=== PATIENT | female | born 1955 | race African-American/Black ===

== ENCOUNTER 2017-03-13 12:45 | Inpatient (IN) ==
[2017-03-13] MEDS ORDERED: ONDANSETRON 4 MG/2 ML VIAL IV STA (14:04)
[2017-03-13] MEDS ORDERED: methylPREDNISolone SOD SUC 125 MG/2 ML VIAL IV STA (14:04)
[2017-03-13] MEDS ORDERED: FUROSEMIDE 100 MG/10 ML VIAL IV STA (14:04)
--- NOTE | 2017-03-13 14:12 | Emergency Department Note ---
Rhett Gross Brittany, am scribing for, and in the presence of, Washington Hathaway MD 13:24. Rivas Gross Charles R, MD, personally performed the services described in this documentation, ascribed by Darshana Delaney in my presence, and it is both accurate and complete 412 . Arrival - Arrival Chief Complaint: Shortness of Breath Stated Complaint: SHORT WINDED,SWELLING OF LEGSV AND FEET ED Nursing Triage Note: c/o sob onset this am and swelling to bilateral legs onset sunday Mode of Arrival: Ambulatory Limitations: No Limitations Source: Patient, RN Notes Reviewed - History of Present Illness HPI Narrative: Patient is a 61 y/o black female presenting to the ED with c/o shortness of breath which onset this morning. Patient notes that shortness of breath is worsened upon lying flat or being in cool air. She has also had some bilateral lower extremity swelling that onset 2 days ago. Patient denies any prior history of CHF or COPD. Patient has an oxygen saturation of 96% on RA, but is slightly dyspneic while providing history. Patient has no other complaint/pain. PMHx of HTN, NIDDM, Dyslipidemia. Onset (ago): hour(s) Consistency: constant Date of Last Menstrual Period: hyst Allergies/Adverse Reactions: Allergies Allergy/AdvReac Type Severity Reaction Status Date / Time codeine Allergy Unknown/Unable Verified 03/13/17 12:55 to obtain Erythromycin Base Allergy Unknown/Unable Verified 03/13/17 12:55 to obtain mensen Allergy Unknown/Unable Uncoded 03/13/17 12:55 to obtain Home Medications: Home Medications Medication Instructions Recorded Confirmed Type Amitriptyline [Elavil] 25 mg PO BEDTIME 03/13/17 03/13/17 History Aspirin EC Tab 81 mg PO DAILY 03/13/17 03/13/17 History Atorvastatin Calcium 80 mg PO BEDTIME 03/13/17 03/13/17 History Baclofen Tab [Lioresal] 10 mg PO DAILY 03/13/17 03/13/17 History Docusate Sodium 100 mg PO DAILY 03/13/17 03/13/17 History Fosinopril Sodium 20 mg PO DAILY 03/13/17 03/13/17 History Insulin NPH Hum/Reg Insulin Hm 15 unit SUBCUT BEDTIME 03/13/17 03/13/17 History [NovoLIN 70/30] Insulin NPH Hum/Reg Insulin Hm 90 unit SUBCUT QAM 03/13/17 03/13/17 History [NovoLIN 70/30] Loratadine Tab [Claritin Tab] 10 mg PO DAILY 03/13/17 03/13/17 History Metformin HCl 850 mg PO TID 03/13/17 03/13/17 History PARoxetine HCl [Paroxetine HCl] 30 mg PO DAILY 03/13/17 03/13/17 History Pantoprazole Tab [Protonix Tab] 40 mg PO BID 03/13/17 03/13/17 History Ranitidine Tab [Zantac Tab] 150 mg PO DAILY 03/13/17 03/13/17 History Tramadol HCl [Tramadol Tab] 50 mg PO DAILY PRN 03/13/17 03/13/17 History hydroCHLOROthiazide 25 mg PO DAILY 03/13/17 03/13/17 History [Hydrochlorothiazide] Review of System - Review of System 12 point system: reviewed and no additional remarkable complaints except as stated - Review of System Constitutional: Absent: chills, fever Eyes: Absent: vision change Head/Ears/Nose/Throat: Absent: nasal drainage, sore throat Respiratory: Present: respiratory distress Cardiovascular: Absent: chest pain, palpitations Gastrointestinal: Absent: abdominal pain, nausea, vomiting, diarrhea, constipation Genitourinary female: Absent: dysuria, frequency, urgency Musculoskeletal: Absent: arm pain, back pain, leg pain, neck pain Skin: Absent: rash Neurological: Absent: headache Psychiatric: Absent: anxiety, depression Medical,Surgical,& Family Hx - Medical History Cardio: History of: Hypertension Endocrine: History of: Diabetes Mellitus (NIDDM), Dyslipidemia - Social History Smoking Status: Smoker, status unknown Frequency of Alcohol Use: None Type of Drug Use: None Exam Vital Signs: Vital Signs Temperature 98 F 03/13/17 14:46 Pulse Rate 81 03/13/17 15:23 Respiratory Rate 18 03/13/17 15:23 Blood Pressure 140/57 03/13/17 14:46 O2 Sat by Pulse Oximetry 100 03/13/17 15:23 - General General appearance: alert, in no apparent distress - Head Head exam: Present: atraumatic, normocephalic, normal inspection - Eye Eye exam: Present: normal appearance, PERRL, EOMI - ENT ENT exam: Present: normal exam, normal oropharynx - Neck Neck exam: Present: full ROM, trachea midline. Absent: normal inspection ( increased JVD) - Chest Chest inspection: Present: normal inspection, symmetric chest wall rise - Respiratory Respiratory exam: Present: rales (bilateral rales). Absent: normal lung sounds bilaterally - Cardiovascular Cardiovascular exam: Present: regular rate, normal rhythm, normal heart sounds - Abdominal Exam Abdominal exam: Present: soft, normal bowel sounds. Absent: tenderness - Extremities Exam Extremities exam: Present: pedal edema (+2 pitting edema to bilateral lower extremities) - Back Exam Back exam: Present: normal inspection - Neurological Exam Neurological exam: Present: alert, oriented X3, CN II-XII intact. Absent: motor sensory deficit - Psychiatric Psychiatric exam: Present: normal affect, normal mood - Skin Skin exam: Present: warm, dry Course - Consultations Consultation #1: Hospitalist will admit patient Time: 15:45 Results - Labs CBC & BMP: 03/13/17 14:26 03/13/17 14:26 Lab Results: I have reviewed the patients labs Labs: Laboratory Tests 03/13/17 14:26 WBC 5.2 RBC 3.26 L Hgb 10.4 L Hct 30.0 L MCV 92.0 MCH 32 MCHC 34.7 RDW 13.2 Plt Count 307 MPV 9.1 L Neut % (Auto) 69.8 Lymph % (Auto) 17.0 L Coke % (Auto) 10.3 Eos % (Auto) 1.7 Baso % (Auto) 0.6 Neut # (Auto) 3.7 Lymph # (Auto) 0.9 L Coke # (Auto) 0.5 Eos # (Auto) 0.1 Baso # (Auto) 0.0 Immature Gran % 0.6 Nucleated RBC % 0.0 Immature Gran # 0.03 Nucleated RBCs # 0.00 Laboratory Tests 03/13/17 03/13/17 14:26 14:26 INR 1.1 PT Patient/Control Mix 11.4 D-Dimer, Quantitative 0.7 Sodium 127 L Potassium 4.4 Chloride 93 L Carbon Dioxide 25 Anion Gap 13.4 BUN 18 Creatinine 1.40 H GFR Calculation 47 BUN/Creatinine Ratio 12.00 Glucose 161 H Calculated Osmolality 259.2 L Calcium 9.2 Magnesium 2.6 H Total Bilirubin 0.40 AST 45 H ALT 80 H Alkaline Phosphatase 114 Troponin I 0.027 Total Protein 7.3 Albumin 3.7 Globulin 3.6 H Albumin/Globulin Ratio 1.0 L Laboratory Tests 03/13/17 14:26 B-Natriuretic Peptide 1230 H - Diagnostic Findings Procedure: Chest x-ray: report reviewed by me (Interval increase in heart size, now enlarged. Possible left breast calcifications. ) Critical Care Time Critical Care Time: Yes (60) Disposition Clinical Impression: Congestive heart failure, Acute exacerbation of chronic obstructive airways disease Case discussed with: patient Disposition: Still a Patient Condition: Stable Time of Disposition: 15:45
[2017-03-13] MEDS ORDERED: ALBUTEROL 2.5 MG/3 ML NEB RESP TX SCH (14:30)
--- NOTE | 2017-03-13 14:32 | XRay Report ---
Portable chest. Indication: Shortness of breath. Comparison: March 24, 2013. The heart is enlarged. It has increased in size since the previous study. The pulmonary vasculature is normal. The lung peterson are free of infiltrate. No pneumothorax or pleural effusion. Linear densities over the left breast. This could be due to material in the superficial tissues of the axilla. However, breast calcifications cannot be excluded. Correlation with mammography recommended. Impression: Interval increase in heart size, now enlarged. Possible left breast calcifications, see above comments. PROCEDURE INTERPRETED AT [facility] DEPARTMENT OF RADIOLOGY Final Report Signed by: Dr. Ashly Mcdermott
[2017-03-13] MEDS ORDERED: ONDANSETRON 4 MG/2 ML VIAL ONE (14:33)
[2017-03-13] MEDS ORDERED: FUROSEMIDE 40 MG/4 ML VIAL ONE (14:33)
[2017-03-13 14:34] LABS: Basophils % 0.6 % (0.0-0.8); Eosinophils # 0.1 10*3/uL (0.0-0.87); Eosinophils % 1.7 % (0.00-10.9); Hemoglobin 10.4 GM/DL (12.0-16.0); Immature Granulocytes % 0.6 %; Immature Granulocytes Absolute 0.03 #; Lymphocytes # 0.9 10*3/uL (1.4-4.0); Mean Corpuscular HGB Conc 34.7 GM/DL (32-36); Mean Corpuscular Hemoglobin 32 PG (27-34); Mean Platelet Volume 9.1 FL (9.6-12.0); Monocytes # 0.5 10*3/uL (0.11-0.8); Monocytes % 10.3 % (1.7-12.7); Neutrophils # 3.7 10*3/uL (1.4-7.4); Neutrophils % 69.8 % (38.7-73.9); Platelet Count 307 T/CUMM (130-400); Red Blood Count 3.26 MC/CUMM (3.8-5.5); Red Cell Distribution Width 13.2 % (9.3-17.3); White Blood Count 5.2 T/CUMM (4-12)
[2017-03-13] MEDS ORDERED: FUROSEMIDE 20 MG/2 ML VIAL ONE (14:34)
[2017-03-13] MEDS ORDERED: methylPREDNISolone SOD SUC 125 MG/2 ML VIAL ONE (14:34)
[2017-03-13 14:46] LABS: D-Dimer 0.7 MG/L FEU; INR 1.1; PT Patient Result 11.4 SECS
[2017-03-13 15:01] LABS: Albumin 3.7 G/DL (3.4-5.0); Bilirubin,Total 0.4 MG/DL (0.2-1.0); Calcium 9.2 MG/DL (8.5-10.1); Magnesium 2.6 MG/DL (1.8-2.4); Osmolality,Calculated 259.2 MOS/KG (273-304); Potassium 4.4 MMOL/L (3.5-5.1); Total Protein 7.3 G/DL (6.4-8.3); Troponin I Only 0.027 NG/ML (0.00-0.045)
[2017-03-13] MEDS ORDERED: GLUCAGON 1 MG VIAL IM PRN (16:26)
[2017-03-13] MEDS ORDERED: DEXTROSE 50% 25 GM/50 ML VIAL IV PRN (16:26)
--- NOTE | 2017-03-13 16:29 | Hospitalist History & Physical ---
Assessment and Plan (1) Anemia Status: Acute Current Visit: Yes (2) Insulin dependent diabetes mellitus Status: Acute Current Visit: Yes (3) History of breast cancer Status: Acute Current Visit: Yes (4) Hypertension Status: Acute Current Visit: Yes (5) Congestive heart failure Status: Acute Assessment and plan: Our plan for this patient is admitting her to our service. Patient be placed on telemetry. Will consult [facility] cardiology. We will going to diurese with IV Lasix. Recheck chemistry in the morning. Check a 2D echo on the patient. Current Visit: Yes History of Present Illness Chief complaint: Shortness of breath and increased lower extremity edema History of present illness: Ms. Shelley is a 61 year old female with past medical history significant for hypertension diabetes includes cholesterol breast cancer who reports increased lower extremity edema that started approximately 2 days ago. She says recently that she has been having a dry hacking cough. She reports symptoms of 2 pillow orthopnea. She does have PND symptoms. She denies any history of prior congestive heart failure. Her O2 saturations are 96% on room air. I discussed her history with her daughter. Her daughter reports that increasingly patient' s been getting short of breath with exertion. The patient's been thinking that it was just because of her increased age for the symptoms. Patient found to be in new onset congestive heart failure I was consulted to admit her through the emergency room. Home Medications Medication Instructions Recorded Confirmed Type Amitriptyline [Elavil] 25 mg PO BEDTIME 03/13/17 03/13/17 History Aspirin EC Tab 81 mg PO DAILY 03/13/17 03/13/17 History Atorvastatin Calcium 80 mg PO BEDTIME 03/13/17 03/13/17 History Baclofen Tab [Lioresal] 10 mg PO DAILY 03/13/17 03/13/17 History Docusate Sodium 100 mg PO DAILY 03/13/17 03/13/17 History Fosinopril Sodium 20 mg PO DAILY 03/13/17 03/13/17 History Insulin NPH Hum/Reg Insulin Hm 15 unit SUBCUT BEDTIME 03/13/17 03/13/17 History [NovoLIN 70/30] Insulin NPH Hum/Reg Insulin Hm 90 unit SUBCUT QAM 03/13/17 03/13/17 History [NovoLIN 70/30] Loratadine Tab [Claritin Tab] 10 mg PO DAILY 03/13/17 03/13/17 History Metformin HCl 850 mg PO TID 03/13/17 03/13/17 History PARoxetine HCl [Paroxetine HCl] 30 mg PO DAILY 03/13/17 03/13/17 History Pantoprazole Tab [Protonix Tab] 40 mg PO BID 03/13/17 03/13/17 History Ranitidine Tab [Zantac Tab] 150 mg PO DAILY 03/13/17 03/13/17 History Tramadol HCl [Tramadol Tab] 50 mg PO DAILY PRN 03/13/17 03/13/17 History hydroCHLOROthiazide 25 mg PO DAILY 03/13/17 03/13/17 History [Hydrochlorothiazide] Allergies Allergy/AdvReac Type Severity Reaction Status Date / Time codeine Allergy Unknown/Unable Verified 03/13/17 12:55 to obtain Erythromycin Base Allergy Unknown/Unable Verified 03/13/17 12:55 to obtain mensen Allergy Unknown/Unable Uncoded 03/13/17 12:55 to obtain Medical,Surgical,& Family Hx - Medical History Cardio: History of: Hypertension Endocrine: History of: Diabetes Mellitus (IDDM), Dyslipidemia - Surgical History HEENT Surgeries: Surgical HX of: Tonsilectomy & Adenoidectomy Reproductive Surgeries: Surgical HX of;: Breast Surgery, Hysterectomy - Family History Family History: Reports;: Family Cancer, Family Diabetes, Family Hypertension - Social History Smoking Status: Current every day smoker Frequency of Alcohol Use: None Type of Drug Use: None 12 point system: reviewed and no additional remarkable complaints except as stated Exam - Constitutional Vitals: Period Temp Pulse Resp BP Sys/Gaitan Pulse Ox Last 24 Hr 98 F-98.3 F 79-89 18-21 139-155/57-75 95-100 - General General appearance: alert, in no apparent distress - Head Head exam: Present: atraumatic, normocephalic, normal inspection - Eye Eye exam: Present: normal appearance, PERRL, EOMI - ENT ENT exam: Present: normal exam, normal oropharynx - Neck Neck exam: Present: full ROM, trachea midline. - Chest Chest inspection: Present: normal inspection, symmetric chest wall rise - Respiratory Respiratory exam: Present: rales appreciated on lung exam - Cardiovascular Cardiovascular exam: Present: regular rate, normal rhythm, normal heart sounds - Abdominal Exam Abdominal exam: Present: soft, normal bowel sounds. - Extremities Exam Extremities exam: Present: pedal edema (+2 pitting edema to bilateral lower extremities) - Back Exam Back exam: Present: normal inspection - Neurological Exam Neurological exam: Present: alert, oriented X3, CN II-XII intact. Absent: motor sensory deficit - Psychiatric Psychiatric exam: Present: normal affect, normal mood - Skin Skin exam: Present: warm, dry Results - Labs CBC & BMP: 03/13/17 14:26 03/13/17 14:26
[2017-03-13] MEDS ORDERED: MAGNESIUM SULF RIDER 4 GM in PREMIX 1 EACH IV PRN (16:42)
[2017-03-13] MEDS ORDERED: ONDANSETRON 4 MG/2 ML VIAL IV PRN (16:42)
[2017-03-13] MEDS ORDERED: traMADol 50 MG TABLET PO PRN (16:42)
[2017-03-13] MEDS ORDERED: MAGNESIUM SULF RIDER 2 GM in PREMIX 1 EACH IV PRN (16:42)
[2017-03-13] MEDS: INSULIN REGULAR 100 UNIT/ML SUBCUT SCH ×2 (16:55→20:25)
[2017-03-13] MEDS: ASPIRIN CHEW 81 MG TABLET PO SCH (16:59)
[2017-03-13] MEDS: INSULIN NPH/REGULAR 70/30 100 UNIT/ML SUBCUT SCH (17:00)
[2017-03-13] MEDS: AMITRIPTYLINE 25 MG TABLET PO SCH (20:25)
[2017-03-13] MEDS: ATORVASTATIN 80 MG TABLET PO SCH (20:25)
[2017-03-13] MEDS: ENOXAPARIN 40 MG/0.4 ML SYRINGE SUBCUT SCH (20:25)
--- NOTE | 2017-03-14 02:57 | EKG Report ---
Stationary ECG Study [facility] ER Test Date: 03/13/2017 12:53:16 PM Pat Name: PERRY HARO Department: Room: 275 Gender: F Emt I/99: : 1955 Requested by: Washington Argueta Order Number: [id number] Reading MD: SRAVAN GUERIN Intervals Rudyard Rate: 87 P: 64 IA: 179 QRS: 31 QRSD: 97 T: 136 QT: 379 QTc: 423 Interpretive Statements SINUS RHYTHM LEFT ATRIAL ENLARGEMENT SEPTAL INFARCT, AGE UNDETERMINED Electronically Signed On 03-14-17 06:46:43 CDT by SRAVAN GUERIN [email or web address]
[2017-03-14 05:57] LABS: Basophils % 0.2 % (0.0-0.8); Hematocrit 26.9 VOL% (35.7-47.0); Hemoglobin 9.3 GM/DL (12.0-16.0); Immature Granulocytes % 0.6 %; Immature Granulocytes Absolute 0.04 #; Lymphocytes # 0.8 10*3/uL (1.4-4.0); Lymphocytes % 12.6 % (21.3-54.2); Mean Corpuscular HGB Conc 34.6 GM/DL (32-36); Mean Corpuscular Hemoglobin 32 PG (27-34); Mean Corpuscular Volume 91.2 FL (87-102); Mean Platelet Volume 9.4 FL (9.6-12.0); Monocytes # 0.5 10*3/uL (0.11-0.8); Monocytes % 7.2 % (1.7-12.7); Neutrophils # 5.1 10*3/uL (1.4-7.4); Neutrophils % 79.4 % (38.7-73.9); Platelet Count 297 T/CUMM (130-400); Red Blood Count 2.95 MC/CUMM (3.8-5.5); Red Cell Distribution Width 13.2 % (9.3-17.3); White Blood Count 6.4 T/CUMM (4-12)
[2017-03-14 06:29] LABS: Osmolality,Calculated 265.9 MOS/KG (273-304); Potassium 5.2 MMOL/L (3.5-5.1)
[2017-03-14 07:23] LABS: Troponin I Only 0.024 NG/ML (0.00-0.045)
--- NOTE | 2017-03-14 09:16 | ECHO Report ---
Palmira Shelley Exam Date: 03/14/2017 08:09 Referring Physician: Technologist: Brandy Duque RDCS Age: 61 Ht (in): 66 Wt (lb): 154 Gender: F Exam Location: [facility] Echo Indications: Anemia, IDDM, Shortness of breath, Orthopnea, hx Breast CA, Essential (primary) hypertension, Heart failure, unspecified, Edema, unspecified BP: 123 / 56 HR: 78 Rhythm: Sinus Technical Quality: IMPRESSIONS The left ventricle is normal in size, with mild concentric hypertrophy. The septum is severely hypokinetic, the remaining segments are moderately hypokinetic. Estimated left ventricular ejection fraction 20%. Grade 3 diastolic dysfunction. The right ventricle is normal in size, with decreased systolic function. Mild right atrial and moderate left atrial enlargement. Mild mitral regurgitation. Aortic valve sclerosis, without stenosis, with trace insufficiency. Mild pulmonary hypertension. Mild pulmonic valve insufficiency. MEASUREMENTS (Male / Female) Normal Values 2D ECHO LV Diastolic Diameter PLAX 5.0 cm 4.2 - 5.9 / 3.9 - 5.3 cm LV Systolic Diameter PLAX 3.7 cm LV Fractional Shortening PLAX 25.2 % IVS Diastolic Thickness 1.3 cm 0.6 - 1.0 / 0.6 - 0.9 cm LVPW Diastolic Thickness 1.3 cm 0.6 - 1.0 / 0.6 - 0.9 cm RV Internal Dim ED PLAX 3.5 cm Aortic Root Diameter 2.9 cm LA Systolic Diameter LX 4.5 cm 3.0 - 4.0 / 2.7 - 3.8 cm DOPPLER TR Peak Velocity 311.0 cm/s TR Peak Gradient 38.7 mmHg FINDINGS Left Ventricle The left ventricle is normal in size, with mild concentric hypertrophy. The septum is severely hypokinetic, the remaining segments are moderately hypokinetic. Estimated left ventricular ejection fraction 20%. Grade 3 diastolic dysfunction. Right Ventricle The right ventricle is normal in size, with decreased systolic function. Right Atrium The right atrium is mildly enlarged. Prominent Chiari network. Left Atrium Moderately increased left atrial size. Mitral Valve Morphologically normal mitral valve. Mild regurgitation. Aortic Valve Aortic valve sclerosis without stenosis. Trace aortic valve regurgitation. Tricuspid Valve Morphologically normal tricuspid valve. Moderate tricuspid valve regurgitation. Tricuspid regurgitation velocities suggest a PAP of 39 mmHg plus right atrial pressure. Pulmonic Valve Morphologically normal pulmonic valve. Mild pulmonary valve regurgitation. Pericardium Normal pericardium without effusion. Aorta Normal ascending aorta dimension. Anmol Luna (Electronically Signed) Final Date: 14 March 2017 09:15
[2017-03-14] MEDS: FAMOTIDINE 20 MG TABLET PO SCH (09:32)
[2017-03-14] MEDS: LORATADINE 10 MG TABLET PO SCH (09:32)
[2017-03-14] MEDS: ASPIRIN CHEW 81 MG TABLET PO SCH (09:32)
[2017-03-14] MEDS: PARoxetine 20 MG TABLET PO SCH (09:32)
[2017-03-14] MEDS: BACLOFEN 10 MG TABLET PO SCH (09:32)
[2017-03-14] MEDS: hydroCHLOROthiazide 25 MG TABLET PO SCH (09:33)
[2017-03-14] MEDS: FUROSEMIDE 40 MG/4 ML VIAL IV SCH ×2 (09:33→17:21)
[2017-03-14] MEDS: INSULIN NPH/REGULAR 70/30 100 UNIT/ML SUBCUT SCH ×2 (09:33→17:25)
[2017-03-14] MEDS: INSULIN REGULAR 100 UNIT/ML SUBCUT SCH ×4 (09:33→21:50)
[2017-03-14] MEDS: FOSINOPRIL 20 MG TABLET PO SCH (09:34)
[2017-03-14] MEDS: DOCUSATE SODIUM 100 MG CAPSULE PO SCH (09:34)
[2017-03-14] MEDS: PANTOPRAZOLE 40 MG TABLET PO SCH (09:35)
--- NOTE | 2017-03-14 09:56 | Cardiology Consult Note ---
Assessment and Plan - Time spent with patient Time spent with patient: Greater than 30 minutes (Due to assessment, plan, and documentation.) Time spent discussing smoking cessation with patient: 3 to 10 minutes (1) Cardiomyopathy Status: Acute Assessment and plan: See plan of care listed below. Current Visit: Yes Qualifiers: Cardiomyopathy type: unspecified Qualified Code(s): I42.9 - Cardiomyopathy , unspecified (2) Congestive heart failure Status: Acute Assessment and plan: See plan of care listed below. Current Visit: Yes Qualifiers: Congestive heart failure type: combined Congestive heart failure chronicity : acute Qualified Code(s): I50.41 - Acute combined systolic (congestive) and diastolic (congestive) heart failure (3) Anemia Status: Chronic Assessment and plan: See plan of care listed below. Current Visit: Yes (4) Hypertension Status: Chronic Assessment and plan: See plan of care listed below. Current Visit: Yes (5) Hyperlipidemia Status: Chronic Assessment and plan: See plan of care listed below. Current Visit: Yes (6) Insulin dependent diabetes mellitus Status: Chronic Assessment and plan: See plan of care listed below. Current Visit: Yes (7) Tobacco use Status: Chronic Assessment and plan: See plan of care listed below. 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 Luna Ms. 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 She has a history of hypertension, diabetes, hyperlipidemia, chronic anemia, breast cancer status post left mastectomy. Risk factors are significant for: Age, hypertension, diabetes, hyperlipidemia, tobacco use, sedentary lifestyle. She reports she has smoked half pack per day is 1977. She tells me that she has quit as of yesterday. She denies any alcohol or recreational drug use. Ms. Shelley presents to the emergency room complaining of shortness of breath, dry hacking cough, and increased bilateral lower extremity edema. She reports that she has been feeling short of breath and having a dry hacking cough for the past week. She tells me that she began having increased lower extremity edema on Sunday. She states prior to last week she has had no shortness of breath but had been easily fatigued over the past few months. She reports she is able to walk to the driveway to the mailbox without exertional chest pain or dyspnea but other times she gets there she is very fatigued. She denies any complaints of chest pain, heaviness, tightness, palpitations, dizziness, lightheadedness, syncope. She reports she has been anemic "off and on" for many years and takes iron supplements. Upon admission she was noted to have an elevated BNP, up to 1482 today. Chest x -ray revealed no pneumothorax or pleural effusion, cardiomegaly. She was given IV Lasix and is much improved today. Her EKG shows sinus rhythm with suggestions of septal infarct. Potassium is 5.2, creatinine 1.3, Hemoglobin A1c 7.4. She is hyponatremic with sodium 129 today. Assessment/Plan: 1. NEW ONSET CARDIOMYOPATHY - Unsure whether ischemic or nonischemic at this time. Echocardiogram done 03/13/2017 revealed mild LVH, severely hypokinetic septum, EF 20%, grade 3 diastolic dysfunction, mild right atrial and moderate left atrial enlargement, mild MR, mild pulmonary hypertension. She will require further ischemic evaluation; however, she does have anemia that we will need to evaluate prior to proceeding with cath. 2. CONGESTIVE HEART FAILURE - NHYA Class II. BNP 1482. She is on IV Lasix 40 mg twice daily, FLY inhibitor. We will start her on low-dose beta-yadira and continue to monitor. Clinically, she is stable at this time. 3. ANEMIA - We will check anemia studies and occult stool. 4. HYPERTENSION - Currently well controlled. We will continue to monitor and adjust accordingly. 5. HYPERLIPIDEMIA - Continue lipid-lowering agent. Check lipid panel in a.m. 6. DIABETES MELLITUS - She has been started on Accu-Cheks before meals and at bedtime with sliding scale insulin. Will hold metformin in anticipation of possible left heart catheterization. 7. TOBACCO USE - Chronic. Patient has smoked 1/2 PPD since 1977. She reports CC: Ankit Mirza, DO - Home Medications and Allergies Home Medications: Home Medications Medication Instructions Recorded Confirmed Type Amitriptyline [Elavil] 25 mg PO BEDTIME 03/13/17 03/13/17 History Aspirin EC Tab 81 mg PO BEDTIME 03/13/17 03/13/17 History Atorvastatin Calcium 80 mg PO BEDTIME 03/13/17 03/13/17 History Baclofen Tab [Lioresal] 10 mg PO DAILY 03/13/17 03/13/17 History Docusate Sodium 100 mg PO DAILY 03/13/17 03/13/17 History Fosinopril Sodium 20 mg PO DAILY 03/13/17 03/13/17 History Insulin NPH Hum/Reg Insulin Hm 15 unit SUBCUT BEDTIME 03/13/17 03/13/17 History [NovoLIN 70/30] Insulin NPH Hum/Reg Insulin Hm 90 unit SUBCUT QAM 03/13/17 03/13/17 History [NovoLIN 70/30] Loratadine Tab [Claritin Tab] 10 mg PO DAILY 03/13/17 03/13/17 History Metformin HCl 850 mg PO TID 03/13/17 03/13/17 History PARoxetine HCl [Paroxetine HCl] 30 mg PO DAILY 03/13/17 03/13/17 History Pantoprazole Tab [Protonix Tab] 40 mg PO BID 03/13/17 03/13/17 History Ranitidine Tab [Zantac Tab] 150 mg PO DAILY 03/13/17 03/13/17 History Tramadol HCl [Tramadol Tab] 50 mg PO DAILY PRN 03/13/17 03/13/17 History hydroCHLOROthiazide 25 mg PO DAILY 03/13/17 03/13/17 History [Hydrochlorothiazide] Allergies/Adverse Reactions: Allergies Allergy/AdvReac Type Severity Reaction Status Date / Time codeine Allergy Unknown/Unable Verified 03/13/17 12:55 to obtain Erythromycin Base Allergy Unknown/Unable Verified 03/13/17 12:55 to obtain mensen Allergy Unknown/Unable Uncoded 03/13/17 12:55 to obtain Review of systems: - Constitutional: Present: fatigue. As per HPI. Absent: anorexia, chills, daytime sleepiness, excessive sweating, fever(s), frequent falls, headache(s), increased appetite, lethargy, malaise, night sweats, stops breathing during sleep, weakness, weight gain, weight loss - EENT Eyes: Present: As per HPI. Absent: blurry vision, diplopia, loss of vision Ears: Present: As per HPI. Absent: decreased hearing, ear discharge, ear pain Nose, mouth and throat: Present: As per HPI. Absent: dysphagia, epistaxis, headache(s), hoarseness, lip swelling, nasal congestion, neck mass, neck pain, sinus pressure, sore throat, throat swelling, tongue swelling, vertigo - Cardiovascular: Present: dyspnea, dyspnea on exertion, edema, mild orthopnea, as per HPI. Absent: chest pain at rest, chest pain with activity, claudication , diaphoresis, radiating jaw, neck or arm pain, lightheadedness, palpitations, PND - Respiratory: Present: dyspnea, dyspnea on exertion, dry hacking cough, as per HPI. Absent: hemoptysis, wheezing, snoring, pain on inspiration - Gastrointestinal: Present: constipation, As per HPI. Absent: abdominal pain, bloating, change in bowel habits, diarrhea, heartburn, hematemesis, hematochezia , loose stools, melena, nausea, vomiting - Genitourinary: Present: As per HPI. Absent: difficulty urinating, dysuria, flank pain, hematuria, nocturia, urinary frequency, urinary incontinence - Musculoskeletal: Present: As per HPI. Absent: arthralgias, back pain, joint swelling, limited range of motion, muscle cramps, muscle weakness, myalgias - Neurological: Present: As per HPI. Absent: abnormal gait, abnormal speech, behavioral changes, confusion, convulsions, disequilibrium, dizziness, focal weakness, frequent falls, headache(s), memory loss, numbness, paresthesias, radicular pain, syncope, tremor(s) - Psychiatric: Present: As per HPI. Absent: anxiety, confusion, depression, panic attacks - Endocrine: Present: fatigue, As per HPI. Absent: cold intolerance, heat intolerance, polydipsia, polyphagia - Hematologic/Lymphatic: Present: As per HPI. Absent: easy bleeding, easy bruising, lymphadenopathy Medical,Surgical,& Family Hx - Medical History Cardio: History of: Hypertension Psychological: History of: Depression HEENT: Comment Only: Eye Problem (tear in right eye) Endocrine: History of: Diabetes Mellitus (IDDM), Diabetes Mellitus (NIDDM), Dyslipidemia, Thyroid Disorder (nodules) Respiratory: History of: Bronchitis Gastrointestinal: History of: GERD Musculoskeletal: History of: Back/Neck Problems, Degenerative Disk Disease, Osteoporosis Hematology: History of: Anemia Reproductive: History of: Breast Cancer (left with benign mass) Other: History of: Cancer - Surgical History Thoracic Surgeries: Patient denies;: Lobectomy HEENT Surgeries: Surgical HX of: Tonsilectomy & Adenoidectomy Abdominal Surgeries: Surgical HX of: Appendectomy Reproductive Surgeries: Surgical HX of;: Breast Surgery, Hysterectomy Patient denies;: Genitourinary Surgery Orthopedic Surgeries: Surgical HX of;: Orthopedic Surgery (left rotator cuff) - Family History Family History: Reports;: Family Cancer (mother, brother), Family Diabetes ( mother,brother,sister), Family Hypertension (mother, brother, father, sister) - Social History Smoking Status: Current every day smoker Frequency of Alcohol Use: None Type of Drug Use: None Marital Status: Lives With:: Spouse Functional capacity: independent ambulation Physical Examination Vital Signs Temp Pulse Resp BP Pulse Ox 98.3 F 89 18 139/60 95 03/13/17 12:55 03/13/17 12:55 03/13/17 12:55 03/13/17 12:55 03/13/17 12:55 Exam: General appearance: Pleasant and cooperative. Overweight, no acute distress. - Head Head exam: Present: normal inspection, normocephalic, atraumatic. Absent: hematoma, laceration - Eye Eye exam: Present: EOMI. Absent: conjunctival injection, nystagmus, periorbital swelling, scleral icterus, laceration to eyelids Pupils: Present: PERRL. Absent: constricted, dilated, fixed, irregular, unequal - ENT ENT exam: Present: normal exam, normal external ear exam - Neck Neck exam: Present: normal inspection. Absent: lymphadenopathy, meningismus, tenderness, thyromegaly - Respiratory Respiratory exam: Present: Scant bibasilar crackles posteriorly, otherwise clear to auscultation bilaterally. Absent: accessory muscle use, chest wall tenderness - Cardiovascular Cardiovascular exam: Present: regular rate and rhythm. Absent: carotid bruit, JVD, rubs, murmur - GI/Abdominal GI/Abdominal exam: Present: normal bowel sounds, soft. Absent: distended, firm , guarding, hernia, mass, tenderness, rebound. - Extremities Exam Extremities exam: Present: normal inspection, normal capillary refill. Upper extremity pulses 2+. Lower extremity pulses 2+. Trace right ankle edema. Absent: calf tenderness -Musculoskeletal Exam Musculoskeletal: Present: No Fluid Collection, No Pain, Normal Range of Motion - Back Exam Back exam: Present: normal inspection. Absent: muscle spasm, vertebral tenderness - Neurological Exam Neurological exam: Present: alert, oriented X3, grossly intact without resting or essential tremor - Psychiatric Psychiatric exam: Present: normal affect, normal mood - Skin Skin exam: Present: normal color, warm, dry, intact. Absent: cyanosis, diaphoretic, rash, urticaria Result/EKG - Labs CBC & BMP: 03/14/17 04:50 03/14/17 04:50 Lab Results: I have reviewed the past 24 hour labs Labs: Laboratory Results - last 24 hr 03/13/17 03/13/17 03/13/17 14:26 14:26 14:26 WBC 5.2 RBC 3.26 L Hgb 10.4 L Hct 30.0 L MCV 92.0 MCH 32 MCHC 34.7 RDW 13.2 Plt Count 307 MPV 9.1 L Neut % (Auto) 69.8 Lymph % (Auto) 17.0 L [place] % (Auto) 10.3 Eos % (Auto) 1.7 Baso % (Auto) 0.6 Neut # (Auto) 3.7 Lymph # (Auto) 0.9 L [place] # (Auto) 0.5 Eos # (Auto) 0.1 Baso # (Auto) 0.0 Immature Gran % 0.6 Nucleated RBC % 0.0 Immature Gran # 0.03 Nucleated RBCs # 0.00 INR 1.1 PT Patient/Control Mix 11.4 D-Dimer, Quantitative 0.7 Sodium 127 L Potassium 4.4 Chloride 93 L Carbon Dioxide 25 Anion Gap 13.4 BUN 18 Creatinine 1.40 H GFR Calculation 47 BUN/Creatinine Ratio 12.00 Glucose 161 H POC Glucose Hemoglobin A1c Calculated Osmolality 259.2 L Calcium 9.2 Magnesium 2.6 H Total Bilirubin 0.40 AST 45 H ALT 80 H Alkaline Phosphatase 114 Total Creatine Kinase CK-MB (CK-2) Troponin I 0.027 B-Natriuretic Peptide Total Protein 7.3 Albumin 3.7 Globulin 3.6 H Albumin/Globulin Ratio 1.0 L 03/13/17 03/13/17 03/13/17 14:26 16:51 20:07 WBC RBC Hgb Hct MCV MCH MCHC RDW Plt Count MPV Neut % (Auto) Lymph % (Auto) [place] % (Auto) Eos % (Auto) Baso % (Auto) Neut # (Auto) Lymph # (Auto) [place] # (Auto) Eos # (Auto) Baso # (Auto) Immature Gran % Nucleated RBC % Immature Gran # Nucleated RBCs # INR PT Patient/Control Mix D-Dimer, Quantitative Sodium Potassium Chloride Carbon Dioxide Anion Gap BUN Creatinine GFR Calculation BUN/Creatinine Ratio Glucose POC Glucose 185 H 339 H Hemoglobin A1c Calculated Osmolality Calcium Magnesium Total Bilirubin AST ALT Alkaline Phosphatase Total Creatine Kinase CK-MB (CK-2) Troponin I B-Natriuretic Peptide 1230 H Total Protein Albumin Globulin Albumin/Globulin Ratio 03/14/17 03/14/17 03/14/17 04:49 04:50 04:50 WBC 6.4 RBC 2.95 L Hgb 9.3 L Hct 26.9 L MCV 91.2 MCH 32 MCHC 34.6 RDW 13.2 Plt Count 297 MPV 9.4 L Neut % (Auto) 79.4 H Lymph % (Auto) 12.6 L [place] % (Auto) 7.2 Eos % (Auto) 0.0 Baso % (Auto) 0.2 Neut # (Auto) 5.1 Lymph # (Auto) 0.8 L [place]ison # (Auto) 0.5 Eos # (Auto) 0.0 Baso # (Auto) 0.0 Immature Gran % 0.6 Nucleated RBC % 0.0 Immature Gran # 0.04 Nucleated RBCs # 0.00 INR PT Patient/Control Mix D-Dimer, Quantitative Sodium 129 L Potassium 5.2 H Chloride 92 L Carbon Dioxide 29 Anion Gap 13.2 BUN 19 H Creatinine 1.30 H GFR Calculation 52 BUN/Creatinine Ratio 14.00 Glucose 199 H POC Glucose Hemoglobin A1c 7.4 H Calculated Osmolality 265.9 L Calcium 9.0 Magnesium Total Bilirubin AST ALT Alkaline Phosphatase Total Creatine Kinase CK-MB (CK-2) Troponin I B-Natriuretic Peptide Total Protein Albumin Globulin Albumin/Globulin Ratio 03/14/17 03/14/17 03/14/17 04:50 04:50 07:20 WBC RBC Hgb Hct MCV MCH MCHC RDW Plt Count MPV Neut % (Auto) Lymph % (Auto) [place]ison % (Auto) Eos % (Auto) Baso % (Auto) Neut # (Auto) Lymph # (Auto) [place] # (Auto) Eos # (Auto) Baso # (Auto) Immature Gran % Nucleated RBC % Immature Gran # Nucleated RBCs # INR PT Patient/Control Mix D-Dimer, Quantitative Sodium Potassium Chloride Carbon Dioxide Anion Gap BUN Creatinine GFR Calculation BUN/Creatinine Ratio Glucose POC Glucose 213 H Hemoglobin A1c Calculated Osmolality Calcium Magnesium Total Bilirubin AST ALT Alkaline Phosphatase Total Creatine Kinase 129 CK-MB (CK-2) 1.3 Troponin I 0.024 B-Natriuretic Peptide 1482 H Total Protein Albumin Globulin Albumin/Globulin Ratio - EKG EKG results: interpreted by me, sinus rhythm
[2017-03-14] MEDS: CARVEDILOL 3.125 MG TABLET PO SCH ×2 (10:29→17:25)
--- NOTE | 2017-03-14 15:59 | Hospitalist Progress Note ---
Assessment and Plan (1) Congestive heart failure Status: Chronic Assessment and plan: Improving, continue to diurese with IV Lasix. Radiology continuing fosinopril and have added Coreg. Current Visit: Yes Qualifiers: Congestive heart failure type: combined Congestive heart failure chronicity : acute Qualified Code(s): I50.41 - Acute combined systolic (congestive) and diastolic (congestive) heart failure (2) Insulin dependent diabetes mellitus Status: Chronic Assessment and plan: Fairly well controlled, to new Humulin 7030 at 90 units in the a.m. and 15 units at bedtime Current Visit: Yes (3) Hypertension Status: Chronic Assessment and plan: Well-controlled at present, continue current plan of care Current Visit: Yes (4) Cardiomyopathy Status: Chronic Assessment and plan: Cardiology investigating etiology and are checking TFTs, anemia panel and tox screen. Following improvement of volume overload cardiology would like to proceed with heart cath on March 16. Current Visit: Yes Qualifiers: Cardiomyopathy type: unspecified Qualified Code(s): I42.9 - Cardiomyopathy , unspecified Hospitalist: Subjective Interval history: Patient lying comfortably in bed, in no acute distress and no acute events overnight. Patient states she is doing better and has less shortness of breath since admission. Patient has newly diagnosed cardiomyopathy with volume overload and history of CHF. Her blood pressure remains well controlled, as her blood sugars have been running slightly high. The patient's sodium was low on admission and patient has had free water restriction and diuresis. Her diabetes is fairly well controlled with a hemoglobin A1c of 7.4. Patient denies nausea, vomiting, diarrhea, shortness of breath, chest pain or pain in her lower extremities. Exam - Constitutional Vitals: Period Temp Pulse Resp BP Sys/Gaitan Pulse Ox Last 24 Hr 96.8 F-98.2 F 70-84 16-20 118-151/56-71 92-99 General appearance: normal weight, no acute distress - Head Head exam: Present: normal inspection - Eye Eye exam: Present: EOMI Pupils: Present: BRIANNA - Respiratory Respiratory exam: Present: clear to auscultation bilaterally - Cardiovascular Cardiovascular exam: Present: regular rate and rhythm - GI/Abdominal GI/Abdominal exam: Present: normal bowel sounds, soft - Extremities Exam Extremities exam: Present: edema (Lower extremity edema) - Neurological Exam Neurological exam: Present: alert, oriented X3 - Psychiatric Psychiatric exam: Present: normal affect - Skin Skin exam: Present: normal color, warm Results - Labs CBC & BMP: 03/14/17 04:50 03/14/17 04:50 Lab Results: I have reviewed the past 24 hour labs
[2017-03-14] MEDS: ATORVASTATIN 80 MG TABLET PO SCH (21:48)
[2017-03-14] MEDS: AMITRIPTYLINE 25 MG TABLET PO SCH (21:48)
[2017-03-14] MEDS: ENOXAPARIN 40 MG/0.4 ML SYRINGE SUBCUT SCH (21:49)
[2017-03-15 04:31] LABS: Basophils % 0.6 % (0.0-0.8); Eosinophils # 0.1 10*3/uL (0.0-0.87); Eosinophils % 1.1 % (0.00-10.9); Hematocrit 28.9 VOL% (35.7-47.0); Immature Granulocytes % 0.5 %; Immature Granulocytes Absolute 0.03 #; Lymphocytes # 1.5 10*3/uL (1.4-4.0); Lymphocytes % 23.3 % (21.3-54.2); Mean Corpuscular HGB Conc 34.6 GM/DL (32-36); Mean Corpuscular Hemoglobin 31 PG (27-34); Mean Corpuscular Volume 90.3 FL (87-102); Monocytes # 0.6 10*3/uL (0.11-0.8); Monocytes % 9.5 % (1.7-12.7); Neutrophils # 4.3 10*3/uL (1.4-7.4); Platelet Count 345 T/CUMM (130-400); Red Cell Distribution Width 13.4 % (9.3-17.3); White Blood Count 6.6 T/CUMM (4-12)
[2017-03-15 05:06] LABS: Calcium 9.7 MG/DL (8.5-10.1); Magnesium 2.3 MG/DL (1.8-2.4); Osmolality,Calculated 263.7 MOS/KG (273-304); Potassium 4.1 MMOL/L (3.5-5.1)
[2017-03-15 05:09] LABS: Risk Ratio 2.54; VLDL CHOLESTEROL 16.2 MG/DL
[2017-03-15 05:11] LABS: Folate > 24.0 NG/ML (5.4-24.0); Vitamin B12 1110 PG/ML (211-911)
[2017-03-15 05:18] LABS: % Iron Saturation 13.2 % (18-50); Ferritin 58.8 ng/ml (8-252); Free T4 (Free Thyroxine) 1.14 NG/DL (0.76-1.46); Thyroid Stimulating Hormone 0.644 uIU/ml (0.358-3.74)
[2017-03-15] MEDS: INSULIN REGULAR 100 UNIT/ML SUBCUT SCH ×4 (07:43→22:00)
[2017-03-15] MEDS: INSULIN NPH/REGULAR 70/30 100 UNIT/ML SUBCUT SCH ×3 (07:44→17:11)
[2017-03-15] MEDS: BACLOFEN 10 MG TABLET PO SCH (08:11)
[2017-03-15] MEDS: ASPIRIN CHEW 81 MG TABLET PO SCH (08:11)
[2017-03-15] MEDS: hydroCHLOROthiazide 25 MG TABLET PO SCH (08:11)
[2017-03-15] MEDS: PANTOPRAZOLE 40 MG TABLET PO SCH (08:12)
[2017-03-15] MEDS: CARVEDILOL 3.125 MG TABLET PO SCH ×2 (08:12→16:15)
[2017-03-15] MEDS: LORATADINE 10 MG TABLET PO SCH (08:12)
[2017-03-15] MEDS: PARoxetine 20 MG TABLET PO SCH (08:12)
[2017-03-15] MEDS: FUROSEMIDE 40 MG/4 ML VIAL IV SCH ×2 (08:12→16:15)
[2017-03-15] MEDS: FAMOTIDINE 20 MG TABLET PO SCH (08:12)
[2017-03-15] MEDS: DOCUSATE SODIUM 100 MG CAPSULE PO SCH (08:12)
[2017-03-15] MEDS: FOSINOPRIL 20 MG TABLET PO SCH (08:31)
--- NOTE | 2017-03-15 10:23 | Cardiology Progress Note ---
Assessment and Plan (1) Congestive heart failure Status: Chronic Assessment and plan: 61-year-old black female, admitted with CHF, volume overload, newly diagnosed cardiomyopathy. Hypertension, hyperlipidemia, type 2 diabetes mellitus insulin , anemia. No ACS. CHF, volume overload improving with diuresis. -Continue diuresis with IV Lasix 40 mg bid. Hyponatremia improved. -Cont ASA/fosinopril. Added Coreg 3.125 mg bid -LDL 44. Decrease atorvastatin to 40 mg qhs -Workup etiology of cardiomyopathy. TFTs normal. Iron def anemia. Normal vit levels. Tox screen ordered. -Will need CMP/CAD evaluation. Plan for right/left heart cath on Sunday. -Keep on telemetry. -Monitor BMP/magnesium, while on IV diuretics. Current Visit: Yes Qualifiers: Congestive heart failure type: combined Congestive heart failure chronicity : acute Qualified Code(s): I50.41 - Acute combined systolic (congestive) and diastolic (congestive) heart failure (2) Acute exacerbation of chronic obstructive airways disease Status: Acute Current Visit: Yes (3) Anemia Status: Chronic Current Visit: Yes (4) Insulin dependent diabetes mellitus Status: Chronic Current Visit: Yes (5) History of breast cancer Status: Acute Current Visit: Yes (6) Hypertension Status: Chronic Current Visit: Yes (7) Cardiomyopathy Status: Chronic Current Visit: Yes Qualifiers: Cardiomyopathy type: unspecified Qualified Code(s): I42.9 - Cardiomyopathy , unspecified (8) Hyperlipidemia Status: Chronic Current Visit: Yes (9) Tobacco use Status: Chronic Current Visit: Yes Cardiology - PN: Subj Interval history: She is feeling better. The lower extremity swelling improved. Less short of breath. Blood pressure stable, no significant arrhythmia on telemetry. Exam (Progress Note) - Constitutional Vitals: Period Temp Pulse Resp BP Sys/Gaitan Pulse Ox Last 24 Hr 96.4 F-97.7 F 72-79 16-20 109-144/47-73 90-100 General appearance: normal weight, no acute distress - Head Head exam: Present: normal inspection, normocephalic - Eye Eye exam: Absent: conjunctival injection, scleral icterus Pupils: Absent: dilated - ENT ENT exam: Present: normal external ear exam - Neck Neck exam: Present: normal inspection - Respiratory Respiratory exam: Present: decreased breath sounds. Absent: accessory muscle use, wheezes - Cardiovascular Cardiovascular exam: Present: regular rate and rhythm, systolic murmur - GI/Abdominal GI/Abdominal exam: Present: normal bowel sounds. Absent: distended - Extremities Exam Extremities exam: Present: normal inspection, normal capillary refill. Absent: edema - Back Exam Back exam: Present: normal inspection - Neurological Exam Neurological exam: Present: alert, oriented X3 - Psychiatric Psychiatric exam: Present: normal affect, normal mood - Skin Skin exam: Present: normal color, warm. Absent: cyanosis Result/EKG - Labs CBC & BMP: 03/15/17 04:13 03/15/17 04:13 Lab Results: I have reviewed the past 24 hour labs Labs: Laboratory Results - last 24 hr 03/14/17 03/14/17 03/14/17 11:41 15:40 19:14 WBC RBC Hgb Hct MCV MCH MCHC RDW Plt Count MPV Neut % (Auto) Lymph % (Auto) [place] % (Auto) Eos % (Auto) Baso % (Auto) Neut # (Auto) Lymph # (Auto) [place] # (Auto) Eos # (Auto) Baso # (Auto) Immature Gran % Nucleated RBC % Immature Gran # Nucleated RBCs # Absolute Retic Percent Retic Retic Hgb Equivalent Sodium Potassium Chloride Carbon Dioxide Anion Gap BUN Creatinine GFR Calculation BUN/Creatinine Ratio Glucose POC Glucose 194 H 213 H 269 H Calculated Osmolality Calcium Magnesium Iron TIBC % Saturation Ferritin Triglycerides Cholesterol LDL Cholesterol VLDL Cholesterol HDL Cholesterol Heart Disease Risk Ratio Vitamin B12 Folate Free T4 TSH 3rd Generation 03/15/17 03/15/17 03/15/17 04:12 04:13 04:13 WBC RBC Hgb Hct MCV MCH MCHC RDW Plt Count MPV Neut % (Auto) Lymph % (Auto) [place] % (Auto) Eos % (Auto) Baso % (Auto) Neut # (Auto) Lymph # (Auto) [place] # (Auto) Eos # (Auto) Baso # (Auto) Immature Gran % Nucleated RBC % Immature Gran # Nucleated RBCs # Absolute Retic 0.1 Percent Retic 3.2 H Retic Hgb Equivalent 32.1 Sodium Potassium Chloride Carbon Dioxide Anion Gap BUN Creatinine GFR Calculation BUN/Creatinine Ratio Glucose POC Glucose Calculated Osmolality Calcium Magnesium Iron 47 L TIBC 357 % Saturation 13.2 L Ferritin 58.8 Triglycerides 81 Cholesterol 89 LDL Cholesterol 44.0 VLDL Cholesterol 16.2 HDL Cholesterol 35 L Heart Disease Risk Ratio 2.54 Vitamin B12 Folate Free T4 1.14 TSH 3rd Generation 0.644 03/15/17 03/15/17 03/15/17 04:13 04:13 04:13 WBC 6.6 RBC 3.20 L Hgb 10.0 L Hct 28.9 L MCV 90.3 MCH 31 MCHC 34.6 RDW 13.4 Plt Count 345 MPV 9.0 L Neut % (Auto) 65.0 Lymph % (Auto) 23.3 [place] % (Auto) 9.5 Eos % (Auto) 1.1 Baso % (Auto) 0.6 Neut # (Auto) 4.3 Lymph # (Auto) 1.5 [place] # (Auto) 0.6 Eos # (Auto) 0.1 Baso # (Auto) 0.0 Immature Gran % 0.5 Nucleated RBC % 0.0 Immature Gran # 0.03 Nucleated RBCs # 0.00 Absolute Retic Percent Retic Retic Hgb Equivalent Sodium 131 L Potassium 4.1 Chloride 92 L Carbon Dioxide 30 Anion Gap 13.1 BUN 22 H Creatinine 1.30 H GFR Calculation 52 BUN/Creatinine Ratio 16.00 Glucose 76 POC Glucose Calculated Osmolality 263.7 L Calcium 9.7 Magnesium 2.3 Iron TIBC % Saturation Ferritin Triglycerides Cholesterol LDL Cholesterol VLDL Cholesterol HDL Cholesterol Heart Disease Risk Ratio Vitamin B12 1110 H Folate > 24.0 H Free T4 TSH 3rd Generation 03/15/17 03/15/17 07:43 09:07 WBC RBC Hgb Hct MCV MCH MCHC RDW Plt Count MPV Neut % (Auto) Lymph % (Auto) [place] % (Auto) Eos % (Auto) Baso % (Auto) Neut # (Auto) Lymph # (Auto) [place] # (Auto) Eos # (Auto) Baso # (Auto) Immature Gran % Nucleated RBC % Immature Gran # Nucleated RBCs # Absolute Retic Percent Retic Retic Hgb Equivalent Sodium Potassium Chloride Carbon Dioxide Anion Gap BUN Creatinine GFR Calculation BUN/Creatinine Ratio Glucose POC Glucose 79 226 H Calculated Osmolality Calcium Magnesium Iron TIBC % Saturation Ferritin Triglycerides Cholesterol LDL Cholesterol VLDL Cholesterol HDL Cholesterol Heart Disease Risk Ratio Vitamin B12 Folate Free T4 TSH 3rd Generation - EKG EKG results: interpreted by me
--- NOTE | 2017-03-15 14:49 | Hospitalist Progress Note ---
Assessment and Plan (1) Congestive heart failure Status: Chronic Assessment and plan: Symptoms have improved. Continue with IV Lasix. BMP in a.m. Current Visit: Yes Qualifiers: Congestive heart failure type: combined Congestive heart failure chronicity : acute Qualified Code(s): I50.41 - Acute combined systolic (congestive) and diastolic (congestive) heart failure (2) Anemia Status: Chronic Current Visit: Yes (3) Insulin dependent diabetes mellitus Status: Chronic Current Visit: Yes (4) Hypertension Status: Chronic Current Visit: Yes (5) Cardiomyopathy Status: Chronic Current Visit: Yes Qualifiers: Cardiomyopathy type: unspecified Qualified Code(s): I42.9 - Cardiomyopathy , unspecified (6) Hyperlipidemia Status: Chronic Current Visit: Yes (7) Tobacco use Status: Chronic Assessment and plan: Continue to encourage patient with smoking cessation. Current Visit: Yes Hospitalist: Subjective Interval history: The patient is ambulating in the room resting comfortably. She states her breathing has improved. She is scheduled for a right and left heart cath on tomorrow. Serum sodium has improved. Exam - Constitutional Vitals: Period Temp Pulse Resp BP Sys/Gaitan Pulse Ox Last 24 Hr 96.4 F-97.6 F 72-79 16-18 109-144/47-73 90-100 General appearance: normal weight - Head Head exam: Present: normal inspection - Neck Neck exam: Present: normal inspection - Respiratory Respiratory exam: Present: clear to auscultation bilaterally - Cardiovascular Cardiovascular exam: Present: regular rate and rhythm - GI/Abdominal GI/Abdominal exam: Present: normal bowel sounds - Extremities Exam Extremities exam: Present: normal inspection, full ROM - Back Exam Back exam: Present: normal inspection - Neurological Exam Neurological exam: Present: alert, oriented X3, CN II-XII intact - Psychiatric Psychiatric exam: Present: normal affect - Skin Skin exam: Present: normal color Results - Labs CBC & BMP: 03/15/17 04:13 03/15/17 04:13
[2017-03-15] MEDS ORDERED: diphenhydrAMINE CAP 25 MG CAPSULE PO ONE (15:52)
--- NOTE | 2017-03-15 19:42 | History and Physical Update ---
Sedation H&P Update - History and Physical H&P was reviewed, the patient examined and there: are no changes in the patients condition since last H&P was completed. - Dictation Physical: refer to H&P completed by admitting physician - Physical Exam Mental Status: alert and oriented Heart: regular rate and rhythm Lung: clear to auscultation Abdomen: within normal limits Vitals: within normal limits - Sedation Plan for Sedation: minimal Patient Consent: Procedure disscussed with patient and patinet has consented., Risks and benefits were discussed with patient,including infection,, bleeding, injury to surrounding structures, seizure, temporary nerve, Patient understands and accepts potential risks/benefits and agrees to, proceed. (Left heart cath and possible PTCA or stent were discussed with the patient. The risk of the procedure include but are not limited to a small risk of injury to the vessel, abnormal heart rhythm, stroke, heart attack, need for emergent surgery, contrast reaction, restenosis, or . The patient voices understanding, agrees with the plan, and desires to proceed with the heart catheterization.) ASA Class: II Airway Assessment: Class II: Soft palate, uvula, fauces visible
[2017-03-15] MEDS ORDERED: ASPIRIN CHEW 81 MG TABLET PO ONE (19:43)
[2017-03-15] MEDS: AMITRIPTYLINE 25 MG TABLET PO SCH (21:59)
[2017-03-15] MEDS: ATORVASTATIN 40 MG TABLET PO SCH (21:59)
[2017-03-15] MEDS: ENOXAPARIN 40 MG/0.4 ML SYRINGE SUBCUT SCH (22:00)
[2017-03-16 04:56] LABS: Basophils # 0.1 10*3/uL (0.0-0.2); Basophils % 1.3 % (0.0-0.8); Eosinophils # 0.1 10*3/uL (0.0-0.87); Eosinophils % 2.1 % (0.00-10.9); Hematocrit 32.3 VOL% (35.7-47.0); Hemoglobin 11.1 GM/DL (12.0-16.0); Immature Granulocytes % 0.5 %; Immature Granulocytes Absolute 0.03 #; Lymphocytes # 1.6 10*3/uL (1.4-4.0); Lymphocytes % 24.6 % (21.3-54.2); Mean Corpuscular HGB Conc 34.4 GM/DL (32-36); Mean Corpuscular Hemoglobin 31 PG (27-34); Mean Corpuscular Volume 89.7 FL (87-102); Mean Platelet Volume 9.2 FL (9.6-12.0); Monocytes # 0.7 10*3/uL (0.11-0.8); Monocytes % 11.6 % (1.7-12.7); Neutrophils # 3.8 10*3/uL (1.4-7.4); Neutrophils % 59.9 % (38.7-73.9); Platelet Count 402 T/CUMM (130-400); Red Cell Distribution Width 13.3 % (9.3-17.3); White Blood Count 6.3 T/CUMM (4-12)
[2017-03-16 05:26] LABS: Calcium 9.5 MG/DL (8.5-10.1); Magnesium 2.1 MG/DL (1.8-2.4); Osmolality,Calculated 268.4 MOS/KG (273-304)
[2017-03-16 05:28] LABS: Calcium 9.6 MG/DL (8.5-10.1); Osmolality,Calculated 270.2 MOS/KG (273-304)
[2017-03-16] MEDS ORDERED: SODIUM CHLORIDE 0.9% 1,000 ML IV SCH ×2 (06:00→10:42)
[2017-03-16] MEDS ORDERED: DIAZEPAM 5 MG TABLET PO ONE (07:00)
[2017-03-16] MEDS ORDERED: LIDOCAINE 1% 20 ML VIAL ONE (07:09)
[2017-03-16] MEDS ORDERED: HEPARIN 5,000 UNIT/1 ML VIAL ONE (07:10)
[2017-03-16] MEDS ORDERED: MEPERIDINE 25 MG/1 ML VIAL ONE (07:10)
[2017-03-16] MEDS ORDERED: MIDAZOLAM 2 MG/2 ML VIAL ONE (07:10)
[2017-03-16] MEDS ORDERED: diphenhydrAMINE CAP 50 MG CAPSULE ONE (07:47)
[2017-03-16] MEDS: ASPIRIN CHEW 81 MG TABLET PO SCH ×2 (07:50→09:42)
[2017-03-16] MEDS: CARVEDILOL 3.125 MG TABLET PO SCH ×2 (07:51→17:04)
[2017-03-16] MEDS: INSULIN REGULAR 100 UNIT/ML SUBCUT SCH ×4 (07:51→21:06)
[2017-03-16] MEDS: INSULIN NPH/REGULAR 70/30 100 UNIT/ML SUBCUT SCH ×2 (08:22→17:04)
[2017-03-16] MEDS: LORATADINE 10 MG TABLET PO SCH (09:42)
[2017-03-16] MEDS: PANTOPRAZOLE 40 MG TABLET PO SCH (09:43)
[2017-03-16] MEDS: DOCUSATE SODIUM 100 MG CAPSULE PO SCH (09:43)
[2017-03-16] MEDS: hydroCHLOROthiazide 25 MG TABLET PO SCH (09:43)
[2017-03-16] MEDS: PARoxetine 20 MG TABLET PO SCH (09:43)
[2017-03-16] MEDS: FAMOTIDINE 20 MG TABLET PO SCH (09:43)
[2017-03-16] MEDS: BACLOFEN 10 MG TABLET PO SCH (09:43)
--- NOTE | 2017-03-16 10:52 | Cardiology Operative Report ---
Date of Procedure:: 03/16/17 Post-op diagnosis: same (Patient with cardiomyopathy and signs / symptoms which raise a question of CAD. She is referred for diagnostic catheterization and possible intervention.) Procedure: Date of procedure: 03/16/17 Procedure Preformed: Left heart cath Coronary angiography Left ventriculography Angiogram of the right femoral artery Right heart cath Thermodilution cardiac outputs Angio-Seal of the right femoral artery-successful Surgeon / Physician: Raymond Ragland Pourer Bull Ladle: Clemencia You Post-op diagnosis: same (Patient with cardiomyopathy and signs / symptoms which raise a question of CAD. She is referred for diagnostic catheterization and possible intervention.) procedure: Right heart catheterization was performed by entering the right femoral vein using a Seldinger technique. I then placed a 7.5 [place] thermal dilution catheter in the pulmonary artery. O2 sats were obtained at that site and in the SVC . I then did thermodilution cardiac outputs. I then did a right heart pullback, measuring the pressures to the right heart. I then entered the right femoral artery via the Seldinger technique. I used a sheath and then used a JL4 and engaged left coronary. Multiple views were taken. I then exchanged for a JR4. Multiple views of the right coronary were taken. I then exchanged for an angled pigtail. I crossed the valve. Left ventricular end-diastolic pressures measured. Left ventriculography was done. Left ventricle pullback was done. The catheters were then removed from the patient. Angiogram of the right femoral artery was done either from the follow- through from the LV gram or a separate injection in the right femoral artery. Angio-Seal was done and it was successful. Please see the cath data sheets for the details of catheters used. Complications: None Hemodynamic data: LVEDP was 35 mmHg. Angiographic data: The left main coronary was large and had a 50% long tubular narrowing. It may be slightly more. The left anterior descending artery was large and had minimal luminal irregularities The left circumflex system was moderate to large and had minimal luminal irregularities The right coronary artery was large in size, dominant vessel with the PDA. It was totally occluded proximally. CASIANO left ventriculography revealed severe global left ventricle systolic dysfunction. Overall ejection fraction about 50%. There is 2-3+ LV enlargement. There was mild, 1+, mitral regurgitation. Angiogram of the right femoral artery revealed the puncture site to be in a large vessel, above the bifurcation. It was suitable for Angio-Seal. Impression: Severe cardiomyopathy, LVEF around 15% Severe LV enlargement Moderate elevation right heart pressures--PA pressure about 55-60/24, PCW 24, RA pressure is about 15 mmHg Occluded right coronary Angiographically about a 50% tubular narrowing of the left main--however there was some dampening of pressure when I engaged the left main Severe elevation of LVEDP, 35 mmHg Angiogram of the right femoral artery-from follow-through on the LV gram Supravalvar aortography-no significant aortic regurgitation, no right coronary was seen to come from the right coronary cusp Mild mitral regurgitation Angio-Seal of the right femoral artery-successful Plan/recommendations: The patient will have risk factors optimized. I will consult our surgeon, Dr. Bubba Barrera, guarding his opinion of the 50% tubular left main lesion. There was a slight amount of dampening but the catheter was not optimally coaxial as it could be. There was some reflux with injection of the left main. Consideration of bypass grafting by Dr. Barrera and Dr. Luna will be made. Addenda: I saw the patient post-cath. the groin puncture site and distal pulse are stable. vital signs are stable and the patient will be observed closely overnight. Specimens: none sent Estimated blood loss: minimal Condition: stable Anesthesia: local, conscious sedation Disposition: floor Additional CC's: Anmol Barrera Anesthesia: local, minimal conscious sedation Surgeon / Physician: Raymond Ragland Pourer Bull Ladle: other Estimated blood loss: minimal Specimens: none sent Condition: stable Disposition: floor
--- NOTE | 2017-03-16 14:19 | Cardiology Progress Note ---
Assessment and Plan (1) Congestive heart failure Status: Chronic Assessment and plan: 61-year-old black female, admitted with CHF, volume overload, newly diagnosed cardiomyopathy. Hypertension, hyperlipidemia, type 2 diabetes mellitus insulin , anemia. No ACS. CHF, volume overload improving with diuresis. 03/16 LHC/RHC. -Severe ICM. Clinically improved, but still has high filling pressures and pulmonary hypertension. Will continue diuresis. -Await CTS input. Likely will need CABG. -Cont ASA/fosinopril. Added Coreg 3.125 mg bid -LDL 44. Decreased atorvastatin to 40 mg qhs -TFTs were normal. Mild iron def anemia. Normal vit levels. -Keep on telemetry. -Monitor BMP/magnesium, while on IV diuretics. Current Visit: Yes Qualifiers: Congestive heart failure type: combined Congestive heart failure chronicity : acute Qualified Code(s): I50.41 - Acute combined systolic (congestive) and diastolic (congestive) heart failure (2) Acute exacerbation of chronic obstructive airways disease Status: Acute Current Visit: Yes (3) Anemia Status: Chronic Current Visit: Yes (4) Insulin dependent diabetes mellitus Status: Chronic Current Visit: Yes (5) History of breast cancer Status: Acute Current Visit: Yes (6) Hypertension Status: Chronic Current Visit: Yes (7) Cardiomyopathy Status: Chronic Current Visit: Yes Qualifiers: Cardiomyopathy type: unspecified Qualified Code(s): I42.9 - Cardiomyopathy , unspecified (8) Hyperlipidemia Status: Chronic Current Visit: Yes (9) Tobacco use Status: Chronic Current Visit: Yes Cardiology - PN: Subj Interval history: Findings reviewed. Severe cardiomyopathy LVEF 15%, moderate pulmonary hypertension, lvEDP 35, proximal RCA occlusion, 50% left main stenosis. No groin hematoma or bruit. Exam (Progress Note) - Constitutional Vitals: Period Temp Pulse Resp BP Sys/Gaitan Pulse Ox Last 24 Hr 96.7 F-98.3 F 69-83 14-22 118-140/43-75 90-100 General appearance: normal weight, no acute distress - Head Head exam: Present: normal inspection, normocephalic - Eye Eye exam: Absent: conjunctival injection, scleral icterus Pupils: Absent: dilated - ENT ENT exam: Present: normal external ear exam - Neck Neck exam: Present: normal inspection - Respiratory Respiratory exam: Present: clear to auscultation bilaterally, prolonged expiratory phase. Absent: rhonchi - Cardiovascular Cardiovascular exam: Present: regular rate and rhythm, systolic murmur. Absent : JVD - GI/Abdominal GI/Abdominal exam: Present: normal bowel sounds. Absent: distended - Extremities Exam Extremities exam: Present: normal inspection, normal capillary refill. Absent: edema - Back Exam Back exam: Present: normal inspection - Neurological Exam Neurological exam: Present: alert, oriented X3 - Psychiatric Psychiatric exam: Present: normal affect, normal mood - Skin Skin exam: Present: normal color, warm. Absent: cyanosis Result/EKG - Labs CBC & BMP: 03/16/17 04:09 03/16/17 04:09 Lab Results: I have reviewed the past 24 hour labs Labs: Laboratory Results - last 24 hr 03/15/17 03/15/17 03/15/17 04:13 15:28 19:16 WBC RBC Hgb Hct MCV MCH MCHC RDW Plt Count MPV Neut % (Auto) Lymph % (Auto) [place] % (Auto) Eos % (Auto) Baso % (Auto) Neut # (Auto) Lymph # (Auto) [place] # (Auto) Eos # (Auto) Baso # (Auto) Immature Gran % Nucleated RBC % Immature Gran # Nucleated RBCs # Sodium Potassium Chloride Carbon Dioxide Anion Gap BUN Creatinine GFR Calculation BUN/Creatinine Ratio Glucose POC Glucose 84 316 H Calculated Osmolality Calcium Magnesium Transferrin 296 03/16/17 03/16/17 03/16/17 00:33 04:09 04:09 WBC 6.3 RBC 3.60 L Hgb 11.1 L Hct 32.3 L MCV 89.7 MCH 31 MCHC 34.4 RDW 13.3 Plt Count 402 H MPV 9.2 L Neut % (Auto) 59.9 Lymph % (Auto) 24.6 [place] % (Auto) 11.6 Eos % (Auto) 2.1 Baso % (Auto) 1.3 H Neut # (Auto) 3.8 Lymph # (Auto) 1.6 [place] # (Auto) 0.7 Eos # (Auto) 0.1 Baso # (Auto) 0.1 Immature Gran % 0.5 Nucleated RBC % 0.0 Immature Gran # 0.03 Nucleated RBCs # 0.00 Sodium 133 L Potassium 4.0 Chloride 94 L Carbon Dioxide 32 Anion Gap 11.0 BUN 24 H Creatinine 1.40 H GFR Calculation 47 BUN/Creatinine Ratio 17.00 Glucose 85 POC Glucose 275 H Calculated Osmolality 268.4 L Calcium 9.5 Magnesium 2.1 Transferrin 03/16/17 03/16/17 03/16/17 04:09 06:58 08:28 WBC RBC Hgb Hct MCV MCH MCHC RDW Plt Count MPV Neut % (Auto) Lymph % (Auto) [place] % (Auto) Eos % (Auto) Baso % (Auto) Neut # (Auto) Lymph # (Auto) [place] # (Auto) Eos # (Auto) Baso # (Auto) Immature Gran % Nucleated RBC % Immature Gran # Nucleated RBCs # Sodium 134 L Potassium 4.0 Chloride 94 L Carbon Dioxide 31 Anion Gap 13.0 BUN 24 H Creatinine 1.40 H GFR Calculation 47 BUN/Creatinine Ratio 17.00 Glucose 84 POC Glucose 69 L 280 H Calculated Osmolality 270.2 L Calcium 9.6 Magnesium Transferrin 03/16/17 12:25 WBC RBC Hgb Hct MCV MCH MCHC RDW Plt Count MPV Neut % (Auto) Lymph % (Auto) [place] % (Auto) Eos % (Auto) Baso % (Auto) Neut # (Auto) Lymph # (Auto) [place] # (Auto) Eos # (Auto) Baso # (Auto) Immature Gran % Nucleated RBC % Immature Gran # Nucleated RBCs # Sodium Potassium Chloride Carbon Dioxide Anion Gap BUN Creatinine GFR Calculation BUN/Creatinine Ratio Glucose POC Glucose 147 H Calculated Osmolality Calcium Magnesium Transferrin Quality Measures - VTE Contraindication to Pharmacological VTE Prophylaxis: High Risk of Bleeding Specialty Discharge - Follow Up or Referrals
--- NOTE | 2017-03-16 16:58 | Hospitalist Progress Note ---
Assessment and Plan (1) Congestive heart failure Status: Chronic Assessment and plan: Severe cardiomyopathy with EF of 15%. Continue with IV Lasix. BMP in a.m. Current Visit: Yes Qualifiers: Congestive heart failure type: combined Congestive heart failure chronicity : acute Qualified Code(s): I50.41 - Acute combined systolic (congestive) and diastolic (congestive) heart failure (2) Anemia Status: Chronic Current Visit: Yes (3) Insulin dependent diabetes mellitus Status: Chronic Current Visit: Yes (4) Hypertension Status: Chronic Current Visit: Yes (5) Cardiomyopathy Status: Chronic Current Visit: Yes Qualifiers: Cardiomyopathy type: unspecified Qualified Code(s): I42.9 - Cardiomyopathy , unspecified (6) Hyperlipidemia Status: Chronic Current Visit: Yes (7) Tobacco use Status: Chronic Assessment and plan: Continue to encourage patient with smoking cessation. Current Visit: Yes Hospitalist: Subjective Interval history: Patient is now status post heart catheterization that showed severe ischemic cardiomyopathy with an EF approximately 15%. Moreover there is evidence of coronary artery disease with occlusion of the right coronary artery. Referral has been made to surgery regarding coronary artery disease. Patient is resting comfortably. No chest pain at this time. Exam - Constitutional Vitals: Period Temp Pulse Resp BP Sys/Gaitan Pulse Ox Last 24 Hr 96.7 F-98.3 F 69-83 14-22 118-140/43-80 90-100 General appearance: normal weight - Head Head exam: Present: normal inspection - Eye Eye exam: Present: EOMI - Neck Neck exam: Present: normal inspection - Respiratory Respiratory exam: Present: clear to auscultation bilaterally - Cardiovascular Cardiovascular exam: Present: regular rate and rhythm - GI/Abdominal GI/Abdominal exam: Present: normal bowel sounds - Extremities Exam Extremities exam: Present: normal inspection - Neurological Exam Neurological exam: Present: alert, oriented X3, CN II-XII intact - Psychiatric Psychiatric exam: Present: normal affect - Skin Skin exam: Present: normal color, warm Results - Labs CBC & BMP: 03/16/17 04:09 03/16/17 04:09 Quality Measures - VTE Contraindication to Pharmacological VTE Prophylaxis: High Risk of Bleeding Specialty Discharge - Follow Up or Referrals
[2017-03-16] MEDS: FUROSEMIDE 40 MG/4 ML VIAL IV SCH (17:03)
[2017-03-16] MEDS: ATORVASTATIN 40 MG TABLET PO SCH (21:06)
[2017-03-16] MEDS: AMITRIPTYLINE 25 MG TABLET PO SCH (21:06)
[2017-03-17 05:49] LABS: Basophils # 0.1 10*3/uL (0.0-0.2); Basophils % 1.1 % (0.0-0.8); Eosinophils # 0.2 10*3/uL (0.0-0.87); Hematocrit 35.6 VOL% (35.7-47.0); Hemoglobin 12.4 GM/DL (12.0-16.0); Immature Granulocytes % 0.6 %; Immature Granulocytes Absolute 0.03 #; Lymphocytes # 0.9 10*3/uL (1.4-4.0); Lymphocytes % 16.9 % (21.3-54.2); Mean Corpuscular HGB Conc 34.8 GM/DL (32-36); Mean Corpuscular Hemoglobin 31 PG (27-34); Mean Corpuscular Volume 90.1 FL (87-102); Mean Platelet Volume 8.8 FL (9.6-12.0); Monocytes # 0.6 10*3/uL (0.11-0.8); Neutrophils # 3.5 10*3/uL (1.4-7.4); Neutrophils % 66.4 % (38.7-73.9); Platelet Count 387 T/CUMM (130-400); Red Blood Count 3.95 MC/CUMM (3.8-5.5); Red Cell Distribution Width 13.3 % (9.3-17.3); White Blood Count 5.3 T/CUMM (4-12)
[2017-03-17 06:28] LABS: Calcium 9.4 MG/DL (8.5-10.1); Magnesium 2.1 MG/DL (1.8-2.4); Osmolality,Calculated 271.1 MOS/KG (273-304); Potassium 4.1 MMOL/L (3.5-5.1)
[2017-03-17] MEDS: INSULIN REGULAR 100 UNIT/ML SUBCUT SCH ×4 (09:09→23:33)
[2017-03-17] MEDS: DOCUSATE SODIUM 100 MG CAPSULE PO SCH (09:13)
[2017-03-17] MEDS: PARoxetine 20 MG TABLET PO SCH (09:13)
[2017-03-17] MEDS: FOSINOPRIL 20 MG TABLET PO SCH (09:13)
[2017-03-17] MEDS: hydroCHLOROthiazide 25 MG TABLET PO SCH (09:13)
[2017-03-17] MEDS: BACLOFEN 10 MG TABLET PO SCH (09:13)
[2017-03-17] MEDS: FAMOTIDINE 20 MG TABLET PO SCH (09:13)
[2017-03-17] MEDS: ASPIRIN CHEW 81 MG TABLET PO SCH (09:13)
[2017-03-17] MEDS: CARVEDILOL 3.125 MG TABLET PO SCH ×2 (09:14→16:51)
[2017-03-17] MEDS: PANTOPRAZOLE 40 MG TABLET PO SCH (09:14)
[2017-03-17] MEDS: FUROSEMIDE 40 MG/4 ML VIAL IV SCH ×2 (09:14→16:35)
[2017-03-17] MEDS: INSULIN NPH/REGULAR 70/30 100 UNIT/ML SUBCUT SCH ×2 (09:14→16:54)
[2017-03-17] MEDS: LORATADINE 10 MG TABLET PO SCH (09:14)
--- NOTE | 2017-03-17 09:23 | Cardiothoracic Progress Note ---
Cardiothoracic Subjective Interval history: Patient is a 61-year-old lady who has recent onset symptoms of congestive heart failure. She apparently was in her usual state of health up until only a couple of weeks ago and had been working on a daily basis. She began to notice that she had edema of her lower extremities and also began to develop some orthopnea. She presented to the emergency room where a diagnosis of congestive heart failure was made she was admitted to the hospital were she has been diuresed and has had significant improvement in her symptoms. Echocardiogram shows evidence of a cardiomyopathy with an ejection fraction measured at 15%. Cardiac catheterization shows occlusion of the right coronary artery which appears chronic and 50-70% left main coronary occlusion. Question obviously is whether her heart failure is related to or caused by the left main coronary stenosis. I think that there is reason to believe that it is at least contributing to her symptomatology and that she would benefit from coronary bypass surgery. I discussed this at length with her and she is reflecting. I would think that we should continue medical therapy for at least 3 or 4 more days if she elects to have surgery and then proceed some time middle of next week. Exam (Progress Note) - Constitutional Vitals: Period Temp Pulse Resp BP Sys/Gaitan Pulse Ox Last 24 Hr 96.7 F-97.7 F 75-87 16-22 120-147/61-81 90-100 Result/EKG - Labs CBC & BMP: 03/17/17 05:29 03/17/17 05:29 Labs: Laboratory Results - last 24 hr 03/15/17 03/16/17 03/16/17 04:13 12:25 15:32 WBC RBC Hgb Hct MCV MCH MCHC RDW Plt Count MPV Neut % (Auto) Lymph % (Auto) [place] % (Auto) Eos % (Auto) Baso % (Auto) Neut # (Auto) Lymph # (Auto) [place] # (Auto) Eos # (Auto) Baso # (Auto) Immature Gran % Nucleated RBC % Immature Gran # Nucleated RBCs # Sodium Potassium Chloride Carbon Dioxide Anion Gap BUN Creatinine GFR Calculation BUN/Creatinine Ratio Glucose POC Glucose 147 H 185 H Calculated Osmolality Calcium Magnesium Transferrin 296 03/16/17 03/17/17 03/17/17 20:28 05:29 05:29 WBC 5.3 RBC 3.95 Hgb 12.4 Hct 35.6 L MCV 90.1 MCH 31 MCHC 34.8 RDW 13.3 Plt Count 387 MPV 8.8 L Neut % (Auto) 66.4 Lymph % (Auto) 16.9 L [place] % (Auto) 12.0 Eos % (Auto) 3.0 Baso % (Auto) 1.1 H Neut # (Auto) 3.5 Lymph # (Auto) 0.9 L [place] # (Auto) 0.6 Eos # (Auto) 0.2 Baso # (Auto) 0.1 Immature Gran % 0.6 Nucleated RBC % 0.0 Immature Gran # 0.03 Nucleated RBCs # 0.00 Sodium 135 L Potassium 4.1 Chloride 98 Carbon Dioxide 28 Anion Gap 13.1 BUN 19 H Creatinine 1.20 H GFR Calculation 57 BUN/Creatinine Ratio 15.00 Glucose 105 POC Glucose 258 H Calculated Osmolality 271.1 L Calcium 9.4 Magnesium 2.1 Transferrin 03/17/17 08:04 WBC RBC Hgb Hct MCV MCH MCHC RDW Plt Count MPV Neut % (Auto) Lymph % (Auto) [place] % (Auto) Eos % (Auto) Baso % (Auto) Neut # (Auto) Lymph # (Auto) [place] # (Auto) Eos # (Auto) Baso # (Auto) Immature Gran % Nucleated RBC % Immature Gran # Nucleated RBCs # Sodium Potassium Chloride Carbon Dioxide Anion Gap BUN Creatinine GFR Calculation BUN/Creatinine Ratio Glucose POC Glucose 149 H Calculated Osmolality Calcium Magnesium Transferrin Quality Measures - VTE Contraindication to Pharmacological VTE Prophylaxis: High Risk of Bleeding Specialty Discharge - Follow Up or Referrals
--- NOTE | 2017-03-17 12:50 | Cardiology Progress Note ---
Assessment and Plan (1) Congestive heart failure Status: Chronic Assessment and plan: 61-year-old black female, admitted with CHF, volume overload, newly diagnosed cardiomyopathy. Hypertension, hyperlipidemia, type 2 diabetes mellitus insulin , anemia. No ACS. CHF, volume overload improving with diuresis. 03/16 LHC/RHC. -Severe ICM. Clinically improved, but still has high filling pressures and pulmonary hypertension. Will continue diuresis. Hyponatremia improved. Lasix 40 mg IV twice daily. -CABG planned on Sunday. -Cont ASA/fosinopril. Added Coreg 3.125 mg bid -LDL 44. Decreased atorvastatin to 40 mg qhs -TFTs were normal. Mild iron def anemia. Normal vit levels. -Keep on telemetry. -Monitor BMP/magnesium, while on IV diuretics. Current Visit: Yes Qualifiers: Congestive heart failure type: combined Congestive heart failure chronicity : acute Qualified Code(s): I50.41 - Acute combined systolic (congestive) and diastolic (congestive) heart failure (2) Acute exacerbation of chronic obstructive airways disease Status: Acute Current Visit: Yes (3) Anemia Status: Chronic Current Visit: Yes (4) Insulin dependent diabetes mellitus Status: Chronic Current Visit: Yes (5) History of breast cancer Status: Acute Current Visit: Yes (6) Hypertension Status: Chronic Current Visit: Yes (7) Cardiomyopathy Status: Chronic Current Visit: Yes Qualifiers: Cardiomyopathy type: unspecified Qualified Code(s): I42.9 - Cardiomyopathy , unspecified (8) Hyperlipidemia Status: Chronic Current Visit: Yes (9) Tobacco use Status: Chronic Current Visit: Yes Cardiology - PN: Subj Interval history: She is feeling better. Shortness of breath resolved. No recurrence of angina. Blood pressure stable. Hyponatremia improved. Exam (Progress Note) - Constitutional Vitals: Period Temp Pulse Resp BP Sys/Gaitan Pulse Ox Last 24 Hr 96.9 F-97.7 F 75-87 16-20 120-147/61-81 96-100 General appearance: normal weight, no acute distress - Head Head exam: Present: normal inspection, normocephalic - Eye Eye exam: Absent: conjunctival injection, scleral icterus Pupils: Absent: dilated - ENT ENT exam: Present: normal external ear exam - Neck Neck exam: Present: normal inspection - Respiratory Respiratory exam: Present: clear to auscultation bilaterally - Cardiovascular Cardiovascular exam: Present: regular rate and rhythm, systolic murmur. Absent : JVD - GI/Abdominal GI/Abdominal exam: Present: normal bowel sounds. Absent: distended - Extremities Exam Extremities exam: Present: normal inspection, normal capillary refill, edema (1+ ) - Back Exam Back exam: Present: normal inspection - Neurological Exam Neurological exam: Present: alert, oriented X3 - Psychiatric Psychiatric exam: Present: normal affect, normal mood - Skin Skin exam: Present: normal color, warm. Absent: cyanosis Result/EKG - Labs CBC & BMP: 03/17/17 05:29 03/17/17 05:29 Lab Results: I have reviewed the past 24 hour labs Labs: Laboratory Results - last 24 hr 03/16/17 03/16/17 03/16/17 12:25 15:32 20:28 WBC RBC Hgb Hct MCV MCH MCHC RDW Plt Count MPV Neut % (Auto) Lymph % (Auto) [place] % (Auto) Eos % (Auto) Baso % (Auto) Neut # (Auto) Lymph # (Auto) [place] # (Auto) Eos # (Auto) Baso # (Auto) Immature Gran % Nucleated RBC % Immature Gran # Nucleated RBCs # Sodium Potassium Chloride Carbon Dioxide Anion Gap BUN Creatinine GFR Calculation BUN/Creatinine Ratio Glucose POC Glucose 147 H 185 H 258 H Calculated Osmolality Calcium Magnesium 03/17/17 03/17/17 03/17/17 05:29 05:29 08:04 WBC 5.3 RBC 3.95 Hgb 12.4 Hct 35.6 L MCV 90.1 MCH 31 MCHC 34.8 RDW 13.3 Plt Count 387 MPV 8.8 L Neut % (Auto) 66.4 Lymph % (Auto) 16.9 L [place] % (Auto) 12.0 Eos % (Auto) 3.0 Baso % (Auto) 1.1 H Neut # (Auto) 3.5 Lymph # (Auto) 0.9 L [place] # (Auto) 0.6 Eos # (Auto) 0.2 Baso # (Auto) 0.1 Immature Gran % 0.6 Nucleated RBC % 0.0 Immature Gran # 0.03 Nucleated RBCs # 0.00 Sodium 135 L Potassium 4.1 Chloride 98 Carbon Dioxide 28 Anion Gap 13.1 BUN 19 H Creatinine 1.20 H GFR Calculation 57 BUN/Creatinine Ratio 15.00 Glucose 105 POC Glucose 149 H Calculated Osmolality 271.1 L Calcium 9.4 Magnesium 2.1 03/17/17 11:22 WBC RBC Hgb Hct MCV MCH MCHC RDW Plt Count MPV Neut % (Auto) Lymph % (Auto) [place] % (Auto) Eos % (Auto) Baso % (Auto) Neut # (Auto) Lymph # (Auto) [place] # (Auto) Eos # (Auto) Baso # (Auto) Immature Gran % Nucleated RBC % Immature Gran # Nucleated RBCs # Sodium Potassium Chloride Carbon Dioxide Anion Gap BUN Creatinine GFR Calculation BUN/Creatinine Ratio Glucose POC Glucose 209 H Calculated Osmolality Calcium Magnesium - EKG EKG results: interpreted by me Quality Measures - VTE Contraindication to Pharmacological VTE Prophylaxis: High Risk of Bleeding Specialty Discharge - Follow Up or Referrals
--- NOTE | 2017-03-17 13:02 | Hospitalist Progress Note ---
Assessment and Plan (1) Congestive heart failure Status: Chronic Assessment and plan: The patient continues diuresis. We anticipate bypass later next week. Current Visit: Yes Qualifiers: Congestive heart failure type: combined Congestive heart failure chronicity : acute Qualified Code(s): I50.41 - Acute combined systolic (congestive) and diastolic (congestive) heart failure (2) Cardiomyopathy Status: Chronic Current Visit: Yes Qualifiers: Cardiomyopathy type: unspecified Qualified Code(s): I42.9 - Cardiomyopathy , unspecified Hospitalist: Subjective Interval history: The patient is admitted to the hospital with congestive heart failure. Diuresis continues. The patient is found to have reduced ejection fraction. Bypass surgery is planned for mid week and until then we are going to continue diuresis and improve cardiovascular output. Exam - Constitutional Vitals: Period Temp Pulse Resp BP Sys/Gaitan Pulse Ox Last 24 Hr 96.9 F-97.7 F 75-87 16-20 120-147/61-81 96-100 Exam: Constitutional System: Mild distress. No tremulousness. Head: Normocephalic, atraumatic. Ears, Nose and Throat System: No evidence of Otitis or Mastoiditis. No epistaxis or discharge Eyes System: Pupils equal, round, and reactive. Extraocular muscles intact. Neck: Supple, without adenopathy, 2+ jugular venous distention. No thyromegaly , neck mass, or prior surgery apparent. Respiratory System: Chest rales in bases to auscultation. Cardiovascular System: Heart with regular rate and rhythm. S4 murmur. GI System: Abdomen soft, nontender. Normo active bowel sounds present. Musculoskeletal System: limbs with 1+ pedal edema. Full distal pulses. Neurological System: No discernable sensory deficit. No aphasia Psychiatric System: Conversation is rational Results - Labs CBC & BMP: 03/17/17 05:29 03/17/17 05:29 Lab Results: I have reviewed the past 24 hour labs Quality Measures - VTE Contraindication to Pharmacological VTE Prophylaxis: High Risk of Bleeding Specialty Discharge - Follow Up or Referrals
[2017-03-17] MEDS: ENOXAPARIN 40 MG/0.4 ML SYRINGE SUBCUT SCH (21:28)
[2017-03-17] MEDS: AMITRIPTYLINE 25 MG TABLET PO SCH (21:28)
[2017-03-17] MEDS: ATORVASTATIN 40 MG TABLET PO SCH (21:28)
[2017-03-18 06:00] LABS: Basophils # 0.1 10*3/uL (0.0-0.2); Eosinophils # 0.3 10*3/uL (0.0-0.87); Eosinophils % 4.6 % (0.00-10.9); Hemoglobin 12.6 GM/DL (12.0-16.0); Immature Granulocytes % 0.7 %; Immature Granulocytes Absolute 0.04 #; Lymphocytes # 1.2 10*3/uL (1.4-4.0); Lymphocytes % 20.6 % (21.3-54.2); Mean Corpuscular Hemoglobin 31 PG (27-34); Mean Corpuscular Volume 89.3 FL (87-102); Monocytes % 16.2 % (1.7-12.7); Neutrophils # 3.3 10*3/uL (1.4-7.4); Neutrophils % 56.9 % (38.7-73.9); Platelet Count 400 T/CUMM (130-400); Red Blood Count 4.03 MC/CUMM (3.8-5.5); Red Cell Distribution Width 13.4 % (9.3-17.3); White Blood Count 5.9 T/CUMM (4-12)
[2017-03-18 06:24] LABS: Calcium 8.9 MG/DL (8.5-10.1)
[2017-03-18 06:25] LABS: Osmolality,Calculated 268.2 MOS/KG (273-304); Potassium 3.8 MMOL/L (3.5-5.1)
[2017-03-18 06:27] LABS: Calcium 9.3 MG/DL (8.5-10.1); Magnesium 2.2 MG/DL (1.8-2.4); Osmolality,Calculated 268.2 MOS/KG (273-304); Potassium 4.1 MMOL/L (3.5-5.1)
[2017-03-18 08:00] LABS: Band Neutrophils 1 % (0-10); Eosinophils 3 % (0-10); Lymphocytes 25 % (20-55); Segmented Neutrophils 55 % (50-85); Total Cells Counted 100
[2017-03-18 08:01] LABS: Burr Cells 1+; Hypochromasia 1+; Platelet Estimate Adequate; Target Cells Slight
--- NOTE | 2017-03-18 08:06 | Cardiothoracic Progress Note ---
Cardiothoracic Subjective Interval history: Patient is resting comfortably. She is breathing much better than she was upon admission. She is decided to proceed with surgery and I am aiming for the middle of next week either Sunday or . Exam (Progress Note) - Constitutional Vitals: Period Temp Pulse Resp BP Sys/Gaitan Pulse Ox Last 24 Hr 95.7 F-97.6 F 72-87 18-18 111-137/56-79 90-98 Result/EKG - Labs CBC & BMP: 03/18/17 05:16 03/18/17 05:16 Labs: Laboratory Results - last 24 hr 03/17/17 03/17/17 03/17/17 08:04 11:22 15:22 WBC RBC Hgb Hct MCV MCH MCHC RDW Plt Count MPV Neut % (Auto) Lymph % (Auto) [place] % (Auto) Eos % (Auto) Baso % (Auto) Neut # (Auto) Lymph # (Auto) [place] # (Auto) Eos # (Auto) Baso # (Auto) Total Counted Immature Gran % Nucleated RBC % Immature Gran # Segmented Neutrophils Band Neutrophils Lymphocytes Monocytes Eosinophils Basophils Nucleated RBCs # Platelet Estimate Hypochromasia Target Cells Jesse Cells Sodium Potassium Chloride Carbon Dioxide Anion Gap BUN Creatinine GFR Calculation BUN/Creatinine Ratio Glucose POC Glucose 149 H 209 H 329 H Calculated Osmolality Calcium Magnesium 03/17/17 03/18/17 03/18/17 21:27 05:16 05:16 WBC 5.9 RBC 4.03 Hgb 12.6 Hct 36.0 MCV 89.3 MCH 31 MCHC 35.0 RDW 13.4 Plt Count 400 MPV 9.0 L Neut % (Auto) 56.9 Lymph % (Auto) 20.6 L [place] % (Auto) 16.2 H Eos % (Auto) 4.6 Baso % (Auto) 1.0 H Neut # (Auto) 3.3 Lymph # (Auto) 1.2 L [place] # (Auto) 1.0 H Eos # (Auto) 0.3 Baso # (Auto) 0.1 Total Counted 100 Immature Gran % 0.7 Nucleated RBC % 0.0 Immature Gran # 0.04 Segmented Neutrophils 55 Band Neutrophils 1 Lymphocytes 25 Monocytes 15 Eosinophils 3 Basophils 1.0 H Nucleated RBCs # 0.00 Platelet Estimate Adequate Hypochromasia 1+ Target Cells Slight [place] Cells 1+ Sodium 134 L Potassium 4.1 Chloride 95 L Carbon Dioxide 28 Anion Gap 15.1 H BUN 22 H Creatinine 1.30 H GFR Calculation 52 BUN/Creatinine Ratio 16.00 Glucose 63 L POC Glucose 173 H Calculated Osmolality 268.2 L Calcium 9.3 Magnesium 2.2 03/18/17 05:16 WBC RBC Hgb Hct MCV MCH MCHC RDW Plt Count MPV Neut % (Auto) Lymph % (Auto) [place] % (Auto) Eos % (Auto) Baso % (Auto) Neut # (Auto) Lymph # (Auto) [place] # (Auto) Eos # (Auto) Baso # (Auto) Total Counted Immature Gran % Nucleated RBC % Immature Gran # Segmented Neutrophils Band Neutrophils Lymphocytes Monocytes Eosinophils Basophils Nucleated RBCs # Platelet Estimate Hypochromasia Target Cells Jesse Cells Sodium 134 L Potassium 3.8 Chloride 96 L Carbon Dioxide 27 Anion Gap 14.8 BUN 22 H Creatinine 1.30 H GFR Calculation 52 BUN/Creatinine Ratio 16.00 Glucose 61 L POC Glucose Calculated Osmolality 268.2 L Calcium 8.9 Magnesium Quality Measures - VTE Contraindication to Pharmacological VTE Prophylaxis: High Risk of Bleeding Specialty Discharge - Follow Up or Referrals
[2017-03-18] MEDS: INSULIN REGULAR 100 UNIT/ML SUBCUT SCH ×4 (09:55→21:00)
[2017-03-18] MEDS: PARoxetine 20 MG TABLET PO SCH (09:57)
[2017-03-18] MEDS: LORATADINE 10 MG TABLET PO SCH (09:57)
[2017-03-18] MEDS: ASPIRIN CHEW 81 MG TABLET PO SCH (09:57)
[2017-03-18] MEDS: FAMOTIDINE 20 MG TABLET PO SCH (09:57)
[2017-03-18] MEDS: PANTOPRAZOLE 40 MG TABLET PO SCH (09:57)
[2017-03-18] MEDS: BACLOFEN 10 MG TABLET PO SCH (09:57)
[2017-03-18] MEDS: CARVEDILOL 3.125 MG TABLET PO SCH ×2 (09:57→17:07)
[2017-03-18] MEDS: hydroCHLOROthiazide 25 MG TABLET PO SCH (09:57)
[2017-03-18] MEDS: DOCUSATE SODIUM 100 MG CAPSULE PO SCH (09:57)
[2017-03-18] MEDS: INSULIN NPH/REGULAR 70/30 100 UNIT/ML SUBCUT SCH ×2 (09:58→17:07)
[2017-03-18] MEDS: FOSINOPRIL 20 MG TABLET PO SCH (09:58)
[2017-03-18] MEDS: FUROSEMIDE 40 MG/4 ML VIAL IV SCH (09:58)
[2017-03-18] MEDS: ACETAMINOPHEN 325 MG TABLET PO PRN (10:01)
--- NOTE | 2017-03-18 11:04 | Cardiology Progress Note ---
Assessment and Plan (1) Congestive heart failure Status: Chronic Assessment and plan: 61-year-old black female, admitted with CHF, volume overload, newly diagnosed cardiomyopathy. Hypertension, hyperlipidemia, type 2 diabetes mellitus insulin , anemia. No ACS. CHF, volume overload improving with diuresis. 03/16 LHC/RHC. -Severe ICM. The pulmonary congestion resolved, the edema improved. Hyponatremia improved. decrease Lasix to 40 mg IV daily. May switch to p.o., if remains stable -CABG planned next week -Cont ASA/fosinopril. Added Coreg 3.125 mg bid -LDL 44. Decreased atorvastatin to 40 mg qhs -TFTs were normal. Mild iron def anemia. Normal vit levels. -Keep on telemetry. -Monitor BMP/magnesium, while on IV diuretics. Current Visit: Yes Qualifiers: Congestive heart failure type: combined Congestive heart failure chronicity : acute Qualified Code(s): I50.41 - Acute combined systolic (congestive) and diastolic (congestive) heart failure (2) Acute exacerbation of chronic obstructive airways disease Status: Acute Current Visit: Yes (3) Anemia Status: Chronic Current Visit: Yes (4) Insulin dependent diabetes mellitus Status: Chronic Current Visit: Yes (5) History of breast cancer Status: Acute Current Visit: Yes (6) Hypertension Status: Chronic Current Visit: Yes (7) Cardiomyopathy Status: Chronic Current Visit: Yes Qualifiers: Cardiomyopathy type: unspecified Qualified Code(s): I42.9 - Cardiomyopathy , unspecified (8) Hyperlipidemia Status: Chronic Current Visit: Yes (9) Tobacco use Status: Chronic Current Visit: Yes Cardiology - PN: Subj Interval history: She is feeling fine. Pulmonary congestion resolved, peripheral edema improved significantly. No chest pain. Exam (Progress Note) - Constitutional Vitals: Period Temp Pulse Resp BP Sys/Gaitan Pulse Ox Last 24 Hr 95.7 F-97.7 F 72-87 18-20 111-137/56-79 90-99 General appearance: normal weight, no acute distress - Head Head exam: Present: normal inspection, normocephalic - Eye Eye exam: Absent: conjunctival injection, scleral icterus Pupils: Absent: dilated - ENT ENT exam: Present: normal external ear exam - Neck Neck exam: Present: normal inspection - Respiratory Respiratory exam: Present: clear to auscultation bilaterally. Absent: accessory muscle use - Cardiovascular Cardiovascular exam: Present: regular rate and rhythm. Absent: JVD - GI/Abdominal GI/Abdominal exam: Present: normal bowel sounds. Absent: distended - Extremities Exam Extremities exam: Present: normal inspection, normal capillary refill. Absent: edema - Back Exam Back exam: Present: normal inspection - Neurological Exam Neurological exam: Present: alert, oriented X3 - Psychiatric Psychiatric exam: Present: normal affect, normal mood - Skin Skin exam: Present: normal color, warm. Absent: cyanosis Result/EKG - Labs CBC & BMP: 03/18/17 05:16 03/18/17 05:16 Lab Results: I have reviewed the past 24 hour labs Labs: Laboratory Results - last 24 hr 03/17/17 03/17/17 03/17/17 11:22 15:22 21:27 WBC RBC Hgb Hct MCV MCH MCHC RDW Plt Count MPV Neut % (Auto) Lymph % (Auto) [place] % (Auto) Eos % (Auto) Baso % (Auto) Neut # (Auto) Lymph # (Auto) [place] # (Auto) Eos # (Auto) Baso # (Auto) Total Counted Immature Gran % Nucleated RBC % Immature Gran # Segmented Neutrophils Band Neutrophils Lymphocytes Monocytes Eosinophils Basophils Nucleated RBCs # Platelet Estimate Hypochromasia Target Cells [place] Cells Sodium Potassium Chloride Carbon Dioxide Anion Gap BUN Creatinine GFR Calculation BUN/Creatinine Ratio Glucose POC Glucose 209 H 329 H 173 H Calculated Osmolality Calcium Magnesium 03/18/17 03/18/17 03/18/17 05:16 05:16 05:16 WBC 5.9 RBC 4.03 Hgb 12.6 Hct 36.0 MCV 89.3 MCH 31 MCHC 35.0 RDW 13.4 Plt Count 400 MPV 9.0 L Neut % (Auto) 56.9 Lymph % (Auto) 20.6 L [place] % (Auto) 16.2 H Eos % (Auto) 4.6 Baso % (Auto) 1.0 H Neut # (Auto) 3.3 Lymph # (Auto) 1.2 L [place] # (Auto) 1.0 H Eos # (Auto) 0.3 Baso # (Auto) 0.1 Total Counted 100 Immature Gran % 0.7 Nucleated RBC % 0.0 Immature Gran # 0.04 Segmented Neutrophils 55 Band Neutrophils 1 Lymphocytes 25 Monocytes 15 Eosinophils 3 Basophils 1.0 H Nucleated RBCs # 0.00 Platelet Estimate Adequate Hypochromasia 1+ Target Cells Slight Jesse Cells 1+ Sodium 134 L 134 L Potassium 4.1 3.8 Chloride 95 L 96 L Carbon Dioxide 28 27 Anion Gap 15.1 H 14.8 BUN 22 H 22 H Creatinine 1.30 H 1.30 H GFR Calculation 52 52 BUN/Creatinine Ratio 16.00 16.00 Glucose 63 L 61 L POC Glucose Calculated Osmolality 268.2 L 268.2 L Calcium 9.3 8.9 Magnesium 2.2 03/18/17 07:58 WBC RBC Hgb Hct MCV MCH MCHC RDW Plt Count MPV Neut % (Auto) Lymph % (Auto) [place] % (Auto) Eos % (Auto) Baso % (Auto) Neut # (Auto) Lymph # (Auto) [place] # (Auto) Eos # (Auto) Baso # (Auto) Total Counted Immature Gran % Nucleated RBC % Immature Gran # Segmented Neutrophils Band Neutrophils Lymphocytes Monocytes Eosinophils Basophils Nucleated RBCs # Platelet Estimate Hypochromasia Target Cells Jesse Cells Sodium Potassium Chloride Carbon Dioxide Anion Gap BUN Creatinine GFR Calculation BUN/Creatinine Ratio Glucose POC Glucose 106 Calculated Osmolality Calcium Magnesium - EKG EKG results: interpreted by me Quality Measures - VTE Contraindication to Pharmacological VTE Prophylaxis: High Risk of Bleeding Specialty Discharge - Follow Up or Referrals
--- NOTE | 2017-03-18 15:22 | Hospitalist Progress Note ---
Assessment and Plan (1) Congestive heart failure Status: Chronic Assessment and plan: The patient continues diuresis. We anticipate bypass later next week. Current Visit: Yes Qualifiers: Congestive heart failure type: combined Congestive heart failure chronicity : acute Qualified Code(s): I50.41 - Acute combined systolic (congestive) and diastolic (congestive) heart failure (2) Cardiomyopathy Status: Chronic Current Visit: Yes Qualifiers: Cardiomyopathy type: unspecified Qualified Code(s): I42.9 - Cardiomyopathy , unspecified Hospitalist: Subjective Interval history: The patient is resting quietly today. She is having her family for visitors. She is looking forward to bypass later this week. Exam - Constitutional Vitals: Period Temp Pulse Resp BP Sys/Gaitan Pulse Ox Last 24 Hr 95.7 F-97.7 F 72-87 18-20 110-137/56-79 90-99 Exam: Constitutional System: Mild distress. No tremulousness. Head: Normocephalic, atraumatic. Ears, Nose and Throat System: No evidence of Otitis or Mastoiditis. No epistaxis or discharge Eyes System: Pupils equal, round, and reactive. Extraocular muscles intact. Neck: Supple, without adenopathy, 2+ jugular venous distention. No thyromegaly , neck mass, or prior surgery apparent. Respiratory System: Chest rales in bases to auscultation. Cardiovascular System: Heart with regular rate and rhythm. S4 murmur. GI System: Abdomen soft, nontender. Normo active bowel sounds present. Musculoskeletal System: limbs with 1+ pedal edema. Full distal pulses. Neurological System: No discernable sensory deficit. No aphasia Psychiatric System: Conversation is rational Results - Labs CBC & BMP: 03/18/17 05:16 03/18/17 05:16 Lab Results: I have reviewed the past 24 hour labs Quality Measures - VTE Contraindication to Pharmacological VTE Prophylaxis: High Risk of Bleeding Specialty Discharge - Follow Up or Referrals
[2017-03-18] MEDS: ATORVASTATIN 40 MG TABLET PO SCH (21:01)
[2017-03-18] MEDS: AMITRIPTYLINE 25 MG TABLET PO SCH (21:01)
[2017-03-18] MEDS: ENOXAPARIN 40 MG/0.4 ML SYRINGE SUBCUT SCH (21:01)
[2017-03-19 05:14] LABS: Basophils # 0.1 10*3/uL (0.0-0.2); Basophils % 1.1 % (0.0-0.8); Eosinophils # 0.2 10*3/uL (0.0-0.87); Eosinophils % 3.6 % (0.00-10.9); Hematocrit 35.2 VOL% (35.7-47.0); Hemoglobin 12.3 GM/DL (12.0-16.0); Immature Granulocytes % 0.5 %; Immature Granulocytes Absolute 0.03 #; Lymphocytes # 1.4 10*3/uL (1.4-4.0); Lymphocytes % 25.8 % (21.3-54.2); Mean Corpuscular HGB Conc 34.9 GM/DL (32-36); Mean Corpuscular Hemoglobin 31 PG (27-34); Mean Corpuscular Volume 88.9 FL (87-102); Mean Platelet Volume 8.7 FL (9.6-12.0); Monocytes # 0.8 10*3/uL (0.11-0.8); Monocytes % 14.1 % (1.7-12.7); Neutrophils # 3.1 10*3/uL (1.4-7.4); Neutrophils % 54.9 % (38.7-73.9); Platelet Count 381 T/CUMM (130-400); Red Blood Count 3.96 MC/CUMM (3.8-5.5); Red Cell Distribution Width 13.1 % (9.3-17.3); White Blood Count 5.6 T/CUMM (4-12)
[2017-03-19 05:39] LABS: Calcium 8.7 MG/DL (8.5-10.1); Osmolality,Calculated 266.5 MOS/KG (273-304); Potassium 3.4 MMOL/L (3.5-5.1)
[2017-03-19 05:41] LABS: Calcium 8.7 MG/DL (8.5-10.1); Magnesium 2.4 MG/DL (1.8-2.4); Osmolality,Calculated 270.2 MOS/KG (273-304); Potassium 3.4 MMOL/L (3.5-5.1)
--- NOTE | 2017-03-19 06:29 | Cardiothoracic Progress Note ---
Cardiothoracic Subjective Interval history: Planning for surgery on . Patient has been improving since her admission and feels considerably better and stronger. Exam (Progress Note) - Constitutional Vitals: Period Temp Pulse Resp BP Sys/Gaitan Pulse Ox Last 24 Hr 97.2 F-98.9 F 75-82 18-20 110-124/54-61 92-99 Result/EKG - Labs CBC & BMP: 03/19/17 04:26 03/19/17 04:26 Labs: Laboratory Results - last 24 hr 03/18/17 03/18/17 03/18/17 05:16 05:16 07:58 WBC RBC Hgb Hct MCV MCH MCHC RDW Plt Count MPV Neut % (Auto) Lymph % (Auto) [place] % (Auto) Eos % (Auto) Baso % (Auto) Neut # (Auto) Lymph # (Auto) [place] # (Auto) Eos # (Auto) Baso # (Auto) Total Counted 100 Immature Gran % Nucleated RBC % Immature Gran # Segmented Neutrophils 55 Band Neutrophils 1 Lymphocytes 25 Monocytes 15 Eosinophils 3 Basophils 1.0 H Nucleated RBCs # Platelet Estimate Adequate Hypochromasia 1+ Target Cells Slight Jesse Cells 1+ Sodium 134 L Potassium 4.1 Chloride 95 L Carbon Dioxide 28 Anion Gap 15.1 H BUN 22 H Creatinine 1.30 H GFR Calculation 52 BUN/Creatinine Ratio 16.00 Glucose 63 L POC Glucose 106 Calculated Osmolality 268.2 L Calcium 9.3 Magnesium 2.2 03/18/17 03/18/17 03/18/17 11:44 16:42 20:44 WBC RBC Hgb Hct MCV MCH MCHC RDW Plt Count MPV Neut % (Auto) Lymph % (Auto) [place] % (Auto) Eos % (Auto) Baso % (Auto) Neut # (Auto) Lymph # (Auto) [place] # (Auto) Eos # (Auto) Baso # (Auto) Total Counted Immature Gran % Nucleated RBC % Immature Gran # Segmented Neutrophils Band Neutrophils Lymphocytes Monocytes Eosinophils Basophils Nucleated RBCs # Platelet Estimate Hypochromasia Target Cells [place] Cells Sodium Potassium Chloride Carbon Dioxide Anion Gap BUN Creatinine GFR Calculation BUN/Creatinine Ratio Glucose POC Glucose 384 H 171 H 263 H Calculated Osmolality Calcium Magnesium 03/19/17 03/19/17 03/19/17 04:26 04:26 04:26 WBC 5.6 RBC 3.96 Hgb 12.3 Hct 35.2 L MCV 88.9 MCH 31 MCHC 34.9 RDW 13.1 Plt Count 381 MPV 8.7 L Neut % (Auto) 54.9 Lymph % (Auto) 25.8 [place] % (Auto) 14.1 H Eos % (Auto) 3.6 Baso % (Auto) 1.1 H Neut # (Auto) 3.1 Lymph # (Auto) 1.4 [place] # (Auto) 0.8 Eos # (Auto) 0.2 Baso # (Auto) 0.1 Total Counted Immature Gran % 0.5 Nucleated RBC % 0.0 Immature Gran # 0.03 Segmented Neutrophils Band Neutrophils Lymphocytes Monocytes Eosinophils Basophils Nucleated RBCs # 0.00 Platelet Estimate Hypochromasia Target Cells Jesse Cells Sodium 134 L 132 L Potassium 3.4 L 3.4 L Chloride 96 L 94 L Carbon Dioxide 28 28 Anion Gap 13.4 13.4 BUN 25 H 24 H Creatinine 1.30 H 1.30 H GFR Calculation 52 52 BUN/Creatinine Ratio 19.00 18.00 Glucose 74 76 POC Glucose Calculated Osmolality 270.2 L 266.5 L Calcium 8.7 8.7 Magnesium 2.4 Quality Measures - VTE Contraindication to Pharmacological VTE Prophylaxis: High Risk of Bleeding Specialty Discharge - Follow Up or Referrals
[2017-03-19] MEDS: INSULIN REGULAR 100 UNIT/ML SUBCUT SCH ×4 (07:34→21:57)
--- NOTE | 2017-03-19 09:11 | Hospitalist Progress Note ---
Assessment and Plan - Time spent with patient Time spent with patient: Less than 30 minutes (1) Hypokalemia Status: Acute Assessment and plan: K 3.3 this a.m. will continue potassium replacement protocol and monitor. Current Visit: Yes (2) Congestive heart failure Status: Chronic Assessment and plan: Dr Ragland following patient. Echo result 40% EF, Coreg was increased to 6.25 BID, she will continue low dose spironolactone and FLY inhibitor. Will continue to monitor vital signs and electrolytes closely. Current Visit: Yes Qualifiers: Congestive heart failure type: combined Congestive heart failure chronicity : acute Qualified Code(s): I50.41 - Acute combined systolic (congestive) and diastolic (congestive) heart failure (3) Hypertension Status: Chronic Assessment and plan: Will continue spironolactone and FLY inhibitor and monitor vital signs. Current Visit: Yes Hospitalist: Subjective Interval history: Patient sitting up in chair in room on 2l nasal cannula wihout any noted distress. Patient verbalized a better night, still unable to lay completely flat to rest. Patient is using CPAP machine at bedside at bedtime as instructed. Exam - Constitutional Vitals: Period Temp Pulse Resp BP Sys/Gaitan Pulse Ox Last 24 Hr 97.1 F-98.9 F 75-86 18-20 110-128/54-58 92-99 General appearance: over weight - Head Head exam: Present: normal inspection - Eye Eye exam: Present: EOMI Pupils: Present: BRIANNA - Neck Neck exam: Present: normal inspection - Respiratory Respiratory exam: Present: rales (Bilateral rales at lung base) - Cardiovascular Cardiovascular exam: Present: regular rate and rhythm - GI/Abdominal GI/Abdominal exam: Present: normal bowel sounds, soft. Absent: firm, guarding, tenderness, rebound - Extremities Exam Extremities exam: Present: normal inspection, edema (1+ to right lower leg; trace to left lower leg) - Neurological Exam Neurological exam: Present: alert, oriented X3 - Psychiatric Psychiatric exam: Present: normal affect, normal mood - Skin Skin exam: Present: normal color, warm, dry Results - Labs CBC & BMP: 03/19/17 04:26 03/19/17 04:26 Lab Results: I have reviewed the past 24 hour labs Labs: BNP improving down to 288 from 400. Potassium 3.3 this a.m. will continue protocol replacement. Quality Measures - VTE Contraindication to Pharmacological VTE Prophylaxis: High Risk of Bleeding Specialty Discharge - Follow Up or Referrals
[2017-03-19] MEDS: PARoxetine 20 MG TABLET PO SCH (09:22)
[2017-03-19] MEDS: DOCUSATE SODIUM 100 MG CAPSULE PO SCH (09:22)
[2017-03-19] MEDS: ASPIRIN CHEW 81 MG TABLET PO SCH (09:22)
[2017-03-19] MEDS: FOSINOPRIL 20 MG TABLET PO SCH (09:22)
[2017-03-19] MEDS: FUROSEMIDE 40 MG/4 ML VIAL IV SCH (09:22)
[2017-03-19] MEDS: BACLOFEN 10 MG TABLET PO SCH (09:23)
[2017-03-19] MEDS: FAMOTIDINE 20 MG TABLET PO SCH (09:23)
[2017-03-19] MEDS: PANTOPRAZOLE 40 MG TABLET PO SCH (09:24)
[2017-03-19] MEDS: CARVEDILOL 3.125 MG TABLET PO SCH ×2 (09:24→18:00)
[2017-03-19] MEDS: hydroCHLOROthiazide 25 MG TABLET PO SCH (09:25)
[2017-03-19] MEDS: LORATADINE 10 MG TABLET PO SCH (09:25)
[2017-03-19] MEDS: ACETAMINOPHEN 325 MG TABLET PO PRN (09:26)
[2017-03-19] MEDS ORDERED: POTASSIUM CHLORIDE 20 MEQ TABLET PO ONE (10:05)
[2017-03-19] MEDS: INSULIN NPH/REGULAR 70/30 100 UNIT/ML SUBCUT SCH ×2 (12:42→18:00)
--- NOTE | 2017-03-19 14:43 | Hospitalist Progress Note ---
Assessment and Plan (1) Congestive heart failure Status: Chronic Assessment and plan: The patient continues diuresis. We anticipate bypass on Current Visit: Yes Qualifiers: Congestive heart failure type: combined Congestive heart failure chronicity : acute Qualified Code(s): I50.41 - Acute combined systolic (congestive) and diastolic (congestive) heart failure (2) Cardiomyopathy Status: Chronic Current Visit: Yes Qualifiers: Cardiomyopathy type: unspecified Qualified Code(s): I42.9 - Cardiomyopathy , unspecified Hospitalist: Subjective Interval history: Mrs. Shelley is resting quietly in bed today. She has no new complaints Exam - Constitutional Vitals: Period Temp Pulse Resp BP Sys/Gaitan Pulse Ox Last 24 Hr 96.6 F-98.9 F 75-86 16-20 111-128/54-58 92-99 Exam: Constitutional System: Mild distress. No tremulousness. Head: Normocephalic, atraumatic. Ears, Nose and Throat System: No evidence of Otitis or Mastoiditis. No epistaxis or discharge Eyes System: Pupils equal, round, and reactive. Extraocular muscles intact. Neck: Supple, without adenopathy, 2+ jugular venous distention. No thyromegaly , neck mass, or prior surgery apparent. Respiratory System: Chest rales in bases to auscultation. Cardiovascular System: Heart with regular rate and rhythm. S4 murmur. GI System: Abdomen soft, nontender. Normo active bowel sounds present. Musculoskeletal System: limbs with 1+ pedal edema. Full distal pulses. Neurological System: No discernable sensory deficit. No aphasia Psychiatric System: Conversation is rational Results - Labs CBC & BMP: 03/19/17 04:26 03/19/17 04:26 Lab Results: I have reviewed the past 24 hour labs Quality Measures - VTE Contraindication to Pharmacological VTE Prophylaxis: High Risk of Bleeding Specialty Discharge - Follow Up or Referrals
--- NOTE | 2017-03-19 15:05 | Cardiology Progress Note ---
Robe Gross April, RN, am scribing for, and in the presence of, Wilmer Ruiz MD 15:05. Assessment and Plan (1) Cardiomyopathy Status: Chronic Assessment and plan: Ejection fraction 20% by echocardiogram 03/14/2017. Current Visit: Yes Qualifiers: Cardiomyopathy type: unspecified Qualified Code(s): I42.9 - Cardiomyopathy , unspecified (2) Hypokalemia Status: Acute Assessment and plan: It is 3.4 today. Current Visit: Yes (3) History of breast cancer Status: Chronic Current Visit: Yes (4) Anemia Status: Chronic Current Visit: Yes (5) Hyperlipidemia Status: Chronic Current Visit: Yes (6) Hypertension Status: Chronic Current Visit: Yes (7) Insulin dependent diabetes mellitus Status: Chronic Current Visit: Yes (8) Tobacco use Status: Chronic Current Visit: Yes Cardiology - PN: Subj Interval history: Respiratory Care Faculty: New to Dr. Luna SUMMARY: Ms. Shelley is a 61 year old -[place] female who has never seen a information security associate. She has a history of hypertension, diabetes, hyperlipidemia, chronic anemia, breast cancer status post left mastectomy. Risk factors are significant for: Age, hypertension, diabetes, hyperlipidemia, tobacco use, sedentary lifestyle. She reports she has smoked half pack per day since 1977, she is planning to quit. She denies any alcohol or recreational drug use. She presented to the emergency room on March 13, 2017 complaining of shortness of breath, dry hacking cough, and increased bilateral lower extremity edema. She reports that she has been feeling short of breath and having a dry hacking cough for the past week. She began having increased lower extremity edema on March 11. Prior to last week she has had no shortness of breath but had been easily fatigued over the past few months. She reports she is able to walk to the driveway to the mailbox without exertional chest pain or dyspnea but other times she gets there she is very fatigued. She denies any complaints of chest pain, heaviness, tightness, palpitations, dizziness, lightheadedness, syncope. She reports she has been anemic "off and on" for many years and takes iron supplements. Upon admission she was noted to have an elevated BNP. Chest x-ray revealed no pneumothorax or pleural effusion, cardiomegaly. Her EKG shows sinus rhythm with suggestions of septal infarct. She was taken to the [employer] [facility] for left and right heart catheterization March [address] Ragland with the following findings and plan: Severe cardiomyopathy, LVEF around 15% Severe LV enlargement Moderate elevation right heart pressures--PA pressure about 55-60/24, PCW 24, RA pressure is about 15 mmHg Occluded right coronary Angiographically about a 50% tubular narrowing of the left main--however there was some dampening of pressure when I engaged the left main Severe elevation of LVEDP, 35 mmHg Angiogram of the right femoral artery-from follow-through on the LV gram Supravalvar aortography-no significant aortic regurgitation, no right coronary was seen to come from the right coronary cusp Mild mitral regurgitation Angio-Seal of the right femoral artery-successful Plan/recommendations: The patient will have risk factors optimized. I will consult our surgeon, Dr. Bubba Barrera, guarding his opinion of the 50% tubular left main lesion. There was a slight amount of dampening but the catheter was not optimally coaxial as it could be. There was some reflux with injection of the left main. Consideration of bypass grafting by Dr. Barrera and Dr. Luna will be made. Dr. Barrera saw her in consultation and felt she would benefit from coronary bypass surgery. He felt medical therapy should be continued for 6 more days and proceed with surgery one day this week. He discussed this with the patient and it is scheduled for later this week. Edema has improved and Lasix has been decrease Lasix 40 mg IV. Carvedilol 3.125 mg twice daily has been added. March 19, 2017: Ms. Shelley seen today in no acute distress. She is up walking around the room. She denies any chest pain, shortness of breath, palpitations, or dizziness. No edema noted to lower extremities. Vital signs been stable. 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 Potassium today is low at 3.4. We will have her replaced via protocol. She is stable and doing well without problems ready for surgery in 3 days. Exam (Progress Note) - Constitutional Vitals: Period Temp Pulse Resp BP Sys/Gaitan Pulse Ox Last 24 Hr 97.1 F-98.9 F 75-86 18-20 110-128/54-58 92-99 General appearance: normal weight, no acute distress - Head Head exam: Absent: abrasion, hematoma - Eye Eye exam: Absent: periorbital swelling, laceration to eyelids - Respiratory Respiratory exam: Present: clear to auscultation bilaterally. Absent: accessory muscle use, chest wall tenderness - Cardiovascular Cardiovascular exam: Present: regular rate and rhythm. Absent: rubs - GI/Abdominal GI/Abdominal exam: Present: normal bowel sounds, soft. Absent: distended, tenderness - Extremities Exam Extremities exam: Absent: edema - Neurological Exam Neurological exam: Present: alert, oriented X3 - Psychiatric Psychiatric exam: Present: normal affect, normal mood - Skin Skin exam: Present: warm, dry Result/EKG - Labs CBC & BMP: 03/19/17 04:26 03/19/17 04:26 Lab Results: I have reviewed the past 24 hour labs Labs: Laboratory Results - last 24 hr 03/18/17 03/18/17 03/18/17 11:44 16:42 20:44 WBC RBC Hgb Hct MCV MCH MCHC RDW Plt Count MPV Neut % (Auto) Lymph % (Auto) [place] % (Auto) Eos % (Auto) Baso % (Auto) Neut # (Auto) Lymph # (Auto) [place] # (Auto) Eos # (Auto) Baso # (Auto) Immature Gran % Nucleated RBC % Immature Gran # Nucleated RBCs # Sodium Potassium Chloride Carbon Dioxide Anion Gap BUN Creatinine GFR Calculation BUN/Creatinine Ratio Glucose POC Glucose 384 H 171 H 263 H Calculated Osmolality Calcium Magnesium 03/19/17 03/19/17 03/19/17 04:26 04:26 04:26 WBC 5.6 RBC 3.96 Hgb 12.3 Hct 35.2 L MCV 88.9 MCH 31 MCHC 34.9 RDW 13.1 Plt Count 381 MPV 8.7 L Neut % (Auto) 54.9 Lymph % (Auto) 25.8 [place] % (Auto) 14.1 H Eos % (Auto) 3.6 Baso % (Auto) 1.1 H Neut # (Auto) 3.1 Lymph # (Auto) 1.4 [place] # (Auto) 0.8 Eos # (Auto) 0.2 Baso # (Auto) 0.1 Immature Gran % 0.5 Nucleated RBC % 0.0 Immature Gran # 0.03 Nucleated RBCs # 0.00 Sodium 134 L 132 L Potassium 3.4 L 3.4 L Chloride 96 L 94 L Carbon Dioxide 28 28 Anion Gap 13.4 13.4 BUN 25 H 24 H Creatinine 1.30 H 1.30 H GFR Calculation 52 52 BUN/Creatinine Ratio 19.00 18.00 Glucose 74 76 POC Glucose Calculated Osmolality 270.2 L 266.5 L Calcium 8.7 8.7 Magnesium 2.4 03/19/17 07:11 WBC RBC Hgb Hct MCV MCH MCHC RDW Plt Count MPV Neut % (Auto) Lymph % (Auto) [place] % (Auto) Eos % (Auto) Baso % (Auto) Neut # (Auto) Lymph # (Auto) [place] # (Auto) Eos # (Auto) Baso # (Auto) Immature Gran % Nucleated RBC % Immature Gran # Nucleated RBCs # Sodium Potassium Chloride Carbon Dioxide Anion Gap BUN Creatinine GFR Calculation BUN/Creatinine Ratio Glucose POC Glucose 80 Calculated Osmolality Calcium Magnesium - Diagnostic Findings Procedure: Chest x-ray: report reviewed by me - EKG EKG results: interpreted by me EKG shows: sinus rhythm Quality Measures - VTE Contraindication to Pharmacological VTE Prophylaxis: High Risk of Bleeding Specialty Discharge - Follow Up or Referrals Joseph Gross Wesley, MD, personally performed the services described in this documentation, ascribed by Jaja Nagel RN in my presence, and it is both accurate and complete 505 .
[2017-03-19] MEDS: AMITRIPTYLINE 25 MG TABLET PO SCH (21:56)
[2017-03-19] MEDS: ENOXAPARIN 40 MG/0.4 ML SYRINGE SUBCUT SCH (21:56)
[2017-03-19] MEDS: POLYETHYLENE GLYCOL POWDER 17 GM PACK PO PRN (21:56)
[2017-03-19] MEDS: ATORVASTATIN 40 MG TABLET PO SCH (21:56)
[2017-03-20 07:18] LABS: Basophils # 0.1 10*3/uL (0.0-0.2); Basophils % 1.6 % (0.0-0.8); Eosinophils # 0.2 10*3/uL (0.0-0.87); Eosinophils % 4.3 % (0.00-10.9); Hematocrit 36.5 VOL% (35.7-47.0); Hemoglobin 12.8 GM/DL (12.0-16.0); Immature Granulocytes % 0.5 %; Immature Granulocytes Absolute 0.02 #; Lymphocytes # 1.2 10*3/uL (1.4-4.0); Lymphocytes % 26.1 % (21.3-54.2); Mean Corpuscular HGB Conc 35.1 GM/DL (32-36); Mean Corpuscular Hemoglobin 31 PG (27-34); Mean Corpuscular Volume 89.5 FL (87-102); Mean Platelet Volume 8.7 FL (9.6-12.0); Monocytes # 0.7 10*3/uL (0.11-0.8); Neutrophils # 2.3 10*3/uL (1.4-7.4); Neutrophils % 52.5 % (38.7-73.9); Platelet Count 397 T/CUMM (130-400); Red Blood Count 4.08 MC/CUMM (3.8-5.5); Red Cell Distribution Width 13.4 % (9.3-17.3); White Blood Count 4.4 T/CUMM (4-12)
[2017-03-20 07:42] LABS: Calcium 9.3 MG/DL (8.5-10.1); Magnesium 2.6 MG/DL (1.8-2.4); Osmolality,Calculated 273.1 MOS/KG (273-304); Potassium 3.9 MMOL/L (3.5-5.1)
[2017-03-20] MEDS: INSULIN REGULAR 100 UNIT/ML SUBCUT SCH ×4 (08:08→21:01)
[2017-03-20] MEDS: PARoxetine 20 MG TABLET PO SCH (08:56)
[2017-03-20] MEDS: ASPIRIN CHEW 81 MG TABLET PO SCH (08:56)
[2017-03-20] MEDS: ACETAMINOPHEN 325 MG TABLET PO PRN ×2 (08:56→14:19)
[2017-03-20] MEDS: FOSINOPRIL 20 MG TABLET PO SCH (08:57)
[2017-03-20] MEDS: FAMOTIDINE 20 MG TABLET PO SCH (08:57)
[2017-03-20] MEDS: CARVEDILOL 3.125 MG TABLET PO SCH ×2 (08:57→17:41)
[2017-03-20] MEDS: DOCUSATE SODIUM 100 MG CAPSULE PO SCH (08:58)
[2017-03-20] MEDS: LORATADINE 10 MG TABLET PO SCH (08:58)
[2017-03-20] MEDS: hydroCHLOROthiazide 25 MG TABLET PO SCH (08:58)
[2017-03-20] MEDS: BACLOFEN 10 MG TABLET PO SCH (08:58)
[2017-03-20] MEDS: PANTOPRAZOLE 40 MG TABLET PO SCH (08:58)
[2017-03-20] MEDS: FUROSEMIDE 40 MG/4 ML VIAL IV SCH (09:00)
--- NOTE | 2017-03-20 09:29 | Cardiothoracic Progress Note ---
Cardiothoracic Subjective Interval history: Patient is ready for surgery on . Exam (Progress Note) - Constitutional Vitals: Period Temp Pulse Resp BP Sys/Gaitan Pulse Ox Last 24 Hr 96.4 F-97.6 F 73-86 16-18 98-140/47-72 96-100 Result/EKG - Labs CBC & BMP: 03/20/17 07:03 03/20/17 07:03 Labs: Laboratory Results - last 24 hr 03/19/17 03/19/17 03/19/17 11:18 15:51 20:33 WBC RBC Hgb Hct MCV MCH MCHC RDW Plt Count MPV Neut % (Auto) Lymph % (Auto) [place] % (Auto) Eos % (Auto) Baso % (Auto) Neut # (Auto) Lymph # (Auto) [place] # (Auto) Eos # (Auto) Baso # (Auto) Immature Gran % Nucleated RBC % Immature Gran # Nucleated RBCs # Sodium Potassium Chloride Carbon Dioxide Anion Gap BUN Creatinine GFR Calculation BUN/Creatinine Ratio Glucose POC Glucose 216 H 159 H 226 H Calculated Osmolality Calcium Magnesium 03/20/17 03/20/17 03/20/17 07:03 07:03 07:23 WBC 4.4 RBC 4.08 Hgb 12.8 Hct 36.5 MCV 89.5 MCH 31 MCHC 35.1 RDW 13.4 Plt Count 397 MPV 8.7 L Neut % (Auto) 52.5 Lymph % (Auto) 26.1 [place] % (Auto) 15.0 H Eos % (Auto) 4.3 Baso % (Auto) 1.6 H Neut # (Auto) 2.3 Lymph # (Auto) 1.2 L [place] # (Auto) 0.7 Eos # (Auto) 0.2 Baso # (Auto) 0.1 Immature Gran % 0.5 Nucleated RBC % 0.0 Immature Gran # 0.02 Nucleated RBCs # 0.00 Sodium 135 L Potassium 3.9 Chloride 98 Carbon Dioxide 30 Anion Gap 10.9 BUN 26 H Creatinine 1.40 H GFR Calculation 48 BUN/Creatinine Ratio 18.00 Glucose 75 POC Glucose 76 Calculated Osmolality 273.1 Calcium 9.3 Magnesium 2.6 H Quality Measures - VTE Contraindication to Pharmacological VTE Prophylaxis: High Risk of Bleeding Specialty Discharge - Follow Up or Referrals
[2017-03-20] MEDS ORDERED: DEXTROSE 50% 25 GM/50 ML VIAL IV PRN (09:49)
[2017-03-20] MEDS ORDERED: GLUCAGON 1 MG VIAL IM PRN (09:49)
[2017-03-20] MEDS: SODIUM CHLORIDE 0.9% 1,000 ML IV SCH (10:13)
[2017-03-20] MEDS: INSULIN NPH/REGULAR 70/30 100 UNIT/ML SUBCUT SCH ×2 (10:26→17:41)
--- NOTE | 2017-03-20 11:48 | EKG Report ---
Stationary ECG Study [facility] Test Date: 03/20/2017 11:48:08 AM Pat Name: PERRY HARO Department: Room: 275 Gender: F Educational Technologist: DIEGO : 1955 Requested by: Bubba Ott Order Number: [id number] Reading MD: NORIS MAN Intervals [place] Rate: 80 P: 62 MN: 202 QRS: -8 QRSD: 101 T: 25 QT: 428 QTc: 464 Interpretive Statements SINUS RHYTHM VOLTAGE CRITERIA FOR LVH Electronically Signed On 03-20-17 17:22:31 CDT by NORIS MAN [email or web address]
--- NOTE | 2017-03-20 14:38 | Hospitalist Progress Note ---
Assessment and Plan (1) Congestive heart failure Status: Chronic Assessment and plan: The patient continues diuresis. We anticipate bypass on Current Visit: Yes Qualifiers: Congestive heart failure type: combined Congestive heart failure chronicity : acute Qualified Code(s): I50.41 - Acute combined systolic (congestive) and diastolic (congestive) heart failure (2) Cardiomyopathy Status: Chronic Current Visit: Yes Qualifiers: Cardiomyopathy type: unspecified Qualified Code(s): I42.9 - Cardiomyopathy , unspecified Hospitalist: Subjective Interval history: Ms. Shelley awaits heart surgery on . Exam - Constitutional Vitals: Period Temp Pulse Resp BP Sys/Gaitan Pulse Ox Last 24 Hr 96.4 F-97.6 F 73-86 16-18 98-140/47-72 96-100 Exam: Constitutional System: Mild distress. No tremulousness. Head: Normocephalic, atraumatic. Ears, Nose and Throat System: No evidence of Otitis or Mastoiditis. No epistaxis or discharge Eyes System: Pupils equal, round, and reactive. Extraocular muscles intact. Neck: Supple, without adenopathy, trace jugular venous distention. No thyromegaly, neck mass, or prior surgery apparent. Respiratory System: Chest rales in bases to auscultation. Cardiovascular System: Heart with regular rate and rhythm. S4 murmur. GI System: Abdomen soft, nontender. Normo active bowel sounds present. Musculoskeletal System: limbs with trace pedal edema. Full distal pulses. Neurological System: No discernable sensory deficit. No aphasia Psychiatric System: Conversation is rational Results - Labs CBC & BMP: 03/20/17 07:03 03/20/17 07:03 Lab Results: I have reviewed the past 24 hour labs Quality Measures - VTE Contraindication to Pharmacological VTE Prophylaxis: High Risk of Bleeding Specialty Discharge - Follow Up or Referrals
--- NOTE | 2017-03-20 14:56 | XRay Report ---
Exam: XR chest 2V Date: 03/20/2017 9:53 AM Indication: Coronary artery disease Comparison: 03/13/2017 Technical: PA lateral Findings: Anterior lateral marginal osteophytes thoracic spine are present. The heart is mildly prominent. No obvious infiltrate or effusion. Mediastinum is intact. Previous left rotator cuff surgery with cortical anchor screw. Moderate fecal debris in the colon. Impression: 1. No acute cardiopulmonary pathology with borderline cardiac prominence 2. Degenerative spondylosis change thoracic spine 3. Mild constipation 4. Previous rotator cuff surgery on the left PROCEDURE INTERPRETED AT [facility] DEPARTMENT OF RADIOLOGY Final Report Signed by: Dr. Dennis Penaloza
--- NOTE | 2017-03-20 15:41 | Cardiology Progress Note ---
Robe Gross April RN, am scribing for, and in the presence of, Wilmer Ruiz MD 15:39. Assessment and Plan (1) Cardiomyopathy Status: Chronic Assessment and plan: Ejection fraction 20% by echocardiogram 03/14/2017. Current Visit: Yes Qualifiers: Cardiomyopathy type: unspecified Qualified Code(s): I42.9 - Cardiomyopathy , unspecified (2) Hypokalemia Status: Acute Assessment and plan: Potassium is 3.9 today. Continue to monitor. 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 Luna SUMMARY: Ms. Shelley is a 61 year old -[place] female who has never seen a corporate responsibility officer. She has a history of hypertension, diabetes, hyperlipidemia, chronic anemia, breast cancer status post left mastectomy. Risk factors are significant for: Age, hypertension, diabetes, hyperlipidemia, tobacco use, sedentary lifestyle. She reports she has smoked half pack per day since 1977, she is planning to quit. She denies any alcohol or recreational drug use. She presented to the emergency room on March 13, 2017 complaining of shortness of breath, dry hacking cough, and increased bilateral lower extremity edema. She reports that she has been feeling short of breath and having a dry hacking cough for the past week. She began having increased lower extremity edema on March 11. Prior to last week she has had no shortness of breath but had been easily fatigued over the past few months. She reports she is able to walk to the driveway to the mailbox without exertional chest pain or dyspnea but other times she gets there she is very fatigued. She denies any complaints of chest pain, heaviness, tightness, palpitations, dizziness, lightheadedness, syncope. She reports she has been anemic "off and on" for many years and takes iron supplements. Upon admission she was noted to have an elevated BNP. Chest x-ray revealed no pneumothorax or pleural effusion, cardiomegaly. Her EKG shows sinus rhythm with suggestions of septal infarct. 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 Ragland with the following findings and plan: Severe cardiomyopathy, LVEF around 15% Severe LV enlargement Moderate elevation right heart pressures--PA pressure about 55-60/24, PCW 24, RA pressure is about 15 mmHg Occluded right coronary Angiographically about a 50% tubular narrowing of the left main--however there was some dampening of pressure when I engaged the left main Severe elevation of LVEDP, 35 mmHg Angiogram of the right femoral artery-from follow-through on the LV gram Supravalvar aortography-no significant aortic regurgitation, no right coronary was seen to come from the right coronary cusp Mild mitral regurgitation Angio-Seal of the right femoral artery-successful Plan/recommendations: The patient will have risk factors optimized. I will consult our surgeon, Dr. Bubba Barrera, guarding his opinion of the 50% tubular left main lesion. There was a slight amount of dampening but the catheter was not optimally coaxial as it could be. There was some reflux with injection of the left main. Consideration of bypass grafting by Dr. Barrera and Dr. Luna will be made. Dr. Barrera saw her in consultation and felt she would benefit from coronary bypass surgery. He felt medical therapy should be continued for 6 more days and proceed with surgery one day this week. He discussed this with the patient and it is scheduled for later this week. Edema has improved and Lasix has been decrease Lasix 40 mg IV. Carvedilol 3.125 mg twice daily has been added. March 19, 2017: Ms. Shelley seen today in no acute distress. She is up walking around the room. She denies any chest pain, shortness of breath, palpitations, or dizziness. No edema noted to lower extremities. Vital signs been stable. media monitor currently shows sinus rhythm with heart rates in the 80s. Potassium today is low at 3.4. We will have her replaced via protocol. She is stable and doing well without problems ready for surgery in 3 days. March 20, 2017: Ms. Shelley denies any chest pain, shortness of breath, palpitations, dizziness. She is awaiting coronary bypass surgery on of this week. Potassium was replaced yesterday, this morning it is 3.9. media monitor currently shows sinus rhythm with heart rates in the 80s. Patient continues stable ambulatory in the room anticipating surgery in the next 48 to 72 hours or so. I have discussed in detail the particulars of this case and I have examined the patient and reviewed the patient's chart both current and old. I was directly involved in the patient's evaluation and management and I completely agree with Jaja Nagel RN regarding this patient's evaluation and treatment plan. Exam (Progress Note) - Constitutional Vitals: Period Temp Pulse Resp BP Sys/Gaitan Pulse Ox Last 24 Hr 96.4 F-97.6 F 73-86 16-18 98-140/47-72 96-100 General appearance: normal weight, no acute distress - Head Head exam: Absent: abrasion, hematoma - Eye Eye exam: Absent: periorbital swelling, laceration to eyelids Pupils: Present: BRIANNA - Respiratory Respiratory exam: Present: clear to auscultation bilaterally. Absent: accessory muscle use, chest wall tenderness - Cardiovascular Cardiovascular exam: Present: regular rate and rhythm - GI/Abdominal GI/Abdominal exam: Present: normal bowel sounds, soft. Absent: distended, tenderness - Extremities Exam Extremities exam: Absent: edema - Neurological Exam Neurological exam: Present: alert, oriented X3 - Psychiatric Psychiatric exam: Present: normal affect, normal mood - Skin Skin exam: Present: warm, dry Result/EKG - Labs CBC & BMP: 03/20/17 07:03 03/20/17 07:03 Lab Results: I have reviewed the past 24 hour labs Labs: Laboratory Results - last 24 hr 03/19/17 03/19/17 03/19/17 11:18 15:51 20:33 WBC RBC Hgb Hct MCV MCH MCHC RDW Plt Count MPV Neut % (Auto) Lymph % (Auto) [place] % (Auto) Eos % (Auto) Baso % (Auto) Neut # (Auto) Lymph # (Auto) [place] # (Auto) Eos # (Auto) Baso # (Auto) Immature Gran % Nucleated RBC % Immature Gran # Nucleated RBCs # Sodium Potassium Chloride Carbon Dioxide Anion Gap BUN Creatinine GFR Calculation BUN/Creatinine Ratio Glucose POC Glucose 216 H 159 H 226 H Calculated Osmolality Calcium Magnesium 03/20/17 03/20/17 03/20/17 07:03 07:03 07:23 WBC 4.4 RBC 4.08 Hgb 12.8 Hct 36.5 MCV 89.5 MCH 31 MCHC 35.1 RDW 13.4 Plt Count 397 MPV 8.7 L Neut % (Auto) 52.5 Lymph % (Auto) 26.1 [place] % (Auto) 15.0 H Eos % (Auto) 4.3 Baso % (Auto) 1.6 H Neut # (Auto) 2.3 Lymph # (Auto) 1.2 L [place] # (Auto) 0.7 Eos # (Auto) 0.2 Baso # (Auto) 0.1 Immature Gran % 0.5 Nucleated RBC % 0.0 Immature Gran # 0.02 Nucleated RBCs # 0.00 Sodium 135 L Potassium 3.9 Chloride 98 Carbon Dioxide 30 Anion Gap 10.9 BUN 26 H Creatinine 1.40 H GFR Calculation 48 BUN/Creatinine Ratio 18.00 Glucose 75 POC Glucose 76 Calculated Osmolality 273.1 Calcium 9.3 Magnesium 2.6 H - EKG EKG results: interpreted by me EKG shows: sinus rhythm Quality Measures - VTE Contraindication to Pharmacological VTE Prophylaxis: High Risk of Bleeding Specialty Discharge - Follow Up or Referrals Joseph Gross Wesley, MD, personally performed the services described in this documentation, ascribed by Jaja Nagel RN in my presence, and it is both accurate and complete 539 .
[2017-03-20] MEDS: ENOXAPARIN 40 MG/0.4 ML SYRINGE SUBCUT SCH (21:00)
[2017-03-20] MEDS: CHLORHEXIDINE 0.12% ORAL RINSE 60 ML BOTTLE SWISH/SPIT SCH (21:01)
[2017-03-20] MEDS: ATORVASTATIN 40 MG TABLET PO SCH (21:01)
[2017-03-20] MEDS: AMITRIPTYLINE 25 MG TABLET PO SCH (21:01)
[2017-03-20] MEDS: POLYETHYLENE GLYCOL POWDER 17 GM PACK PO PRN (21:02)
[2017-03-21 03:38] LABS: ABG Base Excess 2.5 MMOL/L (-2.5-2.5); ABG HCO3 26.6 MMOL/L (20-26); ABG Oxygen Saturation 96.3 % (95-100); ABG PO2 80.8 MM HG (80-95); ABG TCO2 23.4 MMOL/L (23-27); Allen Test Positive; Pt O2 Delivery Device Room Air
[2017-03-21 04:44] LABS: Basophils # 0.1 10*3/uL (0.0-0.2); Basophils % 1.1 % (0.0-0.8); Eosinophils # 0.2 10*3/uL (0.0-0.87); Eosinophils % 4.4 % (0.00-10.9); Hematocrit 34.1 VOL% (35.7-47.0); Hemoglobin 11.9 GM/DL (12.0-16.0); Immature Granulocytes % 0.4 %; Immature Granulocytes Absolute 0.02 #; Lymphocytes # 1.2 10*3/uL (1.4-4.0); Lymphocytes % 27.4 % (21.3-54.2); Mean Corpuscular HGB Conc 34.9 GM/DL (32-36); Mean Corpuscular Hemoglobin 31 PG (27-34); Mean Corpuscular Volume 89.5 FL (87-102); Mean Platelet Volume 8.8 FL (9.6-12.0); Monocytes # 0.8 10*3/uL (0.11-0.8); Monocytes % 17.3 % (1.7-12.7); Neutrophils # 2.2 10*3/uL (1.4-7.4); Neutrophils % 49.4 % (38.7-73.9); Platelet Count 385 T/CUMM (130-400); Red Blood Count 3.81 MC/CUMM (3.8-5.5); Red Cell Distribution Width 13.2 % (9.3-17.3); White Blood Count 4.5 T/CUMM (4-12)
[2017-03-21 05:20] LABS: Calcium 8.9 MG/DL (8.5-10.1); Osmolality,Calculated 268.5 MOS/KG (273-304); Potassium 3.7 MMOL/L (3.5-5.1)
[2017-03-21 05:36] LABS: Band Neutrophils 4 % (0-10); Eosinophils 8 % (0-10); Lymphocytes 35 % (20-55); Segmented Neutrophils 44 % (50-85); Total Cells Counted 100
[2017-03-21 05:37] LABS: Anisocytosis 1+; Platelet Estimate Adequate
--- NOTE | 2017-03-21 06:28 | Cardiothoracic Progress Note ---
Cardiothoracic Subjective Interval history: Patient is ready for surgery in the morning. Patient is ready for surgery in the morning. Exam (Progress Note) - Constitutional Vitals: Period Temp Pulse Resp BP Sys/Gaitan Pulse Ox Last 24 Hr 96.8 F-97.9 F 74-84 14-18 112-130/51-67 96-99 Result/EKG - Labs CBC & BMP: 03/21/17 04:12 03/21/17 04:12 Labs: Laboratory Results - last 24 hr 03/20/17 03/20/17 03/20/17 07:03 07:03 07:23 WBC 4.4 RBC 4.08 Hgb 12.8 Hct 36.5 MCV 89.5 MCH 31 MCHC 35.1 RDW 13.4 Plt Count 397 MPV 8.7 L Neut % (Auto) 52.5 Lymph % (Auto) 26.1 [place] % (Auto) 15.0 H Eos % (Auto) 4.3 Baso % (Auto) 1.6 H Neut # (Auto) 2.3 Lymph # (Auto) 1.2 L [place] # (Auto) 0.7 Eos # (Auto) 0.2 Baso # (Auto) 0.1 Total Counted Immature Gran % 0.5 Nucleated RBC % 0.0 Immature Gran # 0.02 Segmented Neutrophils Band Neutrophils Lymphocytes Monocytes Eosinophils Basophils Nucleated RBCs # 0.00 Platelet Estimate Anisocytosis ABG pH ABG pCO2 ABG pO2 ABG HCO3 ABG Total CO2 ABG O2 Saturation ABG Base Excess FiO2 Sodium 135 L Potassium 3.9 Chloride 98 Carbon Dioxide 30 Anion Gap 10.9 BUN 26 H Creatinine 1.40 H GFR Calculation 48 BUN/Creatinine Ratio 18.00 Glucose 75 POC Glucose 76 Calculated Osmolality 273.1 Calcium 9.3 Magnesium 2.6 H 03/20/17 03/20/17 03/20/17 11:12 16:50 19:52 WBC RBC Hgb Hct MCV MCH MCHC RDW Plt Count MPV Neut % (Auto) Lymph % (Auto) [place] % (Auto) Eos % (Auto) Baso % (Auto) Neut # (Auto) Lymph # (Auto) [place] # (Auto) Eos # (Auto) Baso # (Auto) Total Counted Immature Gran % Nucleated RBC % Immature Gran # Segmented Neutrophils Band Neutrophils Lymphocytes Monocytes Eosinophils Basophils Nucleated RBCs # Platelet Estimate Anisocytosis ABG pH ABG pCO2 ABG pO2 ABG HCO3 ABG Total CO2 ABG O2 Saturation ABG Base Excess FiO2 Sodium Potassium Chloride Carbon Dioxide Anion Gap BUN Creatinine GFR Calculation BUN/Creatinine Ratio Glucose POC Glucose 229 H 104 246 H Calculated Osmolality Calcium Magnesium 03/21/17 03/21/17 03/21/17 03:20 04:12 04:12 WBC 4.5 RBC 3.81 Hgb 11.9 L Hct 34.1 L MCV 89.5 MCH 31 MCHC 34.9 RDW 13.2 Plt Count 385 MPV 8.8 L Neut % (Auto) 49.4 Lymph % (Auto) 27.4 [place] % (Auto) 17.3 H Eos % (Auto) 4.4 Baso % (Auto) 1.1 H Neut # (Auto) 2.2 Lymph # (Auto) 1.2 L [place] # (Auto) 0.8 Eos # (Auto) 0.2 Baso # (Auto) 0.1 Total Counted 100 Immature Gran % 0.4 Nucleated RBC % 0.0 Immature Gran # 0.02 Segmented Neutrophils 44 L Band Neutrophils 4 Lymphocytes 35 Monocytes 8 Eosinophils 8 Basophils 1.0 H Nucleated RBCs # 0.00 Platelet Estimate Adequate Anisocytosis 1+ ABG pH 7.450 ABG pCO2 38.0 ABG pO2 80.8 ABG HCO3 26.6 H ABG Total CO2 23.4 ABG O2 Saturation 96.3 ABG Base Excess 2.5 FiO2 21.00 Sodium 132 L Potassium 3.7 Chloride 96 L Carbon Dioxide 27 Anion Gap 12.7 BUN 26 H Creatinine 1.20 H GFR Calculation 56 BUN/Creatinine Ratio 21.00 H Glucose 106 POC Glucose Calculated Osmolality 268.5 L Calcium 8.9 Magnesium Quality Measures - VTE Contraindication to Pharmacological VTE Prophylaxis: High Risk of Bleeding Specialty Discharge - Follow Up or Referrals
[2017-03-21] MEDS: INSULIN REGULAR 100 UNIT/ML SUBCUT SCH ×4 (09:10→21:51)
[2017-03-21] MEDS: INSULIN NPH/REGULAR 70/30 100 UNIT/ML SUBCUT SCH ×2 (09:13→17:31)
[2017-03-21] MEDS: FOSINOPRIL 20 MG TABLET PO SCH (09:15)
[2017-03-21] MEDS: hydroCHLOROthiazide 25 MG TABLET PO SCH (09:15)
[2017-03-21] MEDS: PARoxetine 20 MG TABLET PO SCH (09:15)
[2017-03-21] MEDS: CARVEDILOL 3.125 MG TABLET PO SCH ×2 (09:15→17:31)
[2017-03-21] MEDS: ASPIRIN CHEW 81 MG TABLET PO SCH (09:16)
[2017-03-21] MEDS: BACLOFEN 10 MG TABLET PO SCH (09:16)
[2017-03-21] MEDS: DOCUSATE SODIUM 100 MG CAPSULE PO SCH (09:16)
[2017-03-21] MEDS: FUROSEMIDE 40 MG/4 ML VIAL IV SCH (09:16)
[2017-03-21] MEDS: LORATADINE 10 MG TABLET PO SCH (09:16)
[2017-03-21] MEDS: PANTOPRAZOLE 40 MG TABLET PO SCH (09:16)
[2017-03-21] MEDS: CHLORHEXIDINE 0.12% ORAL RINSE 60 ML BOTTLE SWISH/SPIT SCH ×2 (09:17→21:52)
[2017-03-21] MEDS: ACETAMINOPHEN 325 MG TABLET PO PRN (09:20)
[2017-03-21] MEDS ORDERED: CEFUROXIME INJ 1,500 MG in SODIUM CHLORIDE 0.9% 100 ML IV ONE (09:49)
[2017-03-21] MEDS: SODIUM CHLORIDE 0.9% 1,000 ML IV SCH (11:08)
--- NOTE | 2017-03-21 11:16 | Cardiology Progress Note ---
<Velvet Carey E - Last Filed: 03/21/17 11:26> Assessment and Plan - Time spent with patient Time spent with patient: Less than 30 minutes (1) Cardiomyopathy Status: Chronic Assessment and plan: See plan of care listed below. Current Visit: Yes Qualifiers: Cardiomyopathy type: ischemic Qualified Code(s): I25.5 - Ischemic cardiomyopathy (2) Congestive heart failure Status: Chronic Assessment and plan: See plan of care listed below. Current Visit: Yes Qualifiers: Congestive heart failure type: combined Congestive heart failure chronicity : acute Qualified Code(s): I50.41 - Acute combined systolic (congestive) and diastolic (congestive) heart failure (3) Anemia Status: Chronic Assessment and plan: See plan of care listed below. Current Visit: Yes (4) Hypertension Status: Chronic Assessment and plan: See plan of care listed below. Current Visit: Yes (5) Hyperlipidemia Status: Chronic Assessment and plan: See plan of care listed below. Current Visit: Yes (6) Insulin dependent diabetes mellitus Status: Chronic Assessment and plan: See plan of care listed below. Current Visit: Yes (7) Tobacco use Status: Chronic Assessment and plan: See plan of care listed below. 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 Luna SUMMARY: Ms. Shelley is a 61 year old -[place] female without a prior history of coronary disease who presented to the emergency room on 03/13/2017 for further evaluation of shortness of breath, dry hacking cough, and increased bilateral lower extremity edema. She has a history of hypertension, diabetes, hyperlipidemia, chronic anemia, and breast cancer status post left mastectomy. She was noted to have an elevated BNP on admission chest x-ray revealed no pneumothorax or pleural effusion. Her EKG showed sinus rhythm with suggestions of septal infarct and she was taken to the [facility] for further evaluation. On 03/16/2017, she underwent right and left heart catheterization which revealed severe cardiomyopathy with EF around 15%, severe LV enlargement, moderate elevation of the right-sided heart pressures with PA P 55-60, and occluded right coronary, and 50% narrowing of the left main. CV Surgery was consulted and was felt she would benefit from coronary artery bypass grafting. She is scheduled for surgery on 03/22/2017. MARCH 21, 2017 UPDATE: Clinically, Ms. Shelley is doing well. Her lab work and vital signs have been stable. She has no complaints other than constipation. She states that MiraLAX and stool softeners have not yielded her results yet. Will order milk of magnesia. She denies any chest pain, shortness of breath, palpitations. Potassium 3.7, creatinine 1.2 today. Anticipate CABG tomorrow. We will continue to monitor. Assessment/Plan: 1. ISCHEMIC CARDIOMYOPATHY - EF 15% per R/LHC on 03/16/17 with occluded RCA and 50 % narrowing of LM. Scheduled for surgery on 03/22/17. Will continue medical therapy. 2. CONGESTIVE HEART FAILURE - Combined systolic and diastolic, acute. NHYA Class II. Initial BNP 1482. She is on FLY inhibitor, beta-yadira, aspirin, statin. Clinically, she is well compensated at this time. 3. ANEMIA - We will check anemia studies and occult stool. 4. HYPERTENSION - Currently well controlled. We will continue to monitor and adjust accordingly. 5. HYPERLIPIDEMIA - Continue lipid-lowering agent. 6. DIABETES MELLITUS - She has been started on Accu-Cheks before meals and at bedtime with sliding scale insulin. 7. TOBACCO USE - Chronic. Patient has smoked 1/2 PPD since 1977. Exam (Progress Note) - Constitutional Vitals: Period Temp Pulse Resp BP Sys/Gaitan Pulse Ox Last 24 Hr 96.4 F-97.9 F 74-84 14-18 112-124/51-67 96-100 Exam: General: Present: Appears Well, No Apparent Distress. Pleasant and cooperative. Appears comfortable. HEENT: Present: PERRL, Normocephaly, atraumatic. Mucus Membranes Moist. No jaundice noted. Conjunctiva moist and clear, sclerae anicteric Neck: Present: Supple Neck, Midline Trachea, No Masses, No Bruit, No tenderness Cardiac: Present: Regular Rate and Rhythm, No Murmur Lungs: Present: Clear to auscultation bilaterally, no wheeze, rhonchi, rales. Neuro: Present: Awake, alert, and oriented x3. Moves all extremities well without hemiparesis or paralysis. Grossly Intact. Absent: Resting Tremor, Essential Tremor Abdomen: Present: Soft, Active Bowel Sounds, No Masses, Non-Tender, nondistended. No abdominal bruit or thrill noted. Skin: Present: Clear. Absent: Rash, No skin breakdown. Back: Normal inspection, no vertebral tenderness. Musculoskeletal: Present: No Fluid Collection, No Pain, Normal Range of Motion Extremities: Present: Normal Gait, No Clubbing, No Cyanosis, Upper Extr. Pulses 2+, Lower Extr. Pulses 2+, No edema. Capillary refill less than 3 seconds. Result/EKG - Labs CBC & BMP: 03/21/17 04:12 03/21/17 04:12 Lab Results: I have reviewed the past 24 hour labs Labs: Laboratory Results - last 24 hr 03/20/17 03/20/17 03/20/17 11:12 16:50 19:52 WBC RBC Hgb Hct MCV MCH MCHC RDW Plt Count MPV Neut % (Auto) Lymph % (Auto) Gage % (Auto) Eos % (Auto) Baso % (Auto) Neut # (Auto) Lymph # (Auto) Gage # (Auto) Eos # (Auto) Baso # (Auto) Total Counted Immature Gran % Nucleated RBC % Immature Gran # Segmented Neutrophils Band Neutrophils Lymphocytes Monocytes Eosinophils Basophils Nucleated RBCs # Platelet Estimate Anisocytosis ABG pH ABG pCO2 ABG pO2 ABG HCO3 ABG Total CO2 ABG O2 Saturation ABG Base Excess FiO2 Sodium Potassium Chloride Carbon Dioxide Anion Gap BUN Creatinine GFR Calculation BUN/Creatinine Ratio Glucose POC Glucose 229 H 104 246 H Calculated Osmolality Calcium Blood Type Antibody Screen Crossmatch 03/21/17 03/21/17 03/21/17 03:20 04:12 04:12 WBC 4.5 RBC 3.81 Hgb 11.9 L Hct 34.1 L MCV 89.5 MCH 31 MCHC 34.9 RDW 13.2 Plt Count 385 MPV 8.8 L Neut % (Auto) 49.4 Lymph % (Auto) 27.4 Gage % (Auto) 17.3 H Eos % (Auto) 4.4 Baso % (Auto) 1.1 H Neut # (Auto) 2.2 Lymph # (Auto) 1.2 L Gage # (Auto) 0.8 Eos # (Auto) 0.2 Baso # (Auto) 0.1 Total Counted 100 Immature Gran % 0.4 Nucleated RBC % 0.0 Immature Gran # 0.02 Segmented Neutrophils 44 L Band Neutrophils 4 Lymphocytes 35 Monocytes 8 Eosinophils 8 Basophils 1.0 H Nucleated RBCs # 0.00 Platelet Estimate Adequate Anisocytosis 1+ ABG pH 7.450 ABG pCO2 38.0 ABG pO2 80.8 ABG HCO3 26.6 H ABG Total CO2 23.4 ABG O2 Saturation 96.3 ABG Base Excess 2.5 FiO2 21.00 Sodium Potassium Chloride Carbon Dioxide Anion Gap BUN Creatinine GFR Calculation BUN/Creatinine Ratio Glucose POC Glucose Calculated Osmolality Calcium Blood Type O POSITIVE Antibody Screen Negative Crossmatch See Detail 03/21/17 03/21/17 03/21/17 04:12 07:58 Unknown WBC RBC Hgb Hct MCV MCH MCHC RDW Plt Count MPV Neut % (Auto) Lymph % (Auto) Gage % (Auto) Eos % (Auto) Baso % (Auto) Neut # (Auto) Lymph # (Auto) Gage # (Auto) Eos # (Auto) Baso # (Auto) Total Counted Immature Gran % Nucleated RBC % Immature Gran # Segmented Neutrophils Band Neutrophils Lymphocytes Monocytes Eosinophils Basophils Nucleated RBCs # Platelet Estimate Anisocytosis ABG pH ABG pCO2 ABG pO2 ABG HCO3 ABG Total CO2 ABG O2 Saturation ABG Base Excess FiO2 Sodium 132 L Potassium 3.7 Chloride 96 L Carbon Dioxide 27 Anion Gap 12.7 BUN 26 H Creatinine 1.20 H GFR Calculation 56 BUN/Creatinine Ratio 21.00 H Glucose 106 POC Glucose 104 Calculated Osmolality 268.5 L Calcium 8.9 Blood Type O POSITIVE Antibody Screen Crossmatch - EKG EKG results: interpreted by me, sinus rhythm Quality Measures - VTE Contraindication to Pharmacological VTE Prophylaxis: High Risk of Bleeding Specialty Discharge - Follow Up or Referrals <Wilmer Ruiz - Last Filed: 03/21/17 14:47> Assessment and Plan (1) Cardiomyopathy Status: Chronic Current Visit: Yes Qualifiers: Cardiomyopathy type: ischemic Qualified Code(s): I25.5 - Ischemic cardiomyopathy (2) Hypokalemia Status: Resolved Current Visit: Yes (3) History of breast cancer Status: Chronic Current Visit: Yes (4) Anemia Status: Chronic Current Visit: Yes (5) Hyperlipidemia Status: Chronic Current Visit: Yes (6) Hypertension Status: Chronic Current Visit: Yes (7) Insulin dependent diabetes mellitus Status: Chronic Current Visit: Yes (8) Tobacco use Status: Chronic Current Visit: Yes Cardiology - PN: Subj Interval history: I have discussed in detail the particulars of this case and I have examined the patient and reviewed the patient's chart both current and old. I was directly involved in the patient's evaluation and management and I completely agree with Velvet Carey NP regarding this patient's evaluation and treatment plan. Exam (Progress Note) - Constitutional Vitals: Period Temp Pulse Resp BP Sys/Gaitan Pulse Ox Last 24 Hr 96.4 F-97.9 F 74-79 14-18 106-124/53-67 96-100 Result/EKG - Labs CBC & BMP: 03/21/17 04:12 03/21/17 04:12 Labs: Laboratory Results - last 24 hr 03/20/17 03/20/17 03/21/17 16:50 19:52 03:20 WBC RBC Hgb Hct MCV MCH MCHC RDW Plt Count MPV Neut % (Auto) Lymph % (Auto) Gage % (Auto) Eos % (Auto) Baso % (Auto) Neut # (Auto) Lymph # (Auto) Gage # (Auto) Eos # (Auto) Baso # (Auto) Total Counted Immature Gran % Nucleated RBC % Immature Gran # Segmented Neutrophils Band Neutrophils Lymphocytes Monocytes Eosinophils Basophils Nucleated RBCs # Platelet Estimate Anisocytosis ABG pH 7.450 ABG pCO2 38.0 ABG pO2 80.8 ABG HCO3 26.6 H ABG Total CO2 23.4 ABG O2 Saturation 96.3 ABG Base Excess 2.5 FiO2 21.00 Sodium Potassium Chloride Carbon Dioxide Anion Gap BUN Creatinine GFR Calculation BUN/Creatinine Ratio Glucose POC Glucose 104 246 H Calculated Osmolality Calcium Blood Type Antibody Screen Crossmatch 03/21/17 03/21/17 03/21/17 04:12 04:12 04:12 WBC 4.5 RBC 3.81 Hgb 11.9 L Hct 34.1 L MCV 89.5 MCH 31 MCHC 34.9 RDW 13.2 Plt Count 385 MPV 8.8 L Neut % (Auto) 49.4 Lymph % (Auto) 27.4 Gage % (Auto) 17.3 H Eos % (Auto) 4.4 Baso % (Auto) 1.1 H Neut # (Auto) 2.2 Lymph # (Auto) 1.2 L Gage # (Auto) 0.8 Eos # (Auto) 0.2 Baso # (Auto) 0.1 Total Counted 100 Immature Gran % 0.4 Nucleated RBC % 0.0 Immature Gran # 0.02 Segmented Neutrophils 44 L Band Neutrophils 4 Lymphocytes 35 Monocytes 8 Eosinophils 8 Basophils 1.0 H Nucleated RBCs # 0.00 Platelet Estimate Adequate Anisocytosis 1+ ABG pH ABG pCO2 ABG pO2 ABG HCO3 ABG Total CO2 ABG O2 Saturation ABG Base Excess FiO2 Sodium 132 L Potassium 3.7 Chloride 96 L Carbon Dioxide 27 Anion Gap 12.7 BUN 26 H Creatinine 1.20 H GFR Calculation 56 BUN/Creatinine Ratio 21.00 H Glucose 106 POC Glucose Calculated Osmolality 268.5 L Calcium 8.9 Blood Type O POSITIVE Antibody Screen Negative Crossmatch See Detail 03/21/17 03/21/17 03/21/17 07:58 11:36 Unknown WBC RBC Hgb Hct MCV MCH MCHC RDW Plt Count MPV Neut % (Auto) Lymph % (Auto) Gage % (Auto) Eos % (Auto) Baso % (Auto) Neut # (Auto) Lymph # (Auto) Gage # (Auto) Eos # (Auto) Baso # (Auto) Total Counted Immature Gran % Nucleated RBC % Immature Gran # Segmented Neutrophils Band Neutrophils Lymphocytes Monocytes Eosinophils Basophils Nucleated RBCs # Platelet Estimate Anisocytosis ABG pH ABG pCO2 ABG pO2 ABG HCO3 ABG Total CO2 ABG O2 Saturation ABG Base Excess FiO2 Sodium Potassium Chloride Carbon Dioxide Anion Gap BUN Creatinine GFR Calculation BUN/Creatinine Ratio Glucose POC Glucose 104 209 H Calculated Osmolality Calcium Blood Type O POSITIVE Antibody Screen Crossmatch
[2017-03-21] MEDS: MAGNESIUM HYDROXIDE SUSP 30 ML UDCUP PO PRN ×2 (12:14→21:51)
--- NOTE | 2017-03-21 12:36 | Hospitalist Progress Note ---
Assessment and Plan - Time spent with patient Time spent with patient: Less than 30 minutes (1) Hypokalemia Status: Resolved Assessment and plan: K 3.3 this a.m. will continue potassium replacement protocol and monitor. Current Visit: Yes (2) Congestive heart failure Status: Chronic Assessment and plan: 03/21/17 - Will continue FLY inhibitor, beta-yadira, aspirin, statin. Will continue to monitor vital signs and electrolytes closely. Current Visit: Yes Qualifiers: Congestive heart failure type: combined Congestive heart failure chronicity : acute Qualified Code(s): I50.41 - Acute combined systolic (congestive) and diastolic (congestive) heart failure (3) Hypertension Status: Chronic Assessment and plan: Currently controlled. Will continue FLY inhibitor, beta yadira and monitor vital signs. Current Visit: Yes (4) Insulin dependent diabetes mellitus Status: Chronic Assessment and plan: Blood sugar 106 this a.m. Will continue medications and monitor blood glucose. Current Visit: Yes Hospitalist: Subjective Interval history: Ms Shelley sitting up on side of bed reading. Denies any shortness of breath, denies fever, chills, or cough. She verbalizes a good night. She is awaiting surgery which is scheduled for a.m. (2016). Exam - Constitutional Vitals: Period Temp Pulse Resp BP Sys/Gaitan Pulse Ox Last 24 Hr 96.4 F-97.9 F 74-79 14-18 106-124/53-67 96-100 General appearance: normal weight - Head Head exam: Present: normal inspection - Eye Eye exam: Present: EOMI Pupils: Present: BRIANNA - Neck Neck exam: Present: normal inspection - Respiratory Respiratory exam: Present: clear to auscultation bilaterally - Cardiovascular Cardiovascular exam: Present: regular rate and rhythm - GI/Abdominal GI/Abdominal exam: Present: normal bowel sounds, soft. Absent: tenderness, rebound - Extremities Exam Extremities exam: Present: full ROM. Absent: edema - Neurological Exam Neurological exam: Present: alert, oriented X3 - Psychiatric Psychiatric exam: Present: normal affect, normal mood - Skin Skin exam: Present: normal color, warm, dry Results - Labs CBC & BMP: 03/21/17 04:12 03/21/17 04:12 Lab Results: I have reviewed the past 24 hour labs Quality Measures - VTE Contraindication to Pharmacological VTE Prophylaxis: High Risk of Bleeding Specialty Discharge - Follow Up or Referrals
[2017-03-21] MEDS: CHLORHEXIDINE 4% SOLN 118 ML BOTTLE TOP SCH ×2 (14:03→21:55)
[2017-03-21] MEDS: ENOXAPARIN 40 MG/0.4 ML SYRINGE SUBCUT SCH (21:51)
[2017-03-21] MEDS: ATORVASTATIN 40 MG TABLET PO SCH (21:51)
[2017-03-21] MEDS: AMITRIPTYLINE 25 MG TABLET PO SCH (21:51)
[2017-03-22] MEDS ORDERED: PAPAVERINE 60 MG/2 ML VIAL ONE (04:37)
[2017-03-22] MEDS ORDERED: VANCOMYCIN 1,000 MG VIAL ONE (04:38)
[2017-03-22 04:46] LABS: Basophils # 0.1 10*3/uL (0.0-0.2); Eosinophils # 0.2 10*3/uL (0.0-0.87); Eosinophils % 3.5 % (0.00-10.9); Hemoglobin 11.8 GM/DL (12.0-16.0); Immature Granulocytes % 0.8 %; Immature Granulocytes Absolute 0.04 #; Lymphocytes # 1.4 10*3/uL (1.4-4.0); Lymphocytes % 28.7 % (21.3-54.2); Mean Corpuscular HGB Conc 34.7 GM/DL (32-36); Mean Corpuscular Hemoglobin 31 PG (27-34); Mean Corpuscular Volume 89.5 FL (87-102); Mean Platelet Volume 8.9 FL (9.6-12.0); Monocytes # 0.7 10*3/uL (0.11-0.8); Monocytes % 14.4 % (1.7-12.7); Neutrophils # 2.5 10*3/uL (1.4-7.4); Neutrophils % 51.6 % (38.7-73.9); Platelet Count 376 T/CUMM (130-400); Red Cell Distribution Width 13.3 % (9.3-17.3); White Blood Count 4.9 T/CUMM (4-12)
[2017-03-22] MEDS ORDERED: LORazepam 2 MG/1 ML VIAL IV ONE (05:00)
[2017-03-22] MEDS ORDERED: PANTOPRAZOLE 40 MG VIAL IV ONE (05:00)
[2017-03-22 05:13] LABS: Calcium 8.6 MG/DL (8.5-10.1); Magnesium 2.9 MG/DL (1.8-2.4); Osmolality,Calculated 268.5 MOS/KG (273-304); Potassium 4.2 MMOL/L (3.5-5.1)
[2017-03-22 05:51] LABS: Eosinophils 4 % (0-10); Hypochromasia 1+; Lymphocytes 28 % (20-55); Segmented Neutrophils 60 % (50-85); Total Cells Counted 100
[2017-03-22 05:52] LABS: Burr Cells Slight; Microcytosis 1+; Platelet Estimate Normal
[2017-03-22] MEDS ORDERED: CEFUROXIME INJ 1,500 MG in SODIUM CHLORIDE 0.9% 100 ML IV ONE (06:00)
[2017-03-22 07:26] LABS: ABG Base Excess 1.7 MMOL/L (-2.5-2.5); ABG PCO2 33.7 MM HG (35-48); ABG PH 7.477 (7.35-7.45); ABG TCO2 22.4 MMOL/L (23-27); Glucose Heart Surgery 119 MG/DL (74-106); Hemoglobin Heart Surgery 10.4 G/DL (12.0-16.0); Ionized Calcium Arterial 1.06 MMOL/L (1.21-1.46); PCO2 Patient Temp Arterial 33.7 MMHG; PH Patient Temp Arterial 7.477; Patient Temperature 37 CELCIUS; Potassium Heart/CVR 4.1 MMOL/L (3.5-5.1); Sodium Heart/CVR 132 MMOL/L (135-145)
[2017-03-22 07:51] LABS: Apearance,Urine CLEAR (Clear); Bilirubin,Urine Negative (Negative); Blood, Urine Negative (Negative); Glucose,Urine (UA) Negative (Negative); Ketones,Urine Negative (Negative); Nitrite,Urine Negative (Negative); Protein,Urine Negative; RBC,Urine 1 /HPF (0-4); Squamous Epithelial Cell,Urine Occasional /HPF (0-10); Urine Color Yellow (Yellow); Urine Urobilinogen < 2.0 EU/DL (0.2-1.0); WBC,Urine <1 /HPF (0-6)
[2017-03-22] MEDS ORDERED: PHENYLEPHRINE DRIP 40 MG/250 ML PREMIX IV ONE (08:07)
[2017-03-22] MEDS ORDERED: POTASSIUM CHLORIDE RIDER 100 ML IV ONE (08:08)
[2017-03-22 09:05] LABS: Hematocrit Heart Surgery 20.2 PERCENT (37-47); PH Patient Temp Venous 7.47; PO2 Patient Temp Venous 33.9 MM HG; Potassium Heart/CVR 4.4 MMOL/L (3.5-5.1); VBG Base Excess 2.8 MEQ/L (0-4); VBG HCO3 26.7 MEQ/L (24-28); VBG Oxygen Saturation 76.6 %; VBG PCO2 41.6 MMHG (41-51); VBG PH 7.426; VBG PO2 41.7 MMHG (17-40)
[2017-03-22 09:06] LABS: Hemoglobin Heart Surgery 6.4 G/DL (12.0-16.0)
[2017-03-22 09:35] LABS: Hematocrit Heart Surgery 25.6 PERCENT (37-47); Hemoglobin Heart Surgery 8.2 G/DL (12.0-16.0); PCO2 Patient Temp Venous 38.5 MM HG; PH Patient Temp Venous 7.427; PO2 Patient Temp Venous 42.5 MM HG; Potassium Heart/CVR 5.6 MMOL/L (3.5-5.1); VBG Base Excess 1.1 MEQ/L (0-4); VBG HCO3 25.2 MEQ/L (24-28); VBG PCO2 40.4 MMHG (41-51); VBG PH 7.412; VBG PO2 45.5 MMHG (17-40)
[2017-03-22] MEDS ORDERED: DEXTROSE 5% KCL 20 MEQ 20 MEQ/1,000 ML BAG IV ONE (10:03)
[2017-03-22] MEDS ORDERED: HEPARIN 10,000 UNIT/10 ML VIAL ONE (10:03)
[2017-03-22] MEDS ORDERED: methylPREDNISolone SOD SUC 1,000 MG/8 ML VIAL ONE (10:03)
[2017-03-22] MEDS ORDERED: ALBUMIN 25% 25 GM/100 ML VIAL IV ONE (10:03)
[2017-03-22] MEDS ORDERED: MAGNESIUM SULFATE 1 GM/2 ML VIAL ONE (10:03)
[2017-03-22] MEDS ORDERED: PHENYLEPHRINE DRIP 20 MG/250 ML PREMIX IV ONE ×2 (10:03→11:21)
[2017-03-22] MEDS ORDERED: PROTAMINE SULFATE 250 MG/25 ML VIAL IV ONE (10:03)
[2017-03-22] MEDS ORDERED: SODIUM BICARBONATE 50 MEQ/50 ML SYRINGE IV ONE (10:03)
[2017-03-22] MEDS ORDERED: MANNITOL 12.5 GM/50 ML VIAL IV ONE (10:04)
[2017-03-22] MEDS ORDERED: FUROSEMIDE 20 MG/2 ML VIAL ONE (10:04)
[2017-03-22 10:14] LABS: ABG Base Excess -0.5 MMOL/L (-2.5-2.5); ABG HCO3 24.1 MMOL/L (20-26); ABG Oxygen Saturation 98.7 % (95-100); ABG PCO2 33.9 MM HG (35-48); ABG PH 7.443 (7.35-7.45); ABG TCO2 21.2 MMOL/L (23-27); Glucose Heart Surgery 248 MG/DL (74-106); Hematocrit Heart Surgery 29.2 PERCENT (37-47); Hemoglobin Heart Surgery 9.4 G/DL (12.0-16.0); Ionized Calcium Arterial 1.32 MMOL/L (1.21-1.46); PCO2 Patient Temp Arterial 33.9 MMHG; PH Patient Temp Arterial 7.443; Patient Temperature 37 CELCIUS; Potassium Heart/CVR 4.5 MMOL/L (3.5-5.1); Sodium Heart/CVR 127 MMOL/L (135-145)
--- NOTE | 2017-03-22 10:20 | Event Note ---
03/22/17 - Went to see Ms Shelley this a.m. in room 275 but she had already gone to surgery with Dr Barrera. She will go to CVICU for recovery.
[2017-03-22] MEDS ORDERED: INSULIN REGULAR DRIP 100 ML IV ONE (10:21)
[2017-03-22] MEDS ORDERED: DOBUTamine 500 MG/250 ML PREMIX IV ONE ×2 (10:49→11:20)
[2017-03-22] MEDS ORDERED: NITROGLYCERIN DRIP 50 MG/250 ML BOTTLE IV ONE ×2 (10:49→11:22)
[2017-03-22] MEDS ORDERED: PROTAMINE SULFATE 50 MG/5 ML VIAL IV ONE ×2 (10:54→12:14)
[2017-03-22] MEDS ORDERED: CALCIUM CHLORIDE 1,000 MG/10 ML SYRINGE IV PRN (10:58)
[2017-03-22] MEDS ORDERED: MAGNESIUM SULF RIDER 2 GM in PREMIX 1 EACH IV PRN (10:58)
[2017-03-22] MEDS ORDERED: INSULIN REGULAR 100 UNIT/ML IV PRN (10:58)
[2017-03-22] MEDS ORDERED: DEXTROSE 50% 25 GM/50 ML VIAL IV PRN ×2 (10:58)
[2017-03-22] MEDS ORDERED: NITROPRUSSIDE 100 MG in DEXTROSE 5% 250 ML IV PRN (10:58)
[2017-03-22] MEDS ORDERED: PHENYLEPHRINE DRIP 40 MG/250 ML PREMIX IV PRN (10:58)
[2017-03-22] MEDS ORDERED: VECURONIUM 10 MG VIAL IV PRN ×2 (10:58)
[2017-03-22] MEDS ORDERED: INSULIN REGULAR 100 UNIT/ML IV ONE (10:58)
[2017-03-22] MEDS ORDERED: MORPHINE 10 MG/1 ML VIAL IV PRN (10:58)
[2017-03-22] MEDS ORDERED: ACETAMINOPHEN 650 MG SUPP RECTAL PRN (10:58)
[2017-03-22] MEDS ORDERED: MAGNESIUM SULF RIDER 4 GM in PREMIX 1 EACH IV PRN (10:58)
[2017-03-22] MEDS ORDERED: MIDAZOLAM 10 MG/2 ML VIAL IV PRN (10:58)
[2017-03-22] MEDS ORDERED: CALCIUM CHLORIDE 1,000 MG/10 ML SYRINGE IV ONE (11:20)
[2017-03-22] MEDS ORDERED: SEVOFLURANE 1 UNIT/15 MINUTE INH ONE (11:21)
[2017-03-22] MEDS ORDERED: SUFentanil 250 MCG/5 ML AMP ONE (11:21)
[2017-03-22] MEDS ORDERED: SODIUM CHLORIDE 0.9% 1,000 ML IV ONE (11:22)
[2017-03-22] MEDS ORDERED: AMINOCAPROIC ACID 5,000 MG/20 ML VIAL IV ONE (11:22)
[2017-03-22] MEDS ORDERED: ETOMIDATE 20 MG/10 ML VIAL IV ONE (11:22)
[2017-03-22] MEDS ORDERED: MINERAL OIL/PETROLATUM OPH OINT 3.5 GM TUBE ONE (11:22)
[2017-03-22] MEDS ORDERED: SODIUM CHLORIDE 0.9% 250 ML IV ONE (11:22)
[2017-03-22] MEDS ORDERED: LACTATED RINGERS 1,000 ML IV ONE (11:22)
[2017-03-22] MEDS ORDERED: MIDAZOLAM 10 MG/2 ML VIAL ONE (11:22)
[2017-03-22] MEDS ORDERED: VECURONIUM 10 MG VIAL IV ONE (11:22)
[2017-03-22] MEDS ORDERED: HEPARIN/NACL 0.9% 2 UNITS/ML 500 ML IV ONE (11:23)
[2017-03-22 11:29] LABS: ABG Base Excess 1.5 MMOL/L (-2.5-2.5); ABG HCO3 25.7 MMOL/L (20-26); ABG Oxygen Saturation 96.4 % (95-100); ABG PH 7.461 (7.35-7.45); ABG PO2 80.7 MM HG (80-95); ABG TCO2 22.3 MMOL/L (23-27); Glucose Heart Surgery 230 MG/DL (74-106); Potassium Heart/CVR 3.8 MMOL/L (3.5-5.1)
[2017-03-22 11:31] LABS: Basophils % 0.3 % (0.0-0.8); Eosinophils # 0.1 10*3/uL (0.0-0.87); Eosinophils % 0.8 % (0.00-10.9); Hematocrit 32.1 VOL% (35.7-47.0); Hemoglobin 11.3 GM/DL (12.0-16.0); Immature Granulocytes % 1.3 %; Immature Granulocytes Absolute 0.19 #; Lymphocytes # 0.8 10*3/uL (1.4-4.0); Lymphocytes % 5.7 % (21.3-54.2); Mean Corpuscular HGB Conc 35.2 GM/DL (32-36); Mean Corpuscular Hemoglobin 31 PG (27-34); Mean Corpuscular Volume 88.7 FL (87-102); Mean Platelet Volume 8.8 FL (9.6-12.0); Monocytes # 0.9 10*3/uL (0.11-0.8); Monocytes % 6.4 % (1.7-12.7); Neutrophils # 12.4 10*3/uL (1.4-7.4); Neutrophils % 85.5 % (38.7-73.9); Platelet Count 247 T/CUMM (130-400); Red Blood Count 3.62 MC/CUMM (3.8-5.5); Red Cell Distribution Width 13.3 % (9.3-17.3); White Blood Count 14.5 T/CUMM (4-12)
[2017-03-22 11:41] LABS: INR 1.1; PT Patient Result 12.1 SECS; Partial Thromboplastin Time 28.5 SECS (0-40)
[2017-03-22] MEDS: NITROGLYCERIN DRIP 50 MG/250 ML BOTTLE IV SCH ×2 (11:45→16:08)
[2017-03-22] MEDS: POTASSIUM CHLORIDE RIDER 20 MEQ in PREMIX 1 EACH IV PRN ×3 (11:45→16:39)
[2017-03-22] MEDS: DOBUTamine 500 MG/250 ML PREMIX IV SCH (11:45)
[2017-03-22 11:49] LABS: Burr Cells Slight; Hypochromasia 1+; Microcytosis 1+; Platelet Estimate Normal
[2017-03-22 12:09] LABS: CKMB % 7.5 %
[2017-03-22 12:11] LABS: Troponin I Only 5.07 NG/ML (0.00-0.045)
[2017-03-22 12:17] LABS: Albumin 3.1 G/DL (3.4-5.0); Bilirubin,Total 0.8 MG/DL (0.2-1.0); Calcium 10.2 MG/DL (8.5-10.1); Magnesium 2.7 MG/DL (1.8-2.4); Osmolality,Calculated 278.2 MOS/KG (273-304); Potassium 4.1 MMOL/L (3.5-5.1); Total Protein 5.5 G/DL (6.4-8.3)
[2017-03-22] MEDS: INSULIN REGULAR DRIP 100 ML IV SCH (12:35)
[2017-03-22] MEDS: SODIUM CHLORIDE 0.45% 1,000 ML IV SCH ×2 (12:39→12:40)
[2017-03-22] MEDS: CHLORHEXIDINE 4% SOLN 118 ML BOTTLE TOP SCH (12:44)
[2017-03-22] MEDS: LACTATED RINGERS 250 ML IV PRN ×2 (12:45→14:25)
[2017-03-22] MEDS: KETOROLAC 30 MG/1 ML VIAL IV SCH ×3 (12:52→22:29)
[2017-03-22] MEDS: MIDAZOLAM 2 MG/2 ML VIAL IV PRN ×3 (12:59→16:07)
[2017-03-22] MEDS: MORPHINE 2 MG/1 ML SYRINGE IV PRN ×4 (13:27→17:28)
--- NOTE | 2017-03-22 13:35 | XRay Report ---
Portable chest. Indication: Line placement. Comparison: March 20, 2017. The heart is within normal limits for size. There has been an interval median sternotomy. A Clothier-Anette catheter, right IJ line, endotracheal tube, nasogastric tube, and 2 mediastinal chest tubes are in satisfactory position. The pulmonary vasculature is normal. There is moderate atelectasis at the left lung base, and mild atelectasis in the right midlung field. No pneumothorax. No definite pleural effusion. Impression: Bilateral atelectasis. Postsurgical changes. PROCEDURE INTERPRETED AT [facility] DEPARTMENT OF RADIOLOGY Final Report Signed by: Dr. Ashly Mcdermott
[2017-03-22 13:43] LABS: ABG Base Excess 1.1 MMOL/L (-2.5-2.5); ABG HCO3 24.3 MMOL/L (20-26); ABG Oxygen Saturation 98.6 % (95-100); ABG PCO2 34.2 MM HG (35-48); ABG PO2 144.8 MM HG (80-95); ABG TCO2 25.4 MMOL/L (23-27); Glucose Heart Surgery 217 MG/DL (74-106); Hemoglobin Heart Surgery 12.2 G/DL (12.0-16.0); Potassium Heart/CVR 3.9 MMOL/L (3.5-5.1)
[2017-03-22] MEDS: FOSINOPRIL 20 MG TABLET PO SCH (14:38)
[2017-03-22] MEDS: PARoxetine 20 MG TABLET PO SCH (14:38)
[2017-03-22] MEDS: PANTOPRAZOLE 40 MG TABLET PO SCH (14:39)
[2017-03-22] MEDS: SODIUM CHLORIDE 0.9% 1,000 ML IV SCH (14:39)
[2017-03-22] MEDS: hydroCHLOROthiazide 25 MG TABLET PO SCH (14:39)
[2017-03-22] MEDS: BACLOFEN 10 MG TABLET PO SCH (14:39)
[2017-03-22] MEDS: CHLORHEXIDINE 0.12% ORAL RINSE 60 ML BOTTLE SWISH/SPIT SCH ×2 (14:39→21:33)
[2017-03-22] MEDS: FUROSEMIDE 40 MG/4 ML VIAL IV SCH (14:39)
[2017-03-22] MEDS: CARVEDILOL 3.125 MG TABLET PO SCH (14:40)
[2017-03-22] MEDS: INSULIN REGULAR 100 UNIT/ML SUBCUT SCH ×2 (14:40→14:41)
[2017-03-22] MEDS: DOCUSATE SODIUM 100 MG CAPSULE PO SCH (14:40)
[2017-03-22] MEDS: LORATADINE 10 MG TABLET PO SCH (14:40)
[2017-03-22] MEDS: ASPIRIN CHEW 81 MG TABLET PO SCH (14:40)
[2017-03-22] MEDS: INSULIN NPH/REGULAR 70/30 100 UNIT/ML SUBCUT SCH (14:40)
[2017-03-22] MEDS: POTASSIUM CHLORIDE RIDER 10 MEQ in PREMIX 1 EACH IV PRN ×2 (14:43→23:12)
--- NOTE | 2017-03-22 16:12 | Operative Note ---
Date of procedure: 03/22/17 Pre-op diagnosis: Coronary artery disease Post-op diagnosis: same Procedure: Procedure: Coronary bypass grafting 2 with an internal mammary graft to the anterior descending coronary artery and saphenous vein graft to the obtuse marginal coronary artery. Findings: Patient is a 61-year-old lady who presented with chest discomfort and shortness of breath. Patient underwent evaluation demonstrating critical coronary disease and she was advised to have bypass surgery. Time of surgery left ventricular function was noted to be moderately impaired. An internal mammary graft was placed in the anterior descending coronary artery and a saphenous vein graft to the obtuse marginal coronary artery. Patient tolerated procedure well and was returned to recovery in satisfactory condition. Procedure: Patient was brought to the operating room placed in the operating table in supine position. After satisfactory induction of general anesthesia the chest abdomen and legs were prepped and draped in sterile fashion. Greater saphenous vein was harvested from the right lower leg and prepared as an arterial graft. Incision in the leg was closed with 3-0 subcutaneous Monocryl and 3-0 subcuticular Monocryl. A standard sternotomy incision was made and the sternum was divided and the heart suspended in a pericardial cradle. Left internal mammary artery was dissected free and prepared as an arterial graft. Patient was prepared for cardiopulmonary bypass with systemic heparinization and cannulation of the ascending aorta and right atrium. Cardiopulmonary bypass was begun and the aorta was crossclamped and the heart arrested with cardioplegia solution injected into the aortic root. Heart was protected during the period of crossclamping with topical saline slush. Distal anastomoses were constructed as noted above and then the aorta was unclamped reestablishing cardiac action. Proximal anastomosis was constructed between the inflow end of the saphenous vein graft in the ascending aorta. Patient was then weaned from cardiopulmonary bypass without difficulty and heparin effect reversed with protamine. Decannulation was carried out with a defects in the ascending aorta and right atrium closed with 3-0 Prolene. The operative field was inspected for hemostasis and this was considered adequate the incision was closed with interrupted stainless steel wire and the sternum 0 Monopril in the presternal fascia and 3-0 Monocryl placed subcuticularly. 2 chest tubes were left in the anterior mediastinum and brought out through separate stab incisions. Sterile dressings were applied and the patient was returned to recovery in satisfactory condition. Anesthesia: GETA Surgeon / Physician: Bubba Barrera Estimated blood loss: other (Unable to determine because of cardiopulmonary bypass) Condition: stable Disposition: ICU Results - Labs CBC & BMP: 03/22/17 11:22 03/22/17 11:22 Discharge Plan - Discharge Medications No Action Tramadol HCl [Tramadol Tab] 50 mg PO DAILY PRN PRN Reason: Pain PARoxetine HCl [Paroxetine HCl] 30 mg PO DAILY Metformin HCl 850 mg PO TID Atorvastatin Calcium 80 mg PO BEDTIME Amitriptyline [Elavil] 25 mg PO BEDTIME Insulin NPH Hum/Reg Insulin Hm [NovoLIN 70/30] 15 unit SUBCUT BEDTIME Ranitidine Tab [Zantac Tab] 150 mg PO DAILY Loratadine Tab [Claritin Tab] 10 mg PO DAILY Fosinopril Sodium 20 mg PO DAILY Docusate Sodium 100 mg PO DAILY Pantoprazole Tab [Protonix Tab] 40 mg PO BID Baclofen Tab [Lioresal] 10 mg PO DAILY Aspirin EC Tab 81 mg PO BEDTIME Insulin NPH Hum/Reg Insulin Hm [NovoLIN 70/30] 90 unit SUBCUT QAM hydroCHLOROthiazide [Hydrochlorothiazide] 25 mg PO DAILY - Follow Up or Referral - Forms/Instructions Instructions: Coronary Artery Disease (GEN), Left Heart Catheterization (DC), Heart Healthy Diet (GEN)
[2017-03-22 16:30] LABS: ABG HCO3 23.3 MMOL/L (20-26); ABG Oxygen Saturation 96.3 % (95-100); ABG PCO2 33.7 MM HG (35-48); ABG PH 7.458 (7.35-7.45); ABG PO2 83.2 MM HG (80-95); ABG TCO2 24.4 MMOL/L (23-27); Glucose Heart Surgery 207 MG/DL (74-106); Potassium Heart/CVR 4.2 MMOL/L (3.5-5.1)
[2017-03-22] MEDS: ALBUMIN 5% 12.5 GM in PREMIX 1 EACH IV PRN ×3 (16:53→21:46)
--- NOTE | 2017-03-22 16:59 | Hospitalist Progress Note ---
Assessment and Plan (1) Congestive heart failure Status: Chronic Assessment and plan: The patient continues diuresis. We anticipate bypass on Current Visit: Yes Qualifiers: Qualified Code(s): I50.41 - Acute combined systolic (congestive) and diastolic (congestive) heart failure (2) Cardiomyopathy Status: Chronic Current Visit: Yes Qualifiers: Qualified Code(s): I25.5 - Ischemic cardiomyopathy Hospitalist: Subjective Interval history: The patient is an postoperative recovery area after bypass surgery. She is hemodynamically stable and mechanically ventilated. Exam - Constitutional Vitals: Period Temp Pulse Resp BP Sys/Gaitan Pulse Ox Last 24 Hr 96.9 F-99.9 F 74-96 10-18 99-190/50-88 95-100 Exam: Constitutional System: The patient is orally intubated and mechanically ventilated. She is sedated following surgery. Head: Normocephalic, atraumatic. Ears, Nose and Throat System: No evidence of Otitis or Mastoiditis. No epistaxis or discharge Eyes System: Pupils equal, round, and reactive. Extraocular muscles intact. Neck: Supple, without adenopathy, trace jugular venous distention. No thyromegaly, neck mass Respiratory System: Chest rales in bases to auscultation. Cardiovascular System: Heart with regular rate and rhythm. S4 murmur. GI System: Abdomen soft, nontender. Normo active bowel sounds present. Musculoskeletal System: limbs with trace pedal edema. Full distal pulses. Neurological System: No discernable sensory deficit. Results - Labs CBC & BMP: 03/22/17 11:22 03/22/17 11:22 Lab Results: I have reviewed the past 24 hour labs Quality Measures - VTE Contraindication to Pharmacological VTE Prophylaxis: High Risk of Bleeding Specialty Discharge - Follow Up or Referrals
--- NOTE | 2017-03-22 17:01 | Cardiology Progress Note ---
Assessment and Plan - Time spent with patient Time spent with patient: Less than 30 minutes (1) Status post coronary artery bypass grafting Status: Acute Assessment and plan: See plan of care listed below. Current Visit: Yes (2) Cardiomyopathy Status: Chronic Assessment and plan: See plan of care listed below. Current Visit: Yes Qualifiers: Cardiomyopathy type: ischemic Qualified Code(s): I25.5 - Ischemic cardiomyopathy (3) Congestive heart failure Status: Chronic Assessment and plan: See plan of care listed below. Current Visit: Yes Qualifiers: Congestive heart failure type: combined Congestive heart failure chronicity : acute Qualified Code(s): I50.41 - Acute combined systolic (congestive) and diastolic (congestive) heart failure (4) Anemia Status: Chronic Assessment and plan: See plan of care listed below. Current Visit: Yes (5) Hypertension Status: Chronic Assessment and plan: See plan of care listed below. Current Visit: Yes (6) Hyperlipidemia Status: Chronic Assessment and plan: See plan of care listed below. Current Visit: Yes (7) Insulin dependent diabetes mellitus Status: Chronic Assessment and plan: See plan of care listed below. Current Visit: Yes (8) Tobacco use Status: Chronic Assessment and plan: See plan of care listed below. Current Visit: Yes Cardiology - PN: Subj Interval history: Fitting Room Inspector: New to Dr. Luna SUMMARY: Ms. Shelley is a 61 year old -[place] female without a prior history of coronary disease who presented to the emergency room on 03/13/2017 for further evaluation of shortness of breath, dry hacking cough, and increased bilateral lower extremity edema. She has a history of hypertension, diabetes, hyperlipidemia, chronic anemia, and breast cancer status post left mastectomy. She was noted to have an elevated BNP on admission chest x-ray revealed no pneumothorax or pleural effusion. Her EKG showed sinus rhythm with suggestions of septal infarct and she was taken to the Customer Sales Representative for further evaluation. On 03/16/2017, she underwent right and left heart catheterization which revealed severe cardiomyopathy with EF around 15%, severe LV enlargement, moderate elevation of the right-sided heart pressures with PA P 55-60, and occluded right coronary, and 50% narrowing of the left main. CV Surgery was consulted and was felt she would benefit from coronary artery bypass grafting. She is scheduled for surgery on 03/22/2017. MARCH 22, 2017 UPDATE: Ms. Shelley is seen in the CVR status post coronary artery bypass grafting 2. She is sedated, restrained, and intubated on mechanical ventilation. She has 2 mediastinal chest tubes in place. Vital signs are currently stable. Labs are relatively stable with creatinine 1.2, potassium 4.1, magnesium 2.7, H&H 11.3 and 32.1. IV dobutamine, nitroprusside, and nitroglycerin infusing. Will continue to monitor. Assessment/Plan: 1. S/P CORONARY ARTERY BYPASS GRAFTING X2 -patient is postop coronary artery bypass grafting 2 with internal mammary graft to the anterior descending coronary artery and saphenous vein graft to the obtuse marginal coronary artery. 2. ISCHEMIC CARDIOMYOPATHY - EF 15% per R/LHC on 03/16/17 with occluded RCA and 50 % narrowing of LM. Now s/p CABG x2. Will continue medical therapy. 3. CONGESTIVE HEART FAILURE - Combined systolic and diastolic, acute. NHYA Class II. Initial BNP 1482. Will resume medical therapy with FLY inhibitor, beta-yadira, aspirin, statin when okay with CV surgery. Clinically, she is well compensated at this time. 4. ANEMIA - Stool for occult blood negative. 5. HYPERTENSION - Currently well controlled. We will continue to monitor and adjust accordingly. Currently on Nitroglycerin and nitroprusside infusions. 6. HYPERLIPIDEMIA - Continue lipid-lowering agent. 7. DIABETES MELLITUS - She has been started on Accu-Cheks before meals and at bedtime with sliding scale insulin. She is now on insulin infusion. 8. TOBACCO USE - Chronic. Patient has smoked 1/2 PPD since 1977. Exam (Progress Note) - Constitutional Vitals: Period Temp Pulse Resp BP Sys/Gaitan Pulse Ox Last 24 Hr 96.9 F-99.9 F 74-96 10-18 99-190/50-88 95-100 Exam: General appearance: Orally intubated and sedated on ventilator. Normal weight, no acute distress. - Head Head exam: Present: normal inspection, normocephalic, atraumatic. Absent: hematoma, laceration - Eye Eye exam: Present: EOMI. Absent: conjunctival injection, nystagmus, periorbital swelling, scleral icterus, laceration to eyelids Pupils: Present: PERRL. Absent: constricted, dilated, fixed, irregular, unequal - ENT ENT exam: Present: Orally intubated, normal external ear exam - Neck Neck exam: Present: normal inspection. Absent: lymphadenopathy, meningismus, tenderness, thyromegaly - Respiratory Respiratory exam: Present: Mechanically ventilated breath sounds. 2 mediastinal chest tubes in place. Absent: accessory muscle use - Cardiovascular Cardiovascular exam: Present: regular rate and rhythm. Absent: carotid bruit, gallop, JVD, rubs, murmur - GI/Abdominal GI/Abdominal exam: Present: normal bowel sounds, soft. Absent: distended, firm , guarding, hernia, mass, tenderness, rebound. - Extremities Exam Extremities exam: Present: normal inspection, normal capillary refill. Upper extremity pulses 2+. Lower extremity pulses present and palpable. Absent: calf tenderness, edema - Back Exam Back exam: Present: Unable to examine due to habitus. Sedated on mechanical ventilator. - Neurological Exam Neurological exam: Present: Limited due to habitus (on ventilator). Arousable to verbal stimuli. No resting or essential tremor. - Psychiatric Psychiatric exam: Present: Unable to adequately assess due to patient being sedated and on mechanical ventilation. - Skin Skin exam: Present: normal color, warm, dry, intact. Absent: cyanosis, diaphoretic, rash, urticaria Result/EKG - Labs CBC & BMP: 03/22/17 11:22 03/22/17 11:22 Lab Results: I have reviewed the past 24 hour labs Labs: Laboratory Results - last 24 hr 03/21/17 03/21/17 03/22/17 04:12 20:57 03:35 WBC 4.9 RBC 3.80 Hgb 11.8 L Hct 34.0 L MCV 89.5 MCH 31 MCHC 34.7 RDW 13.3 Plt Count 376 MPV 8.9 L Neut % (Auto) 51.6 Lymph % (Auto) 28.7 [place] % (Auto) 14.4 H Eos % (Auto) 3.5 Baso % (Auto) 1.0 H Neut # (Auto) 2.5 Lymph # (Auto) 1.4 [place] # (Auto) 0.7 Eos # (Auto) 0.2 Baso # (Auto) 0.1 Total Counted 100 Immature Gran % 0.8 Nucleated RBC % 0.0 Immature Gran # 0.04 Segmented Neutrophils 60 Lymphocytes 28 Monocytes 8 Eosinophils 4 Nucleated RBCs # 0.00 Platelet Estimate Normal Hypochromasia 1+ Microcytosis 1+ Minter Cells Slight INR PT Patient/Control Mix Circ Anticoag PTT Patient Temperature ABG pH ABG pH at Pt Temp ABG pCO2 ABG pCO2 at Pt Temp ABG pO2 ABG pO2 at Pt Temp ABG HCO3 ABG Total CO2 ABG O2 Saturation ABG Base Excess ABG Sodium VBG pH VBG pCO2 VBG pO2 VBG HCO3 VBG Total CO2 VBG O2 Saturation VBG Base Excess Hemoglobin Hematocrit Ionized Calcium FiO2 Sodium Potassium Chloride Carbon Dioxide Anion Gap BUN Creatinine GFR Calculation BUN/Creatinine Ratio Glucose POC Glucose 271 H Calculated Osmolality Calcium Venous Ioniz Calcium Magnesium Total Bilirubin AST ALT Alkaline Phosphatase Total Creatine Kinase CK-MB (CK-2) CK and CKMB Interp Troponin I Total Protein Albumin Globulin Albumin/Globulin Ratio Urine Color Urine Appearance Urine pH Ur Specific [place] Urine Protein Urine Glucose (UA) Urine Ketones Urine Blood Urine Nitrate Urine Bilirubin Urine Urobilinogen Urine Leukocytes Urine RBC Urine WBC Ur Squamous Epith Cells Ur Culture Indicated? Blood Type O POSITIVE Antibody Screen Negative Crossmatch See Detail 03/22/17 03/22/17 03/22/17 03:35 05:42 07:20 WBC RBC Hgb Hct MCV MCH MCHC RDW Plt Count 125 L D MPV Neut % (Auto) Lymph % (Auto) [place] % (Auto) Eos % (Auto) Baso % (Auto) Neut # (Auto) Lymph # (Auto) [place] # (Auto) Eos # (Auto) Baso # (Auto) Total Counted Immature Gran % Nucleated RBC % Immature Gran # Segmented Neutrophils Lymphocytes Monocytes Eosinophils Nucleated RBCs # Platelet Estimate Hypochromasia Microcytosis Minter Cells INR PT Patient/Control Mix Circ Anticoag PTT Patient Temperature ABG pH ABG pH at Pt Temp ABG pCO2 ABG pCO2 at Pt Temp ABG pO2 ABG pO2 at Pt Temp ABG HCO3 ABG Total CO2 ABG O2 Saturation ABG Base Excess ABG Sodium VBG pH VBG pCO2 VBG pO2 VBG HCO3 VBG Total CO2 VBG O2 Saturation VBG Base Excess Hemoglobin Hematocrit Ionized Calcium FiO2 Sodium 132 L Potassium 4.2 Chloride 96 L Carbon Dioxide 27 Anion Gap 13.2 BUN 28 H Creatinine 1.20 H GFR Calculation 56 BUN/Creatinine Ratio 23.00 H Glucose 87 POC Glucose 105 Calculated Osmolality 268.5 L Calcium 8.6 Venous Ioniz Calcium Magnesium 2.9 H Total Bilirubin AST ALT Alkaline Phosphatase Total Creatine Kinase CK-MB (CK-2) CK and CKMB Interp Troponin I Total Protein Albumin Globulin Albumin/Globulin Ratio Urine Color Urine Appearance Urine pH Ur Specific [place] Urine Protein Urine Glucose (UA) Urine Ketones Urine Blood Urine Nitrate Urine Bilirubin Urine Urobilinogen Urine Leukocytes Urine RBC Urine WBC Ur Squamous Epith Cells Ur Culture Indicated? Blood Type Antibody Screen Crossmatch 03/22/17 03/22/17 03/22/17 07:20 07:42 09:00 WBC RBC Hgb Hct MCV MCH MCHC RDW Plt Count MPV Neut % (Auto) Lymph % (Auto) [place] % (Auto) Eos % (Auto) Baso % (Auto) Neut # (Auto) Lymph # (Auto) [place] # (Auto) Eos # (Auto) Baso # (Auto) Total Counted Immature Gran % Nucleated RBC % Immature Gran # Segmented Neutrophils Lymphocytes Monocytes Eosinophils Nucleated RBCs # Platelet Estimate Hypochromasia Microcytosis Minter Cells INR PT Patient/Control Mix Circ Anticoag PTT Patient Temperature 37 34 ABG pH 7.477 H ABG pH at Pt Temp 7.477 7.470 ABG pCO2 33.7 L ABG pCO2 at Pt Temp 33.7 36.0 ABG pO2 409.0 H ABG pO2 at Pt Temp 409.0 33.9 ABG HCO3 26.0 ABG Total CO2 22.4 L ABG O2 Saturation 100.0 ABG Base Excess 1.7 ABG Sodium 132 L 125 L VBG pH 7.426 VBG pCO2 41.6 VBG pO2 41.7 H VBG HCO3 26.7 VBG Total CO2 26.1 VBG O2 Saturation 76.6 VBG Base Excess 2.8 Hemoglobin 10.4 L 6.4 L* Hematocrit 32.0 L 20.2 L Ionized Calcium 1.06 L FiO2 80.00 Sodium Potassium 4.1 4.4 Chloride Carbon Dioxide Anion Gap BUN Creatinine GFR Calculation BUN/Creatinine Ratio Glucose 119 H 319 H POC Glucose Calculated Osmolality Calcium Venous Ioniz Calcium 0.87 L Magnesium Total Bilirubin AST ALT Alkaline Phosphatase Total Creatine Kinase CK-MB (CK-2) CK and CKMB Interp Troponin I Total Protein Albumin Globulin Albumin/Globulin Ratio Urine Color Yellow Urine Appearance Clear Urine pH 7.0 Ur Specific [place] 1.010 Urine Protein Negative Urine Glucose (UA) Negative Urine Ketones Negative Urine Blood Negative Urine Nitrate Negative Urine Bilirubin Negative Urine Urobilinogen < 2.0 H Urine Leukocytes Negative Urine RBC 1 Urine WBC <1 Ur Squamous Epith Cells Occasional Ur Culture Indicated? Not indicated Blood Type Antibody Screen Crossmatch 03/22/17 03/22/17 03/22/17 09:30 10:12 10:12 WBC RBC Hgb Hct MCV MCH MCHC RDW Plt Count 166 D MPV Neut % (Auto) Lymph % (Auto) [place] % (Auto) Eos % (Auto) Baso % (Auto) Neut # (Auto) Lymph # (Auto) [place] # (Auto) Eos # (Auto) Baso # (Auto) Total Counted Immature Gran % Nucleated RBC % Immature Gran # Segmented Neutrophils Lymphocytes Monocytes Eosinophils Nucleated RBCs # Platelet Estimate Hypochromasia Microcytosis Jesse Cells INR PT Patient/Control Mix Circ Anticoag PTT Patient Temperature 36 37 ABG pH 7.443 ABG pH at Pt Temp 7.427 7.443 ABG pCO2 33.9 L ABG pCO2 at Pt Temp 38.5 33.9 ABG pO2 108.0 H ABG pO2 at Pt Temp 42.5 108.0 ABG HCO3 24.1 ABG Total CO2 21.2 L ABG O2 Saturation 98.7 ABG Base Excess -0.5 ABG Sodium 123 L 127 L VBG pH 7.412 VBG pCO2 40.4 L VBG pO2 45.5 H VBG HCO3 25.2 VBG Total CO2 24.0 VBG O2 Saturation 83.0 VBG Base Excess 1.1 Hemoglobin 8.2 L 9.4 L Hematocrit 25.6 L 29.2 L Ionized Calcium 1.32 FiO2 80.00 Sodium Potassium 5.6 H 4.5 Chloride Carbon Dioxide Anion Gap BUN Creatinine GFR Calculation BUN/Creatinine Ratio Glucose 292 H 248 H POC Glucose Calculated Osmolality Calcium Venous Ioniz Calcium 0.89 L Magnesium Total Bilirubin AST ALT Alkaline Phosphatase Total Creatine Kinase CK-MB (CK-2) CK and CKMB Interp Troponin I Total Protein Albumin Globulin Albumin/Globulin Ratio Urine Color Urine Appearance Urine pH Ur Specific [place] Urine Protein Urine Glucose (UA) Urine Ketones Urine Blood Urine Nitrate Urine Bilirubin Urine Urobilinogen Urine Leukocytes Urine RBC Urine WBC Ur Squamous Epith Cells Ur Culture Indicated? Blood Type Antibody Screen Crossmatch 03/22/17 03/22/17 03/22/17 11:22 11:22 11:22 WBC 14.5 H D RBC 3.62 L Hgb 11.3 L Hct 32.1 L MCV 88.7 MCH 31 MCHC 35.2 RDW 13.3 Plt Count 247 D MPV 8.8 L Neut % (Auto) 85.5 H Lymph % (Auto) 5.7 L [place] % (Auto) 6.4 Eos % (Auto) 0.8 Baso % (Auto) 0.3 Neut # (Auto) 12.4 H Lymph # (Auto) 0.8 L [place] # (Auto) 0.9 H Eos # (Auto) 0.1 Baso # (Auto) 0.0 Total Counted Immature Gran % 1.3 Nucleated RBC % 0.0 Immature Gran # 0.19 Segmented Neutrophils Lymphocytes Monocytes Eosinophils Nucleated RBCs # 0.00 Platelet Estimate Normal Hypochromasia 1+ Microcytosis 1+ Minter Cells Slight INR 1.1 PT Patient/Control Mix 12.1 Circ Anticoag PTT 28.5 Patient Temperature ABG pH ABG pH at Pt Temp ABG pCO2 ABG pCO2 at Pt Temp ABG pO2 ABG pO2 at Pt Temp ABG HCO3 ABG Total CO2 ABG O2 Saturation ABG Base Excess ABG Sodium VBG pH VBG pCO2 VBG pO2 VBG HCO3 VBG Total CO2 VBG O2 Saturation VBG Base Excess Hemoglobin Hematocrit Ionized Calcium FiO2 Sodium 134 L Potassium 4.1 Chloride 99 Carbon Dioxide 25 Anion Gap 14.1 BUN 23 H Creatinine 1.20 H GFR Calculation 56 BUN/Creatinine Ratio 19.00 Glucose 220 H POC Glucose Calculated Osmolality 278.2 Calcium 10.2 H Venous Ioniz Calcium Magnesium 2.7 H Total Bilirubin 0.80 AST 33 ALT 37 Alkaline Phosphatase 50 Total Creatine Kinase CK-MB (CK-2) CK and CKMB Interp Troponin I Total Protein 5.5 L Albumin 3.1 L Globulin 2.4 Albumin/Globulin Ratio 1.2 Urine Color Urine Appearance Urine pH Ur Specific [place] Urine Protein Urine Glucose (UA) Urine Ketones Urine Blood Urine Nitrate Urine Bilirubin Urine Urobilinogen Urine Leukocytes Urine RBC Urine WBC Ur Squamous Epith Cells Ur Culture Indicated? Blood Type Antibody Screen Crossmatch 03/22/17 03/22/17 03/22/17 11:22 11:22 13:38 WBC RBC Hgb Hct MCV MCH MCHC RDW Plt Count MPV Neut % (Auto) Lymph % (Auto) [place] % (Auto) Eos % (Auto) Baso % (Auto) Neut # (Auto) Lymph # (Auto) [place] # (Auto) Eos # (Auto) Baso # (Auto) Total Counted Immature Gran % Nucleated RBC % Immature Gran # Segmented Neutrophils Lymphocytes Monocytes Eosinophils Nucleated RBCs # Platelet Estimate Hypochromasia Microcytosis Minter Cells INR PT Patient/Control Mix Circ Anticoag PTT Patient Temperature ABG pH 7.461 H 7.470 H ABG pH at Pt Temp ABG pCO2 35.0 34.2 L ABG pCO2 at Pt Temp ABG pO2 80.7 144.8 H ABG pO2 at Pt Temp ABG HCO3 25.7 24.3 ABG Total CO2 22.3 L 25.4 ABG O2 Saturation 96.4 98.6 ABG Base Excess 1.5 1.1 ABG Sodium VBG pH VBG pCO2 VBG pO2 VBG HCO3 VBG Total CO2 VBG O2 Saturation VBG Base Excess Hemoglobin 11.0 L 12.2 Hematocrit 34.0 L 36.0 L Ionized Calcium FiO2 Sodium Potassium 3.8 3.9 Chloride Carbon Dioxide Anion Gap BUN Creatinine GFR Calculation BUN/Creatinine Ratio Glucose 230 H 217 H POC Glucose Calculated Osmolality Calcium Venous Ioniz Calcium Magnesium Total Bilirubin AST ALT Alkaline Phosphatase Total Creatine Kinase 182 CK-MB (CK-2) 13.7 H CK and CKMB Interp 7.5 Troponin I 5.070 H Total Protein Albumin Globulin Albumin/Globulin Ratio Urine Color Urine Appearance Urine pH Ur Specific [place] Urine Protein Urine Glucose (UA) Urine Ketones Urine Blood Urine Nitrate Urine Bilirubin Urine Urobilinogen Urine Leukocytes Urine RBC Urine WBC Ur Squamous Epith Cells Ur Culture Indicated? Blood Type Antibody Screen Crossmatch 03/22/17 16:30 WBC RBC Hgb Hct MCV MCH MCHC RDW Plt Count MPV Neut % (Auto) Lymph % (Auto) [place] % (Auto) Eos % (Auto) Baso % (Auto) Neut # (Auto) Lymph # (Auto) [place] # (Auto) Eos # (Auto) Baso # (Auto) Total Counted Immature Gran % Nucleated RBC % Immature Gran # Segmented Neutrophils Lymphocytes Monocytes Eosinophils Nucleated RBCs # Platelet Estimate Hypochromasia Microcytosis Jesse Cells INR PT Patient/Control Mix Circ Anticoag PTT Patient Temperature ABG pH 7.458 H ABG pH at Pt Temp ABG pCO2 33.7 L ABG pCO2 at Pt Temp ABG pO2 83.2 ABG pO2 at Pt Temp ABG HCO3 23.3 ABG Total CO2 24.4 ABG O2 Saturation 96.3 ABG Base Excess 0.0 ABG Sodium VBG pH VBG pCO2 VBG pO2 VBG HCO3 VBG Total CO2 VBG O2 Saturation VBG Base Excess Hemoglobin 12.0 Hematocrit 35.0 L Ionized Calcium FiO2 Sodium Potassium 4.2 Chloride Carbon Dioxide Anion Gap BUN Creatinine GFR Calculation BUN/Creatinine Ratio Glucose 207 H POC Glucose Calculated Osmolality Calcium Venous Ioniz Calcium Magnesium Total Bilirubin AST ALT Alkaline Phosphatase Total Creatine Kinase CK-MB (CK-2) CK and CKMB Interp Troponin I Total Protein Albumin Globulin Albumin/Globulin Ratio Urine Color Urine Appearance Urine pH Ur Specific [place] Urine Protein Urine Glucose (UA) Urine Ketones Urine Blood Urine Nitrate Urine Bilirubin Urine Urobilinogen Urine Leukocytes Urine RBC Urine WBC Ur Squamous Epith Cells Ur Culture Indicated? Blood Type Antibody Screen Crossmatch - EKG EKG results: interpreted by me, sinus rhythm Quality Measures - VTE Contraindication to Pharmacological VTE Prophylaxis: High Risk of Bleeding Specialty Discharge - Follow Up or Referrals
[2017-03-22] MEDS: CEFUROXIME INJ 1,500 MG in SODIUM CHLORIDE 0.9% 100 ML IV SCH (18:13)
[2017-03-22 19:23] LABS: ABG Base Excess 1.1 MMOL/L (-2.5-2.5); ABG HCO3 24.9 MMOL/L (20-26); ABG Oxygen Saturation 97.1 % (95-100); ABG PCO2 36.5 MM HG (35-48); ABG PH 7.452 (7.35-7.45); ABG PO2 98.4 MM HG (80-95); Glucose Heart Surgery 115 MG/DL (74-106); Hemoglobin Heart Surgery 11.5 G/DL (12.0-16.0)
[2017-03-22 19:50] LABS: CKMB % 3.4 %
[2017-03-22 19:51] LABS: Troponin I Only 4.38 NG/ML (0.00-0.045)
[2017-03-22] MEDS ORDERED: FUROSEMIDE 40 MG/4 ML VIAL IV ONE (20:57)
[2017-03-22] MEDS: ONDANSETRON 4 MG/2 ML VIAL IV PRN (22:29)
[2017-03-22 23:02] LABS: ABG Base Excess 0.3 MMOL/L (-2.5-2.5); ABG Oxygen Saturation 97.4 % (95-100); ABG PCO2 40.7 MM HG (35-48); ABG PH 7.407 (7.35-7.45); ABG PO2 109.9 MM HG (80-95); ABG TCO2 26.3 MMOL/L (23-27); Glucose Heart Surgery 105 MG/DL (74-106); Hemoglobin Heart Surgery 10.9 G/DL (12.0-16.0)
[2017-03-23] MEDS: MORPHINE 2 MG/1 ML SYRINGE IV PRN ×2 (00:03→02:36)
[2017-03-23 03:06] LABS: ABG Base Excess 2.1 MMOL/L (-2.5-2.5); ABG HCO3 26.3 MMOL/L (20-26); ABG Oxygen Saturation 96.9 % (95-100); ABG PCO2 49.9 MM HG (35-48); ABG PH 7.361 (7.35-7.45); ABG PO2 91.3 MM HG (80-95); ABG TCO2 25.7 MMOL/L (23-27); Glucose Heart Surgery 133 MG/DL (74-106); Hematocrit Heart Surgery 32.2 PERCENT (37-47); Hemoglobin Heart Surgery 10.4 G/DL (12.0-16.0); Potassium Heart/CVR 4.1 MMOL/L (3.5-5.1)
[2017-03-23 03:12] LABS: Basophils % 0.1 % (0.0-0.8); Hematocrit 29.8 VOL% (35.7-47.0); Hemoglobin 10.3 GM/DL (12.0-16.0); Immature Granulocytes % 0.8 %; Immature Granulocytes Absolute 0.13 #; Lymphocytes # 0.7 10*3/uL (1.4-4.0); Lymphocytes % 3.8 % (21.3-54.2); Mean Corpuscular HGB Conc 34.6 GM/DL (32-36); Mean Corpuscular Hemoglobin 31 PG (27-34); Mean Corpuscular Volume 90.9 FL (87-102); Mean Platelet Volume 9.1 FL (9.6-12.0); Monocytes # 0.7 10*3/uL (0.11-0.8); Monocytes % 4.3 % (1.7-12.7); Neutrophils # 15.4 10*3/uL (1.4-7.4); Platelet Count 234 T/CUMM (130-400); Red Blood Count 3.28 MC/CUMM (3.8-5.5); Red Cell Distribution Width 14.1 % (9.3-17.3); White Blood Count 16.9 T/CUMM (4-12)
[2017-03-23 03:41] LABS: Albumin 3.8 G/DL (3.4-5.0); Bilirubin,Direct 0.2 MG/DL (0.0-0.20); Bilirubin,Total 0.6 MG/DL (0.2-1.0); Calcium 9.3 MG/DL (8.5-10.1); Magnesium 2.3 MG/DL (1.8-2.4); Osmolality,Calculated 281.7 MOS/KG (273-304); Potassium 4.2 MMOL/L (3.5-5.1)
[2017-03-23] MEDS: ONDANSETRON 4 MG/2 ML VIAL IV PRN (04:20)
[2017-03-23 04:24] LABS: CKMB % 1.9 %
[2017-03-23 04:43] LABS: Troponin I Only 3.53 NG/ML (0.00-0.045)
[2017-03-23 04:50] LABS: Lymphocytes 3 % (20-55); Segmented Neutrophils 94 % (50-85); Total Cells Counted 100
[2017-03-23 04:51] LABS: Acanthocytes 1+; Hypochromasia 1+; Platelet Estimate Normal
[2017-03-23] MEDS: MIDAZOLAM 2 MG/2 ML VIAL IV PRN (05:31)
[2017-03-23] MEDS: KETOROLAC 30 MG/1 ML VIAL IV SCH ×3 (06:30→18:53)
[2017-03-23] MEDS ORDERED: FUROSEMIDE 40 MG/4 ML VIAL IV ONE ×2 (06:39→19:06)
[2017-03-23] MEDS: CEFUROXIME INJ 1,500 MG in SODIUM CHLORIDE 0.9% 100 ML IV SCH ×2 (07:00→19:12)
--- NOTE | 2017-03-23 07:01 | Cardiology Progress Note ---
<Trina Dye E - Last Filed: 03/23/17 06:53> Assessment and Plan - Time spent with patient Time spent with patient: Greater than 30 minutes (1) CAD (coronary artery disease) Status: Chronic Assessment and plan: SEE PLAN OF CARE LISTED BELOW Current Visit: Yes Qualifiers: Coronary Disease-Associated Artery/Lesion type: [place] artery [place] vs. transplanted heart: [place] heart Associated angina: without angina Qualified Code(s): I25.10 - Atherosclerotic heart disease of [place] coronary artery without angina pectoris (2) Ischemic cardiomyopathy Status: Acute Assessment and plan: SEE PLAN OF CARE LISTED BELOW Current Visit: Yes (3) Congestive heart failure Status: Acute Assessment and plan: SEE PLAN OF CARE LISTED BELOW Current Visit: Yes Qualifiers: Congestive heart failure type: combined Congestive heart failure chronicity : acute Qualified Code(s): I50.41 - Acute combined systolic (congestive) and diastolic (congestive) heart failure (4) Anemia Status: Chronic Assessment and plan: SEE PLAN OF CARE LISTED BELOW Current Visit: Yes (5) Insulin dependent diabetes mellitus Status: Chronic Assessment and plan: SEE PLAN OF CARE LISTED BELOW Current Visit: Yes (6) History of breast cancer Status: Chronic Assessment and plan: SEE PLAN OF CARE LISTED BELOW Current Visit: Yes (7) Hypertension Status: Chronic Assessment and plan: SEE PLAN OF CARE LISTED BELOW Current Visit: Yes (8) Hyperlipidemia Status: Chronic Assessment and plan: SEE PLAN OF CARE LISTED BELOW Current Visit: Yes (9) Tobacco use Status: Chronic Assessment and plan: SEE PLAN OF CARE LISTED BELOW Current Visit: Yes (10) S/P CABG x 2 Status: Acute Assessment and plan: SEE PLAN OF CARE LISTED BELOW Current Visit: Yes Cardiology - PN: Subj Interval history: Bonderizer: New to Dr. Luna SUMMARY: Ms. Shelley, 61BF, with no prior history of known CAD, admitted March presented with SOB, edema. R/LHC March 16, 2017 revealed severe CM (EF 15% ), severe CAD. March 22, 2017 underwent CABG X 2 ([facility] [place] - LAD, SVG - OM). Past medical history, hypertension, diabetes, hyperlipidemia, chronic anemia, and breast cancer status post left mastectomy. MARCH 21, 2017 UPDATE: Clinically, Ms. Shelley is doing well. Her lab work and vital signs have been stable. She has no complaints other than constipation. She states that MiraLAX and stool softeners have not yielded her results yet. Will order milk of magnesia. She denies any chest pain, shortness of breath, palpitations. Potassium 3.7, creatinine 1.2 today. Anticipate CABG tomorrow. We will continue to monitor. MARCH 23, 2017: POD 1, awake alert and cooperative. She is on CPAP trials and I expect that she will be extubated this morning. Minimal drainage from her chest tubes. Labs are stable. No arrhythmia noted. Will further discuss with Dr. Ruiz and await additional recommendations. ASSESSMENT/PLAN: 1. ISCHEMIC CARDIOMYOPATHY - EF 15% per R/LHC on 03/16/17 with occluded RCA and 50 % narrowing of LM. Scheduled for surgery on 03/22/17. Will continue medical therapy. 2. CONGESTIVE HEART FAILURE - Combined systolic and diastolic, acute. NHYA Class II. Initial BNP 1482. Continue current plan of care. We will reincorporate FLY inhibitor beta yadira when able. 3. ANEMIA - continue to follow closely. Seems to be stable this morning. Minimal chest tube output. 4. HYPERTENSION - has been well controlled during hospital stay. Will adjust accordingly during this remainder of the stay. 5. HYPERLIPIDEMIA - Continue lipid-lowering agent. 6. DIABETES MELLITUS - She has been started on Accu-Cheks before meals and at bedtime with sliding scale insulin. 7. TOBACCO USE - Chronic. Patient has smoked 1/2 PPD since 1977. Patient has been counseled regarding the merits of tobacco cessation for greater than 5 minutes 8. CAD - New diagnosis during this hospitalization. Will continue ASA, betablocker, FLY, statin when able. Exam (Progress Note) - Constitutional Vitals: Period Temp Pulse Resp BP Sys/Gaitan Pulse Ox Last 24 Hr 97.9 F-99.9 F 74-96 6-12 99-190/50-88 98-100 Exam: General: [Appears well with no apparent distress.] [Intubated, following commands appropriately] HEENT: [PERRL, normocephalic, atraumatic. Mucous membranes moist. No jaundice noted. Conjunctiva moist and clear, sclerae anicteric] Neck: No obvious JVD/HJR, no thyromegaly or lymphadenopathy noted. No carotid bruit appreciated Cardiac: [Regular rate and rhythm.] [No murmur. Positive for friction rub. Sternotomy dressing dry and intact. EPW intact Lungs: [Coarse sounds throughout. No accessory muscle use to assist the respiratory pattern.] Remains intubated. Symmetrical chest wall movements. Chest tubes with minimal output. Abdomen: Soft, bowel sounds hypoactive. Nontender and nondistended. No abdominal bruit or thrill noted. No masses noted. Musculoskeletal: No fluid collection. Decreased range of motion is noted. Extremities: No clubbing, cyanosis noted. [ No edema noted.] Upper extremity pulses 2+. Lower extremity pulses 2+. Left lower extremity dressing dry and intact. Capillary refill less than 3 seconds. Skin: No unusual lesions or rashes. No skin breakdown appreciated. Neuro: Moves all extremities well without hemiparesis or paralysis. No essential tremor is appreciated. Result/EKG - Labs CBC & BMP: 03/23/17 03:05 03/23/17 03:05 Lab Results: I have reviewed the past 24 hour labs Labs: Laboratory Results - last 24 hr 03/21/17 03/22/17 03/22/17 04:12 07:20 07:20 WBC RBC Hgb Hct MCV MCH MCHC RDW Plt Count 125 L D MPV Neut % (Auto) Lymph % (Auto) Hood % (Auto) Eos % (Auto) Baso % (Auto) Neut # (Auto) Lymph # (Auto) Hood # (Auto) Eos # (Auto) Baso # (Auto) Total Counted Immature Gran % Nucleated RBC % Immature Gran # Segmented Neutrophils Lymphocytes Monocytes Nucleated RBCs # Platelet Estimate Hypochromasia Microcytosis Jesse Cells Acanthocytes (Spur) INR PT Patient/Control Mix Circ Anticoag PTT Patient Temperature 37 ABG pH 7.477 H ABG pH at Pt Temp 7.477 ABG pCO2 33.7 L ABG pCO2 at Pt Temp 33.7 ABG pO2 409.0 H ABG pO2 at Pt Temp 409.0 ABG HCO3 26.0 ABG Total CO2 22.4 L ABG O2 Saturation 100.0 ABG Base Excess 1.7 ABG Sodium 132 L VBG pH VBG pCO2 VBG pO2 VBG HCO3 VBG Total CO2 VBG O2 Saturation VBG Base Excess Hemoglobin 10.4 L Hematocrit 32.0 L Potassium 4.1 Glucose 119 H Ionized Calcium 1.06 L FiO2 Sodium Chloride Carbon Dioxide Anion Gap BUN Creatinine GFR Calculation BUN/Creatinine Ratio Calculated Osmolality Calcium Venous Ioniz Calcium Magnesium Total Bilirubin Direct Bilirubin AST ALT Alkaline Phosphatase Total Creatine Kinase CK-MB (CK-2) CK and CKMB Interp Troponin I Total Protein Albumin Globulin Albumin/Globulin Ratio Urine Color Urine Appearance Urine pH Ur Specific [place] Urine Protein Urine Glucose (UA) Urine Ketones Urine Blood Urine Nitrate Urine Bilirubin Urine Urobilinogen Urine Leukocytes Urine RBC Urine WBC Ur Squamous Epith Cells Ur Culture Indicated? Blood Type O POSITIVE Antibody Screen Negative Crossmatch See Detail 03/22/17 03/22/17 03/22/17 07:42 09:00 09:30 WBC RBC Hgb Hct MCV MCH MCHC RDW Plt Count MPV Neut % (Auto) Lymph % (Auto) Hood % (Auto) Eos % (Auto) Baso % (Auto) Neut # (Auto) Lymph # (Auto) Hood # (Auto) Eos # (Auto) Baso # (Auto) Total Counted Immature Gran % Nucleated RBC % Immature Gran # Segmented Neutrophils Lymphocytes Monocytes Nucleated RBCs # Platelet Estimate Hypochromasia Microcytosis [place] Cells Acanthocytes (Spur) INR PT Patient/Control Mix Circ Anticoag PTT Patient Temperature 34 36 ABG pH ABG pH at Pt Temp 7.470 7.427 ABG pCO2 ABG pCO2 at Pt Temp 36.0 38.5 ABG pO2 ABG pO2 at Pt Temp 33.9 42.5 ABG HCO3 ABG Total CO2 ABG O2 Saturation ABG Base Excess ABG Sodium 125 L 123 L VBG pH 7.426 7.412 VBG pCO2 41.6 40.4 L VBG pO2 41.7 H 45.5 H VBG HCO3 26.7 25.2 VBG Total CO2 26.1 24.0 VBG O2 Saturation 76.6 83.0 VBG Base Excess 2.8 1.1 Hemoglobin 6.4 L* 8.2 L Hematocrit 20.2 L 25.6 L Potassium 4.4 5.6 H Glucose 319 H 292 H Ionized Calcium FiO2 80.00 80.00 Sodium Chloride Carbon Dioxide Anion Gap BUN Creatinine GFR Calculation BUN/Creatinine Ratio Calculated Osmolality Calcium Venous Ioniz Calcium 0.87 L 0.89 L Magnesium Total Bilirubin Direct Bilirubin AST ALT Alkaline Phosphatase Total Creatine Kinase CK-MB (CK-2) CK and CKMB Interp Troponin I Total Protein Albumin Globulin Albumin/Globulin Ratio Urine Color Yellow Urine Appearance Clear Urine pH 7.0 Ur Specific [place] 1.010 Urine Protein Negative Urine Glucose (UA) Negative Urine Ketones Negative Urine Blood Negative Urine Nitrate Negative Urine Bilirubin Negative Urine Urobilinogen < 2.0 H Urine Leukocytes Negative Urine RBC 1 Urine WBC <1 Ur Squamous Epith Cells Occasional Ur Culture Indicated? Not indicated Blood Type Antibody Screen Crossmatch 03/22/17 03/22/17 03/22/17 10:12 10:12 11:22 WBC 14.5 H D RBC 3.62 L Hgb 11.3 L Hct 32.1 L MCV 88.7 MCH 31 MCHC 35.2 RDW 13.3 Plt Count 166 D 247 D MPV 8.8 L Neut % (Auto) 85.5 H Lymph % (Auto) 5.7 L Hood % (Auto) 6.4 Eos % (Auto) 0.8 Baso % (Auto) 0.3 Neut # (Auto) 12.4 H Lymph # (Auto) 0.8 L Hood # (Auto) 0.9 H Eos # (Auto) 0.1 Baso # (Auto) 0.0 Total Counted Immature Gran % 1.3 Nucleated RBC % 0.0 Immature Gran # 0.19 Segmented Neutrophils Lymphocytes Monocytes Nucleated RBCs # 0.00 Platelet Estimate Normal Hypochromasia 1+ Microcytosis 1+ Jesse Cells Slight Acanthocytes (Spur) INR PT Patient/Control Mix Circ Anticoag PTT Patient Temperature 37 ABG pH 7.443 ABG pH at Pt Temp 7.443 ABG pCO2 33.9 L ABG pCO2 at Pt Temp 33.9 ABG pO2 108.0 H ABG pO2 at Pt Temp 108.0 ABG HCO3 24.1 ABG Total CO2 21.2 L ABG O2 Saturation 98.7 ABG Base Excess -0.5 ABG Sodium 127 L VBG pH VBG pCO2 VBG pO2 VBG HCO3 VBG Total CO2 VBG O2 Saturation VBG Base Excess Hemoglobin 9.4 L Hematocrit 29.2 L Potassium 4.5 Glucose 248 H Ionized Calcium 1.32 FiO2 Sodium Chloride Carbon Dioxide Anion Gap BUN Creatinine GFR Calculation BUN/Creatinine Ratio Calculated Osmolality Calcium Venous Ioniz Calcium Magnesium Total Bilirubin Direct Bilirubin AST ALT Alkaline Phosphatase Total Creatine Kinase CK-MB (CK-2) CK and CKMB Interp Troponin I Total Protein Albumin Globulin Albumin/Globulin Ratio Urine Color Urine Appearance Urine pH Ur Specific [place] Urine Protein Urine Glucose (UA) Urine Ketones Urine Blood Urine Nitrate Urine Bilirubin Urine Urobilinogen Urine Leukocytes Urine RBC Urine WBC Ur Squamous Epith Cells Ur Culture Indicated? Blood Type Antibody Screen Crossmatch 03/22/17 03/22/17 03/22/17 11:22 11:22 11:22 WBC RBC Hgb Hct MCV MCH MCHC RDW Plt Count MPV Neut % (Auto) Lymph % (Auto) Hood % (Auto) Eos % (Auto) Baso % (Auto) Neut # (Auto) Lymph # (Auto) Hood # (Auto) Eos # (Auto) Baso # (Auto) Total Counted Immature Gran % Nucleated RBC % Immature Gran # Segmented Neutrophils Lymphocytes Monocytes Nucleated RBCs # Platelet Estimate Hypochromasia Microcytosis [place] Cells Acanthocytes (Spur) INR 1.1 PT Patient/Control Mix 12.1 Circ Anticoag PTT 28.5 Patient Temperature ABG pH 7.461 H ABG pH at Pt Temp ABG pCO2 35.0 ABG pCO2 at Pt Temp ABG pO2 80.7 ABG pO2 at Pt Temp ABG HCO3 25.7 ABG Total CO2 22.3 L ABG O2 Saturation 96.4 ABG Base Excess 1.5 ABG Sodium VBG pH VBG pCO2 VBG pO2 VBG HCO3 VBG Total CO2 VBG O2 Saturation VBG Base Excess Hemoglobin 11.0 L Hematocrit 34.0 L Potassium 4.1 3.8 Glucose 220 H 230 H Ionized Calcium FiO2 Sodium 134 L Chloride 99 Carbon Dioxide 25 Anion Gap 14.1 BUN 23 H Creatinine 1.20 H GFR Calculation 56 BUN/Creatinine Ratio 19.00 Calculated Osmolality 278.2 Calcium 10.2 H Venous Ioniz Calcium Magnesium 2.7 H Total Bilirubin 0.80 Direct Bilirubin AST 33 ALT 37 Alkaline Phosphatase 50 Total Creatine Kinase CK-MB (CK-2) CK and CKMB Interp Troponin I Total Protein 5.5 L Albumin 3.1 L Globulin 2.4 Albumin/Globulin Ratio 1.2 Urine Color Urine Appearance Urine pH Ur Specific [place] Urine Protein Urine Glucose (UA) Urine Ketones Urine Blood Urine Nitrate Urine Bilirubin Urine Urobilinogen Urine Leukocytes Urine RBC Urine WBC Ur Squamous Epith Cells Ur Culture Indicated? Blood Type Antibody Screen Crossmatch 03/22/17 03/22/17 03/22/17 11:22 13:38 16:30 WBC RBC Hgb Hct MCV MCH MCHC RDW Plt Count MPV Neut % (Auto) Lymph % (Auto) Hood % (Auto) Eos % (Auto) Baso % (Auto) Neut # (Auto) Lymph # (Auto) Hood # (Auto) Eos # (Auto) Baso # (Auto) Total Counted Immature Gran % Nucleated RBC % Immature Gran # Segmented Neutrophils Lymphocytes Monocytes Nucleated RBCs # Platelet Estimate Hypochromasia Microcytosis [place] Cells Acanthocytes (Spur) INR PT Patient/Control Mix Circ Anticoag PTT Patient Temperature ABG pH 7.470 H 7.458 H ABG pH at Pt Temp ABG pCO2 34.2 L 33.7 L ABG pCO2 at Pt Temp ABG pO2 144.8 H 83.2 ABG pO2 at Pt Temp ABG HCO3 24.3 23.3 ABG Total CO2 25.4 24.4 ABG O2 Saturation 98.6 96.3 ABG Base Excess 1.1 0.0 ABG Sodium VBG pH VBG pCO2 VBG pO2 VBG HCO3 VBG Total CO2 VBG O2 Saturation VBG Base Excess Hemoglobin 12.2 12.0 Hematocrit 36.0 L 35.0 L Potassium 3.9 4.2 Glucose 217 H 207 H Ionized Calcium FiO2 Sodium Chloride Carbon Dioxide Anion Gap BUN Creatinine GFR Calculation BUN/Creatinine Ratio Calculated Osmolality Calcium Venous Ioniz Calcium Magnesium Total Bilirubin Direct Bilirubin AST ALT Alkaline Phosphatase Total Creatine Kinase 182 CK-MB (CK-2) 13.7 H CK and CKMB Interp 7.5 Troponin I 5.070 H Total Protein Albumin Globulin Albumin/Globulin Ratio Urine Color Urine Appearance Urine pH Ur Specific [place] Urine Protein Urine Glucose (UA) Urine Ketones Urine Blood Urine Nitrate Urine Bilirubin Urine Urobilinogen Urine Leukocytes Urine RBC Urine WBC Ur Squamous Epith Cells Ur Culture Indicated? Blood Type Antibody Screen Crossmatch 03/22/17 03/22/17 03/22/17 19:15 19:15 23:00 WBC RBC Hgb Hct MCV MCH MCHC RDW Plt Count MPV Neut % (Auto) Lymph % (Auto) Hood % (Auto) Eos % (Auto) Baso % (Auto) Neut # (Auto) Lymph # (Auto) Hood # (Auto) Eos # (Auto) Baso # (Auto) Total Counted Immature Gran % Nucleated RBC % Immature Gran # Segmented Neutrophils Lymphocytes Monocytes Nucleated RBCs # Platelet Estimate Hypochromasia Microcytosis Jesse Cells Acanthocytes (Spur) INR PT Patient/Control Mix Circ Anticoag PTT Patient Temperature ABG pH 7.452 H 7.407 ABG pH at Pt Temp ABG pCO2 36.5 40.7 ABG pCO2 at Pt Temp ABG pO2 98.4 H 109.9 H ABG pO2 at Pt Temp ABG HCO3 24.9 25.0 ABG Total CO2 26.0 26.3 ABG O2 Saturation 97.1 97.4 ABG Base Excess 1.1 0.3 ABG Sodium VBG pH VBG pCO2 VBG pO2 VBG HCO3 VBG Total CO2 VBG O2 Saturation VBG Base Excess Hemoglobin 11.5 L 10.9 L Hematocrit 34.0 L 32.0 L Potassium 4.0 4.0 Glucose 115 H 105 Ionized Calcium FiO2 Sodium Chloride Carbon Dioxide Anion Gap BUN Creatinine GFR Calculation BUN/Creatinine Ratio Calculated Osmolality Calcium Venous Ioniz Calcium Magnesium Total Bilirubin Direct Bilirubin AST ALT Alkaline Phosphatase Total Creatine Kinase 315 H D CK-MB (CK-2) 10.7 H CK and CKMB Interp 3.4 Troponin I 4.380 H Total Protein Albumin Globulin Albumin/Globulin Ratio Urine Color Urine Appearance Urine pH Ur Specific [place] Urine Protein Urine Glucose (UA) Urine Ketones Urine Blood Urine Nitrate Urine Bilirubin Urine Urobilinogen Urine Leukocytes Urine RBC Urine WBC Ur Squamous Epith Cells Ur Culture Indicated? Blood Type Antibody Screen Crossmatch 03/23/17 03/23/17 03/23/17 03:02 03:05 03:05 WBC 16.9 H RBC 3.28 L Hgb 10.3 L Hct 29.8 L MCV 90.9 MCH 31 MCHC 34.6 RDW 14.1 Plt Count 234 MPV 9.1 L Neut % (Auto) 91.0 H Lymph % (Auto) 3.8 L Hood % (Auto) 4.3 Eos % (Auto) 0.0 Baso % (Auto) 0.1 Neut # (Auto) 15.4 H Lymph # (Auto) 0.7 L Hood # (Auto) 0.7 Eos # (Auto) 0.0 Baso # (Auto) 0.0 Total Counted 100 Immature Gran % 0.8 Nucleated RBC % 0.0 Immature Gran # 0.13 Segmented Neutrophils 94 H Lymphocytes 3 L Monocytes 3 Nucleated RBCs # 0.00 Platelet Estimate Normal Hypochromasia 1+ Microcytosis [place] Cells Acanthocytes (Spur) 1+ INR PT Patient/Control Mix Circ Anticoag PTT Patient Temperature ABG pH 7.361 ABG pH at Pt Temp ABG pCO2 49.9 H ABG pCO2 at Pt Temp ABG pO2 91.3 ABG pO2 at Pt Temp ABG HCO3 26.3 H ABG Total CO2 25.7 ABG O2 Saturation 96.9 ABG Base Excess 2.1 ABG Sodium VBG pH VBG pCO2 VBG pO2 VBG HCO3 VBG Total CO2 VBG O2 Saturation VBG Base Excess Hemoglobin 10.4 L Hematocrit 32.2 L Potassium 4.1 Glucose 133 H Ionized Calcium FiO2 Sodium Chloride Carbon Dioxide Anion Gap BUN Creatinine GFR Calculation BUN/Creatinine Ratio Calculated Osmolality Calcium Venous Ioniz Calcium Magnesium Total Bilirubin Direct Bilirubin AST ALT Alkaline Phosphatase Total Creatine Kinase 480 H D CK-MB (CK-2) 8.9 H CK and CKMB Interp 1.9 Troponin I 3.530 H Total Protein Albumin Globulin Albumin/Globulin Ratio Urine Color Urine Appearance Urine pH Ur Specific [place] Urine Protein Urine Glucose (UA) Urine Ketones Urine Blood Urine Nitrate Urine Bilirubin Urine Urobilinogen Urine Leukocytes Urine RBC Urine WBC Ur Squamous Epith Cells Ur Culture Indicated? Blood Type Antibody Screen Crossmatch 03/23/17 03:05 WBC RBC Hgb Hct MCV MCH MCHC RDW Plt Count MPV Neut % (Auto) Lymph % (Auto) Hood % (Auto) Eos % (Auto) Baso % (Auto) Neut # (Auto) Lymph # (Auto) Hood # (Auto) Eos # (Auto) Baso # (Auto) Total Counted Immature Gran % Nucleated RBC % Immature Gran # Segmented Neutrophils Lymphocytes Monocytes Nucleated RBCs # Platelet Estimate Hypochromasia Microcytosis [place] Cells Acanthocytes (Spur) INR PT Patient/Control Mix Circ Anticoag PTT Patient Temperature ABG pH ABG pH at Pt Temp ABG pCO2 ABG pCO2 at Pt Temp ABG pO2 ABG pO2 at Pt Temp ABG HCO3 ABG Total CO2 ABG O2 Saturation ABG Base Excess ABG Sodium VBG pH VBG pCO2 VBG pO2 VBG HCO3 VBG Total CO2 VBG O2 Saturation VBG Base Excess Hemoglobin Hematocrit Potassium 4.2 Glucose 115 H Ionized Calcium FiO2 Sodium 138 Chloride 102 Carbon Dioxide 29 Anion Gap 11.2 BUN 30 H Creatinine 1.60 H GFR Calculation 39 BUN/Creatinine Ratio 18.00 Calculated Osmolality 281.7 Calcium 9.3 Venous Ioniz Calcium Magnesium 2.3 Total Bilirubin 0.60 Direct Bilirubin 0.20 AST 42 H ALT 35 Alkaline Phosphatase 47 Total Creatine Kinase CK-MB (CK-2) CK and CKMB Interp Troponin I Total Protein 6.0 L Albumin 3.8 Globulin 2.2 L Albumin/Globulin Ratio 1.7 Urine Color Urine Appearance Urine pH Ur Specific [place] Urine Protein Urine Glucose (UA) Urine Ketones Urine Blood Urine Nitrate Urine Bilirubin Urine Urobilinogen Urine Leukocytes Urine RBC Urine WBC Ur Squamous Epith Cells Ur Culture Indicated? Blood Type Antibody Screen Crossmatch - Diagnostic Findings Procedure: Chest x-ray: report reviewed by me - EKG EKG results: interpreted by me EKG shows: sinus rhythm Quality Measures - VTE Contraindication to Pharmacological VTE Prophylaxis: High Risk of Bleeding Specialty Discharge - Follow Up or Referrals <Wilmer Ruiz - Last Filed: 03/23/17 10:03> Assessment and Plan (1) Cardiomyopathy Status: Chronic Current Visit: Yes Qualifiers: Cardiomyopathy type: ischemic Qualified Code(s): I25.5 - Ischemic cardiomyopathy (2) Hypokalemia Status: Resolved Current Visit: Yes (3) History of breast cancer Status: Chronic Current Visit: Yes (4) Anemia Status: Chronic Current Visit: Yes (5) Hyperlipidemia Status: Chronic Current Visit: Yes (6) Hypertension Status: Chronic Current Visit: Yes (7) Insulin dependent diabetes mellitus Status: Chronic Current Visit: Yes (8) Tobacco use Status: Chronic Current Visit: Yes Cardiology - PN: Subj Interval history: Patient is now postop day 1 for multivessel coronary bypass grafting. Her hemodynamics are good outputs are stable. She is comfortable extubated awake and alert. I think overall she is doing well initially and we will continue close observation in ICU setting. Exam (Progress Note) - Constitutional Vitals: Period Temp Pulse Resp BP Sys/Gaitan Pulse Ox Last 24 Hr 97.9 F-99.9 F 74-100 6-16 99-190/37-88 90-100 Result/EKG - Labs CBC & BMP: 03/23/17 03:05 03/23/17 03:05 Labs: Laboratory Results - last 24 hr 03/21/17 03/22/17 03/22/17 04:12 10:12 10:12 WBC RBC Hgb Hct MCV MCH MCHC RDW Plt Count 166 D MPV Neut % (Auto) Lymph % (Auto) Hood % (Auto) Eos % (Auto) Baso % (Auto) Neut # (Auto) Lymph # (Auto) Hood # (Auto) Eos # (Auto) Baso # (Auto) Total Counted Immature Gran % Nucleated RBC % Immature Gran # Segmented Neutrophils Lymphocytes Monocytes Nucleated RBCs # Platelet Estimate Hypochromasia Microcytosis Jesse Cells Acanthocytes (Spur) INR PT Patient/Control Mix Circ Anticoag PTT Patient Temperature 37 ABG pH 7.443 ABG pH at Pt Temp 7.443 ABG pCO2 33.9 L ABG pCO2 at Pt Temp 33.9 ABG pO2 108.0 H ABG pO2 at Pt Temp 108.0 ABG HCO3 24.1 ABG Total CO2 21.2 L ABG O2 Saturation 98.7 ABG Base Excess -0.5 ABG Sodium 127 L Hemoglobin 9.4 L Hematocrit 29.2 L Potassium 4.5 Glucose 248 H Ionized Calcium 1.32 Sodium Chloride Carbon Dioxide Anion Gap BUN Creatinine GFR Calculation BUN/Creatinine Ratio Calculated Osmolality Calcium Magnesium Total Bilirubin Direct Bilirubin AST ALT Alkaline Phosphatase Total Creatine Kinase CK-MB (CK-2) CK and CKMB Interp Troponin I Total Protein Albumin Globulin Albumin/Globulin Ratio Blood Type O POSITIVE Antibody Screen Negative Crossmatch See Detail 03/22/17 03/22/17 03/22/17 11:22 11:22 11:22 WBC 14.5 H D RBC 3.62 L Hgb 11.3 L Hct 32.1 L MCV 88.7 MCH 31 MCHC 35.2 RDW 13.3 Plt Count 247 D MPV 8.8 L Neut % (Auto) 85.5 H Lymph % (Auto) 5.7 L Hood % (Auto) 6.4 Eos % (Auto) 0.8 Baso % (Auto) 0.3 Neut # (Auto) 12.4 H Lymph # (Auto) 0.8 L Hood # (Auto) 0.9 H Eos # (Auto) 0.1 Baso # (Auto) 0.0 Total Counted Immature Gran % 1.3 Nucleated RBC % 0.0 Immature Gran # 0.19 Segmented Neutrophils Lymphocytes Monocytes Nucleated RBCs # 0.00 Platelet Estimate Normal Hypochromasia 1+ Microcytosis 1+ Jesse Cells Slight Acanthocytes (Spur) INR 1.1 PT Patient/Control Mix 12.1 Circ Anticoag PTT 28.5 Patient Temperature ABG pH ABG pH at Pt Temp ABG pCO2 ABG pCO2 at Pt Temp ABG pO2 ABG pO2 at Pt Temp ABG HCO3 ABG Total CO2 ABG O2 Saturation ABG Base Excess ABG Sodium Hemoglobin Hematocrit Potassium 4.1 Glucose 220 H Ionized Calcium Sodium 134 L Chloride 99 Carbon Dioxide 25 Anion Gap 14.1 BUN 23 H Creatinine 1.20 H GFR Calculation 56 BUN/Creatinine Ratio 19.00 Calculated Osmolality 278.2 Calcium 10.2 H Magnesium 2.7 H Total Bilirubin 0.80 Direct Bilirubin AST 33 ALT 37 Alkaline Phosphatase 50 Total Creatine Kinase CK-MB (CK-2) CK and CKMB Interp Troponin I Total Protein 5.5 L Albumin 3.1 L Globulin 2.4 Albumin/Globulin Ratio 1.2 Blood Type Antibody Screen Crossmatch 03/22/17 03/22/17 03/22/17 11:22 11:22 13:38 WBC RBC Hgb Hct MCV MCH MCHC RDW Plt Count MPV Neut % (Auto) Lymph % (Auto) Hood % (Auto) Eos % (Auto) Baso % (Auto) Neut # (Auto) Lymph # (Auto) Hood # (Auto) Eos # (Auto) Baso # (Auto) Total Counted Immature Gran % Nucleated RBC % Immature Gran # Segmented Neutrophils Lymphocytes Monocytes Nucleated RBCs # Platelet Estimate Hypochromasia Microcytosis Jesse Cells Acanthocytes (Spur) INR PT Patient/Control Mix Circ Anticoag PTT Patient Temperature ABG pH 7.461 H 7.470 H ABG pH at Pt Temp ABG pCO2 35.0 34.2 L ABG pCO2 at Pt Temp ABG pO2 80.7 144.8 H ABG pO2 at Pt Temp ABG HCO3 25.7 24.3 ABG Total CO2 22.3 L 25.4 ABG O2 Saturation 96.4 98.6 ABG Base Excess 1.5 1.1 ABG Sodium Hemoglobin 11.0 L 12.2 Hematocrit 34.0 L 36.0 L Potassium 3.8 3.9 Glucose 230 H 217 H Ionized Calcium Sodium Chloride Carbon Dioxide Anion Gap BUN Creatinine GFR Calculation BUN/Creatinine Ratio Calculated Osmolality Calcium Magnesium Total Bilirubin Direct Bilirubin AST ALT Alkaline Phosphatase Total Creatine Kinase 182 CK-MB (CK-2) 13.7 H CK and CKMB Interp 7.5 Troponin I 5.070 H Total Protein Albumin Globulin Albumin/Globulin Ratio Blood Type Antibody Screen Crossmatch 03/22/17 03/22/17 03/22/17 16:30 19:15 19:15 WBC RBC Hgb Hct MCV MCH MCHC RDW Plt Count MPV Neut % (Auto) Lymph % (Auto) Hood % (Auto) Eos % (Auto) Baso % (Auto) Neut # (Auto) Lymph # (Auto) Hood # (Auto) Eos # (Auto) Baso # (Auto) Total Counted Immature Gran % Nucleated RBC % Immature Gran # Segmented Neutrophils Lymphocytes Monocytes Nucleated RBCs # Platelet Estimate Hypochromasia Microcytosis Jesse Cells Acanthocytes (Spur) INR PT Patient/Control Mix Circ Anticoag PTT Patient Temperature ABG pH 7.458 H 7.452 H ABG pH at Pt Temp ABG pCO2 33.7 L 36.5 ABG pCO2 at Pt Temp ABG pO2 83.2 98.4 H ABG pO2 at Pt Temp ABG HCO3 23.3 24.9 ABG Total CO2 24.4 26.0 ABG O2 Saturation 96.3 97.1 ABG Base Excess 0.0 1.1 ABG Sodium Hemoglobin 12.0 11.5 L Hematocrit 35.0 L 34.0 L Potassium 4.2 4.0 Glucose 207 H 115 H Ionized Calcium Sodium Chloride Carbon Dioxide Anion Gap BUN Creatinine GFR Calculation BUN/Creatinine Ratio Calculated Osmolality Calcium Magnesium Total Bilirubin Direct Bilirubin AST ALT Alkaline Phosphatase Total Creatine Kinase 315 H D CK-MB (CK-2) 10.7 H CK and CKMB Interp 3.4 Troponin I 4.380 H Total Protein Albumin Globulin Albumin/Globulin Ratio Blood Type Antibody Screen Crossmatch 03/22/17 03/23/17 03/23/17 23:00 03:02 03:05 WBC RBC Hgb Hct MCV MCH MCHC RDW Plt Count MPV Neut % (Auto) Lymph % (Auto) [place] % (Auto) Eos % (Auto) Baso % (Auto) Neut # (Auto) Lymph # (Auto) [place] # (Auto) Eos # (Auto) Baso # (Auto) Total Counted Immature Gran % Nucleated RBC % Immature Gran # Segmented Neutrophils Lymphocytes Monocytes Nucleated RBCs # Platelet Estimate Hypochromasia Microcytosis [place] Cells Acanthocytes (Spur) INR PT Patient/Control Mix Circ Anticoag PTT Patient Temperature ABG pH 7.407 7.361 ABG pH at Pt Temp ABG pCO2 40.7 49.9 H ABG pCO2 at Pt Temp ABG pO2 109.9 H 91.3 ABG pO2 at Pt Temp ABG HCO3 25.0 26.3 H ABG Total CO2 26.3 25.7 ABG O2 Saturation 97.4 96.9 ABG Base Excess 0.3 2.1 ABG Sodium Hemoglobin 10.9 L 10.4 L Hematocrit 32.0 L 32.2 L Potassium 4.0 4.1 Glucose 105 133 H Ionized Calcium Sodium Chloride Carbon Dioxide Anion Gap BUN Creatinine GFR Calculation BUN/Creatinine Ratio Calculated Osmolality Calcium Magnesium Total Bilirubin Direct Bilirubin AST ALT Alkaline Phosphatase Total Creatine Kinase 480 H D CK-MB (CK-2) 8.9 H CK and CKMB Interp 1.9 Troponin I 3.530 H Total Protein Albumin Globulin Albumin/Globulin Ratio Blood Type Antibody Screen Crossmatch 03/23/17 03/23/17 03/23/17 03:05 03:05 07:14 WBC 16.9 H RBC 3.28 L Hgb 10.3 L Hct 29.8 L MCV 90.9 MCH 31 MCHC 34.6 RDW 14.1 Plt Count 234 MPV 9.1 L Neut % (Auto) 91.0 H Lymph % (Auto) 3.8 L [place] % (Auto) 4.3 Eos % (Auto) 0.0 Baso % (Auto) 0.1 Neut # (Auto) 15.4 H Lymph # (Auto) 0.7 L [place] # (Auto) 0.7 Eos # (Auto) 0.0 Baso # (Auto) 0.0 Total Counted 100 Immature Gran % 0.8 Nucleated RBC % 0.0 Immature Gran # 0.13 Segmented Neutrophils 94 H Lymphocytes 3 L Monocytes 3 Nucleated RBCs # 0.00 Platelet Estimate Normal Hypochromasia 1+ Microcytosis [place] Cells Acanthocytes (Spur) 1+ INR PT Patient/Control Mix Circ Anticoag PTT Patient Temperature ABG pH 7.372 ABG pH at Pt Temp ABG pCO2 48.3 H ABG pCO2 at Pt Temp ABG pO2 85.3 ABG pO2 at Pt Temp ABG HCO3 26.3 H ABG Total CO2 25.6 ABG O2 Saturation 96.1 ABG Base Excess 2.2 ABG Sodium Hemoglobin 10.0 L Hematocrit 31.0 L Potassium 4.2 3.9 Glucose 115 H 150 H Ionized Calcium Sodium 138 Chloride 102 Carbon Dioxide 29 Anion Gap 11.2 BUN 30 H Creatinine 1.60 H GFR Calculation 39 BUN/Creatinine Ratio 18.00 Calculated Osmolality 281.7 Calcium 9.3 Magnesium 2.3 Total Bilirubin 0.60 Direct Bilirubin 0.20 AST 42 H ALT 35 Alkaline Phosphatase 47 Total Creatine Kinase CK-MB (CK-2) CK and CKMB Interp Troponin I Total Protein 6.0 L Albumin 3.8 Globulin 2.2 L Albumin/Globulin Ratio 1.7 Blood Type Antibody Screen Crossmatch 03/23/17 08:15 WBC RBC Hgb Hct MCV MCH MCHC RDW Plt Count MPV Neut % (Auto) Lymph % (Auto) [place] % (Auto) Eos % (Auto) Baso % (Auto) Neut # (Auto) Lymph # (Auto) [place] # (Auto) Eos # (Auto) Baso # (Auto) Total Counted Immature Gran % Nucleated RBC % Immature Gran # Segmented Neutrophils Lymphocytes Monocytes Nucleated RBCs # Platelet Estimate Hypochromasia Microcytosis [place] Cells Acanthocytes (Spur) INR PT Patient/Control Mix Circ Anticoag PTT Patient Temperature ABG pH 7.331 L ABG pH at Pt Temp ABG pCO2 51.2 H ABG pCO2 at Pt Temp ABG pO2 76.4 L ABG pO2 at Pt Temp ABG HCO3 24.8 ABG Total CO2 24.7 ABG O2 Saturation 94.2 L ABG Base Excess 0.5 ABG Sodium Hemoglobin 10.4 L Hematocrit 32.3 L Potassium 4.0 Glucose 169 H Ionized Calcium Sodium Chloride Carbon Dioxide Anion Gap BUN Creatinine GFR Calculation BUN/Creatinine Ratio Calculated Osmolality Calcium Magnesium Total Bilirubin Direct Bilirubin AST ALT Alkaline Phosphatase Total Creatine Kinase CK-MB (CK-2) CK and CKMB Interp Troponin I Total Protein Albumin Globulin Albumin/Globulin Ratio Blood Type Antibody Screen Crossmatch
--- NOTE | 2017-03-23 07:13 | EKG Report ---
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
[2017-03-23 07:26] LABS: ABG Base Excess 2.2 MMOL/L (-2.5-2.5); ABG HCO3 26.3 MMOL/L (20-26); ABG Oxygen Saturation 96.1 % (95-100); ABG PCO2 48.3 MM HG (35-48); ABG PH 7.372 (7.35-7.45); ABG PO2 85.3 MM HG (80-95); ABG TCO2 25.6 MMOL/L (23-27); Glucose Heart Surgery 150 MG/DL (74-106); Potassium Heart/CVR 3.9 MMOL/L (3.5-5.1)
[2017-03-23 08:23] LABS: ABG Base Excess 0.5 MMOL/L (-2.5-2.5); ABG HCO3 24.8 MMOL/L (20-26); ABG Oxygen Saturation 94.2 % (95-100); ABG PCO2 51.2 MM HG (35-48); ABG PH 7.331 (7.35-7.45); ABG PO2 76.4 MM HG (80-95); ABG TCO2 24.7 MMOL/L (23-27); Glucose Heart Surgery 169 MG/DL (74-106); Hematocrit Heart Surgery 32.3 PERCENT (37-47); Hemoglobin Heart Surgery 10.4 G/DL (12.0-16.0)
[2017-03-23] MEDS ORDERED: traMADol 50 MG TABLET PO PRN (09:05)
[2017-03-23] MEDS ORDERED: DEXTROSE 50% 25 GM/50 ML VIAL IV PRN (09:06)
[2017-03-23] MEDS ORDERED: GLUCAGON 1 MG VIAL IM PRN (09:06)
--- NOTE | 2017-03-23 09:08 | Cardiothoracic Progress Note ---
Cardiothoracic Subjective Interval history: Patient is awake alert and extubated. Vital signs have been stable through the night and cardiac output has ranged between 4 and 5 L/min. She remains in sinus rhythm and blood gases have been adequate throughout the night and are adequate post extubation. Urinary output has been also satisfactory and creatinine is 1.6. Chest tube drainage is minimal and chest tubes have been discontinued. I am going to keep her in ICU another 24 hours primarily because of her poor ventricular function preop. We will leave her PA catheter in place and watch her cardiac function closely. Overall her progress appears satisfactory. Exam (Progress Note) - Constitutional Vitals: Period Temp Pulse Resp BP Sys/Gaitan Pulse Ox Last 24 Hr 97.9 F-99.9 F 74-98 6-14 99-190/50-88 98-100 Result/EKG - Labs CBC & BMP: 03/23/17 03:05 03/23/17 03:05 Labs: Laboratory Results - last 24 hr 03/21/17 03/22/17 03/22/17 04:12 09:30 10:12 WBC RBC Hgb Hct MCV MCH MCHC RDW Plt Count 166 D MPV Neut % (Auto) Lymph % (Auto) [place] % (Auto) Eos % (Auto) Baso % (Auto) Neut # (Auto) Lymph # (Auto) [place] # (Auto) Eos # (Auto) Baso # (Auto) Total Counted Immature Gran % Nucleated RBC % Immature Gran # Segmented Neutrophils Lymphocytes Monocytes Nucleated RBCs # Platelet Estimate Hypochromasia Microcytosis [place] Cells Acanthocytes (Spur) INR PT Patient/Control Mix Circ Anticoag PTT Patient Temperature 36 ABG pH ABG pH at Pt Temp 7.427 ABG pCO2 ABG pCO2 at Pt Temp 38.5 ABG pO2 ABG pO2 at Pt Temp 42.5 ABG HCO3 ABG Total CO2 ABG O2 Saturation ABG Base Excess ABG Sodium 123 L VBG pH 7.412 VBG pCO2 40.4 L VBG pO2 45.5 H VBG HCO3 25.2 VBG Total CO2 24.0 VBG O2 Saturation 83.0 VBG Base Excess 1.1 Hemoglobin 8.2 L Hematocrit 25.6 L Potassium 5.6 H Glucose 292 H Ionized Calcium FiO2 80.00 Sodium Chloride Carbon Dioxide Anion Gap BUN Creatinine GFR Calculation BUN/Creatinine Ratio Calculated Osmolality Calcium Venous Ioniz Calcium 0.89 L Magnesium Total Bilirubin Direct Bilirubin AST ALT Alkaline Phosphatase Total Creatine Kinase CK-MB (CK-2) CK and CKMB Interp Troponin I Total Protein Albumin Globulin Albumin/Globulin Ratio Blood Type O POSITIVE Antibody Screen Negative Crossmatch See Detail 03/22/17 03/22/17 03/22/17 10:12 11:22 11:22 WBC 14.5 H D RBC 3.62 L Hgb 11.3 L Hct 32.1 L MCV 88.7 MCH 31 MCHC 35.2 RDW 13.3 Plt Count 247 D MPV 8.8 L Neut % (Auto) 85.5 H Lymph % (Auto) 5.7 L [place] % (Auto) 6.4 Eos % (Auto) 0.8 Baso % (Auto) 0.3 Neut # (Auto) 12.4 H Lymph # (Auto) 0.8 L [place] # (Auto) 0.9 H Eos # (Auto) 0.1 Baso # (Auto) 0.0 Total Counted Immature Gran % 1.3 Nucleated RBC % 0.0 Immature Gran # 0.19 Segmented Neutrophils Lymphocytes Monocytes Nucleated RBCs # 0.00 Platelet Estimate Normal Hypochromasia 1+ Microcytosis 1+ [place] Cells Slight Acanthocytes (Spur) INR 1.1 PT Patient/Control Mix 12.1 Circ Anticoag PTT 28.5 Patient Temperature 37 ABG pH 7.443 ABG pH at Pt Temp 7.443 ABG pCO2 33.9 L ABG pCO2 at Pt Temp 33.9 ABG pO2 108.0 H ABG pO2 at Pt Temp 108.0 ABG HCO3 24.1 ABG Total CO2 21.2 L ABG O2 Saturation 98.7 ABG Base Excess -0.5 ABG Sodium 127 L VBG pH VBG pCO2 VBG pO2 VBG HCO3 VBG Total CO2 VBG O2 Saturation VBG Base Excess Hemoglobin 9.4 L Hematocrit 29.2 L Potassium 4.5 Glucose 248 H Ionized Calcium 1.32 FiO2 Sodium Chloride Carbon Dioxide Anion Gap BUN Creatinine GFR Calculation BUN/Creatinine Ratio Calculated Osmolality Calcium Venous Ioniz Calcium Magnesium Total Bilirubin Direct Bilirubin AST ALT Alkaline Phosphatase Total Creatine Kinase CK-MB (CK-2) CK and CKMB Interp Troponin I Total Protein Albumin Globulin Albumin/Globulin Ratio Blood Type Antibody Screen Crossmatch 03/22/17 03/22/17 03/22/17 11:22 11:22 11:22 WBC RBC Hgb Hct MCV MCH MCHC RDW Plt Count MPV Neut % (Auto) Lymph % (Auto) [place] % (Auto) Eos % (Auto) Baso % (Auto) Neut # (Auto) Lymph # (Auto) [place] # (Auto) Eos # (Auto) Baso # (Auto) Total Counted Immature Gran % Nucleated RBC % Immature Gran # Segmented Neutrophils Lymphocytes Monocytes Nucleated RBCs # Platelet Estimate Hypochromasia Microcytosis [place] Cells Acanthocytes (Spur) INR PT Patient/Control Mix Circ Anticoag PTT Patient Temperature ABG pH 7.461 H ABG pH at Pt Temp ABG pCO2 35.0 ABG pCO2 at Pt Temp ABG pO2 80.7 ABG pO2 at Pt Temp ABG HCO3 25.7 ABG Total CO2 22.3 L ABG O2 Saturation 96.4 ABG Base Excess 1.5 ABG Sodium VBG pH VBG pCO2 VBG pO2 VBG HCO3 VBG Total CO2 VBG O2 Saturation VBG Base Excess Hemoglobin 11.0 L Hematocrit 34.0 L Potassium 4.1 3.8 Glucose 220 H 230 H Ionized Calcium FiO2 Sodium 134 L Chloride 99 Carbon Dioxide 25 Anion Gap 14.1 BUN 23 H Creatinine 1.20 H GFR Calculation 56 BUN/Creatinine Ratio 19.00 Calculated Osmolality 278.2 Calcium 10.2 H Venous Ioniz Calcium Magnesium 2.7 H Total Bilirubin 0.80 Direct Bilirubin AST 33 ALT 37 Alkaline Phosphatase 50 Total Creatine Kinase 182 CK-MB (CK-2) 13.7 H CK and CKMB Interp 7.5 Troponin I 5.070 H Total Protein 5.5 L Albumin 3.1 L Globulin 2.4 Albumin/Globulin Ratio 1.2 Blood Type Antibody Screen Crossmatch 03/22/17 03/22/17 03/22/17 13:38 16:30 19:15 WBC RBC Hgb Hct MCV MCH MCHC RDW Plt Count MPV Neut % (Auto) Lymph % (Auto) [place] % (Auto) Eos % (Auto) Baso % (Auto) Neut # (Auto) Lymph # (Auto) [place] # (Auto) Eos # (Auto) Baso # (Auto) Total Counted Immature Gran % Nucleated RBC % Immature Gran # Segmented Neutrophils Lymphocytes Monocytes Nucleated RBCs # Platelet Estimate Hypochromasia Microcytosis [place] Cells Acanthocytes (Spur) INR PT Patient/Control Mix Circ Anticoag PTT Patient Temperature ABG pH 7.470 H 7.458 H ABG pH at Pt Temp ABG pCO2 34.2 L 33.7 L ABG pCO2 at Pt Temp ABG pO2 144.8 H 83.2 ABG pO2 at Pt Temp ABG HCO3 24.3 23.3 ABG Total CO2 25.4 24.4 ABG O2 Saturation 98.6 96.3 ABG Base Excess 1.1 0.0 ABG Sodium VBG pH VBG pCO2 VBG pO2 VBG HCO3 VBG Total CO2 VBG O2 Saturation VBG Base Excess Hemoglobin 12.2 12.0 Hematocrit 36.0 L 35.0 L Potassium 3.9 4.2 Glucose 217 H 207 H Ionized Calcium FiO2 Sodium Chloride Carbon Dioxide Anion Gap BUN Creatinine GFR Calculation BUN/Creatinine Ratio Calculated Osmolality Calcium Venous Ioniz Calcium Magnesium Total Bilirubin Direct Bilirubin AST ALT Alkaline Phosphatase Total Creatine Kinase 315 H D CK-MB (CK-2) 10.7 H CK and CKMB Interp 3.4 Troponin I 4.380 H Total Protein Albumin Globulin Albumin/Globulin Ratio Blood Type Antibody Screen Crossmatch 03/22/17 03/22/17 03/23/17 19:15 23:00 03:02 WBC RBC Hgb Hct MCV MCH MCHC RDW Plt Count MPV Neut % (Auto) Lymph % (Auto) [place] % (Auto) Eos % (Auto) Baso % (Auto) Neut # (Auto) Lymph # (Auto) [place] # (Auto) Eos # (Auto) Baso # (Auto) Total Counted Immature Gran % Nucleated RBC % Immature Gran # Segmented Neutrophils Lymphocytes Monocytes Nucleated RBCs # Platelet Estimate Hypochromasia Microcytosis [place] Cells Acanthocytes (Spur) INR PT Patient/Control Mix Circ Anticoag PTT Patient Temperature ABG pH 7.452 H 7.407 7.361 ABG pH at Pt Temp ABG pCO2 36.5 40.7 49.9 H ABG pCO2 at Pt Temp ABG pO2 98.4 H 109.9 H 91.3 ABG pO2 at Pt Temp ABG HCO3 24.9 25.0 26.3 H ABG Total CO2 26.0 26.3 25.7 ABG O2 Saturation 97.1 97.4 96.9 ABG Base Excess 1.1 0.3 2.1 ABG Sodium VBG pH VBG pCO2 VBG pO2 VBG HCO3 VBG Total CO2 VBG O2 Saturation VBG Base Excess Hemoglobin 11.5 L 10.9 L 10.4 L Hematocrit 34.0 L 32.0 L 32.2 L Potassium 4.0 4.0 4.1 Glucose 115 H 105 133 H Ionized Calcium FiO2 Sodium Chloride Carbon Dioxide Anion Gap BUN Creatinine GFR Calculation BUN/Creatinine Ratio Calculated Osmolality Calcium Venous Ioniz Calcium Magnesium Total Bilirubin Direct Bilirubin AST ALT Alkaline Phosphatase Total Creatine Kinase CK-MB (CK-2) CK and CKMB Interp Troponin I Total Protein Albumin Globulin Albumin/Globulin Ratio Blood Type Antibody Screen Crossmatch 03/23/17 03/23/17 03/23/17 03:05 03:05 03:05 WBC 16.9 H RBC 3.28 L Hgb 10.3 L Hct 29.8 L MCV 90.9 MCH 31 MCHC 34.6 RDW 14.1 Plt Count 234 MPV 9.1 L Neut % (Auto) 91.0 H Lymph % (Auto) 3.8 L [place] % (Auto) 4.3 Eos % (Auto) 0.0 Baso % (Auto) 0.1 Neut # (Auto) 15.4 H Lymph # (Auto) 0.7 L [place] # (Auto) 0.7 Eos # (Auto) 0.0 Baso # (Auto) 0.0 Total Counted 100 Immature Gran % 0.8 Nucleated RBC % 0.0 Immature Gran # 0.13 Segmented Neutrophils 94 H Lymphocytes 3 L Monocytes 3 Nucleated RBCs # 0.00 Platelet Estimate Normal Hypochromasia 1+ Microcytosis [place] Cells Acanthocytes (Spur) 1+ INR PT Patient/Control Mix Circ Anticoag PTT Patient Temperature ABG pH ABG pH at Pt Temp ABG pCO2 ABG pCO2 at Pt Temp ABG pO2 ABG pO2 at Pt Temp ABG HCO3 ABG Total CO2 ABG O2 Saturation ABG Base Excess ABG Sodium VBG pH VBG pCO2 VBG pO2 VBG HCO3 VBG Total CO2 VBG O2 Saturation VBG Base Excess Hemoglobin Hematocrit Potassium 4.2 Glucose 115 H Ionized Calcium FiO2 Sodium 138 Chloride 102 Carbon Dioxide 29 Anion Gap 11.2 BUN 30 H Creatinine 1.60 H GFR Calculation 39 BUN/Creatinine Ratio 18.00 Calculated Osmolality 281.7 Calcium 9.3 Venous Ioniz Calcium Magnesium 2.3 Total Bilirubin 0.60 Direct Bilirubin 0.20 AST 42 H ALT 35 Alkaline Phosphatase 47 Total Creatine Kinase 480 H D CK-MB (CK-2) 8.9 H CK and CKMB Interp 1.9 Troponin I 3.530 H Total Protein 6.0 L Albumin 3.8 Globulin 2.2 L Albumin/Globulin Ratio 1.7 Blood Type Antibody Screen Crossmatch 03/23/17 03/23/17 07:14 08:15 WBC RBC Hgb Hct MCV MCH MCHC RDW Plt Count MPV Neut % (Auto) Lymph % (Auto) [place] % (Auto) Eos % (Auto) Baso % (Auto) Neut # (Auto) Lymph # (Auto) [place] # (Auto) Eos # (Auto) Baso # (Auto) Total Counted Immature Gran % Nucleated RBC % Immature Gran # Segmented Neutrophils Lymphocytes Monocytes Nucleated RBCs # Platelet Estimate Hypochromasia Microcytosis [place] Cells Acanthocytes (Spur) INR PT Patient/Control Mix Circ Anticoag PTT Patient Temperature ABG pH 7.372 7.331 L ABG pH at Pt Temp ABG pCO2 48.3 H 51.2 H ABG pCO2 at Pt Temp ABG pO2 85.3 76.4 L ABG pO2 at Pt Temp ABG HCO3 26.3 H 24.8 ABG Total CO2 25.6 24.7 ABG O2 Saturation 96.1 94.2 L ABG Base Excess 2.2 0.5 ABG Sodium VBG pH VBG pCO2 VBG pO2 VBG HCO3 VBG Total CO2 VBG O2 Saturation VBG Base Excess Hemoglobin 10.0 L 10.4 L Hematocrit 31.0 L 32.3 L Potassium 3.9 4.0 Glucose 150 H 169 H Ionized Calcium FiO2 Sodium Chloride Carbon Dioxide Anion Gap BUN Creatinine GFR Calculation BUN/Creatinine Ratio Calculated Osmolality Calcium Venous Ioniz Calcium Magnesium Total Bilirubin Direct Bilirubin AST ALT Alkaline Phosphatase Total Creatine Kinase CK-MB (CK-2) CK and CKMB Interp Troponin I Total Protein Albumin Globulin Albumin/Globulin Ratio Blood Type Antibody Screen Crossmatch Quality Measures - VTE Contraindication to Pharmacological VTE Prophylaxis: High Risk of Bleeding Specialty Discharge - Follow Up or Referrals
[2017-03-23] MEDS: INSULIN REGULAR 100 UNIT/ML SUBCUT SCH ×3 (09:53→14:26)
[2017-03-23] MEDS: hydroCHLOROthiazide 12.5 MG CAPSULE PO SCH (09:54)
[2017-03-23] MEDS: PANTOPRAZOLE 40 MG TABLET PO SCH ×2 (09:54→21:56)
[2017-03-23] MEDS: CHLORHEXIDINE 0.12% ORAL RINSE 60 ML BOTTLE SWISH/SPIT SCH ×2 (10:00→21:56)
[2017-03-23] MEDS: FOSINOPRIL 20 MG TABLET PO SCH (10:01)
[2017-03-23] MEDS: metFORMIN 850 MG TABLET PO SCH ×3 (10:01→21:31)
[2017-03-23 10:06] LABS: ABG Base Excess 1.9 MMOL/L (-2.5-2.5); ABG HCO3 26.1 MMOL/L (20-26); ABG Oxygen Saturation 92.8 % (95-100); ABG PCO2 52.4 MM HG (35-48); ABG PH 7.344 (7.35-7.45); ABG PO2 70.1 MM HG (80-95); Glucose Heart Surgery 173 MG/DL (74-106); Hematocrit Heart Surgery 31.4 PERCENT (37-47); Hemoglobin Heart Surgery 10.2 G/DL (12.0-16.0); Potassium Heart/CVR 4.2 MMOL/L (3.5-5.1)
--- NOTE | 2017-03-23 10:21 | XRay Report ---
Exam: XR chest 1V portable Date: 03/23/2017 Indication: Chest tube mediastinal drain removed postop surgery extubation Comparison: 03/22/2017. Technical: AP Findings: Sternotomy wires are present. Endotracheal tube and nasogastric tube and mediastinal drains have been removed. A right-sided [place]-Anette catheter is demonstrated with the distal tip in the pulmonary artery. A right IJ catheter is present with distal tip in the right atrium. Cardiomegaly is present. Minimal atelectatic change and left base. Small tiny amount of air present in the left paraspinous region superimposing the left heart. Moderate fecal debris is present in the colon. Impression: 1. Interval movement endotracheal tube nasogastric tube and mediastinal thoracotomy tube drains 2. Residual bibasilar atelectatic change and tiny effusions with small amount of atelectatic change or air present in the left retrocardiac region 3. Stable position of the IJ catheter and [place]-Anette catheter 4. Previous sternotomy PROCEDURE INTERPRETED AT [facility] DEPARTMENT OF RADIOLOGY Final Report Signed by: Dr. Dennis Penaloza
[2017-03-23] MEDS: ALBUTEROL/IPRATROPIUM 3 ML NEB RESP TX SCH ×2 (11:08→20:57)
[2017-03-23] MEDS: SODIUM CHLORIDE 0.45% 1,000 ML IV SCH ×2 (11:56)
[2017-03-23] MEDS: INSULIN REGULAR DRIP 100 ML IV SCH ×2 (11:56→14:25)
[2017-03-23] MEDS: NITROGLYCERIN DRIP 50 MG/250 ML BOTTLE IV SCH (12:31)
[2017-03-23] MEDS: DOBUTamine 500 MG/250 ML PREMIX IV SCH ×2 (12:31→19:13)
[2017-03-23 12:57] LABS: Troponin I Only 2.36 NG/ML (0.00-0.045)
--- NOTE | 2017-03-23 13:05 | Hospitalist Progress Note ---
Assessment and Plan (1) Congestive heart failure Status: Acute Assessment and plan: The patient had bypass yesterday. The patient is on standard postoperative course. We will continue metformin once daily today and add long-acting insulin to her sliding scale insulin if glucose is not well controlled. Current Visit: Yes Qualifiers: Congestive heart failure type: combined Congestive heart failure chronicity : acute Qualified Code(s): I50.41 - Acute combined systolic (congestive) and diastolic (congestive) heart failure (2) Cardiomyopathy Status: Chronic Current Visit: Yes Qualifiers: Cardiomyopathy type: ischemic Qualified Code(s): I25.5 - Ischemic cardiomyopathy Hospitalist: Subjective Interval history: The patient is resting in the cardiovascular recovery unit. Glucose is controlled on sliding scale insulin with oral metformin. We are going to limit metformin to once a day on account of her renal dysfunction. Exam - Constitutional Vitals: Period Temp Pulse Resp BP Sys/Gaitan Pulse Ox Last 24 Hr 98.8 F-99.9 F 79-105 6-19 99-160/37-70 90-100 Exam: Constitutional System: The patient is orally intubated and mechanically ventilated. She is sedated following surgery. Head: Normocephalic, atraumatic. Ears, Nose and Throat System: No evidence of Otitis or Mastoiditis. No epistaxis or discharge Eyes System: Pupils equal, round, and reactive. Extraocular muscles intact. Neck: Supple, without adenopathy, trace jugular venous distention. No thyromegaly, neck mass Respiratory System: Chest rales in bases to auscultation. Cardiovascular System: Heart with regular rate and rhythm. S4 murmur. GI System: Abdomen soft, nontender. Normo active bowel sounds present. Musculoskeletal System: limbs with trace pedal edema. Full distal pulses. Neurological System: No discernable sensory deficit. Results - Labs CBC & BMP: 03/23/17 03:05 03/23/17 03:05 Lab Results: I have reviewed the past 24 hour labs Quality Measures - VTE Contraindication to Pharmacological VTE Prophylaxis: High Risk of Bleeding Specialty Discharge - Follow Up or Referrals
[2017-03-23] MEDS: INSULIN ASPART PROTAMINE/ASPART 70/30 100 UNIT/ML SUBCUT SCH ×2 (14:26→16:36)
[2017-03-23] MEDS ORDERED: INSULIN ASPART PROTAMINE/ASPART 70/30 100 UNIT/ML SUBCUT ONE (14:34)
[2017-03-23 17:50] LABS: Hematocrit Heart Surgery 32.7 PERCENT (37-47); Hemoglobin Heart Surgery 10.6 G/DL (12.0-16.0); PCO2 Patient Temp Venous 53.9 MM HG; PH Patient Temp Venous 7.344; PO2 Patient Temp Venous 27.6 MM HG; Potassium Heart/CVR 4.1 MMOL/L (3.5-5.1); VBG Base Excess 2.6 MEQ/L (0-4); VBG HCO3 25.8 MEQ/L (24-28); VBG Oxygen Saturation 44.4 %; VBG PCO2 53.9 MMHG (41-51); VBG PH 7.344; VBG PO2 27.6 MMHG (17-40)
[2017-03-23] MEDS ORDERED: oxyCODONE/ACETAMINOPHEN 5-325 MG TABLET PO PRN (19:07)
[2017-03-23] MEDS: ZALEPLON 5 MG CAPSULE PO PRN (20:33)
[2017-03-23] MEDS: BACLOFEN 10 MG TABLET PO SCH (21:56)
[2017-03-23] MEDS: ATORVASTATIN 80 MG TABLET PO SCH (21:56)
[2017-03-23] MEDS: AMITRIPTYLINE 25 MG TABLET PO SCH (21:56)
[2017-03-23] MEDS: ASPIRIN EC 81 MG TABLET PO SCH (21:57)
[2017-03-24] MEDS: ALBUTEROL/IPRATROPIUM 3 ML NEB RESP TX SCH ×4 (00:34→20:08)
[2017-03-24] MEDS ORDERED: DEXTROSE 50% 25 GM/50 ML VIAL IV PRN (02:09)
[2017-03-24] MEDS ORDERED: GLUCAGON 1 MG VIAL IM PRN (02:09)
[2017-03-24 03:58] LABS: Basophils % 0.1 % (0.0-0.8); Hematocrit 31.3 VOL% (35.7-47.0); Hemoglobin 10.5 GM/DL (12.0-16.0); Immature Granulocytes % 0.5 %; Immature Granulocytes Absolute 0.08 #; Lymphocytes # 1.6 10*3/uL (1.4-4.0); Lymphocytes % 10.2 % (21.3-54.2); Mean Corpuscular HGB Conc 33.5 GM/DL (32-36); Mean Corpuscular Hemoglobin 31 PG (27-34); Mean Corpuscular Volume 93.7 FL (87-102); Mean Platelet Volume 8.9 FL (9.6-12.0); Monocytes # 1.5 10*3/uL (0.11-0.8); Monocytes % 9.6 % (1.7-12.7); Neutrophils % 79.6 % (38.7-73.9); Platelet Count 191 T/CUMM (130-400); Red Blood Count 3.34 MC/CUMM (3.8-5.5); Red Cell Distribution Width 14.4 % (9.3-17.3); White Blood Count 15.2 T/CUMM (4-12)
[2017-03-24 04:23] LABS: ABG Base Excess 3.8 MMOL/L (-2.5-2.5); ABG HCO3 27.7 MMOL/L (20-26); ABG Oxygen Saturation 89.8 % (95-100); ABG PCO2 45.5 MM HG (35-48); ABG PH 7.413 (7.35-7.45); ABG PO2 58.5 MM HG (80-95); ABG TCO2 26.2 MMOL/L (23-27); Allen Test Positive
[2017-03-24 04:28] LABS: Albumin 3.5 G/DL (3.4-5.0); Bilirubin,Direct 0.2 MG/DL (0.0-0.20); Bilirubin,Total 0.4 MG/DL (0.2-1.0); Calcium 8.7 MG/DL (8.5-10.1); Magnesium 2.3 MG/DL (1.8-2.4); Osmolality,Calculated 276.1 MOS/KG (273-304); Potassium 4.3 MMOL/L (3.5-5.1)
[2017-03-24] MEDS: INSULIN REGULAR 100 UNIT/ML SUBCUT SCH ×5 (05:24→23:38)
[2017-03-24] MEDS: MORPHINE 2 MG/1 ML SYRINGE IV PRN (05:29)
[2017-03-24 06:25] LABS: Lymphocytes 10 % (20-55); Metamyelocytes 1 %; Segmented Neutrophils 80 % (50-85)
[2017-03-24 06:27] LABS: Burr Cells 1+; Hypochromasia 2+; Platelet Estimate Normal
[2017-03-24 06:28] LABS: Acanthocytes Few
[2017-03-24 06:29] LABS: Total Cells Counted 100
--- NOTE | 2017-03-24 06:49 | Cardiology Progress Note ---
Assessment and Plan (1) Cardiomyopathy Status: Chronic Assessment and plan: Ejection fraction 20% by echocardiogram 03/14/2017. Current Visit: Yes Qualifiers: Cardiomyopathy type: ischemic Qualified Code(s): I25.5 - Ischemic cardiomyopathy (2) Hypokalemia Status: Resolved Assessment and plan: Potassium is 3.9 today. Continue to monitor. Current Visit: Yes (3) History of breast cancer Status: Chronic Current Visit: Yes (4) Anemia Status: Chronic Current Visit: Yes (5) Hyperlipidemia Status: Chronic Current Visit: Yes (6) Hypertension Status: Chronic Current Visit: Yes (7) Insulin dependent diabetes mellitus Status: Chronic Current Visit: Yes (8) Tobacco use Status: Chronic Current Visit: Yes Cardiology - PN: Subj Interval history: Patient is now postoperative day #2. She has stable vital signs and is doing well. Hopefully can be transferred to the floor today pending CV Surgery review.. Exam (Progress Note) - Constitutional Vitals: Period Temp Pulse Resp BP Sys/Gaitan Pulse Ox Last 24 Hr 99.2 F-99.9 F 92-105 14-27 95-160/37-70 90-100 Exam: General:no acute distress. alert and oriented, mood and affect are normal HEENT: no new lesions, sclerae are clear, mouth and pharynx benign Neck: supple, trachea midline, no JVD noted Lungs: no rales ronchi or wheeze is noted. pt comfortable without accesory muscle use to assist with breathing CV: RRR no murmur rub or gallop is noted. Abd: soft and nontender, BSNA, no masses. Ext: no cyanosis, clubbing or edema Neuro: grossly intact without focal neurologic deficit. Result/EKG - Labs CBC & BMP: 03/24/17 03:45 03/24/17 03:45 Labs: Laboratory Results - last 24 hr 03/22/17 03/22/17 03/22/17 16:15 18:02 19:16 WBC RBC Hgb Hct MCV MCH MCHC RDW Plt Count MPV Neut % (Auto) Lymph % (Auto) [place] % (Auto) Eos % (Auto) Baso % (Auto) Neut # (Auto) Lymph # (Auto) [place] # (Auto) Eos # (Auto) Baso # (Auto) Total Counted Immature Gran % Nucleated RBC % Immature Gran # Segmented Neutrophils Lymphocytes Monocytes Metamyelocytes Nucleated RBCs # Platelet Estimate Hypochromasia York Cells Acanthocytes (Spur) Patient Temperature ABG pH ABG pH at Pt Temp ABG pCO2 ABG pCO2 at Pt Temp ABG pO2 ABG pO2 at Pt Temp ABG HCO3 ABG Total CO2 ABG O2 Saturation ABG Base Excess ABG Sodium VBG pH VBG pCO2 VBG pO2 VBG HCO3 VBG Total CO2 VBG O2 Saturation VBG Base Excess Hemoglobin Hematocrit Potassium Glucose FiO2 Sodium Chloride Carbon Dioxide Anion Gap BUN Creatinine GFR Calculation BUN/Creatinine Ratio POC Glucose 244 H 177 H 117 H Calculated Osmolality Calcium Venous Ioniz Calcium Magnesium Total Bilirubin Direct Bilirubin AST ALT Alkaline Phosphatase Total Creatine Kinase CK-MB (CK-2) CK and CKMB Interp Troponin I Total Protein Albumin Globulin Albumin/Globulin Ratio 03/22/17 03/22/17 03/22/17 20:10 21:09 22:01 WBC RBC Hgb Hct MCV MCH MCHC RDW Plt Count MPV Neut % (Auto) Lymph % (Auto) [place] % (Auto) Eos % (Auto) Baso % (Auto) Neut # (Auto) Lymph # (Auto) [place] # (Auto) Eos # (Auto) Baso # (Auto) Total Counted Immature Gran % Nucleated RBC % Immature Gran # Segmented Neutrophils Lymphocytes Monocytes Metamyelocytes Nucleated RBCs # Platelet Estimate Hypochromasia York Cells Acanthocytes (Spur) Patient Temperature ABG pH ABG pH at Pt Temp ABG pCO2 ABG pCO2 at Pt Temp ABG pO2 ABG pO2 at Pt Temp ABG HCO3 ABG Total CO2 ABG O2 Saturation ABG Base Excess ABG Sodium VBG pH VBG pCO2 VBG pO2 VBG HCO3 VBG Total CO2 VBG O2 Saturation VBG Base Excess Hemoglobin Hematocrit Potassium Glucose FiO2 Sodium Chloride Carbon Dioxide Anion Gap BUN Creatinine GFR Calculation BUN/Creatinine Ratio POC Glucose 99 97 105 Calculated Osmolality Calcium Venous Ioniz Calcium Magnesium Total Bilirubin Direct Bilirubin AST ALT Alkaline Phosphatase Total Creatine Kinase CK-MB (CK-2) CK and CKMB Interp Troponin I Total Protein Albumin Globulin Albumin/Globulin Ratio 03/22/17 03/23/17 03/23/17 23:56 01:00 02:20 WBC RBC Hgb Hct MCV MCH MCHC RDW Plt Count MPV Neut % (Auto) Lymph % (Auto) [place] % (Auto) Eos % (Auto) Baso % (Auto) Neut # (Auto) Lymph # (Auto) [place] # (Auto) Eos # (Auto) Baso # (Auto) Total Counted Immature Gran % Nucleated RBC % Immature Gran # Segmented Neutrophils Lymphocytes Monocytes Metamyelocytes Nucleated RBCs # Platelet Estimate Hypochromasia [place] Cells Acanthocytes (Spur) Patient Temperature ABG pH ABG pH at Pt Temp ABG pCO2 ABG pCO2 at Pt Temp ABG pO2 ABG pO2 at Pt Temp ABG HCO3 ABG Total CO2 ABG O2 Saturation ABG Base Excess ABG Sodium VBG pH VBG pCO2 VBG pO2 VBG HCO3 VBG Total CO2 VBG O2 Saturation VBG Base Excess Hemoglobin Hematocrit Potassium Glucose FiO2 Sodium Chloride Carbon Dioxide Anion Gap BUN Creatinine GFR Calculation BUN/Creatinine Ratio POC Glucose 109 H 118 H 126 H Calculated Osmolality Calcium Venous Ioniz Calcium Magnesium Total Bilirubin Direct Bilirubin AST ALT Alkaline Phosphatase Total Creatine Kinase CK-MB (CK-2) CK and CKMB Interp Troponin I Total Protein Albumin Globulin Albumin/Globulin Ratio 03/23/17 03/23/17 03/23/17 04:03 05:00 06:22 WBC RBC Hgb Hct MCV MCH MCHC RDW Plt Count MPV Neut % (Auto) Lymph % (Auto) [place] % (Auto) Eos % (Auto) Baso % (Auto) Neut # (Auto) Lymph # (Auto) [place] # (Auto) Eos # (Auto) Baso # (Auto) Total Counted Immature Gran % Nucleated RBC % Immature Gran # Segmented Neutrophils Lymphocytes Monocytes Metamyelocytes Nucleated RBCs # Platelet Estimate Hypochromasia Jesse Cells Acanthocytes (Spur) Patient Temperature ABG pH ABG pH at Pt Temp ABG pCO2 ABG pCO2 at Pt Temp ABG pO2 ABG pO2 at Pt Temp ABG HCO3 ABG Total CO2 ABG O2 Saturation ABG Base Excess ABG Sodium VBG pH VBG pCO2 VBG pO2 VBG HCO3 VBG Total CO2 VBG O2 Saturation VBG Base Excess Hemoglobin Hematocrit Potassium Glucose FiO2 Sodium Chloride Carbon Dioxide Anion Gap BUN Creatinine GFR Calculation BUN/Creatinine Ratio POC Glucose 131 H 133 H 136 H Calculated Osmolality Calcium Venous Ioniz Calcium Magnesium Total Bilirubin Direct Bilirubin AST ALT Alkaline Phosphatase Total Creatine Kinase CK-MB (CK-2) CK and CKMB Interp Troponin I Total Protein Albumin Globulin Albumin/Globulin Ratio 03/23/17 03/23/17 03/23/17 07:14 08:15 09:54 WBC RBC Hgb Hct MCV MCH MCHC RDW Plt Count MPV Neut % (Auto) Lymph % (Auto) [place] % (Auto) Eos % (Auto) Baso % (Auto) Neut # (Auto) Lymph # (Auto) [place] # (Auto) Eos # (Auto) Baso # (Auto) Total Counted Immature Gran % Nucleated RBC % Immature Gran # Segmented Neutrophils Lymphocytes Monocytes Metamyelocytes Nucleated RBCs # Platelet Estimate Hypochromasia Jesse Cells Acanthocytes (Spur) Patient Temperature ABG pH 7.372 7.331 L 7.344 L ABG pH at Pt Temp ABG pCO2 48.3 H 51.2 H 52.4 H ABG pCO2 at Pt Temp ABG pO2 85.3 76.4 L 70.1 L ABG pO2 at Pt Temp ABG HCO3 26.3 H 24.8 26.1 H ABG Total CO2 25.6 24.7 26.0 ABG O2 Saturation 96.1 94.2 L 92.8 L ABG Base Excess 2.2 0.5 1.9 ABG Sodium VBG pH VBG pCO2 VBG pO2 VBG HCO3 VBG Total CO2 VBG O2 Saturation VBG Base Excess Hemoglobin 10.0 L 10.4 L 10.2 L Hematocrit 31.0 L 32.3 L 31.4 L Potassium 3.9 4.0 4.2 Glucose 150 H 169 H 173 H FiO2 Sodium Chloride Carbon Dioxide Anion Gap BUN Creatinine GFR Calculation BUN/Creatinine Ratio POC Glucose Calculated Osmolality Calcium Venous Ioniz Calcium Magnesium Total Bilirubin Direct Bilirubin AST ALT Alkaline Phosphatase Total Creatine Kinase CK-MB (CK-2) CK and CKMB Interp Troponin I Total Protein Albumin Globulin Albumin/Globulin Ratio 03/23/17 03/23/17 03/23/17 12:20 12:24 17:37 WBC RBC Hgb Hct MCV MCH MCHC RDW Plt Count MPV Neut % (Auto) Lymph % (Auto) [place] % (Auto) Eos % (Auto) Baso % (Auto) Neut # (Auto) Lymph # (Auto) [place] # (Auto) Eos # (Auto) Baso # (Auto) Total Counted Immature Gran % Nucleated RBC % Immature Gran # Segmented Neutrophils Lymphocytes Monocytes Metamyelocytes Nucleated RBCs # Platelet Estimate Hypochromasia Jesse Cells Acanthocytes (Spur) Patient Temperature ABG pH ABG pH at Pt Temp ABG pCO2 ABG pCO2 at Pt Temp ABG pO2 ABG pO2 at Pt Temp ABG HCO3 ABG Total CO2 ABG O2 Saturation ABG Base Excess ABG Sodium VBG pH VBG pCO2 VBG pO2 VBG HCO3 VBG Total CO2 VBG O2 Saturation VBG Base Excess Hemoglobin Hematocrit Potassium Glucose FiO2 Sodium Chloride Carbon Dioxide Anion Gap BUN Creatinine GFR Calculation BUN/Creatinine Ratio POC Glucose 322 H 163 H Calculated Osmolality Calcium Venous Ioniz Calcium Magnesium Total Bilirubin Direct Bilirubin AST ALT Alkaline Phosphatase Total Creatine Kinase 653 H D CK-MB (CK-2) 6.6 H CK and CKMB Interp 1.0 Troponin I 2.360 H D Total Protein Albumin Globulin Albumin/Globulin Ratio 03/23/17 03/23/17 03/23/17 17:40 18:26 19:24 WBC RBC Hgb Hct MCV MCH MCHC RDW Plt Count MPV Neut % (Auto) Lymph % (Auto) [place] % (Auto) Eos % (Auto) Baso % (Auto) Neut # (Auto) Lymph # (Auto) [place] # (Auto) Eos # (Auto) Baso # (Auto) Total Counted Immature Gran % Nucleated RBC % Immature Gran # Segmented Neutrophils Lymphocytes Monocytes Metamyelocytes Nucleated RBCs # Platelet Estimate Hypochromasia [place] Cells Acanthocytes (Spur) Patient Temperature 37 ABG pH ABG pH at Pt Temp 7.344 ABG pCO2 ABG pCO2 at Pt Temp 53.9 ABG pO2 ABG pO2 at Pt Temp 27.6 ABG HCO3 ABG Total CO2 ABG O2 Saturation ABG Base Excess ABG Sodium 137 VBG pH 7.344 VBG pCO2 53.9 H VBG pO2 27.6 VBG HCO3 25.8 VBG Total CO2 27.0 VBG O2 Saturation 44.4 VBG Base Excess 2.6 Hemoglobin 10.6 L Hematocrit 32.7 L Potassium 4.1 Glucose 149 H FiO2 21.00 Sodium Chloride Carbon Dioxide Anion Gap BUN Creatinine GFR Calculation BUN/Creatinine Ratio POC Glucose 114 H 162 H Calculated Osmolality Calcium Venous Ioniz Calcium 1.19 L Magnesium Total Bilirubin Direct Bilirubin AST ALT Alkaline Phosphatase Total Creatine Kinase CK-MB (CK-2) CK and CKMB Interp Troponin I Total Protein Albumin Globulin Albumin/Globulin Ratio 03/23/17 03/23/17 03/23/17 20:08 21:32 22:45 WBC RBC Hgb Hct MCV MCH MCHC RDW Plt Count MPV Neut % (Auto) Lymph % (Auto) [place] % (Auto) Eos % (Auto) Baso % (Auto) Neut # (Auto) Lymph # (Auto) [place] # (Auto) Eos # (Auto) Baso # (Auto) Total Counted Immature Gran % Nucleated RBC % Immature Gran # Segmented Neutrophils Lymphocytes Monocytes Metamyelocytes Nucleated RBCs # Platelet Estimate Hypochromasia York Cells Acanthocytes (Spur) Patient Temperature ABG pH ABG pH at Pt Temp ABG pCO2 ABG pCO2 at Pt Temp ABG pO2 ABG pO2 at Pt Temp ABG HCO3 ABG Total CO2 ABG O2 Saturation ABG Base Excess ABG Sodium VBG pH VBG pCO2 VBG pO2 VBG HCO3 VBG Total CO2 VBG O2 Saturation VBG Base Excess Hemoglobin Hematocrit Potassium Glucose FiO2 Sodium Chloride Carbon Dioxide Anion Gap BUN Creatinine GFR Calculation BUN/Creatinine Ratio POC Glucose 173 H 148 H 123 H Calculated Osmolality Calcium Venous Ioniz Calcium Magnesium Total Bilirubin Direct Bilirubin AST ALT Alkaline Phosphatase Total Creatine Kinase CK-MB (CK-2) CK and CKMB Interp Troponin I Total Protein Albumin Globulin Albumin/Globulin Ratio 03/23/17 03/24/17 03/24/17 23:42 00:25 02:05 WBC RBC Hgb Hct MCV MCH MCHC RDW Plt Count MPV Neut % (Auto) Lymph % (Auto) [place] % (Auto) Eos % (Auto) Baso % (Auto) Neut # (Auto) Lymph # (Auto) [place] # (Auto) Eos # (Auto) Baso # (Auto) Total Counted Immature Gran % Nucleated RBC % Immature Gran # Segmented Neutrophils Lymphocytes Monocytes Metamyelocytes Nucleated RBCs # Platelet Estimate Hypochromasia Jesse Cells Acanthocytes (Spur) Patient Temperature ABG pH ABG pH at Pt Temp ABG pCO2 ABG pCO2 at Pt Temp ABG pO2 ABG pO2 at Pt Temp ABG HCO3 ABG Total CO2 ABG O2 Saturation ABG Base Excess ABG Sodium VBG pH VBG pCO2 VBG pO2 VBG HCO3 VBG Total CO2 VBG O2 Saturation VBG Base Excess Hemoglobin Hematocrit Potassium Glucose FiO2 Sodium Chloride Carbon Dioxide Anion Gap BUN Creatinine GFR Calculation BUN/Creatinine Ratio POC Glucose 110 H 113 H 77 Calculated Osmolality Calcium Venous Ioniz Calcium Magnesium Total Bilirubin Direct Bilirubin AST ALT Alkaline Phosphatase Total Creatine Kinase CK-MB (CK-2) CK and CKMB Interp Troponin I Total Protein Albumin Globulin Albumin/Globulin Ratio 03/24/17 03/24/1717 03:45 03:45 03:47 WBC 15.2 H RBC 3.34 L Hgb 10.5 L Hct 31.3 L MCV 93.7 MCH 31 MCHC 33.5 RDW 14.4 Plt Count 191 MPV 8.9 L Neut % (Auto) 79.6 H Lymph % (Auto) 10.2 L [place] % (Auto) 9.6 Eos % (Auto) 0.0 Baso % (Auto) 0.1 Neut # (Auto) 12.0 H Lymph # (Auto) 1.6 [place] # (Auto) 1.5 H Eos # (Auto) 0.0 Baso # (Auto) 0.0 Total Counted 100 Immature Gran % 0.5 Nucleated RBC % 0.0 Immature Gran # 0.08 Segmented Neutrophils 80 Lymphocytes 10 L Monocytes 9 Metamyelocytes 1 Nucleated RBCs # 0.00 Platelet Estimate Normal Hypochromasia 2+ [place] Cells 1+ Acanthocytes (Spur) Few Patient Temperature ABG pH ABG pH at Pt Temp ABG pCO2 ABG pCO2 at Pt Temp ABG pO2 ABG pO2 at Pt Temp ABG HCO3 ABG Total CO2 ABG O2 Saturation ABG Base Excess ABG Sodium VBG pH VBG pCO2 VBG pO2 VBG HCO3 VBG Total CO2 VBG O2 Saturation VBG Base Excess Hemoglobin Hematocrit Potassium 4.3 Glucose 98 FiO2 Sodium 135 L Chloride 98 Carbon Dioxide 32 Anion Gap 9.3 BUN 33 H Creatinine 1.20 H GFR Calculation 57 BUN/Creatinine Ratio 27.00 H POC Glucose 108 H Calculated Osmolality 276.1 Calcium 8.7 Venous Ioniz Calcium Magnesium 2.3 Total Bilirubin 0.40 Direct Bilirubin 0.20 AST 50 H ALT 42 Alkaline Phosphatase 51 Total Creatine Kinase CK-MB (CK-2) CK and CKMB Interp Troponin I Total Protein 6.0 L Albumin 3.5 Globulin 2.5 Albumin/Globulin Ratio 1.4 03/24/17 04:30 WBC RBC Hgb Hct MCV MCH MCHC RDW Plt Count MPV Neut % (Auto) Lymph % (Auto) [place] % (Auto) Eos % (Auto) Baso % (Auto) Neut # (Auto) Lymph # (Auto) [place] # (Auto) Eos # (Auto) Baso # (Auto) Total Counted Immature Gran % Nucleated RBC % Immature Gran # Segmented Neutrophils Lymphocytes Monocytes Metamyelocytes Nucleated RBCs # Platelet Estimate Hypochromasia [place] Cells Acanthocytes (Spur) Patient Temperature ABG pH 7.413 ABG pH at Pt Temp ABG pCO2 45.5 ABG pCO2 at Pt Temp ABG pO2 58.5 L ABG pO2 at Pt Temp ABG HCO3 27.7 H ABG Total CO2 26.2 ABG O2 Saturation 89.8 L ABG Base Excess 3.8 H ABG Sodium VBG pH VBG pCO2 VBG pO2 VBG HCO3 VBG Total CO2 VBG O2 Saturation VBG Base Excess Hemoglobin Hematocrit Potassium Glucose FiO2 28.00 Sodium Chloride Carbon Dioxide Anion Gap BUN Creatinine GFR Calculation BUN/Creatinine Ratio POC Glucose Calculated Osmolality Calcium Venous Ioniz Calcium Magnesium Total Bilirubin Direct Bilirubin AST ALT Alkaline Phosphatase Total Creatine Kinase CK-MB (CK-2) CK and CKMB Interp Troponin I Total Protein Albumin Globulin Albumin/Globulin Ratio Quality Measures - VTE Contraindication to Pharmacological VTE Prophylaxis: High Risk of Bleeding Specialty Discharge - Follow Up or Referrals
[2017-03-24] MEDS: INSULIN ASPART PROTAMINE/ASPART 70/30 100 UNIT/ML SUBCUT SCH ×2 (08:37→20:45)
[2017-03-24] MEDS: FOSINOPRIL 20 MG TABLET PO SCH (08:37)
[2017-03-24] MEDS: hydroCHLOROthiazide 12.5 MG CAPSULE PO SCH (08:38)
[2017-03-24] MEDS: PANTOPRAZOLE 40 MG TABLET PO SCH ×2 (08:38→20:44)
[2017-03-24] MEDS: PARoxetine 10 MG TABLET PO SCH (08:38)
[2017-03-24] MEDS: LORATADINE 10 MG TABLET PO SCH (08:38)
[2017-03-24] MEDS: metFORMIN 850 MG TABLET PO SCH (08:39)
[2017-03-24] MEDS: CHLORHEXIDINE 0.12% ORAL RINSE 60 ML BOTTLE SWISH/SPIT SCH ×2 (08:42→20:46)
--- NOTE | 2017-03-24 08:51 | XRay Report ---
XR chest 1V portable Indication: Cardiac surgery. Chest one view: Since yesterday, [place] catheter, central line, normal heart size, median sternotomy wires, marked pulmonary hypoinflation and bibasilar atelectasis are stable. No new infiltrates. No pneumothorax. Impression: No change. PROCEDURE INTERPRETED AT [facility] [place] DEPARTMENT OF RADIOLOGY Final Report Signed by: Anshul Salgado M.D.
--- NOTE | 2017-03-24 09:08 | Cardiothoracic Progress Note ---
Cardiothoracic Subjective Interval history: Patient is awake alert and extubated. She does feel some better. Vital signs have been stable and she is breathing comfortably and her cardiac output is 3.7 L/min. Her blood gases still are marginal with a PO2 of 58. She has been a heavy smoker. Nevertheless because of her severely depressed ejection fraction preoperatively I think we will go slow as far as moving her out of intensive care. We will try to wean her dobutamine while maintaining a cardiac output of 3 L a minute or greater if this is possible. We also will try to get her out of bed some today but otherwise continue ICU therapy for now. Exam (Progress Note) - Constitutional Vitals: Period Temp Pulse Resp BP Sys/Gaitan Pulse Ox Last 24 Hr 99.2 F-99.9 F 92-104 14-25 95-144/48-70 93-100 Result/EKG - Labs CBC & BMP: 03/24/17 03:45 03/24/17 03:45 Labs: Laboratory Results - last 24 hr 03/22/17 03/22/17 03/22/17 16:15 18:02 19:16 WBC RBC Hgb Hct MCV MCH MCHC RDW Plt Count MPV Neut % (Auto) Lymph % (Auto) [place] % (Auto) Eos % (Auto) Baso % (Auto) Neut # (Auto) Lymph # (Auto) [place] # (Auto) Eos # (Auto) Baso # (Auto) Total Counted Immature Gran % Nucleated RBC % Immature Gran # Segmented Neutrophils Lymphocytes Monocytes Metamyelocytes Nucleated RBCs # Platelet Estimate Hypochromasia [place] Cells Acanthocytes (Spur) Patient Temperature ABG pH ABG pH at Pt Temp ABG pCO2 ABG pCO2 at Pt Temp ABG pO2 ABG pO2 at Pt Temp ABG HCO3 ABG Total CO2 ABG O2 Saturation ABG Base Excess ABG Sodium VBG pH VBG pCO2 VBG pO2 VBG HCO3 VBG Total CO2 VBG O2 Saturation VBG Base Excess Hemoglobin Hematocrit Potassium Glucose FiO2 Sodium Chloride Carbon Dioxide Anion Gap BUN Creatinine GFR Calculation BUN/Creatinine Ratio POC Glucose 244 H 177 H 117 H Calculated Osmolality Calcium Venous Ioniz Calcium Magnesium Total Bilirubin Direct Bilirubin AST ALT Alkaline Phosphatase Total Creatine Kinase CK-MB (CK-2) CK and CKMB Interp Troponin I Total Protein Albumin Globulin Albumin/Globulin Ratio 03/22/17 03/22/17 03/22/17 20:10 21:09 22:01 WBC RBC Hgb Hct MCV MCH MCHC RDW Plt Count MPV Neut % (Auto) Lymph % (Auto) [place] % (Auto) Eos % (Auto) Baso % (Auto) Neut # (Auto) Lymph # (Auto) [place] # (Auto) Eos # (Auto) Baso # (Auto) Total Counted Immature Gran % Nucleated RBC % Immature Gran # Segmented Neutrophils Lymphocytes Monocytes Metamyelocytes Nucleated RBCs # Platelet Estimate Hypochromasia [place] Cells Acanthocytes (Spur) Patient Temperature ABG pH ABG pH at Pt Temp ABG pCO2 ABG pCO2 at Pt Temp ABG pO2 ABG pO2 at Pt Temp ABG HCO3 ABG Total CO2 ABG O2 Saturation ABG Base Excess ABG Sodium VBG pH VBG pCO2 VBG pO2 VBG HCO3 VBG Total CO2 VBG O2 Saturation VBG Base Excess Hemoglobin Hematocrit Potassium Glucose FiO2 Sodium Chloride Carbon Dioxide Anion Gap BUN Creatinine GFR Calculation BUN/Creatinine Ratio POC Glucose 99 97 105 Calculated Osmolality Calcium Venous Ioniz Calcium Magnesium Total Bilirubin Direct Bilirubin AST ALT Alkaline Phosphatase Total Creatine Kinase CK-MB (CK-2) CK and CKMB Interp Troponin I Total Protein Albumin Globulin Albumin/Globulin Ratio 03/22/17 03/23/17 03/23/17 23:56 01:00 02:20 WBC RBC Hgb Hct MCV MCH MCHC RDW Plt Count MPV Neut % (Auto) Lymph % (Auto) [place] % (Auto) Eos % (Auto) Baso % (Auto) Neut # (Auto) Lymph # (Auto) [place] # (Auto) Eos # (Auto) Baso # (Auto) Total Counted Immature Gran % Nucleated RBC % Immature Gran # Segmented Neutrophils Lymphocytes Monocytes Metamyelocytes Nucleated RBCs # Platelet Estimate Hypochromasia Jesse Cells Acanthocytes (Spur) Patient Temperature ABG pH ABG pH at Pt Temp ABG pCO2 ABG pCO2 at Pt Temp ABG pO2 ABG pO2 at Pt Temp ABG HCO3 ABG Total CO2 ABG O2 Saturation ABG Base Excess ABG Sodium VBG pH VBG pCO2 VBG pO2 VBG HCO3 VBG Total CO2 VBG O2 Saturation VBG Base Excess Hemoglobin Hematocrit Potassium Glucose FiO2 Sodium Chloride Carbon Dioxide Anion Gap BUN Creatinine GFR Calculation BUN/Creatinine Ratio POC Glucose 109 H 118 H 126 H Calculated Osmolality Calcium Venous Ioniz Calcium Magnesium Total Bilirubin Direct Bilirubin AST ALT Alkaline Phosphatase Total Creatine Kinase CK-MB (CK-2) CK and CKMB Interp Troponin I Total Protein Albumin Globulin Albumin/Globulin Ratio 03/23/17 03/23/17 03/23/17 04:03 05:00 06:22 WBC RBC Hgb Hct MCV MCH MCHC RDW Plt Count MPV Neut % (Auto) Lymph % (Auto) [place] % (Auto) Eos % (Auto) Baso % (Auto) Neut # (Auto) Lymph # (Auto) [place] # (Auto) Eos # (Auto) Baso # (Auto) Total Counted Immature Gran % Nucleated RBC % Immature Gran # Segmented Neutrophils Lymphocytes Monocytes Metamyelocytes Nucleated RBCs # Platelet Estimate Hypochromasia [place] Cells Acanthocytes (Spur) Patient Temperature ABG pH ABG pH at Pt Temp ABG pCO2 ABG pCO2 at Pt Temp ABG pO2 ABG pO2 at Pt Temp ABG HCO3 ABG Total CO2 ABG O2 Saturation ABG Base Excess ABG Sodium VBG pH VBG pCO2 VBG pO2 VBG HCO3 VBG Total CO2 VBG O2 Saturation VBG Base Excess Hemoglobin Hematocrit Potassium Glucose FiO2 Sodium Chloride Carbon Dioxide Anion Gap BUN Creatinine GFR Calculation BUN/Creatinine Ratio POC Glucose 131 H 133 H 136 H Calculated Osmolality Calcium Venous Ioniz Calcium Magnesium Total Bilirubin Direct Bilirubin AST ALT Alkaline Phosphatase Total Creatine Kinase CK-MB (CK-2) CK and CKMB Interp Troponin I Total Protein Albumin Globulin Albumin/Globulin Ratio 03/23/17 03/23/17 03/23/17 09:54 12:20 12:24 WBC RBC Hgb Hct MCV MCH MCHC RDW Plt Count MPV Neut % (Auto) Lymph % (Auto) [place] % (Auto) Eos % (Auto) Baso % (Auto) Neut # (Auto) Lymph # (Auto) [place] # (Auto) Eos # (Auto) Baso # (Auto) Total Counted Immature Gran % Nucleated RBC % Immature Gran # Segmented Neutrophils Lymphocytes Monocytes Metamyelocytes Nucleated RBCs # Platelet Estimate Hypochromasia [place] Cells Acanthocytes (Spur) Patient Temperature ABG pH 7.344 L ABG pH at Pt Temp ABG pCO2 52.4 H ABG pCO2 at Pt Temp ABG pO2 70.1 L ABG pO2 at Pt Temp ABG HCO3 26.1 H ABG Total CO2 26.0 ABG O2 Saturation 92.8 L ABG Base Excess 1.9 ABG Sodium VBG pH VBG pCO2 VBG pO2 VBG HCO3 VBG Total CO2 VBG O2 Saturation VBG Base Excess Hemoglobin 10.2 L Hematocrit 31.4 L Potassium 4.2 Glucose 173 H FiO2 Sodium Chloride Carbon Dioxide Anion Gap BUN Creatinine GFR Calculation BUN/Creatinine Ratio POC Glucose 322 H Calculated Osmolality Calcium Venous Ioniz Calcium Magnesium Total Bilirubin Direct Bilirubin AST ALT Alkaline Phosphatase Total Creatine Kinase 653 H D CK-MB (CK-2) 6.6 H CK and CKMB Interp 1.0 Troponin I 2.360 H D Total Protein Albumin Globulin Albumin/Globulin Ratio 03/23/17 03/23/17 03/23/17 17:37 17:40 18:26 WBC RBC Hgb Hct MCV MCH MCHC RDW Plt Count MPV Neut % (Auto) Lymph % (Auto) [place] % (Auto) Eos % (Auto) Baso % (Auto) Neut # (Auto) Lymph # (Auto) [place] # (Auto) Eos # (Auto) Baso # (Auto) Total Counted Immature Gran % Nucleated RBC % Immature Gran # Segmented Neutrophils Lymphocytes Monocytes Metamyelocytes Nucleated RBCs # Platelet Estimate Hypochromasia [place] Cells Acanthocytes (Spur) Patient Temperature 37 ABG pH ABG pH at Pt Temp 7.344 ABG pCO2 ABG pCO2 at Pt Temp 53.9 ABG pO2 ABG pO2 at Pt Temp 27.6 ABG HCO3 ABG Total CO2 ABG O2 Saturation ABG Base Excess ABG Sodium 137 VBG pH 7.344 VBG pCO2 53.9 H VBG pO2 27.6 VBG HCO3 25.8 VBG Total CO2 27.0 VBG O2 Saturation 44.4 VBG Base Excess 2.6 Hemoglobin 10.6 L Hematocrit 32.7 L Potassium 4.1 Glucose 149 H FiO2 21.00 Sodium Chloride Carbon Dioxide Anion Gap BUN Creatinine GFR Calculation BUN/Creatinine Ratio POC Glucose 163 H 114 H Calculated Osmolality Calcium Venous Ioniz Calcium 1.19 L Magnesium Total Bilirubin Direct Bilirubin AST ALT Alkaline Phosphatase Total Creatine Kinase CK-MB (CK-2) CK and CKMB Interp Troponin I Total Protein Albumin Globulin Albumin/Globulin Ratio 03/23/17 03/23/17 03/23/17 19:24 20:08 21:32 WBC RBC Hgb Hct MCV MCH MCHC RDW Plt Count MPV Neut % (Auto) Lymph % (Auto) [place] % (Auto) Eos % (Auto) Baso % (Auto) Neut # (Auto) Lymph # (Auto) [place] # (Auto) Eos # (Auto) Baso # (Auto) Total Counted Immature Gran % Nucleated RBC % Immature Gran # Segmented Neutrophils Lymphocytes Monocytes Metamyelocytes Nucleated RBCs # Platelet Estimate Hypochromasia [place] Cells Acanthocytes (Spur) Patient Temperature ABG pH ABG pH at Pt Temp ABG pCO2 ABG pCO2 at Pt Temp ABG pO2 ABG pO2 at Pt Temp ABG HCO3 ABG Total CO2 ABG O2 Saturation ABG Base Excess ABG Sodium VBG pH VBG pCO2 VBG pO2 VBG HCO3 VBG Total CO2 VBG O2 Saturation VBG Base Excess Hemoglobin Hematocrit Potassium Glucose FiO2 Sodium Chloride Carbon Dioxide Anion Gap BUN Creatinine GFR Calculation BUN/Creatinine Ratio POC Glucose 162 H 173 H 148 H Calculated Osmolality Calcium Venous Ioniz Calcium Magnesium Total Bilirubin Direct Bilirubin AST ALT Alkaline Phosphatase Total Creatine Kinase CK-MB (CK-2) CK and CKMB Interp Troponin I Total Protein Albumin Globulin Albumin/Globulin Ratio 03/23/17 03/23/17 03/24/17 22:45 23:42 00:25 WBC RBC Hgb Hct MCV MCH MCHC RDW Plt Count MPV Neut % (Auto) Lymph % (Auto) [place] % (Auto) Eos % (Auto) Baso % (Auto) Neut # (Auto) Lymph # (Auto) [place] # (Auto) Eos # (Auto) Baso # (Auto) Total Counted Immature Gran % Nucleated RBC % Immature Gran # Segmented Neutrophils Lymphocytes Monocytes Metamyelocytes Nucleated RBCs # Platelet Estimate Hypochromasia [place] Cells Acanthocytes (Spur) Patient Temperature ABG pH ABG pH at Pt Temp ABG pCO2 ABG pCO2 at Pt Temp ABG pO2 ABG pO2 at Pt Temp ABG HCO3 ABG Total CO2 ABG O2 Saturation ABG Base Excess ABG Sodium VBG pH VBG pCO2 VBG pO2 VBG HCO3 VBG Total CO2 VBG O2 Saturation VBG Base Excess Hemoglobin Hematocrit Potassium Glucose FiO2 Sodium Chloride Carbon Dioxide Anion Gap BUN Creatinine GFR Calculation BUN/Creatinine Ratio POC Glucose 123 H 110 H 113 H Calculated Osmolality Calcium Venous Ioniz Calcium Magnesium Total Bilirubin Direct Bilirubin AST ALT Alkaline Phosphatase Total Creatine Kinase CK-MB (CK-2) CK and CKMB Interp Troponin I Total Protein Albumin Globulin Albumin/Globulin Ratio 03/24/17 03/24/17 03/24/17 02:05 03:45 03:45 WBC 15.2 H RBC 3.34 L Hgb 10.5 L Hct 31.3 L MCV 93.7 MCH 31 MCHC 33.5 RDW 14.4 Plt Count 191 MPV 8.9 L Neut % (Auto) 79.6 H Lymph % (Auto) 10.2 L [place] % (Auto) 9.6 Eos % (Auto) 0.0 Baso % (Auto) 0.1 Neut # (Auto) 12.0 H Lymph # (Auto) 1.6 [place] # (Auto) 1.5 H Eos # (Auto) 0.0 Baso # (Auto) 0.0 Total Counted 100 Immature Gran % 0.5 Nucleated RBC % 0.0 Immature Gran # 0.08 Segmented Neutrophils 80 Lymphocytes 10 L Monocytes 9 Metamyelocytes 1 Nucleated RBCs # 0.00 Platelet Estimate Normal Hypochromasia 2+ [place] Cells 1+ Acanthocytes (Spur) Few Patient Temperature ABG pH ABG pH at Pt Temp ABG pCO2 ABG pCO2 at Pt Temp ABG pO2 ABG pO2 at Pt Temp ABG HCO3 ABG Total CO2 ABG O2 Saturation ABG Base Excess ABG Sodium VBG pH VBG pCO2 VBG pO2 VBG HCO3 VBG Total CO2 VBG O2 Saturation VBG Base Excess Hemoglobin Hematocrit Potassium 4.3 Glucose 98 FiO2 Sodium 135 L Chloride 98 Carbon Dioxide 32 Anion Gap 9.3 BUN 33 H Creatinine 1.20 H GFR Calculation 57 BUN/Creatinine Ratio 27.00 H POC Glucose 77 Calculated Osmolality 276.1 Calcium 8.7 Venous Ioniz Calcium Magnesium 2.3 Total Bilirubin 0.40 Direct Bilirubin 0.20 AST 50 H ALT 42 Alkaline Phosphatase 51 Total Creatine Kinase CK-MB (CK-2) CK and CKMB Interp Troponin I Total Protein 6.0 L Albumin 3.5 Globulin 2.5 Albumin/Globulin Ratio 1.4 03/24/17 03/24/17 03/24/17 03:47 04:30 07:30 WBC RBC Hgb Hct MCV MCH MCHC RDW Plt Count MPV Neut % (Auto) Lymph % (Auto) [place] % (Auto) Eos % (Auto) Baso % (Auto) Neut # (Auto) Lymph # (Auto) [place] # (Auto) Eos # (Auto) Baso # (Auto) Total Counted Immature Gran % Nucleated RBC % Immature Gran # Segmented Neutrophils Lymphocytes Monocytes Metamyelocytes Nucleated RBCs # Platelet Estimate Hypochromasia [place] Cells Acanthocytes (Spur) Patient Temperature ABG pH 7.413 ABG pH at Pt Temp ABG pCO2 45.5 ABG pCO2 at Pt Temp ABG pO2 58.5 L ABG pO2 at Pt Temp ABG HCO3 27.7 H ABG Total CO2 26.2 ABG O2 Saturation 89.8 L ABG Base Excess 3.8 H ABG Sodium VBG pH VBG pCO2 VBG pO2 VBG HCO3 VBG Total CO2 VBG O2 Saturation VBG Base Excess Hemoglobin Hematocrit Potassium Glucose FiO2 28.00 Sodium Chloride Carbon Dioxide Anion Gap BUN Creatinine GFR Calculation BUN/Creatinine Ratio POC Glucose 108 H 148 H Calculated Osmolality Calcium Venous Ioniz Calcium Magnesium Total Bilirubin Direct Bilirubin AST ALT Alkaline Phosphatase Total Creatine Kinase CK-MB (CK-2) CK and CKMB Interp Troponin I Total Protein Albumin Globulin Albumin/Globulin Ratio Quality Measures - VTE Contraindication to Pharmacological VTE Prophylaxis: High Risk of Bleeding Specialty Discharge - Follow Up or Referrals
--- NOTE | 2017-03-24 12:33 | Anesthesia Post-Op ---
Anesthesia Post OP - Post Ansesthetic Evaluation Patient seen in post op: Yes Resp: within normal limits CV: within normal limits Mental: within normal limits Temp: within normal limits [id number]: within normal limits Nausea and Vomiting: within normal limits Pain: within normal limits Patient seen at: date (03/23/17), time (1394)
--- NOTE | 2017-03-24 13:40 | Hospitalist Progress Note ---
Assessment and Plan (1) Congestive heart failure Status: Acute Assessment and plan: The patient is on standard postoperative course. We will continue metformin once daily today and continue intermediate-acting insulin twice daily as well as her sliding scale insulin if glucose is not well controlled. Current Visit: Yes Qualifiers: Congestive heart failure type: combined Congestive heart failure chronicity : acute Qualified Code(s): I50.41 - Acute combined systolic (congestive) and diastolic (congestive) heart failure (2) Cardiomyopathy Status: Chronic Current Visit: Yes Qualifiers: Cardiomyopathy type: ischemic Qualified Code(s): I25.5 - Ischemic cardiomyopathy Hospitalist: Subjective Interval history: The patient is resting quietly in bed today. Blood glucose control has improved. The patient is off insulin infusion and is using intermediate acting insulin twice daily with sliding scale before each meal at bedtime. The patient 's metformin continues at 850 mg daily. Exam - Constitutional Vitals: Period Temp Pulse Resp BP Sys/Gaitan Pulse Ox Last 24 Hr 99.2 F-99.9 F 92-101 14-25 95-137/50-66 92-100 Exam: Constitutional System: The patient is orally intubated and mechanically ventilated. She is sedated following surgery. Head: Normocephalic, atraumatic. Ears, Nose and Throat System: No evidence of Otitis or Mastoiditis. No epistaxis or discharge Eyes System: Pupils equal, round, and reactive. Extraocular muscles intact. Neck: Supple, without adenopathy, trace jugular venous distention. No thyromegaly, neck mass Respiratory System: Chest rales in bases to auscultation. Cardiovascular System: Heart with regular rate and rhythm. S4 murmur. GI System: Abdomen soft, nontender. Normo active bowel sounds present. Musculoskeletal System: limbs with trace pedal edema. Full distal pulses. Neurological System: No discernable sensory deficit. Results - Labs CBC & BMP: 03/24/17 03:45 03/24/17 03:45 Lab Results: I have reviewed the past 24 hour labs Quality Measures - VTE Contraindication to Pharmacological VTE Prophylaxis: High Risk of Bleeding Specialty Discharge - Follow Up or Referrals
[2017-03-24] MEDS: SODIUM CHLORIDE 0.45% 1,000 ML IV SCH ×2 (14:40→19:56)
[2017-03-24] MEDS ORDERED: HEPARIN/NACL 0.9% 2 UNITS/ML 500 ML IV ONE (18:02)
[2017-03-24] MEDS: DOBUTamine 500 MG/250 ML PREMIX IV SCH (19:57)
[2017-03-24] MEDS: INSULIN REGULAR DRIP 100 ML IV SCH (20:00)
[2017-03-24] MEDS: NITROGLYCERIN DRIP 50 MG/250 ML BOTTLE IV SCH (20:03)
[2017-03-24] MEDS ORDERED: ACETAMINOPHEN 325 MG TABLET PO PRN (20:21)
[2017-03-24] MEDS: ATORVASTATIN 80 MG TABLET PO SCH (20:44)
[2017-03-24] MEDS: ASPIRIN EC 81 MG TABLET PO SCH (20:44)
[2017-03-24] MEDS: FUROSEMIDE 40 MG/4 ML VIAL IV SCH (20:44)
[2017-03-24] MEDS: BACLOFEN 10 MG TABLET PO SCH (20:44)
[2017-03-24] MEDS: AMITRIPTYLINE 25 MG TABLET PO SCH (20:46)
[2017-03-24] MEDS: ZALEPLON 5 MG CAPSULE PO PRN (21:52)
[2017-03-25] MEDS: ALBUTEROL/IPRATROPIUM 3 ML NEB RESP TX SCH ×4 (01:23→19:34)
[2017-03-25 04:04] LABS: Allen Test Positive
[2017-03-25 04:05] LABS: ABG Base Excess 4.3 MMOL/L (-2.5-2.5); ABG HCO3 28.9 MMOL/L (20-26); ABG Oxygen Saturation 97.4 % (95-100); ABG PCO2 43.1 MM HG (35-48); ABG PH 7.444 (7.35-7.45); ABG PO2 97.4 MM HG (80-95); ABG TCO2 30.2 MMOL/L (23-27)
[2017-03-25] MEDS: INSULIN REGULAR 100 UNIT/ML SUBCUT SCH ×2 (04:08→09:41)
[2017-03-25 04:17] LABS: Basophils % 0.3 % (0.0-0.8); Eosinophils # 0.1 10*3/uL (0.0-0.87); Eosinophils % 1.1 % (0.00-10.9); Hematocrit 32.3 VOL% (35.7-47.0); Hemoglobin 10.8 GM/DL (12.0-16.0); Immature Granulocytes % 0.4 %; Immature Granulocytes Absolute 0.04 #; Lymphocytes # 1.6 10*3/uL (1.4-4.0); Lymphocytes % 17.5 % (21.3-54.2); Mean Corpuscular HGB Conc 33.4 GM/DL (32-36); Mean Corpuscular Hemoglobin 32 PG (27-34); Mean Corpuscular Volume 94.4 FL (87-102); Mean Platelet Volume 9.5 FL (9.6-12.0); Monocytes # 1.1 10*3/uL (0.11-0.8); Monocytes % 12.6 % (1.7-12.7); Neutrophils # 6.2 10*3/uL (1.4-7.4); Neutrophils % 68.1 % (38.7-73.9); Platelet Count 207 T/CUMM (130-400); Red Blood Count 3.42 MC/CUMM (3.8-5.5); Red Cell Distribution Width 13.9 % (9.3-17.3); White Blood Count 9.1 T/CUMM (4-12)
[2017-03-25 04:42] LABS: Eosinophils 2 % (0-10); Lymphocytes 16 % (20-55); Platelet Estimate Normal; Segmented Neutrophils 72 % (50-85); Total Cells Counted 100
[2017-03-25 04:49] LABS: Albumin 3.6 G/DL (3.4-5.0); Bilirubin,Direct 0.3 MG/DL (0.0-0.20); Bilirubin,Total 0.7 MG/DL (0.2-1.0); Calcium 8.3 MG/DL (8.5-10.1); Magnesium 2.4 MG/DL (1.8-2.4); Potassium 4.2 MMOL/L (3.5-5.1); Total Protein 6.2 G/DL (6.4-8.3)
--- NOTE | 2017-03-25 08:15 | Cardiology Progress Note ---
Assessment and Plan (1) Cardiomyopathy Status: Chronic Assessment and plan: Ejection fraction 20% by echocardiogram 03/14/2017. Current Visit: Yes Qualifiers: Cardiomyopathy type: ischemic Qualified Code(s): I25.5 - Ischemic cardiomyopathy (2) Hypokalemia Status: Resolved Assessment and plan: Potassium is 3.9 today. Continue to monitor. Current Visit: Yes (3) History of breast cancer Status: Chronic Current Visit: Yes (4) Anemia Status: Chronic Current Visit: Yes (5) Hyperlipidemia Status: Chronic Current Visit: Yes (6) Hypertension Status: Chronic Current Visit: Yes (7) Insulin dependent diabetes mellitus Status: Chronic Current Visit: Yes (8) Tobacco use Status: Chronic Current Visit: Yes Cardiology - PN: Subj Interval history: Ms. Shelley is stable and doing well. She is comfortable with good hemodynamics and good urine output. She likely will be transferred to the floor today. Her rhythm and has been stable Exam (Progress Note) - Constitutional Vitals: Period Temp Pulse Resp BP Sys/Gaitan Pulse Ox Last 24 Hr 98.1 F-100.5 F 83-101 12-24 95-137/44-80 90-100 Exam: General:no acute distress. alert and oriented, mood and affect are normal HEENT: no new lesions, sclerae are clear, mouth and pharynx benign Neck: supple, trachea midline, no JVD noted Lungs: no rales ronchi or wheeze is noted. pt comfortable without accesory muscle use to assist with breathing CV: RRR no murmur rub or gallop is noted. Abd: soft and nontender, BSNA, no masses. Ext: no cyanosis, clubbing or edema Neuro: grossly intact without focal neurologic deficit. Result/EKG - Labs CBC & BMP: 03/25/17 04:00 03/25/17 04:00 Labs: Laboratory Results - last 24 hr 03/21/17 03/23/17 03/23/17 04:12 14:16 15:31 WBC RBC Hgb Hct MCV MCH MCHC RDW Plt Count MPV Neut % (Auto) Lymph % (Auto) [place] % (Auto) Eos % (Auto) Baso % (Auto) Neut # (Auto) Lymph # (Auto) [place] # (Auto) Eos # (Auto) Baso # (Auto) Total Counted Immature Gran % Nucleated RBC % Immature Gran # Segmented Neutrophils Lymphocytes Monocytes Eosinophils Nucleated RBCs # Platelet Estimate ABG pH ABG pCO2 ABG pO2 ABG HCO3 ABG Total CO2 ABG O2 Saturation ABG Base Excess FiO2 Sodium Potassium Chloride Carbon Dioxide Anion Gap BUN Creatinine GFR Calculation BUN/Creatinine Ratio Glucose POC Glucose 303 H 286 H Calculated Osmolality Calcium Magnesium Total Bilirubin Direct Bilirubin AST ALT Alkaline Phosphatase Total Protein Albumin Globulin Albumin/Globulin Ratio Crossmatch See Detail 03/23/17 03/24/17 03/24/17 16:41 13:02 16:19 WBC RBC Hgb Hct MCV MCH MCHC RDW Plt Count MPV Neut % (Auto) Lymph % (Auto) [place] % (Auto) Eos % (Auto) Baso % (Auto) Neut # (Auto) Lymph # (Auto) [place] # (Auto) Eos # (Auto) Baso # (Auto) Total Counted Immature Gran % Nucleated RBC % Immature Gran # Segmented Neutrophils Lymphocytes Monocytes Eosinophils Nucleated RBCs # Platelet Estimate ABG pH ABG pCO2 ABG pO2 ABG HCO3 ABG Total CO2 ABG O2 Saturation ABG Base Excess FiO2 Sodium Potassium Chloride Carbon Dioxide Anion Gap BUN Creatinine GFR Calculation BUN/Creatinine Ratio Glucose POC Glucose 211 H 135 H 137 H Calculated Osmolality Calcium Magnesium Total Bilirubin Direct Bilirubin AST ALT Alkaline Phosphatase Total Protein Albumin Globulin Albumin/Globulin Ratio Crossmatch 03/24/17 03/24/17 03/25/17 20:08 23:23 03:47 WBC RBC Hgb Hct MCV MCH MCHC RDW Plt Count MPV Neut % (Auto) Lymph % (Auto) [place] % (Auto) Eos % (Auto) Baso % (Auto) Neut # (Auto) Lymph # (Auto) [place] # (Auto) Eos # (Auto) Baso # (Auto) Total Counted Immature Gran % Nucleated RBC % Immature Gran # Segmented Neutrophils Lymphocytes Monocytes Eosinophils Nucleated RBCs # Platelet Estimate ABG pH ABG pCO2 ABG pO2 ABG HCO3 ABG Total CO2 ABG O2 Saturation ABG Base Excess FiO2 Sodium Potassium Chloride Carbon Dioxide Anion Gap BUN Creatinine GFR Calculation BUN/Creatinine Ratio Glucose POC Glucose 253 H 223 H 76 Calculated Osmolality Calcium Magnesium Total Bilirubin Direct Bilirubin AST ALT Alkaline Phosphatase Total Protein Albumin Globulin Albumin/Globulin Ratio Crossmatch 03/25/17 03/25/17 03/25/17 04:00 04:00 Unknown WBC 9.1 D RBC 3.42 L Hgb 10.8 L Hct 32.3 L MCV 94.4 MCH 32 MCHC 33.4 RDW 13.9 Plt Count 207 MPV 9.5 L Neut % (Auto) 68.1 Lymph % (Auto) 17.5 L [place] % (Auto) 12.6 Eos % (Auto) 1.1 Baso % (Auto) 0.3 Neut # (Auto) 6.2 Lymph # (Auto) 1.6 [place] # (Auto) 1.1 H Eos # (Auto) 0.1 Baso # (Auto) 0.0 Total Counted 100 Immature Gran % 0.4 Nucleated RBC % 0.0 Immature Gran # 0.04 Segmented Neutrophils 72 Lymphocytes 16 L Monocytes 10 Eosinophils 2 Nucleated RBCs # 0.00 Platelet Estimate Normal ABG pH 7.444 ABG pCO2 43.1 ABG pO2 97.4 H ABG HCO3 28.9 H ABG Total CO2 30.2 H ABG O2 Saturation 97.4 ABG Base Excess 4.3 H FiO2 28.00 Sodium 136 Potassium 4.2 Chloride 97 L Carbon Dioxide 32 Anion Gap 11.2 BUN 27 H Creatinine 1.00 GFR Calculation 71 BUN/Creatinine Ratio 27.00 H Glucose 65 L POC Glucose Calculated Osmolality 274.0 Calcium 8.3 L Magnesium 2.4 Total Bilirubin 0.70 Direct Bilirubin 0.30 H AST 36 ALT 41 Alkaline Phosphatase 54 Total Protein 6.2 L Albumin 3.6 Globulin 2.6 Albumin/Globulin Ratio 1.3 Crossmatch Quality Measures - VTE Contraindication to Pharmacological VTE Prophylaxis: High Risk of Bleeding Specialty Discharge - Follow Up or Referrals
[2017-03-25] MEDS ORDERED: GLUCAGON 1 MG VIAL IM PRN ×2 (08:42)
[2017-03-25] MEDS ORDERED: ALUMINUM/MAGNES/SIMETH MAX STR 30 ML UDCUP PO PRN (08:42)
[2017-03-25] MEDS ORDERED: MAGNESIUM SULF RIDER 2 GM in PREMIX 1 EACH IV PRN (08:42)
[2017-03-25] MEDS ORDERED: MAGNESIUM SULF RIDER 4 GM in PREMIX 1 EACH IV PRN (08:42)
[2017-03-25] MEDS ORDERED: DEXTROSE 50% 25 GM/50 ML VIAL IV PRN ×2 (08:42)
[2017-03-25] MEDS ORDERED: POTASSIUM CHLORIDE 20 MEQ TABLET PO PRN (08:42)
[2017-03-25] MEDS ORDERED: ONDANSETRON 4 MG/2 ML VIAL IV PRN (08:42)
[2017-03-25] MEDS: FUROSEMIDE 40 MG/4 ML VIAL IV SCH ×2 (09:29→15:54)
[2017-03-25] MEDS: LORATADINE 10 MG TABLET PO SCH (09:30)
[2017-03-25] MEDS: metFORMIN 850 MG TABLET PO SCH (09:30)
[2017-03-25] MEDS: FOSINOPRIL 20 MG TABLET PO SCH (09:30)
[2017-03-25] MEDS: hydroCHLOROthiazide 12.5 MG CAPSULE PO SCH (09:30)
[2017-03-25] MEDS: PANTOPRAZOLE 40 MG TABLET PO SCH (09:30)
[2017-03-25] MEDS: PARoxetine 10 MG TABLET PO SCH (09:30)
[2017-03-25] MEDS: CHLORHEXIDINE 0.12% ORAL RINSE 60 ML BOTTLE SWISH/SPIT SCH ×2 (09:31→21:00)
[2017-03-25] MEDS: INSULIN ASPART PROTAMINE/ASPART 70/30 100 UNIT/ML SUBCUT SCH ×2 (09:39→16:50)
[2017-03-25] MEDS: DOCUSATE SODIUM 100 MG CAPSULE PO SCH (09:39)
[2017-03-25] MEDS: FERROUS SULFATE 325 MG TABLET PO SCH (09:39)
[2017-03-25] MEDS: SODIUM CHLOR 0.45% KCL 20 MEQ 20 MEQ/1,000 ML BAG IV SCH (09:40)
--- NOTE | 2017-03-25 10:14 | XRay Report ---
Portable chest Date: 03/25/2017 Clinical history: Post chest tube removal, evaluate for pneumothorax Comparison: 03/24/2017 Technique: Portable AP sitting chest Findings: Persistent cardiomegaly in patient with recent median sternotomy. The right IJ CVP line and right subclavian [place] catheter are stable position. Expiratory chest with reduced atelectasis/edema at the lung bases. Smaller pleural effusion. Impression: Recent median sternotomy with no pneumothorax. Reduced atelectasis/edema at the lung bases with small left pleural effusion. Stable CVP line and [place] catheter. PROCEDURE INTERPRETED AT [facility] DEPARTMENT OF RADIOLOGY Final Report Signed by: Dr. Enedina Cruz
--- NOTE | 2017-03-25 12:25 | Hospitalist Progress Note ---
Assessment and Plan (1) Congestive heart failure Status: Acute Assessment and plan: The patient is on standard postoperative course. We will continue metformin once daily today and continue intermediate-acting insulin twice daily as well as her sliding scale insulin if glucose is not well controlled. Current Visit: Yes Qualifiers: Congestive heart failure type: combined Congestive heart failure chronicity : acute Qualified Code(s): I50.41 - Acute combined systolic (congestive) and diastolic (congestive) heart failure (2) Cardiomyopathy Status: Chronic Current Visit: Yes Qualifiers: Cardiomyopathy type: ischemic Qualified Code(s): I25.5 - Ischemic cardiomyopathy Hospitalist: Subjective Interval history: Mrs. Shelley is breathing comfortably. She looks stronger than yesterday. Glucose is well controlled and she is ready for transfer to the floor. Exam - Constitutional Vitals: Period Temp Pulse Resp BP Sys/Gaitan Pulse Ox Last 24 Hr 97.7 F-100.5 F 83-103 12-29 84-137/44-81 90-100 Exam: Constitutional System: The patient is breathing comfortably without stridor Head: Normocephalic, atraumatic. Ears, Nose and Throat System: No evidence of Otitis or Mastoiditis. No epistaxis or discharge Eyes System: Pupils equal, round, and reactive. Extraocular muscles intact. Neck: Supple, without adenopathy, trace jugular venous distention. No thyromegaly, neck mass Respiratory System: Chest rales in bases to auscultation. Cardiovascular System: Heart with regular rate and rhythm. S4 murmur. GI System: Abdomen soft, nontender. Normo active bowel sounds present. Musculoskeletal System: limbs with trace pedal edema. Full distal pulses. Neurological System: No discernable sensory deficit. Results - Labs CBC & BMP: 03/25/17 04:00 03/25/17 04:00 Lab Results: I have reviewed the past 24 hour labs Quality Measures - VTE Contraindication to Pharmacological VTE Prophylaxis: High Risk of Bleeding Specialty Discharge - Follow Up or Referrals
[2017-03-25] MEDS: oxyCODONE/ACETAMINOPHEN 5-325 MG TABLET PO PRN (17:12)
[2017-03-25] MEDS: AMITRIPTYLINE 25 MG TABLET PO SCH (20:58)
[2017-03-25] MEDS: ASPIRIN EC 81 MG TABLET PO SCH (20:58)
[2017-03-25] MEDS: ATORVASTATIN 80 MG TABLET PO SCH (20:59)
[2017-03-25] MEDS: BACLOFEN 10 MG TABLET PO SCH (20:59)
[2017-03-26] MEDS: ALBUTEROL/IPRATROPIUM 3 ML NEB RESP TX SCH ×4 (01:35→19:32)
[2017-03-26 06:00] LABS: Basophils % 0.4 % (0.0-0.8); Eosinophils # 0.2 10*3/uL (0.0-0.87); Eosinophils % 2.4 % (0.00-10.9); Hematocrit 30.6 VOL% (35.7-47.0); Hemoglobin 10.4 GM/DL (12.0-16.0); Immature Granulocytes % 0.7 %; Immature Granulocytes Absolute 0.06 #; Lymphocytes # 1.3 10*3/uL (1.4-4.0); Lymphocytes % 15.6 % (21.3-54.2); Mean Corpuscular Hemoglobin 31 PG (27-34); Mean Corpuscular Volume 91.1 FL (87-102); Mean Platelet Volume 9.2 FL (9.6-12.0); Monocytes # 0.8 10*3/uL (0.11-0.8); Monocytes % 9.5 % (1.7-12.7); Neutrophils % 71.4 % (38.7-73.9); Platelet Count 225 T/CUMM (130-400); Red Blood Count 3.36 MC/CUMM (3.8-5.5); Red Cell Distribution Width 13.3 % (9.3-17.3); White Blood Count 8.4 T/CUMM (4-12)
[2017-03-26 06:27] LABS: Alanine Aminotransferase 36 U/L (13-56); Albumin 3.3 G/DL (3.4-5.0); Alkaline Phosphatase 55 U/L (45-117); Aspartate Amino Transferase 28 U/L (0-37); Bilirubin,Indirect 1.9 MG/DL (0.0-1.0); Blood Urea Nitrogen 22 MG/DL (7-18); Calcium 8.5 MG/DL (8.5-10.1); Glucose 143 MG/DL (74-106); Magnesium 2.1 MG/DL (1.8-2.4); Osmolality,Calculated 272.2 MOS/KG (273-304); Potassium 3.5 MMOL/L (3.5-5.1); Sodium 134 MMOL/L (136-145)
--- NOTE | 2017-03-26 06:36 | Cardiothoracic Progress Note ---
Cardiothoracic Subjective Interval history: Patient is doing better. Vital signs are stable and she is breathing comfortably. She is slowly increasing her activities as tolerated. Continue present therapy for now. Exam (Progress Note) - Constitutional Vitals: Period Temp Pulse Resp BP Sys/Gaitan Pulse Ox Last 24 Hr 96.9 F-98.7 F 87-103 12-29 84-133/49-81 93-100 Result/EKG - Labs CBC & BMP: 03/26/17 05:43 03/26/17 05:43 Labs: Laboratory Results - last 24 hr 03/25/17 03/25/17 03/25/17 08:14 12:25 15:49 WBC RBC Hgb Hct MCV MCH MCHC RDW Plt Count MPV Neut % (Auto) Lymph % (Auto) [place] % (Auto) Eos % (Auto) Baso % (Auto) Neut # (Auto) Lymph # (Auto) [place] # (Auto) Eos # (Auto) Baso # (Auto) Immature Gran % Nucleated RBC % Immature Gran # Nucleated RBCs # Sodium Potassium Chloride Carbon Dioxide Anion Gap BUN Creatinine GFR Calculation BUN/Creatinine Ratio Glucose POC Glucose 114 H 194 H 137 H Calculated Osmolality Calcium Magnesium Total Bilirubin Direct Bilirubin Indirect Bilirubin AST ALT Alkaline Phosphatase Total Creatine Kinase CK-MB (CK-2) Troponin I Total Protein Albumin Globulin Albumin/Globulin Ratio 03/25/17 03/26/17 03/26/17 20:59 05:43 05:43 WBC 8.4 RBC 3.36 L Hgb 10.4 L Hct 30.6 L MCV 91.1 MCH 31 MCHC 34.0 RDW 13.3 Plt Count 225 MPV 9.2 L Neut % (Auto) 71.4 Lymph % (Auto) 15.6 L [place] % (Auto) 9.5 Eos % (Auto) 2.4 Baso % (Auto) 0.4 Neut # (Auto) 6.0 Lymph # (Auto) 1.3 L [place] # (Auto) 0.8 Eos # (Auto) 0.2 Baso # (Auto) 0.0 Immature Gran % 0.7 Nucleated RBC % 0.0 Immature Gran # 0.06 Nucleated RBCs # 0.00 Sodium 134 L Potassium 3.5 Chloride 96 L Carbon Dioxide 32 Anion Gap 9.5 BUN 22 H Creatinine 0.90 GFR Calculation 81 BUN/Creatinine Ratio 24.00 H Glucose 143 H POC Glucose 168 H Calculated Osmolality 272.2 L Calcium 8.5 Magnesium 2.1 Total Bilirubin 2.20 H Direct Bilirubin 0.30 H Indirect Bilirubin 1.9 H AST 28 ALT 36 Alkaline Phosphatase 55 Total Creatine Kinase 337 H D CK-MB (CK-2) < 1.0 D Troponin I 1.140 H D Total Protein 6.0 L Albumin 3.3 L Globulin 2.7 Albumin/Globulin Ratio 1.2 Quality Measures - VTE Contraindication to Pharmacological VTE Prophylaxis: High Risk of Bleeding Specialty Discharge - Follow Up or Referrals
[2017-03-26 06:37] LABS: Hypochromasia 1+; Platelet Estimate Normal
[2017-03-26 06:38] LABS: Ovalocytes Slight
[2017-03-26] MEDS ORDERED: MAGNESIUM CITRATE 300 ML BOTTLE PO ONE (09:53)
[2017-03-26] MEDS: SODIUM CHLOR 0.45% KCL 20 MEQ 20 MEQ/1,000 ML BAG IV SCH (09:53)
[2017-03-26] MEDS: hydroCHLOROthiazide 12.5 MG CAPSULE PO SCH (09:55)
[2017-03-26] MEDS: PARoxetine 10 MG TABLET PO SCH (09:55)
[2017-03-26] MEDS: FOSINOPRIL 20 MG TABLET PO SCH (09:55)
[2017-03-26] MEDS: DOCUSATE SODIUM 100 MG CAPSULE PO SCH (09:56)
[2017-03-26] MEDS: LORATADINE 10 MG TABLET PO SCH (09:56)
[2017-03-26] MEDS: metFORMIN 850 MG TABLET PO SCH (09:56)
[2017-03-26] MEDS: FERROUS SULFATE 325 MG TABLET PO SCH (09:56)
[2017-03-26] MEDS: PANTOPRAZOLE 40 MG TABLET PO SCH (09:56)
[2017-03-26] MEDS: CHLORHEXIDINE 0.12% ORAL RINSE 60 ML BOTTLE SWISH/SPIT SCH ×2 (09:57→21:10)
[2017-03-26] MEDS: FUROSEMIDE 40 MG/4 ML VIAL IV SCH ×2 (09:57→17:35)
[2017-03-26] MEDS: INSULIN ASPART PROTAMINE/ASPART 70/30 100 UNIT/ML SUBCUT SCH ×2 (09:57→17:36)
--- NOTE | 2017-03-26 09:58 | Hospitalist Progress Note ---
<RussoDarlyn - Last Filed: 03/26/17 09:56> Assessment and Plan (1) S/P CABG x 2 Status: Acute Assessment and plan: CABG on 03/22. Pt. recovering well. Followed by CV surgery. Current Visit: Yes (2) Cardiomyopathy Status: Chronic Current Visit: Yes Qualifiers: Cardiomyopathy type: ischemic Qualified Code(s): I25.5 - Ischemic cardiomyopathy (3) Constipation Status: Acute Assessment and plan: Mag citrate ordered to help with bowel emptying. Current Visit: Yes (4) Insulin dependent diabetes mellitus Status: Chronic Assessment and plan: Blood sugars are controlled. Pt. on Metformin and 70/30 insulin. Current Visit: Yes Hospitalist: Subjective Interval history: Ms. Shelley is resting comfortably this am. No acute distress noted. Blood sugars are controlled. Pt. hasn't had a bowel movement in 4 days. Will start Mag citrate. Continue to monitor. Exam - Constitutional Vitals: Period Temp Pulse Resp BP Sys/Gaitan Pulse Ox Last 24 Hr 96.9 F-98.7 F 88-103 16- 84-133/52-81 93-100 Results - Labs CBC & BMP: 03/26/17 05:43 03/26/17 05:43 Lab Results: I have reviewed the past 24 hour labs Quality Measures - VTE Contraindication to Pharmacological VTE Prophylaxis: High Risk of Bleeding Specialty Discharge - Follow Up or Referrals <Conchita Bryant - Last Filed: 03/26/17 16:20> Assessment and Plan (1) S/P CABG x 2 Status: Chronic Current Visit: Yes (2) Insulin dependent diabetes mellitus Status: Chronic Assessment and plan: BS not controlled, increase metformin to 1000 mg po bid, cont novolog 70/30 30 units BID Current Visit: Yes (3) Constipation Status: Acute Current Visit: Yes Hospitalist: Subjective Interval history: Patient seen and examined. progress note reviewed and edited. Exam - Constitutional Vitals: Period Temp Pulse Resp BP Sys/Gaitan Pulse Ox Last 24 Hr 96.9 F-97.3 F 88-99 16-22 109-125/52-65 93-100 Exam: Heart Rate-[RRR] Lungs-[Clear but diminished] GI-[+bs soft, NT] Ext-[no edema] Results - Labs CBC & BMP: 03/26/17 05:43 03/26/17 05:43
--- NOTE | 2017-03-26 12:54 | Cardiology Progress Note ---
<Trina Dye E - Last Filed: 03/26/17 12:38> Assessment and Plan - Time spent with patient Time spent with patient: Greater than 30 minutes Time spent discussing smoking cessation with patient: 3 to 10 minutes (1) CAD (coronary artery disease) Status: Chronic Assessment and plan: SEE PLAN OF CARE LISTED BELOW Current Visit: Yes Qualifiers: Coronary Disease-Associated Artery/Lesion type: [place] artery [place] vs. transplanted heart: [place] heart Associated angina: without angina Qualified Code(s): I25.10 - Atherosclerotic heart disease of [place] coronary artery without angina pectoris (2) Ischemic cardiomyopathy Status: Acute Assessment and plan: SEE PLAN OF CARE LISTED BELOW Current Visit: Yes (3) Congestive heart failure Status: Acute Assessment and plan: SEE PLAN OF CARE LISTED BELOW Current Visit: Yes Qualifiers: Congestive heart failure type: combined Congestive heart failure chronicity : acute Qualified Code(s): I50.41 - Acute combined systolic (congestive) and diastolic (congestive) heart failure (4) Anemia Status: Chronic Assessment and plan: SEE PLAN OF CARE LISTED BELOW Current Visit: Yes (5) Insulin dependent diabetes mellitus Status: Chronic Assessment and plan: SEE PLAN OF CARE LISTED BELOW Current Visit: Yes (6) History of breast cancer Status: Chronic Assessment and plan: SEE PLAN OF CARE LISTED BELOW Current Visit: Yes (7) Hypertension Status: Chronic Assessment and plan: SEE PLAN OF CARE LISTED BELOW Current Visit: Yes (8) Hyperlipidemia Status: Chronic Assessment and plan: SEE PLAN OF CARE LISTED BELOW Current Visit: Yes (9) Tobacco use Status: Chronic Assessment and plan: SEE PLAN OF CARE LISTED BELOW Current Visit: Yes (10) S/P CABG x 2 Status: Chronic Assessment and plan: SEE PLAN OF CARE LISTED BELOW Current Visit: Yes Cardiology - PN: Subj Interval history: 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 GUERIN SUMMARY: Ms. Shelley, 61BF, with no prior history of known CAD, admitted March presented with SOB, edema. R/LHC March 16, 2017 revealed severe CM (EF 15% ), severe CAD. Echocardiogram March 14, 2017: EF 20%, grade 3 diastolic dysfunction, without significant valvular abnormality. March 22, 2017 underwent CABG X 2 ([facility] [place] - LAD, SVG - OM). Past medical history, hypertension, diabetes, hyperlipidemia, chronic anemia, and breast cancer status post left mastectomy. MARCH 26, 2017: Patient has done well over the weekend. She is currently postop day 4. Denies chest pain, heaviness or tightness. Incisions healing well without dehiscence or drainage. Continues to take Aspirin, Atorvastatin, FLY inhibitor. Starting tomorrow morning, will lower her dose of FLY inhibitor and incorporate beta-blockade. Labs are stable as are vital signs. Continue physical therapy. Will further discuss with Dr. Roblero and await additional recommendations. ASSESSMENT/PLAN: 1. ICM - EF 15%-20% now S/P revascularization. On FLY inhibitor, starting beta-yadira tomorrow. 2. CAD S/P CABG - POD 4. Continue current plan of care. Improving and suspect she will be discharged home in the next few days 3. CHF - acute systolic and diastolic CHF, NYHA Class II. Well-compensated. Continues to improve. 4. HYPERTENSION - adequately controlled. 5. DYSLIPIDEMIA - continue lipid-lowering agent. 6. ANEMIA - stable post CABG 7. DIABETES - continue current plan of care 8. TOBACCO USE - greater than 5 minutes was spent today discussing the merits of tobacco cessation Exam (Progress Note) - Constitutional Vitals: Period Temp Pulse Resp BP Sys/Gaitan Pulse Ox Last 24 Hr 96.9 F-98.7 F 88-99 16-22 109-125/52-65 93-100 Exam: General: [Appears well with no apparent distress.] [Intubated, following commands appropriately] HEENT: [PERRL, normocephalic, atraumatic. Mucous membranes moist. No jaundice noted. Conjunctiva moist and clear, sclerae anicteric] Neck: No obvious JVD/HJR, no thyromegaly or lymphadenopathy noted. No carotid bruit appreciated Cardiac: [Regular rate and rhythm.] [No murmur. Positive for friction rub. Sternotomy healing well without dehiscence or drainage. Lungs: [Relatively clear. No accessory muscle use to assist the respiratory pattern.] Not requiring oxygen. Abdomen: Soft, bowel sounds hypoactive. Nontender and nondistended. No abdominal bruit or thrill noted. No masses noted. Musculoskeletal: No fluid collection. Decreased range of motion is noted. Extremities: No clubbing, cyanosis noted. [ No edema noted.] Upper extremity pulses 2+. Lower extremity pulses 2+. Bilateral lower extremity incision is healing well without dehiscence or drainage, clarke well approximated. Capillary refill less than 3 seconds. Skin: No unusual lesions or rashes. No skin breakdown appreciated. Neuro: Moves all extremities well without hemiparesis or paralysis. No essential tremor is appreciated. Result/EKG - Labs CBC & BMP: 03/26/17 05:43 03/26/17 05:43 Lab Results: I have reviewed the past 24 hour labs Labs: Laboratory Results - last 24 hr 03/25/17 03/25/17 03/25/17 12:25 15:49 20:59 WBC RBC Hgb Hct MCV MCH MCHC RDW Plt Count MPV Neut % (Auto) Lymph % (Auto) [place] % (Auto) Eos % (Auto) Baso % (Auto) Neut # (Auto) Lymph # (Auto) [place] # (Auto) Eos # (Auto) Baso # (Auto) Immature Gran % Nucleated RBC % Immature Gran # Nucleated RBCs # Platelet Estimate Hypochromasia Ovalocytes Morphology Comment Sodium Potassium Chloride Carbon Dioxide Anion Gap BUN Creatinine GFR Calculation BUN/Creatinine Ratio Glucose POC Glucose 194 H 137 H 168 H Calculated Osmolality Calcium Magnesium Total Bilirubin Direct Bilirubin Indirect Bilirubin AST ALT Alkaline Phosphatase Total Creatine Kinase CK-MB (CK-2) Troponin I Total Protein Albumin Globulin Albumin/Globulin Ratio 03/26/17 03/26/17 03/26/17 05:43 05:43 07:29 WBC 8.4 RBC 3.36 L Hgb 10.4 L Hct 30.6 L MCV 91.1 MCH 31 MCHC 34.0 RDW 13.3 Plt Count 225 MPV 9.2 L Neut % (Auto) 71.4 Lymph % (Auto) 15.6 L [place] % (Auto) 9.5 Eos % (Auto) 2.4 Baso % (Auto) 0.4 Neut # (Auto) 6.0 Lymph # (Auto) 1.3 L [place] # (Auto) 0.8 Eos # (Auto) 0.2 Baso # (Auto) 0.0 Immature Gran % 0.7 Nucleated RBC % 0.0 Immature Gran # 0.06 Nucleated RBCs # 0.00 Platelet Estimate Normal Hypochromasia 1+ Ovalocytes Slight Morphology Comment Sodium 134 L Potassium 3.5 Chloride 96 L Carbon Dioxide 32 Anion Gap 9.5 BUN 22 H Creatinine 0.90 GFR Calculation 81 BUN/Creatinine Ratio 24.00 H Glucose 143 H POC Glucose 166 H Calculated Osmolality 272.2 L Calcium 8.5 Magnesium 2.1 Total Bilirubin 2.20 H Direct Bilirubin 0.30 H Indirect Bilirubin 1.9 H AST 28 ALT 36 Alkaline Phosphatase 55 Total Creatine Kinase 337 H D CK-MB (CK-2) < 1.0 D Troponin I 1.140 H D Total Protein 6.0 L Albumin 3.3 L Globulin 2.7 Albumin/Globulin Ratio 1.2 03/26/17 11:30 WBC RBC Hgb Hct MCV MCH MCHC RDW Plt Count MPV Neut % (Auto) Lymph % (Auto) [place] % (Auto) Eos % (Auto) Baso % (Auto) Neut # (Auto) Lymph # (Auto) [place] # (Auto) Eos # (Auto) Baso # (Auto) Immature Gran % Nucleated RBC % Immature Gran # Nucleated RBCs # Platelet Estimate Hypochromasia Ovalocytes Morphology Comment Sodium Potassium Chloride Carbon Dioxide Anion Gap BUN Creatinine GFR Calculation BUN/Creatinine Ratio Glucose POC Glucose 264 H Calculated Osmolality Calcium Magnesium Total Bilirubin Direct Bilirubin Indirect Bilirubin AST ALT Alkaline Phosphatase Total Creatine Kinase CK-MB (CK-2) Troponin I Total Protein Albumin Globulin Albumin/Globulin Ratio - Diagnostic Findings Procedure: Chest x-ray: report reviewed by me - EKG EKG results: interpreted by ok EKG shows: sinus rhythm Quality Measures - VTE Contraindication to Pharmacological VTE Prophylaxis: High Risk of Bleeding Specialty Discharge - Follow Up or Referrals <Omar Roblero - Last Filed: 03/26/17 15:47> Exam (Progress Note) - Constitutional Vitals: Period Temp Pulse Resp BP Sys/Gaitan Pulse Ox Last 24 Hr 96.9 F-98.7 F 88-99 16-22 109-125/52-65 93-100 Result/EKG - Labs CBC & BMP: 03/26/17 05:43 03/26/17 05:43 Labs: Laboratory Results - last 24 hr 03/25/17 03/25/17 03/25/17 12:25 15:49 20:59 WBC RBC Hgb Hct MCV MCH MCHC RDW Plt Count MPV Neut % (Auto) Lymph % (Auto) [place] % (Auto) Eos % (Auto) Baso % (Auto) Neut # (Auto) Lymph # (Auto) [place] # (Auto) Eos # (Auto) Baso # (Auto) Immature Gran % Nucleated RBC % Immature Gran # Nucleated RBCs # Platelet Estimate Hypochromasia Ovalocytes Morphology Comment Sodium Potassium Chloride Carbon Dioxide Anion Gap BUN Creatinine GFR Calculation BUN/Creatinine Ratio Glucose POC Glucose 194 H 137 H 168 H Calculated Osmolality Calcium Magnesium Total Bilirubin Direct Bilirubin Indirect Bilirubin AST ALT Alkaline Phosphatase Total Creatine Kinase CK-MB (CK-2) Troponin I Total Protein Albumin Globulin Albumin/Globulin Ratio 03/26/17 03/26/17 03/26/17 05:43 05:43 07:29 WBC 8.4 RBC 3.36 L Hgb 10.4 L Hct 30.6 L MCV 91.1 MCH 31 MCHC 34.0 RDW 13.3 Plt Count 225 MPV 9.2 L Neut % (Auto) 71.4 Lymph % (Auto) 15.6 L [place] % (Auto) 9.5 Eos % (Auto) 2.4 Baso % (Auto) 0.4 Neut # (Auto) 6.0 Lymph # (Auto) 1.3 L [place] # (Auto) 0.8 Eos # (Auto) 0.2 Baso # (Auto) 0.0 Immature Gran % 0.7 Nucleated RBC % 0.0 Immature Gran # 0.06 Nucleated RBCs # 0.00 Platelet Estimate Normal Hypochromasia 1+ Ovalocytes Slight Morphology Comment Sodium 134 L Potassium 3.5 Chloride 96 L Carbon Dioxide 32 Anion Gap 9.5 BUN 22 H Creatinine 0.90 GFR Calculation 81 BUN/Creatinine Ratio 24.00 H Glucose 143 H POC Glucose 166 H Calculated Osmolality 272.2 L Calcium 8.5 Magnesium 2.1 Total Bilirubin 2.20 H Direct Bilirubin 0.30 H Indirect Bilirubin 1.9 H AST 28 ALT 36 Alkaline Phosphatase 55 Total Creatine Kinase 337 H D CK-MB (CK-2) < 1.0 D Troponin I 1.140 H D Total Protein 6.0 L Albumin 3.3 L Globulin 2.7 Albumin/Globulin Ratio 1.2 03/26/17 11:30 WBC RBC Hgb Hct MCV MCH MCHC RDW Plt Count MPV Neut % (Auto) Lymph % (Auto) [place] % (Auto) Eos % (Auto) Baso % (Auto) Neut # (Auto) Lymph # (Auto) [place] # (Auto) Eos # (Auto) Baso # (Auto) Immature Gran % Nucleated RBC % Immature Gran # Nucleated RBCs # Platelet Estimate Hypochromasia Ovalocytes Morphology Comment Sodium Potassium Chloride Carbon Dioxide Anion Gap BUN Creatinine GFR Calculation BUN/Creatinine Ratio Glucose POC Glucose 264 H Calculated Osmolality Calcium Magnesium Total Bilirubin Direct Bilirubin Indirect Bilirubin AST ALT Alkaline Phosphatase Total Creatine Kinase CK-MB (CK-2) Troponin I Total Protein Albumin Globulin Albumin/Globulin Ratio
--- NOTE | 2017-03-26 14:24 | XRay Report ---
XR chest 1V portable Indication: SOB Comparison: Chest x-ray dated February 23, 2017 at 6:38 AM Technique: Single frontal view of the chest. Findings: Continued cardiomegaly status post sternotomy. Interval removal of [place] catheter. Remaining right internal jugular approach central venous catheter tip projects over the mid right atrium. Continued bibasilar atelectasis/consolidation and low lung volumes. Visualized osseous and surrounding soft tissue structures appear grossly unchanged. IMPRESSION: As above. PROCEDURE INTERPRETED AT [facility] DEPARTMENT OF RADIOLOGY Final Report Signed by: Dr Roman Hall
[2017-03-26] MEDS: ACETAMINOPHEN 325 MG TABLET PO PRN (17:36)
[2017-03-26] MEDS: ASPIRIN EC 81 MG TABLET PO SCH (21:09)
[2017-03-26] MEDS: ZALEPLON 5 MG CAPSULE PO PRN (21:09)
[2017-03-26] MEDS: BACLOFEN 10 MG TABLET PO SCH (21:09)
[2017-03-26] MEDS: AMITRIPTYLINE 25 MG TABLET PO SCH (21:09)
[2017-03-26] MEDS: ATORVASTATIN 80 MG TABLET PO SCH (21:09)
[2017-03-27] MEDS: ALBUTEROL/IPRATROPIUM 3 ML NEB RESP TX SCH ×4 (00:38→19:39)
[2017-03-27 05:23] LABS: Basophils % 0.5 % (0.0-0.8); Eosinophils # 0.2 10*3/uL (0.0-0.87); Eosinophils % 2.8 % (0.00-10.9); Hematocrit 29.2 VOL% (35.7-47.0); Hemoglobin 10.2 GM/DL (12.0-16.0); Immature Granulocytes % 0.5 %; Immature Granulocytes Absolute 0.04 #; Lymphocytes # 1.3 10*3/uL (1.4-4.0); Lymphocytes % 15.9 % (21.3-54.2); Mean Corpuscular HGB Conc 34.9 GM/DL (32-36); Mean Corpuscular Hemoglobin 32 PG (27-34); Mean Corpuscular Volume 90.1 FL (87-102); Mean Platelet Volume 8.8 FL (9.6-12.0); Monocytes # 0.9 10*3/uL (0.11-0.8); Monocytes % 10.3 % (1.7-12.7); Neutrophils # 5.8 10*3/uL (1.4-7.4); Platelet Count 238 T/CUMM (130-400); Red Blood Count 3.24 MC/CUMM (3.8-5.5); Red Cell Distribution Width 13.2 % (9.3-17.3); White Blood Count 8.3 T/CUMM (4-12)
[2017-03-27 06:00] LABS: Band Neutrophils 1 % (0-10); Eosinophils 5 % (0-10); Lymphocytes 12 % (20-55); Segmented Neutrophils 74 % (50-85); Total Cells Counted 100
[2017-03-27 06:01] LABS: Burr Cells Slight; Hypochromasia Slight; Platelet Estimate Adequate
[2017-03-27 06:02] LABS: Alanine Aminotransferase 40 U/L (13-56); Albumin 3.2 G/DL (3.4-5.0); Alkaline Phosphatase 63 U/L (45-117); Aspartate Amino Transferase 27 U/L (0-37); Bilirubin,Indirect 0.6 MG/DL (0.0-1.0); Blood Urea Nitrogen 26 MG/DL (7-18); Calcium 8.4 MG/DL (8.5-10.1); Glucose 118 MG/DL (74-106); Magnesium 2.6 MG/DL (1.8-2.4); Osmolality,Calculated 273.2 MOS/KG (273-304); Potassium 3.9 MMOL/L (3.5-5.1); Sodium 134 MMOL/L (136-145); Total Protein 5.9 G/DL (6.4-8.3)
[2017-03-27 06:05] LABS: Troponin I Only 0.704 NG/ML (0.00-0.045)
--- NOTE | 2017-03-27 08:01 | XRay Report ---
History short of breath Comparison 03/26/2017 The heart is mildly enlarged with sequelae of prior median sternotomy. Right central line tip overlies the lower portion of the right atrium No pneumothorax seen Hypoaeration changes in both lung bases with discoid atelectasis and mildly more confluent density in the medial right lung base similar on the prior study. Impression: No interval change described above PROCEDURE INTERPRETED AT [facility] DEPARTMENT OF RADIOLOGY Final Report Signed by: Dr. Zeinab Mcdermott
[2017-03-27] MEDS: FERROUS SULFATE 325 MG TABLET PO SCH (08:24)
[2017-03-27] MEDS: PARoxetine 10 MG TABLET PO SCH (08:24)
[2017-03-27] MEDS: hydroCHLOROthiazide 12.5 MG CAPSULE PO SCH (08:24)
[2017-03-27] MEDS: PANTOPRAZOLE 40 MG TABLET PO SCH (08:24)
[2017-03-27] MEDS: LORATADINE 10 MG TABLET PO SCH (08:25)
[2017-03-27] MEDS: LISINOPRIL 2.5 MG TABLET PO SCH (08:25)
[2017-03-27] MEDS: metFORMIN 500 MG TABLET PO SCH (08:25)
[2017-03-27] MEDS: DOCUSATE SODIUM 100 MG CAPSULE PO SCH (08:25)
[2017-03-27] MEDS: INSULIN ASPART PROTAMINE/ASPART 70/30 100 UNIT/ML SUBCUT SCH ×2 (08:28→17:22)
[2017-03-27] MEDS: CHLORHEXIDINE 0.12% ORAL RINSE 60 ML BOTTLE SWISH/SPIT SCH ×2 (08:28→20:22)
[2017-03-27] MEDS ORDERED: CARVEDILOL 3.125 MG TABLET PO SCH (09:00)
--- NOTE | 2017-03-27 09:10 | Cardiothoracic Progress Note ---
Cardiothoracic Subjective Interval history: Patient looks and feels better. Vital signs are stable and she is breathing comfortably. She is gradually increasing her activities and walking in the hallways. We will continue to encourage her to increase her activities and hopefully she will be ready for discharge before long. Exam (Progress Note) - Constitutional Vitals: Period Temp Pulse Resp BP Sys/Gaitan Pulse Ox Last 24 Hr 96.9 F-98.3 F 47-98 16-20 99-133/46-62 95-100 Result/EKG - Labs CBC & BMP: 03/27/17 05:00 03/27/17 05:00 Labs: Laboratory Results - last 24 hr 03/26/17 03/26/17 03/26/17 11:30 15:45 19:43 WBC RBC Hgb Hct MCV MCH MCHC RDW Plt Count MPV Neut % (Auto) Lymph % (Auto) [place] % (Auto) Eos % (Auto) Baso % (Auto) Neut # (Auto) Lymph # (Auto) [place] # (Auto) Eos # (Auto) Baso # (Auto) Total Counted Immature Gran % Nucleated RBC % Immature Gran # Segmented Neutrophils Band Neutrophils Lymphocytes Monocytes Eosinophils Basophils Nucleated RBCs # Platelet Estimate Hypochromasia Jesse Cells Morphology Comment Sodium Potassium Chloride Carbon Dioxide Anion Gap BUN Creatinine GFR Calculation BUN/Creatinine Ratio Glucose POC Glucose 264 H 198 H 205 H Calculated Osmolality Calcium Magnesium Total Bilirubin Direct Bilirubin Indirect Bilirubin AST ALT Alkaline Phosphatase Total Creatine Kinase CK-MB (CK-2) Troponin I Total Protein Albumin Globulin Albumin/Globulin Ratio 03/27/17 03/27/17 03/27/17 05:00 05:00 07:36 WBC 8.3 RBC 3.24 L Hgb 10.2 L Hct 29.2 L MCV 90.1 MCH 32 MCHC 34.9 RDW 13.2 Plt Count 238 MPV 8.8 L Neut % (Auto) 70.0 Lymph % (Auto) 15.9 L [place] % (Auto) 10.3 Eos % (Auto) 2.8 Baso % (Auto) 0.5 Neut # (Auto) 5.8 Lymph # (Auto) 1.3 L [place] # (Auto) 0.9 H Eos # (Auto) 0.2 Baso # (Auto) 0.0 Total Counted 100 Immature Gran % 0.5 Nucleated RBC % 0.0 Immature Gran # 0.04 Segmented Neutrophils 74 Band Neutrophils 1 Lymphocytes 12 L Monocytes 7 Eosinophils 5 Basophils 1.0 H Nucleated RBCs # 0.00 Platelet Estimate Adequate Hypochromasia Slight Jesse Cells Slight Morphology Comment Sodium 134 L Potassium 3.9 Chloride 96 L Carbon Dioxide 32 Anion Gap 9.9 BUN 26 H Creatinine 1.00 GFR Calculation 71 BUN/Creatinine Ratio 26.00 H Glucose 118 H POC Glucose 141 H Calculated Osmolality 273.2 Calcium 8.4 L Magnesium 2.6 H Total Bilirubin 0.80 Direct Bilirubin 0.20 Indirect Bilirubin 0.6 AST 27 ALT 40 Alkaline Phosphatase 63 Total Creatine Kinase 200 H D CK-MB (CK-2) 1.0 Troponin I 0.704 H D Total Protein 5.9 L Albumin 3.2 L Globulin 2.7 Albumin/Globulin Ratio 1.1 Quality Measures - VTE Contraindication to Pharmacological VTE Prophylaxis: High Risk of Bleeding Specialty Discharge - Follow Up or Referrals
--- NOTE | 2017-03-27 11:56 | Hospitalist Progress Note ---
<Dmitri Meyer - Last Filed: 03/27/17 11:53> Assessment and Plan - Time spent with patient Time spent with patient: Less than 30 minutes (1) S/P CABG x 2 Status: Chronic Assessment and plan: Patient is progressing well. She is being followed by CV surgery. Current Visit: Yes (2) Insulin dependent diabetes mellitus Status: Chronic Assessment and plan: Serum glucose today 118. It is much improved since starting metformin 1000. We will continue to monitor. Current Visit: Yes (3) Constipation Status: Acute Assessment and plan: Patient reports having a bowel movement overnight. Current Visit: Yes Hospitalist: Subjective Interval history: Patient seen and examined today on telemetry. She was sitting on the bedside this morning in no apparent distress. She reports she is feeling great and that she had a bowel movement overnight. CV Surgery is following. We will anticipate discharge within the next few days. Exam - Constitutional Vitals: Period Temp Pulse Resp BP Sys/Gaitan Pulse Ox Last 24 Hr 96.9 F-98.3 F 47-98 16-20 99-133/46-62 95-100 Exam: General appearance: normal weight, no acute distress - Head Head exam: Present: normocephalic, atraumatic - Eye Eye exam: Present: EOMI. Absent: conjunctival injection, nystagmus Pupils: Present: BRIANNA, normal accommodation - ENT ENT exam: Present: normal exam, normal external ear exam - Neck Neck exam: Present: normal inspection. Absent: lymphadenopathy, tenderness, thyromegaly - Respiratory Respiratory exam: Present: clear to auscultation bilaterally. Absent: rales, rhonchi, wheezes - Cardiovascular Cardiovascular exam: Present: regular rate and rhythm. Absent: carotid bruit, gallop, rubs - GI/Abdominal GI/Abdominal exam: Present: normal bowel sounds, soft, nontender. Absent: ascites, distended, mass - Extremities Exam Extremities exam: Present: normal inspection, normal capillary refill. Absent: edema - Back Exam Back exam: Absent: CVA tenderness (L), CVA tenderness (R) - Neurological Exam Neurological exam: Present: alert, oriented X3 - Psychiatric Psychiatric exam: Present: normal affect, normal mood - Skin Skin exam: Present: normal color, warm, dry Results - Labs CBC & BMP: 03/27/17 05:00 03/27/17 05:00 Lab Results: I have reviewed the past 24 hour labs Quality Measures - VTE Contraindication to Pharmacological VTE Prophylaxis: High Risk of Bleeding Specialty Discharge - Follow Up or Referrals <Conchita Bryant Last Filed: 03/27/17 17:14> Assessment and Plan (1) S/P CABG x 2 Status: Chronic Current Visit: Yes (2) Insulin dependent diabetes mellitus Status: Chronic Assessment and plan: continue novolog 70/30 30 units bid, cont metformin Current Visit: Yes (3) Constipation Status: Acute Current Visit: Yes Hospitalist: Subjective Interval history: BS better today. Patient seen and examined. Progress note reviewed and edited Exam - Constitutional Vitals: Period Temp Pulse Resp BP Sys/Gaitan Pulse Ox Last 24 Hr 97.1 F-98.5 F 47-96 16-20 99-133/46-63 95-100 Exam: no skin, back, neck, ENT, eye exam not performed Results - Labs CBC & BMP: 03/27/17 05:00 03/27/17 05:00 Labs: stool for occult blood
--- NOTE | 2017-03-27 13:04 | Cardiology Progress Note ---
<Trina Dye E - Last Filed: 03/27/17 13:04> Assessment and Plan - Time spent with patient Time spent with patient: Greater than 30 minutes (1) CAD (coronary artery disease) Status: Chronic Assessment and plan: SEE PLAN OF CARE LISTED BELOW Current Visit: Yes Qualifiers: Coronary Disease-Associated Artery/Lesion type: [place] artery [place] vs. transplanted heart: [place] heart Associated angina: without angina Qualified Code(s): I25.10 - Atherosclerotic heart disease of [place] coronary artery without angina pectoris (2) Ischemic cardiomyopathy Status: Acute Assessment and plan: SEE PLAN OF CARE LISTED BELOW Current Visit: Yes (3) Congestive heart failure Status: Acute Assessment and plan: SEE PLAN OF CARE LISTED BELOW Current Visit: Yes Qualifiers: Congestive heart failure type: combined Congestive heart failure chronicity : acute Qualified Code(s): I50.41 - Acute combined systolic (congestive) and diastolic (congestive) heart failure (4) Anemia Status: Chronic Assessment and plan: SEE PLAN OF CARE LISTED BELOW Current Visit: Yes (5) Insulin dependent diabetes mellitus Status: Chronic Assessment and plan: SEE PLAN OF CARE LISTED BELOW Current Visit: Yes (6) History of breast cancer Status: Chronic Assessment and plan: SEE PLAN OF CARE LISTED BELOW Current Visit: Yes (7) Hypertension Status: Chronic Assessment and plan: SEE PLAN OF CARE LISTED BELOW Current Visit: Yes (8) Hyperlipidemia Status: Chronic Assessment and plan: SEE PLAN OF CARE LISTED BELOW Current Visit: Yes (9) Tobacco use Status: Chronic Assessment and plan: SEE PLAN OF CARE LISTED BELOW Current Visit: Yes (10) S/P CABG x 2 Status: Chronic Assessment and plan: SEE PLAN OF CARE LISTED BELOW Current Visit: Yes Cardiology - PN: Subj 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 GUERIN SUMMARY: Ms. Shelley, 61BF, with no prior history of known CAD, admitted March presented with SOB, edema. R/LHC March 16, 2017 revealed severe CM (EF 15% ), severe CAD. Echocardiogram March 14, 2017: EF 20%, grade 3 diastolic dysfunction, without significant valvular abnormality. March 22, 2017 underwent CABG X 2 (DE [place] [facility] - LAD, SVG - OM). Past medical history, hypertension, diabetes, hyperlipidemia, chronic anemia, and breast cancer status post left mastectomy. MARCH 26, 2017: Patient has done well over the weekend. She is currently postop day 4. Denies chest pain, heaviness or tightness. Incisions healing well without dehiscence or drainage. Continues to take Aspirin, Atorvastatin, FLY inhibitor. Starting tomorrow morning, will lower her dose of FLY inhibitor and incorporate beta-blockade. Labs are stable as are vital signs. Continue physical therapy. Will further discuss with Dr. Roblero and await additional recommendations. MARCH 27, 2017: Sitting up in the bedside chair this morning. She is feeling well. Lots of inspiratory crackles noted posteriorly in the bases. Poor respiratory effort. Encouraged deep breathing, coughing and splinting chest with pillow. Moved incentive spirometry within reach and encouraged frequent use. Verbalized understanding. Labs are stable. Troponins are trending down. Tolerating aspirin, lipid-lowering agent, low-dose beta-yadira and FLY inhibitor. Anticipate she will be discharged home by the end of the week. ASSESSMENT/PLAN: 1. ICM - EF 15%-20% now S/P revascularization. On beta-yadira and FLY inhibitor. 2. CAD S/P CABG - POD 5. Continue current plan of care. Improving and suspect she will be discharged home in the next few days 3. CHF - acute systolic and diastolic CHF, NYHA Class II. Well-compensated. Continues to improve. 4. HYPERTENSION - adequately controlled. 5. DYSLIPIDEMIA - continue lipid-lowering agent. 6. ANEMIA - stable post CABG 7. DIABETES - continue current plan of care 8. TOBACCO USE - greater than 5 minutes was spent today discussing the merits of tobacco cessation Exam (Progress Note) - Constitutional Vitals: Period Temp Pulse Resp BP Sys/Gaitan Pulse Ox Last 24 Hr 97.1 F-98.3 F 47-96 16-20 99-133/46-62 95-100 Exam: General: [Appears well with no apparent distress.] [Intubated, following commands appropriately] HEENT: [PERRL, normocephalic, atraumatic. Mucous membranes moist. No jaundice noted. Conjunctiva moist and clear, sclerae anicteric] Neck: No obvious JVD/HJR, no thyromegaly or lymphadenopathy noted. No carotid bruit appreciated Cardiac: [Regular rate and rhythm.] [No murmur. Positive for friction rub. Sternotomy healing well without dehiscence or drainage. Lungs: [Inspiratory crackles noted posteriorly midway at both lung peterson which improved yet persist with cough. ] Not requiring oxygen. Abdomen: Soft, bowel sounds hypoactive. Nontender and nondistended. No abdominal bruit or thrill noted. No masses noted. Musculoskeletal: No fluid collection. Decreased range of motion is noted. Extremities: No clubbing, cyanosis noted. [ No edema noted.] Upper extremity pulses 2+. Lower extremity pulses 2+. Bilateral lower extremity incisions is healing well without dehiscence or drainage, clarke well approximated. Capillary refill less than 3 seconds. Skin: No unusual lesions or rashes. No skin breakdown appreciated. Neuro: Moves all extremities well without hemiparesis or paralysis. No essential tremor is appreciated. Result/EKG - Labs CBC & BMP: 03/27/17 05:00 03/27/17 05:00 Lab Results: I have reviewed the past 24 hour labs Labs: Laboratory Results - last 24 hr 03/26/17 03/26/17 03/27/17 15:45 19:43 05:00 WBC 8.3 RBC 3.24 L Hgb 10.2 L Hct 29.2 L MCV 90.1 MCH 32 MCHC 34.9 RDW 13.2 Plt Count 238 MPV 8.8 L Neut % (Auto) 70.0 Lymph % (Auto) 15.9 L [place] % (Auto) 10.3 Eos % (Auto) 2.8 Baso % (Auto) 0.5 Neut # (Auto) 5.8 Lymph # (Auto) 1.3 L [place] # (Auto) 0.9 H Eos # (Auto) 0.2 Baso # (Auto) 0.0 Total Counted 100 Immature Gran % 0.5 Nucleated RBC % 0.0 Immature Gran # 0.04 Segmented Neutrophils 74 Band Neutrophils 1 Lymphocytes 12 L Monocytes 7 Eosinophils 5 Basophils 1.0 H Nucleated RBCs # 0.00 Platelet Estimate Adequate Hypochromasia Slight Jesse Cells Slight Morphology Comment Sodium Potassium Chloride Carbon Dioxide Anion Gap BUN Creatinine GFR Calculation BUN/Creatinine Ratio Glucose POC Glucose 198 H 205 H Calculated Osmolality Calcium Magnesium Total Bilirubin Direct Bilirubin Indirect Bilirubin AST ALT Alkaline Phosphatase Total Creatine Kinase CK-MB (CK-2) Troponin I Total Protein Albumin Globulin Albumin/Globulin Ratio 03/27/17 03/27/17 03/27/17 05:00 07:36 12:15 WBC RBC Hgb Hct MCV MCH MCHC RDW Plt Count MPV Neut % (Auto) Lymph % (Auto) [place] % (Auto) Eos % (Auto) Baso % (Auto) Neut # (Auto) Lymph # (Auto) [place] # (Auto) Eos # (Auto) Baso # (Auto) Total Counted Immature Gran % Nucleated RBC % Immature Gran # Segmented Neutrophils Band Neutrophils Lymphocytes Monocytes Eosinophils Basophils Nucleated RBCs # Platelet Estimate Hypochromasia Jesse Cells Morphology Comment Sodium 134 L Potassium 3.9 Chloride 96 L Carbon Dioxide 32 Anion Gap 9.9 BUN 26 H Creatinine 1.00 GFR Calculation 71 BUN/Creatinine Ratio 26.00 H Glucose 118 H POC Glucose 141 H 118 H Calculated Osmolality 273.2 Calcium 8.4 L Magnesium 2.6 H Total Bilirubin 0.80 Direct Bilirubin 0.20 Indirect Bilirubin 0.6 AST 27 ALT 40 Alkaline Phosphatase 63 Total Creatine Kinase 200 H D CK-MB (CK-2) 1.0 Troponin I 0.704 H D Total Protein 5.9 L Albumin 3.2 L Globulin 2.7 Albumin/Globulin Ratio 1.1 - Diagnostic Findings Procedure: Chest x-ray: report reviewed by me - EKG EKG results: interpreted by me EKG shows: sinus rhythm Quality Measures - VTE Contraindication to Pharmacological VTE Prophylaxis: High Risk of Bleeding Specialty Discharge - Follow Up or Referrals <Omar Roblero - Last Filed: 03/27/17 13:19> Exam (Progress Note) - Constitutional Vitals: Period Temp Pulse Resp BP Sys/Gaitan Pulse Ox Last 24 Hr 97.1 F-98.3 F 47-96 16-20 99-133/46-62 95-100 Result/EKG - Labs CBC & BMP: 03/27/17 05:00 03/27/17 05:00 Labs: Laboratory Results - last 24 hr 03/26/17 03/26/17 03/27/17 15:45 19:43 05:00 WBC 8.3 RBC 3.24 L Hgb 10.2 L Hct 29.2 L MCV 90.1 MCH 32 MCHC 34.9 RDW 13.2 Plt Count 238 MPV 8.8 L Neut % (Auto) 70.0 Lymph % (Auto) 15.9 L [place] % (Auto) 10.3 Eos % (Auto) 2.8 Baso % (Auto) 0.5 Neut # (Auto) 5.8 Lymph # (Auto) 1.3 L [place] # (Auto) 0.9 H Eos # (Auto) 0.2 Baso # (Auto) 0.0 Total Counted 100 Immature Gran % 0.5 Nucleated RBC % 0.0 Immature Gran # 0.04 Segmented Neutrophils 74 Band Neutrophils 1 Lymphocytes 12 L Monocytes 7 Eosinophils 5 Basophils 1.0 H Nucleated RBCs # 0.00 Platelet Estimate Adequate Hypochromasia Slight Jesse Cells Slight Morphology Comment Sodium Potassium Chloride Carbon Dioxide Anion Gap BUN Creatinine GFR Calculation BUN/Creatinine Ratio Glucose POC Glucose 198 H 205 H Calculated Osmolality Calcium Magnesium Total Bilirubin Direct Bilirubin Indirect Bilirubin AST ALT Alkaline Phosphatase Total Creatine Kinase CK-MB (CK-2) Troponin I Total Protein Albumin Globulin Albumin/Globulin Ratio 03/27/17 03/27/17 03/27/17 05:00 07:36 12:15 WBC RBC Hgb Hct MCV MCH MCHC RDW Plt Count MPV Neut % (Auto) Lymph % (Auto) [place] % (Auto) Eos % (Auto) Baso % (Auto) Neut # (Auto) Lymph # (Auto) [place] # (Auto) Eos # (Auto) Baso # (Auto) Total Counted Immature Gran % Nucleated RBC % Immature Gran # Segmented Neutrophils Band Neutrophils Lymphocytes Monocytes Eosinophils Basophils Nucleated RBCs # Platelet Estimate Hypochromasia [place] Cells Morphology Comment Sodium 134 L Potassium 3.9 Chloride 96 L Carbon Dioxide 32 Anion Gap 9.9 BUN 26 H Creatinine 1.00 GFR Calculation 71 BUN/Creatinine Ratio 26.00 H Glucose 118 H POC Glucose 141 H 118 H Calculated Osmolality 273.2 Calcium 8.4 L Magnesium 2.6 H Total Bilirubin 0.80 Direct Bilirubin 0.20 Indirect Bilirubin 0.6 AST 27 ALT 40 Alkaline Phosphatase 63 Total Creatine Kinase 200 H D CK-MB (CK-2) 1.0 Troponin I 0.704 H D Total Protein 5.9 L Albumin 3.2 L Globulin 2.7 Albumin/Globulin Ratio 1.1
[2017-03-27] MEDS: AMITRIPTYLINE 25 MG TABLET PO SCH (20:19)
[2017-03-27] MEDS: SPIRONOLACTONE 25 MG TABLET PO SCH (20:19)
[2017-03-27] MEDS: ATORVASTATIN 80 MG TABLET PO SCH (20:19)
[2017-03-27] MEDS: ASPIRIN EC 81 MG TABLET PO SCH (20:19)
[2017-03-27] MEDS: ZALEPLON 5 MG CAPSULE PO PRN (20:19)
[2017-03-27] MEDS: CARVEDILOL 6.25 MG TABLET PO SCH (20:19)
[2017-03-27] MEDS: BACLOFEN 10 MG TABLET PO SCH (20:19)
[2017-03-27] MEDS: ACETAMINOPHEN 325 MG TABLET PO PRN (20:36)
[2017-03-28] MEDS: ALBUTEROL/IPRATROPIUM 3 ML NEB RESP TX SCH ×4 (01:03→19:13)
[2017-03-28 05:36] LABS: Calcium 8.7 MG/DL (8.5-10.1); Magnesium 2.5 MG/DL (1.8-2.4); Osmolality,Calculated 272.4 MOS/KG (273-304); Potassium 4.2 MMOL/L (3.5-5.1)
--- NOTE | 2017-03-28 06:22 | Cardiothoracic Progress Note ---
Cardiothoracic Subjective Interval history: Patient is progressing well. Vital signs are stable and she is breathing comfortably. She had a comfortable night. We will gradually increase her activities as tolerated but overall her progress is satisfactory. Hopefully she will be ready for discharge before long. Exam (Progress Note) - Constitutional Vitals: Period Temp Pulse Resp BP Sys/Gaitan Pulse Ox Last 24 Hr 96.9 F-99.3 F 60-99 18-20 114-133/51-69 93-100 Result/EKG - Labs CBC & BMP: 03/27/17 05:00 03/28/17 04:15 Labs: Laboratory Results - last 24 hr 03/27/17 03/27/17 03/27/17 07:36 12:15 15:50 Sodium Potassium Chloride Carbon Dioxide Anion Gap BUN Creatinine GFR Calculation BUN/Creatinine Ratio Glucose POC Glucose 141 H 118 H 170 H Calculated Osmolality Calcium Magnesium 03/27/17 03/28/17 18:50 04:15 Sodium 133 L Potassium 4.2 Chloride 97 L Carbon Dioxide 29 Anion Gap 11.2 BUN 23 H Creatinine 1.00 GFR Calculation 71 BUN/Creatinine Ratio 23.00 H Glucose 157 H POC Glucose 255 H Calculated Osmolality 272.4 L Calcium 8.7 Magnesium 2.5 H Quality Measures - VTE Contraindication to Pharmacological VTE Prophylaxis: High Risk of Bleeding Specialty Discharge - Follow Up or Referrals
[2017-03-28] MEDS: INSULIN ASPART PROTAMINE/ASPART 70/30 100 UNIT/ML SUBCUT SCH ×2 (09:20→17:25)
[2017-03-28] MEDS: LORATADINE 10 MG TABLET PO SCH (09:21)
[2017-03-28] MEDS: SPIRONOLACTONE 25 MG TABLET PO SCH ×2 (09:21→21:20)
[2017-03-28] MEDS: DOCUSATE SODIUM 100 MG CAPSULE PO SCH (09:21)
[2017-03-28] MEDS: hydroCHLOROthiazide 12.5 MG CAPSULE PO SCH (09:22)
[2017-03-28] MEDS: FERROUS SULFATE 325 MG TABLET PO SCH (09:22)
[2017-03-28] MEDS: metFORMIN 500 MG TABLET PO SCH ×2 (09:22→21:19)
[2017-03-28] MEDS: PARoxetine 10 MG TABLET PO SCH (09:22)
[2017-03-28] MEDS: CARVEDILOL 6.25 MG TABLET PO SCH ×2 (09:22→21:21)
[2017-03-28] MEDS: CHLORHEXIDINE 0.12% ORAL RINSE 60 ML BOTTLE SWISH/SPIT SCH ×2 (09:23→21:22)
[2017-03-28] MEDS: PANTOPRAZOLE 40 MG TABLET PO SCH (09:23)
[2017-03-28] MEDS: LISINOPRIL 2.5 MG TABLET PO SCH (09:23)
[2017-03-28] MEDS: MAGNESIUM HYDROXIDE SUSP 30 ML UDCUP PO PRN (09:24)
[2017-03-28] MEDS: oxyCODONE/ACETAMINOPHEN 5-325 MG TABLET PO PRN (11:38)
--- NOTE | 2017-03-28 14:24 | Cardiology Progress Note ---
<Trina Dye E - Last Filed: 03/28/17 14:22> Assessment and Plan - Time spent with patient Time spent with patient: Greater than 30 minutes (1) CAD (coronary artery disease) Status: Chronic Assessment and plan: SEE PLAN OF CARE LISTED BELOW Current Visit: Yes Qualifiers: Coronary Disease-Associated Artery/Lesion type: [place] artery [place] vs. transplanted heart: [place] heart Associated angina: without angina Qualified Code(s): I25.10 - Atherosclerotic heart disease of [place] coronary artery without angina pectoris (2) Ischemic cardiomyopathy Status: Acute Assessment and plan: SEE PLAN OF CARE LISTED BELOW Current Visit: Yes (3) Congestive heart failure Status: Acute Assessment and plan: SEE PLAN OF CARE LISTED BELOW Current Visit: Yes Qualifiers: Congestive heart failure type: combined Congestive heart failure chronicity : acute Qualified Code(s): I50.41 - Acute combined systolic (congestive) and diastolic (congestive) heart failure (4) Anemia Status: Chronic Assessment and plan: SEE PLAN OF CARE LISTED BELOW Current Visit: Yes (5) Insulin dependent diabetes mellitus Status: Chronic Assessment and plan: SEE PLAN OF CARE LISTED BELOW Current Visit: Yes (6) History of breast cancer Status: Chronic Assessment and plan: SEE PLAN OF CARE LISTED BELOW Current Visit: Yes (7) Hypertension Status: Chronic Assessment and plan: SEE PLAN OF CARE LISTED BELOW Current Visit: Yes (8) Hyperlipidemia Status: Chronic Assessment and plan: SEE PLAN OF CARE LISTED BELOW Current Visit: Yes (9) Tobacco use Status: Chronic Assessment and plan: SEE PLAN OF CARE LISTED BELOW Current Visit: Yes (10) S/P CABG x 2 Status: Chronic Assessment and plan: SEE PLAN OF CARE LISTED BELOW Current Visit: Yes Cardiology - PN: 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 Shelley, 61BF, with no prior history of known CAD, admitted March presented with SOB, edema. R/LHC March 16, 2017 revealed severe CM (EF 15% ), severe CAD. Echocardiogram March 14, 2017: EF 20%, grade 3 diastolic dysfunction, without significant valvular abnormality. March 22, 2017 underwent CABG X 2 (DE [place] [facility] - LAD, SVG - OM). Past medical history, hypertension, diabetes, hyperlipidemia, chronic anemia, and breast cancer status post left mastectomy. MARCH 26, 2017: Patient has done well over the weekend. She is currently postop day 4. Denies chest pain, heaviness or tightness. Incisions healing well without dehiscence or drainage. Continues to take Aspirin, Atorvastatin, FLY inhibitor. Starting tomorrow morning, will lower her dose of FLY inhibitor and incorporate beta-blockade. Labs are stable as are vital signs. Continue physical therapy. Will further discuss with Dr. Roblero and await additional recommendations. MARCH 27, 2017: Sitting up in the bedside chair this morning. She is feeling well. Lots of inspiratory crackles noted posteriorly in the bases. Poor respiratory effort. Encouraged deep breathing, coughing and splinting chest with pillow. Moved incentive spirometry within reach and encouraged frequent use. Verbalized understanding. Labs are stable. Troponins are trending down. Tolerating aspirin, lipid-lowering agent, low-dose beta-yadira and FLY inhibitor. Anticipate she will be discharged home by the end of the week. MARCH 28, 2017 - Continues to improve each day. Soreness but no other chest pain. Hopefully will be discharged home soon. Continue ASA, lipid lowering agent, betablocker and FLY. Will further discuss with Dr. Roblero and await additional recommendations. ASSESSMENT/PLAN: 1. ICM - EF 15%-20% now S/P revascularization. On beta-yadira and FLY inhibitor. 2. CAD S/P CABG - POD 6. Continue current plan of care. Improving and suspect she will be discharged home in the next few days 3. CHF - acute systolic and diastolic CHF, NYHA Class II. Well-compensated. Continues to improve. 4. HYPERTENSION - adequately controlled. 5. DYSLIPIDEMIA - continue lipid-lowering agent. 6. ANEMIA - stable post CABG 7. DIABETES - continue current plan of care 8. TOBACCO USE - greater than 5 minutes was spent today discussing the merits of tobacco cessation Exam (Progress Note) - Constitutional Vitals: Period Temp Pulse Resp BP Sys/Gaitan Pulse Ox Last 24 Hr 96.9 F-99.3 F 60-99 17-20 114-136/51-74 93-100 Exam: General: [Appears well with no apparent distress.] [Intubated, following commands appropriately] HEENT: [PERRL, normocephalic, atraumatic. Mucous membranes moist. No jaundice noted. Conjunctiva moist and clear, sclerae anicteric] Neck: No obvious JVD/HJR, no thyromegaly or lymphadenopathy noted. No carotid bruit appreciated Cardiac: [Regular rate and rhythm.] [No murmur. Positive for friction rub. Sternotomy healing well without dehiscence or drainage. Lungs: [Inspiratory crackles noted posteriorly midway at both lung peterson which improved yet persist with cough. ] Not requiring oxygen. Abdomen: Soft, bowel sounds hypoactive. Nontender and nondistended. No abdominal bruit or thrill noted. No masses noted. Musculoskeletal: No fluid collection. Decreased range of motion is noted. Extremities: No clubbing, cyanosis noted. [ No edema noted.] Upper extremity pulses 2+. Lower extremity pulses 2+. Bilateral lower extremity incisions is healing well without dehiscence or drainage, clarke well approximated. Capillary refill less than 3 seconds. Skin: No unusual lesions or rashes. No skin breakdown appreciated. Neuro: Moves all extremities well without hemiparesis or paralysis. No essential tremor is appreciated. Result/EKG - Labs CBC & BMP: 03/27/17 05:00 03/28/17 04:15 Lab Results: I have reviewed the past 24 hour labs Labs: Laboratory Results - last 24 hr 03/27/17 03/27/17 03/28/17 15:50 18:50 04:15 Sodium 133 L Potassium 4.2 Chloride 97 L Carbon Dioxide 29 Anion Gap 11.2 BUN 23 H Creatinine 1.00 GFR Calculation 71 BUN/Creatinine Ratio 23.00 H Glucose 157 H POC Glucose 170 H 255 H Calculated Osmolality 272.4 L Calcium 8.7 Magnesium 2.5 H 03/28/17 03/28/17 08:29 12:16 Sodium Potassium Chloride Carbon Dioxide Anion Gap BUN Creatinine GFR Calculation BUN/Creatinine Ratio Glucose POC Glucose 192 H 86 Calculated Osmolality Calcium Magnesium - EKG EKG results: interpreted by tx EKG shows: sinus rhythm Quality Measures - VTE Contraindication to Pharmacological VTE Prophylaxis: High Risk of Bleeding Specialty Discharge - Follow Up or Referrals <Omar Roblero - Last Filed: 03/28/17 16:41> Exam (Progress Note) - Constitutional Vitals: Period Temp Pulse Resp BP Sys/Gaitan Pulse Ox Last 24 Hr 96.9 F-99.3 F 60-99 17-20 112-136/51-74 93-100 Result/EKG - Labs CBC & BMP: 03/27/17 05:00 03/28/17 04:15 Labs: Laboratory Results - last 24 hr 03/27/17 03/28/17 03/28/17 18:50 04:15 08:29 Sodium 133 L Potassium 4.2 Chloride 97 L Carbon Dioxide 29 Anion Gap 11.2 BUN 23 H Creatinine 1.00 GFR Calculation 71 BUN/Creatinine Ratio 23.00 H Glucose 157 H POC Glucose 255 H 192 H Calculated Osmolality 272.4 L Calcium 8.7 Magnesium 2.5 H 03/28/17 03/28/17 12:16 15:33 Sodium Potassium Chloride Carbon Dioxide Anion Gap BUN Creatinine GFR Calculation BUN/Creatinine Ratio Glucose POC Glucose 86 173 H Calculated Osmolality Calcium Magnesium
--- NOTE | 2017-03-28 15:31 | Hospitalist Progress Note ---
Assessment and Plan (1) S/P CABG x 2 Status: Chronic Current Visit: Yes (2) Insulin dependent diabetes mellitus Status: Chronic Assessment and plan: continue novolog 70/30 30 units bid, increase metformin 1000 mg po bid Current Visit: Yes Hospitalist: Subjective Interval history: Blood sugar is still higher than we want him to be post CABG. Exam - Constitutional Vitals: Period Temp Pulse Resp BP Sys/Gaitan Pulse Ox Last 24 Hr 96.9 F-99.3 F 60-99 17-20 114-136/51-74 93-100 Exam: Heart Rate-[RRR] Lungs-[CTAB] GI-[+bs soft, NT] Results - Labs CBC & BMP: 03/27/17 05:00 03/28/17 04:15 Lab Results: I have reviewed the past 24 hour labs Quality Measures - VTE Contraindication to Pharmacological VTE Prophylaxis: High Risk of Bleeding Specialty Discharge - Follow Up or Referrals
[2017-03-28] MEDS ORDERED: diphenhydrAMINE CAP 25 MG CAPSULE PO PRN (19:44)
[2017-03-28] MEDS: ATORVASTATIN 80 MG TABLET PO SCH (21:20)
[2017-03-28] MEDS: AMITRIPTYLINE 25 MG TABLET PO SCH (21:21)
[2017-03-28] MEDS: BACLOFEN 10 MG TABLET PO SCH (21:21)
[2017-03-28] MEDS: ASPIRIN EC 81 MG TABLET PO SCH (21:21)
[2017-03-29] MEDS: ALBUTEROL/IPRATROPIUM 3 ML NEB RESP TX SCH ×2 (00:25→07:30)
[2017-03-29 06:19] LABS: Basophils # 0.1 10*3/uL (0.0-0.2); Basophils % 0.8 % (0.0-0.8); Eosinophils # 0.3 10*3/uL (0.0-0.87); Eosinophils % 2.6 % (0.00-10.9); Hematocrit 30.2 VOL% (35.7-47.0); Hemoglobin 10.3 GM/DL (12.0-16.0); Immature Granulocytes % 0.4 %; Immature Granulocytes Absolute 0.04 #; Lymphocytes # 1.6 10*3/uL (1.4-4.0); Lymphocytes % 15.9 % (21.3-54.2); Mean Corpuscular HGB Conc 34.1 GM/DL (32-36); Mean Corpuscular Hemoglobin 31 PG (27-34); Mean Corpuscular Volume 91.2 FL (87-102); Mean Platelet Volume 8.6 FL (9.6-12.0); Monocytes # 0.9 10*3/uL (0.11-0.8); Monocytes % 9.1 % (1.7-12.7); Neutrophils # 7.4 10*3/uL (1.4-7.4); Neutrophils % 71.2 % (38.7-73.9); Platelet Count 290 T/CUMM (130-400); Red Blood Count 3.31 MC/CUMM (3.8-5.5); Red Cell Distribution Width 13.4 % (9.3-17.3); White Blood Count 10.3 T/CUMM (4-12)
[2017-03-29 06:54] LABS: Calcium 9.1 MG/DL (8.5-10.1); Magnesium 2.5 MG/DL (1.8-2.4); Osmolality,Calculated 275.1 MOS/KG (273-304); Potassium 4.7 MMOL/L (3.5-5.1)
[2017-03-29 07:00] LABS: Alanine Aminotransferase 37 U/L (13-56); Albumin 3.2 G/DL (3.4-5.0); Alkaline Phosphatase 62 U/L (45-117); Aspartate Amino Transferase 15 U/L (0-37); Bilirubin,Indirect 0.3 MG/DL (0.0-1.0); Bilirubin,Total < 0.39 MG/DL (0.2-1.0); Blood Urea Nitrogen 23 MG/DL (7-18); Calcium 8.4 MG/DL (8.5-10.1); Glucose 127 MG/DL (74-106); Magnesium 2.4 MG/DL (1.8-2.4); Osmolality,Calculated 271.4 MOS/KG (273-304); Potassium 4.6 MMOL/L (3.5-5.1); Sodium 133 MMOL/L (136-145); Total Protein 6.3 G/DL (6.4-8.3)
[2017-03-29 07:07] LABS: Troponin I Only 0.371 NG/ML (0.00-0.045)
[2017-03-29] MEDS: INSULIN ASPART PROTAMINE/ASPART 70/30 100 UNIT/ML SUBCUT SCH (08:13)
[2017-03-29] MEDS: SPIRONOLACTONE 25 MG TABLET PO SCH (08:15)
[2017-03-29] MEDS: LORATADINE 10 MG TABLET PO SCH (08:16)
[2017-03-29] MEDS: hydroCHLOROthiazide 12.5 MG CAPSULE PO SCH (08:17)
[2017-03-29] MEDS: DOCUSATE SODIUM 100 MG CAPSULE PO SCH (08:17)
[2017-03-29] MEDS: FERROUS SULFATE 325 MG TABLET PO SCH (08:17)
[2017-03-29] MEDS: PARoxetine 10 MG TABLET PO SCH (08:17)
[2017-03-29] MEDS: metFORMIN 500 MG TABLET PO SCH (08:17)
[2017-03-29] MEDS: CARVEDILOL 6.25 MG TABLET PO SCH (08:17)
[2017-03-29] MEDS: CHLORHEXIDINE 0.12% ORAL RINSE 60 ML BOTTLE SWISH/SPIT SCH (08:18)
[2017-03-29] MEDS: MAGNESIUM HYDROXIDE SUSP 30 ML UDCUP PO PRN (08:19)
[2017-03-29] MEDS: LISINOPRIL 2.5 MG TABLET PO SCH (08:19)
[2017-03-29] MEDS: PANTOPRAZOLE 40 MG TABLET PO SCH (08:19)
--- NOTE | 2017-03-29 08:55 | Discharge Summary ---
Hospital Course - Hospital Course Hospital Course: History of present illness: Patient is a 61-year-old lady who had been in her usual state of reasonably good health until about 4 months ago when she began to experience increasing shortness of breath with exertion. This became progressively severe until it was disabling and she was admitted to the hospital for evaluation. Past medical history review of systems social history and family history are documented in her admission notes. Hospital course: Patient underwent cardiac catheterization among other studies which revealed moderate to severe left ventricular dysfunction and severe left main coronary artery disease. It was felt likely that her left ventricular dysfunction was at least in part due to her coronary disease and she was recommended for coronary bypass surgery. This was undertaken and at the time of surgery left ventricular function was noted to be moderately impaired and a internal mammary artery was grafted to the anterior descending coronary artery and a saphenous vein graft to circumflex marginal coronary artery. Postoperative course was surprisingly smooth and uncomplicated with improving exercise tolerance and breathing over the period of her hospitalization. She was discharged home with instructions to return for follow-up in 1 month and her discharge medications are listed below. Specialty Discharge - Follow Up or Referrals Follow up with: Bubba Barrera MD [Physician] - 1 Month Discharge Plan - Discharge Data Condition at Discharge: Stable Discharge Diet: advance to your usual diet Activity: resume usual activities as tolerated Hygiene: no restrictions Weight Bearing at Discharge: full weight bearing Driving: not for (2 weeks) - Discharge Medications Continue Tramadol HCl [Tramadol Tab] 50 mg PO DAILY PRN PRN Reason: Pain PARoxetine HCl [Paroxetine HCl] 30 mg PO DAILY Atorvastatin Calcium 80 mg PO BEDTIME Amitriptyline [Elavil] 25 mg PO BEDTIME Insulin NPH Hum/Reg Insulin Hm [NovoLIN 70/30] 15 unit SUBCUT BEDTIME Ranitidine Tab [Zantac Tab] 150 mg PO DAILY Loratadine Tab [Claritin Tab] 10 mg PO DAILY Fosinopril Sodium 20 mg PO DAILY Docusate Sodium 100 mg PO DAILY Pantoprazole Tab [Protonix Tab] 40 mg PO BID Baclofen Tab [Lioresal] 10 mg PO DAILY Aspirin EC Tab 81 mg PO BEDTIME Insulin NPH Hum/Reg Insulin Hm [NovoLIN 70/30] 90 unit SUBCUT QAM hydroCHLOROthiazide [Hydrochlorothiazide] 25 mg PO DAILY Discontinued Metformin HCl 850 mg PO TID - Follow Up or Referral - Forms/Instructions Instructions: Coronary Artery Disease (GEN), Left Heart Catheterization (DC), How to Stop Smoking (GEN), Heart Healthy Diet (GEN), Cigarette Smoking and Your Health (GEN), Coronary Artery Bypass Graft, Shift Supervisor Melting (GEN), Sternal Precautions (GEN) Exam - Constitutional Vitals: Period Temp Pulse Resp BP Sys/Gaitan Pulse Ox Last 24 Hr 96.5 F-98.7 F 75-89 16-20 112-134/51-74 95-100 Discharge Results Procedures and tests throughout hospitalization: Pending Orders 03/21/17 04:12 Fresh Frozen Plasma IN AM Red Blood Cells Leuko Red IN AM Single Donor Platelets IN AM Type and Screen IN AM 03/21/17 17:35 Occult Blood, Stool Routine 03/29/17 04:00 XR chest 2V IN AM 03/30/17 04:00 XR chest 2V IN AM BMP w/ Mg [Basic Metabolic Panel w/Mg] IN AM Bilirubin Profile Adult IN AM Comp Blood Count Auto Diff IN AM Comprehensive Metabolic Panel IN AM Hepatic (Liver) Panel IN AM Magnesium IN AM Troponin,CKMB & Ck Total IN AM Labs on day of discharge: Labs from last 24 hours 03/29/17 03/29/17 03/29/17 07:49 06:10 06:10 WBC RBC Hgb Hct MCV MCH MCHC RDW Plt Count MPV Neut % (Auto) Lymph % (Auto) [place] % (Auto) Eos % (Auto) Baso % (Auto) Neut # (Auto) Lymph # (Auto) [place] # (Auto) Eos # (Auto) Baso # (Auto) Immature Gran % Nucleated RBC % Immature Gran # Nucleated RBCs # Sodium 135 L 133 L Potassium 4.7 4.6 Chloride 99 99 Carbon Dioxide 28 27 Anion Gap 12.7 11.6 BUN 24 H 23 H Creatinine 1.00 1.00 GFR Calculation 70 70 BUN/Creatinine Ratio 24.00 H 23.00 H Glucose 132 H 127 H POC Glucose 147 H Calculated Osmolality 275.1 271.4 L Calcium 9.1 8.4 L Magnesium 2.5 H 2.4 Total Bilirubin < 0.39 Direct Bilirubin 0.10 Indirect Bilirubin 0.3 AST 15 ALT 37 Alkaline Phosphatase 62 Total Creatine Kinase 102 D CK-MB (CK-2) < 1.0 Troponin I 0.371 H D Total Protein 6.3 L Albumin 3.2 L Globulin 3.1 Albumin/Globulin Ratio 1.0 L 03/29/17 03/28/17 03/28/17 06:10 19:36 15:33 WBC 10.3 RBC 3.31 L Hgb 10.3 L Hct 30.2 L MCV 91.2 MCH 31 MCHC 34.1 RDW 13.4 Plt Count 290 D MPV 8.6 L Neut % (Auto) 71.2 Lymph % (Auto) 15.9 L [place] % (Auto) 9.1 Eos % (Auto) 2.6 Baso % (Auto) 0.8 Neut # (Auto) 7.4 Lymph # (Auto) 1.6 [place] # (Auto) 0.9 H Eos # (Auto) 0.3 Baso # (Auto) 0.1 Immature Gran % 0.4 Nucleated RBC % 0.0 Immature Gran # 0.04 Nucleated RBCs # 0.00 Sodium Potassium Chloride Carbon Dioxide Anion Gap BUN Creatinine GFR Calculation BUN/Creatinine Ratio Glucose POC Glucose 222 H 173 H Calculated Osmolality Calcium Magnesium Total Bilirubin Direct Bilirubin Indirect Bilirubin AST ALT Alkaline Phosphatase Total Creatine Kinase CK-MB (CK-2) Troponin I Total Protein Albumin Globulin Albumin/Globulin Ratio 03/28/17 12:16 WBC RBC Hgb Hct MCV MCH MCHC RDW Plt Count MPV Neut % (Auto) Lymph % (Auto) [place] % (Auto) Eos % (Auto) Baso % (Auto) Neut # (Auto) Lymph # (Auto) [place] # (Auto) Eos # (Auto) Baso # (Auto) Immature Gran % Nucleated RBC % Immature Gran # Nucleated RBCs # Sodium Potassium Chloride Carbon Dioxide Anion Gap BUN Creatinine GFR Calculation BUN/Creatinine Ratio Glucose POC Glucose 86 Calculated Osmolality Calcium Magnesium Total Bilirubin Direct Bilirubin Indirect Bilirubin AST ALT Alkaline Phosphatase Total Creatine Kinase CK-MB (CK-2) Troponin I Total Protein Albumin Globulin Albumin/Globulin Ratio DS: Provider Date of admission: 03/13/17 15:53 Primary care physician: . No PCP Attending physician on admission: Anshul Hardy MD Consults: 03/20/17 09:49 Consult to Dietitian [CONS] Routine Reason for Dietitian: Other Consult Comment: low salt, low cholesterol, diet 03/25/17 08:42 Consult to Cardiac Rehabilitation [CONS] Routine Reason for Cardiac Rehabilitation: Other Consult Comment: Post CABG/heart surgery Consult to Diabetes [facility], Educator [CONS] Routine Reason for Satellite Manager: Diabetes Education Initial Insulin Education Consult Comment: insulin education Consult to Dietitian [CONS] Routine Reason for Dietitian: Dietary Consult Consult Comment: Cardiac, low salt, low cholesterol diet Consult to Physical Therapy [CONS] Routine Reason for Physical Therapy: Other Consult Comment: CV Rehab Consult to Physician [CONS] Routine Comment: Management of diabetes Consulting Provider: Consult to Specialist Group: Hospitalist Discharging clinician: Bubba Barrera MD Expected date of discharge: 03/29/17
--- NOTE | 2017-03-29 09:05 | XRay Report ---
Exam: XR chest 2V Date: 03/29/2017 728 AM Indication: Shortness of breath Comparison: 03/27/2017 Technical: PA lateral Findings: Right IJ catheter is present with distal tip in the right atrium. Sternotomy wires are present. Mild cardiomegaly. Atelectatic change present in the basilar regions bilaterally with some patchy interstitial densities in the right perihilar region and left base. No pneumothorax present. External cardiac leads are present. Mediastinum is otherwise intact. Impression: 1. Stable appearance of the right IJ catheter unchanged from previous study 2. Persistent bibasilar atelectatic change and/or infiltrates 3. Cardiomegaly with prior sternotomy PROCEDURE INTERPRETED AT [facility] DEPARTMENT OF RADIOLOGY Final Report Signed by: Dr. Dennis Penaloza
--- NOTE | 2017-03-29 10:05 | Cardiology Progress Note ---
Assessment and Plan - Time spent with patient Time spent with patient: Greater than 30 minutes (1) CAD (coronary artery disease) Status: Chronic Assessment and plan: SEE PLAN OF CARE LISTED BELOW Current Visit: Yes Qualifiers: Coronary Disease-Associated Artery/Lesion type: [place] artery [place] vs. transplanted heart: [place] heart Associated angina: without angina Qualified Code(s): I25.10 - Atherosclerotic heart disease of [place] coronary artery without angina pectoris (2) Ischemic cardiomyopathy Status: Acute Assessment and plan: SEE PLAN OF CARE LISTED BELOW Current Visit: Yes (3) Congestive heart failure Status: Acute Assessment and plan: SEE PLAN OF CARE LISTED BELOW Current Visit: Yes Qualifiers: Congestive heart failure type: combined Congestive heart failure chronicity : acute Qualified Code(s): I50.41 - Acute combined systolic (congestive) and diastolic (congestive) heart failure (4) Anemia Status: Chronic Assessment and plan: SEE PLAN OF CARE LISTED BELOW Current Visit: Yes (5) Insulin dependent diabetes mellitus Status: Chronic Assessment and plan: SEE PLAN OF CARE LISTED BELOW Current Visit: Yes (6) History of breast cancer Status: Chronic Assessment and plan: SEE PLAN OF CARE LISTED BELOW Current Visit: Yes (7) Hypertension Status: Chronic Assessment and plan: SEE PLAN OF CARE LISTED BELOW Current Visit: Yes (8) Hyperlipidemia Status: Chronic Assessment and plan: SEE PLAN OF CARE LISTED BELOW Current Visit: Yes (9) Tobacco use Status: Chronic Assessment and plan: SEE PLAN OF CARE LISTED BELOW Current Visit: Yes (10) S/P CABG x 2 Status: Chronic Assessment and plan: SEE PLAN OF CARE LISTED BELOW Current Visit: Yes Cardiology - PN: Subj Interval history: SUMMARY: Ms. Shelley, 61BF, with no prior history of known CAD, admitted March presented with SOB, edema. R/LHC March 16, 2017 revealed severe CM (EF 15% ), severe CAD. Echocardiogram March 14, 2017: EF 20%, grade 3 diastolic dysfunction, without significant valvular abnormality. March 22, 2017 underwent CABG X 2 ([facility] [place] - LAD, SVG - OM). Past medical history, hypertension, diabetes, hyperlipidemia, chronic anemia, and breast cancer status post left mastectomy. MARCH 26, 2017: Patient has done well over the weekend. She is currently postop day 4. Denies chest pain, heaviness or tightness. Incisions healing well without dehiscence or drainage. Continues to take Aspirin, Atorvastatin, FLY inhibitor. Starting tomorrow morning, will lower her dose of FLY inhibitor and incorporate beta-blockade. Labs are stable as are vital signs. Continue physical therapy. Will further discuss with Dr. Roblero and await additional recommendations. MARCH 27, 2017: Sitting up in the bedside chair this morning. She is feeling well. Lots of inspiratory crackles noted posteriorly in the bases. Poor respiratory effort. Encouraged deep breathing, coughing and splinting chest with pillow. Moved incentive spirometry within reach and encouraged frequent use. Verbalized understanding. Labs are stable. Troponins are trending down. Tolerating aspirin, lipid-lowering agent, low-dose beta-yadira and FLY inhibitor. Anticipate she will be discharged home by the end of the week. MARCH 28, 2017 - Continues to improve each day. Soreness but no other chest pain. Hopefully will be discharged home soon. Continue ASA, lipid lowering agent, betablocker and FLY. Will further discuss with Dr. Roblero and await additional recommendations. MARCH 29, 2017: Doing well and scheduled for discharge today. She is anxious for release home. She has been discharged home on aspirin, lipid-lowering agent , FLY inhibitor. Unable to continue beta-blockade due to blood pressure but may be incorporated post discharge. She will be given a follow-up appointment with Dr. Luna in approximately 2-3 weeks. I will get her an appointment to see Dr. George, new patient referral, in approximately 6 weeks ASSESSMENT/PLAN: 1. ICM - EF 15%-20% now S/P revascularization. On FLY inhibitor. Beta- yadira was discontinued due to to lower blood pressures. 2. CAD S/P CABG - POD 7. Ready for discharge. 3. CHF - acute systolic and diastolic CHF, NYHA Class II. Well-compensated. Continues to improve. 4. HYPERTENSION - adequately controlled. 5. DYSLIPIDEMIA - continue lipid-lowering agent. 6. ANEMIA - stable post CABG 7. DIABETES - continue current plan of care 8. TOBACCO USE - greater than 5 minutes was spent today discussing the merits of tobacco cessation Exam (Progress Note) - Constitutional Vitals: Period Temp Pulse Resp BP Sys/Gaitan Pulse Ox Last 24 Hr 96.5 F-98.7 F 75-89 16-20 112-134/51-74 95-100 Exam: General: [Appears well with no apparent distress.] [Intubated, following commands appropriately] HEENT: [PERRL, normocephalic, atraumatic. Mucous membranes moist. No jaundice noted. Conjunctiva moist and clear, sclerae anicteric] Neck: No obvious JVD/HJR, no thyromegaly or lymphadenopathy noted. No carotid bruit appreciated Cardiac: [Regular rate and rhythm.] [No murmur. Positive for friction rub. Sternotomy healing well without dehiscence or drainage. Lungs: [Inspiratory crackles noted posteriorly midway at both lung peterson which improved yet persist with cough. ] Not requiring oxygen. Abdomen: Soft, bowel sounds hypoactive. Nontender and nondistended. No abdominal bruit or thrill noted. No masses noted. Musculoskeletal: No fluid collection. Decreased range of motion is noted. Extremities: No clubbing, cyanosis noted. [ No edema noted.] Upper extremity pulses 2+. Lower extremity pulses 2+. Bilateral lower extremity incisions is healing well without dehiscence or drainage, clarke well approximated. Capillary refill less than 3 seconds. Skin: No unusual lesions or rashes. No skin breakdown appreciated. Neuro: Moves all extremities well without hemiparesis or paralysis. No essential tremor is appreciated. Result/EKG - Labs CBC & BMP: 03/29/17 06:10 03/29/17 06:10 Lab Results: I have reviewed the past 24 hour labs Labs: Laboratory Results - last 24 hr 03/28/17 03/28/17 03/28/17 12:16 15:33 19:36 WBC RBC Hgb Hct MCV MCH MCHC RDW Plt Count MPV Neut % (Auto) Lymph % (Auto) [place] % (Auto) Eos % (Auto) Baso % (Auto) Neut # (Auto) Lymph # (Auto) [place] # (Auto) Eos # (Auto) Baso # (Auto) Immature Gran % Nucleated RBC % Immature Gran # Nucleated RBCs # Sodium Potassium Chloride Carbon Dioxide Anion Gap BUN Creatinine GFR Calculation BUN/Creatinine Ratio Glucose POC Glucose 86 173 H 222 H Calculated Osmolality Calcium Magnesium Total Bilirubin Direct Bilirubin Indirect Bilirubin AST ALT Alkaline Phosphatase Total Creatine Kinase CK-MB (CK-2) Troponin I Total Protein Albumin Globulin Albumin/Globulin Ratio 03/29/17 03/29/17 03/29/17 06:10 06:10 06:10 WBC 10.3 RBC 3.31 L Hgb 10.3 L Hct 30.2 L MCV 91.2 MCH 31 MCHC 34.1 RDW 13.4 Plt Count 290 D MPV 8.6 L Neut % (Auto) 71.2 Lymph % (Auto) 15.9 L [place] % (Auto) 9.1 Eos % (Auto) 2.6 Baso % (Auto) 0.8 Neut # (Auto) 7.4 Lymph # (Auto) 1.6 [place] # (Auto) 0.9 H Eos # (Auto) 0.3 Baso # (Auto) 0.1 Immature Gran % 0.4 Nucleated RBC % 0.0 Immature Gran # 0.04 Nucleated RBCs # 0.00 Sodium 133 L 135 L Potassium 4.6 4.7 Chloride 99 99 Carbon Dioxide 27 28 Anion Gap 11.6 12.7 BUN 23 H 24 H Creatinine 1.00 1.00 GFR Calculation 70 70 BUN/Creatinine Ratio 23.00 H 24.00 H Glucose 127 H 132 H POC Glucose Calculated Osmolality 271.4 L 275.1 Calcium 8.4 L 9.1 Magnesium 2.4 2.5 H Total Bilirubin < 0.39 Direct Bilirubin 0.10 Indirect Bilirubin 0.3 AST 15 ALT 37 Alkaline Phosphatase 62 Total Creatine Kinase 102 D CK-MB (CK-2) < 1.0 Troponin I 0.371 H D Total Protein 6.3 L Albumin 3.2 L Globulin 3.1 Albumin/Globulin Ratio 1.0 L 03/29/17 07:49 WBC RBC Hgb Hct MCV MCH MCHC RDW Plt Count MPV Neut % (Auto) Lymph % (Auto) [place] % (Auto) Eos % (Auto) Baso % (Auto) Neut # (Auto) Lymph # (Auto) [place] # (Auto) Eos # (Auto) Baso # (Auto) Immature Gran % Nucleated RBC % Immature Gran # Nucleated RBCs # Sodium Potassium Chloride Carbon Dioxide Anion Gap BUN Creatinine GFR Calculation BUN/Creatinine Ratio Glucose POC Glucose 147 H Calculated Osmolality Calcium Magnesium Total Bilirubin Direct Bilirubin Indirect Bilirubin AST ALT Alkaline Phosphatase Total Creatine Kinase CK-MB (CK-2) Troponin I Total Protein Albumin Globulin Albumin/Globulin Ratio Quality Measures - VTE Contraindication to Pharmacological VTE Prophylaxis: High Risk of Bleeding Specialty Discharge - Follow Up or Referrals Follow up with: Bubba Barrera MD [Physician] - 04/24/17 10:15 am Anmol Luna MD [Physician] - (2-3 weeks. EKG, BMP, Mg, CBC at visit. ) Neelima George M.D. [Physician] - (New patient appointment 6 weeks. )
[2017-03-29 11:52] VITALS: BP 127/56
--- NOTE | 2017-03-29 12:02 | Hospitalist Progress Note ---
Assessment and Plan (1) S/P CABG x 2 Status: Chronic Current Visit: Yes (2) Insulin dependent diabetes mellitus Status: Chronic Assessment and plan: continue novolog 70/30 30 units bid, cont metformin 1000 mg po bid Current Visit: Yes Hospitalist: Subjective Interval history: patient excited about going home. Exam - Constitutional Vitals: Period Temp Pulse Resp BP Sys/Gaitan Pulse Ox Last 24 Hr 96.5 F-98.2 F 75-89 16-20 112-134/56-74 95-100 Exam: Heart Rate-[RRR] Lungs-[CTAB] GI-[+bs soft, NT] Results - Labs CBC & BMP: 03/29/17 06:10 03/29/17 06:10 Lab Results: I have reviewed the past 24 hour labs Quality Measures - VTE Contraindication to Pharmacological VTE Prophylaxis: High Risk of Bleeding Specialty Discharge - Follow Up or Referrals Follow up with: Anmol Lnua MD [Physician] - (2-3 weeks. EKG, BMP, Mg, CBC at visit. ) Bubba Barrera MD [Physician] - 04/24/17 10:15 am Neelima George M.D. [Physician] - (New patient appointment 6 weeks. )
== END 2017-03-29 13:45 | disposition home or self-care (01) | DRG 234 ==
LOC: N.ED 12:45 → SUATTDRO 15:53 → N.EDINP 15:53 → N.TELES 16:29 → N.CVR 03-22 10:48 → N.ICU 03-23 18:04 → N.TELES 03-25 13:18
PROVIDERS: ADMIT Internal Medicine; ATTEND Internal Medicine

== ENCOUNTER 2017-04-13 13:39 | Inpatient (IN) ==
[2017-04-13 14:25] LABS: Basophils % 0.4 % (0.0-0.8); Eosinophils # 0.1 10*3/uL (0.0-0.87); Eosinophils % 1.3 % (0.00-10.9); Hematocrit 29.8 VOL% (35.7-47.0); Hemoglobin 10.4 GM/DL (12.0-16.0); Immature Granulocytes % 0.3 %; Immature Granulocytes Absolute 0.02 #; Lymphocytes # 1.1 10*3/uL (1.4-4.0); Lymphocytes % 15.7 % (21.3-54.2); Mean Corpuscular HGB Conc 34.9 GM/DL (32-36); Mean Corpuscular Hemoglobin 31 PG (27-34); Mean Corpuscular Volume 87.6 FL (87-102); Mean Platelet Volume 8.1 FL (9.6-12.0); Monocytes # 0.8 10*3/uL (0.11-0.8); Monocytes % 11.6 % (1.7-12.7); Neutrophils # 4.9 10*3/uL (1.4-7.4); Neutrophils % 70.7 % (38.7-73.9); Platelet Count 403 T/CUMM (130-400); Red Cell Distribution Width 13.5 % (9.3-17.3)
--- NOTE | 2017-04-13 14:32 | XRay Report ---
Exam: XR chest 1V portable Date: 04/13/2017 2:05 PM Indication: Shortness of breath Comparison: 03/29/2017 Technical: AP Findings: Cardiomegaly is present with previous sternotomy. Surgical changes are suspected in the left axillary region. Examination reveals atelectasis change infiltrate in the left base. Right IJ catheter has been removed. No pneumothorax present. Mediastinum is unremarkable. Dilated bowel in the left upper abdomen. Impression: 1. Persistent atelectatic change infiltrate in the left base 2. Cardiomegaly with previous sternotomy without decompensation 3. Removal of the right IJ catheter 4. At minimum abdominal ileus pattern present with dilated bowel left upper abdomen at the splenic flexure PROCEDURE INTERPRETED AT [facility] DEPARTMENT OF RADIOLOGY Final Report Signed by: Dr. Dennis Penaloza
--- NOTE | 2017-04-13 14:48 | Emergency Department Note ---
Devi Gross Emily, am scribing for, and in the presence of, Tru Saini MD 14:45. Yeny Gross James D, MD, personally performed the services described in this documentation, ascribed by Deepthi Quinonez in my presence, and it is both accurate and complete 447 . Arrival - Arrival Chief Complaint: Shortness of Breath Stated Complaint: SOB,Legs Swollen ED Nursing Triage Note: sob that started this morning. denies chest pain. reports swelling in her legs and around her eyes. pt has a hx of bypass three weeks ago. Mode of Arrival: Ambulatory Limitations: No Limitations Source: Patient - History of Present Illness HPI Narrative: Pt is a 61 y/o female who came to ED with c/o SOB that started yesterday. Pt has associated sxs of orthopnea, mild diaphoresis, swelling in lower extremities , but denies chest or abdomen pain or melena. Pt had bypass surgery 3 weeks ago under supervision of Dr. Barrera. Pt notes quitting smoking on March 13, but was smoking half a pack of tobacco a day. Pt notes her glucose level was 165 this morning. Onset (ago): day(s) Consistency: constant Severity: mild, moderate Severity scale (1-10): 4 Quality: fullness Allergies/Adverse Reactions: Allergies Allergy/AdvReac Type Severity Reaction Status Date / Time codeine Allergy Unknown/Unable Verified 03/13/17 12:55 to obtain Erythromycin Base Allergy Unknown/Unable Verified 03/13/17 12:55 to obtain mensen Allergy Unknown/Unable Uncoded 03/13/17 12:55 to obtain Home Medications: Home Medications Medication Instructions Recorded Confirmed Type Amitriptyline [Elavil] 25 mg PO BEDTIME 03/13/17 04/13/17 History Aspirin EC Tab 81 mg PO BEDTIME 03/13/17 04/13/17 History Atorvastatin Calcium 80 mg PO BEDTIME 03/13/17 04/13/17 History Baclofen Tab [Lioresal] 20 mg PO BID 03/13/17 04/13/17 History Docusate Sodium 100 mg PO BID 03/13/17 04/13/17 History Fosinopril Sodium 20 mg PO DAILY 03/13/17 04/13/17 History Loratadine Tab [Claritin Tab] 10 mg PO DAILY 03/13/17 04/13/17 History PARoxetine HCl [Paroxetine HCl] 30 mg PO DAILY 03/13/17 04/13/17 History Pantoprazole Tab [Protonix Tab] 40 mg PO BID 03/13/17 04/13/17 History Ranitidine Tab [Zantac Tab] 150 mg PO BID 03/13/17 04/13/17 History hydroCHLOROthiazide 25 mg PO DAILY 03/13/17 04/13/17 History [Hydrochlorothiazide] Capsaicin [Capsaicin 0.025% Cream] 1 applic TOP BID PRN 04/13/17 04/13/17 History Carvedilol [Coreg] 3.125 mg PO BID 04/13/17 04/13/17 History Cholecalciferol [Vitamin D3] 400 unit PO DAILY 04/13/17 04/13/17 History Ferrous Sulfate Tab [Feosol 325 mg PO DAILY 04/13/17 04/13/17 History Original Tab] Furosemide Tab [Lasix Tab] 20 mg PO DAILY 04/13/17 04/13/17 History Insulin NPH Human Isophane 30 unit SUBCUT BID 04/13/17 04/13/17 History [NovoLIN N] Lidocaine 5% Patch [Lidoderm 5% 1 patch TRANSDERM Q12H PRN 04/13/17 04/13/17 History Patch] Metformin HCl 2,000 mg PO BID 04/13/17 04/13/17 History Multivitamin [Multivitamins] 1 each PO TUSA 04/13/17 04/13/17 History [place]-3/Dha/Epa/Fish Oil [Fish Oil 1 each PO BID 04/13/17 04/13/17 History 1,000 mg Softgel] oxyCODONE/ACETAMINOPHEN 5-325 1 tablet PO Q4H PRN 04/13/17 04/13/17 History [Percocet 5-325] Review of System - Review of System 12 point system: reviewed and no additional remarkable complaints except as stated - Review of System Constitutional: Present: diaphoresis. Absent: fever Respiratory: Present: respiratory distress (SOb) Cardiovascular: Present: orthopnea, edema (lower extremities). Absent: chest pain Gastrointestinal: Absent: abdominal pain, nausea, vomiting, melena Musculoskeletal: Absent: arm pain, back pain Skin: Absent: rash Neurological: Absent: headache Medical,Surgical,& Family Hx - Medical History Cardio: History of: Hypertension Psychological: History of: Depression Neurology: No history of: Seizures HEENT: Comment Only: Eye Problem (tear in right eye) Endocrine: History of: Diabetes Mellitus (IDDM), Diabetes Mellitus (NIDDM), Dyslipidemia, Thyroid Disorder (nodules) Respiratory: History of: Bronchitis Gastrointestinal: History of: GERD Musculoskeletal: History of: Back/Neck Problems, Degenerative Disk Disease, Osteoporosis Hematology: History of: Anemia Reproductive: History of: Breast Cancer (left with benign mass) Other: History of: Cancer - Surgical History Cardiac Surgeries: Sugical HX of: Cardiac Surgery (bypass) Thoracic Surgeries: Patient denies;: Lobectomy HEENT Surgeries: Surgical HX of: Tonsilectomy & Adenoidectomy Abdominal Surgeries: Surgical HX of: Appendectomy Reproductive Surgeries: Surgical HX of;: Breast Surgery, Hysterectomy Patient denies;: Genitourinary Surgery Orthopedic Surgeries: Surgical HX of;: Orthopedic Surgery (left rotator cuff) - Family History Family History: Reports;: Family Cancer (mother, brother), Family Diabetes ( mother,brother,sister), Family Hypertension (mother, brother, father, sister) - Social History Smoking Status: Current every day smoker Marital Status: Single Lives With:: Alone Functional capacity: independent ambulation Exam Vital Signs: Vital Signs Temperature 98.1 F 04/13/17 14:44 Pulse Rate 92 H 04/13/17 15:30 Respiratory Rate 18 04/13/17 15:30 Blood Pressure 142/79 04/13/17 15:30 O2 Sat by Pulse Oximetry 100 04/13/17 15:30 GENERAL: This is a well-nourished well-developed pale black female in no apparent distress. VITAL SIGNS: Reviewed HEENT: Head is atraumatic and normocephalic. Pupils are equal round react to light. Extraocular movements are intact. Oropharynx is benign with moist mucous membranes. NECK: Neck is soft and supple without tenderness. There are no masses. There is no lymphadenopathy. LUNGS: Lungs are clear to auscultation. Chest rises symmetrically. Midline chest incision is healing well without any evidence of infection. CV: Heart is regular rate and rhythm without murmurs rubs or gallops. ABDOMEN: Abdomen is soft, nontender to palpation. There are no abdominal abnormal masses palpated. There is no organomegaly. Bowel sounds are present and active. SKIN: Skin is warm and dry. No rash. EXTREMITIES: Patient has full range of motion without tenderness. There is no pedal edema. Patient has healing incisions of both lower extremities from vein extraction for CABG. There is no evidence of infection or drainage. NEUROLOGIC: Awake alert and oriented 4. Cranial nerves II through XII are intact. Motor is 5 over 5 in all extremities bilaterally. Course Course Narrative: Patient was given Lasix IV in the emergency department 1 dose. - Consultations Consultation #1: Discussed with hospitalist. Patient will be admitted to their service. Time: 16:09 Results - Labs CBC & BMP: 04/13/17 14:10 04/13/17 14:10 Lab Results: I have reviewed the patients labs Labs: Laboratory Tests 04/13/17 14:10 WBC 7.0 RBC 3.40 L Hgb 10.4 L Hct 29.8 L Plt Count 403 H MPV 8.1 L Lymph % (Auto) 15.7 L Lymph # (Auto) 1.1 L Laboratory Tests 04/13/17 04/13/17 04/13/17 14:10 14:10 14:10 Percent Retic D-Dimer, Quantitative ABG pO2 ABG Total CO2 Sodium 121 L Chloride 87 L BUN 19 H Creatinine 1.40 H Glucose 166 H Calculated Osmolality 249.1 L % Saturation AST 121 H ALT 149 H Alkaline Phosphatase 157 H CK-MB (CK-2) Troponin I B-Natriuretic Peptide 2048 H Albumin 3.2 L Globulin 4.0 H Albumin/Globulin Ratio 0.8 L Urine pH 7.0 Ur Specific [place] 1.005 Urine Protein 30 Urine Blood Negative Urine Nitrate Negative Urine Urobilinogen < 2.0 H Urine RBC <1 Hyaline Casts 2 Urine Mucus Occasional Blood Type Antibody Screen 04/13/17 04/13/17 04/13/17 14:10 14:10 14:53 Percent Retic 3.0 H D-Dimer, Quantitative 1.9 ABG pO2 ABG Total CO2 Sodium Chloride BUN Creatinine Glucose Calculated Osmolality % Saturation AST ALT Alkaline Phosphatase CK-MB (CK-2) 4.4 H Troponin I 0.260 H B-Natriuretic Peptide Albumin Globulin Albumin/Globulin Ratio Urine pH Ur Specific [place] Urine Protein Urine Blood Urine Nitrate Urine Urobilinogen Urine RBC Hyaline Casts Urine Mucus Blood Type Antibody Screen 04/13/17 04/13/17 04/13/17 14:53 Unknown Unknown Percent Retic D-Dimer, Quantitative ABG pO2 118.0 H ABG Total CO2 22.5 L Sodium Chloride BUN Creatinine Glucose Calculated Osmolality % Saturation 17.0 L AST ALT Alkaline Phosphatase CK-MB (CK-2) Troponin I B-Natriuretic Peptide Albumin Globulin Albumin/Globulin Ratio Urine pH Ur Specific [place] Urine Protein Urine Blood Urine Nitrate Urine Urobilinogen Urine RBC Hyaline Casts Urine Mucus Blood Type O POSITIVE Antibody Screen Negative Laboratory Tests 04/13/17 Unknown Vitamin B12 1153 H Folate > 24.0 H - EKG EKG results: interpreted by ERMD - Impressions EKG: Normal sinus rhythm with rate of 92, nonspecific ST-T wave changes, normal axis. - Diagnostic Findings Procedure: Chest x-ray: image reviewed by me (Cardiomegaly, atelectasis on the left, old median sternotomy) Critical Care Time Critical Care Time: No Disposition Clinical Impression: Dyspnea, Hyponatremia, Congestive heart failure, Coronary artery disease status post CABG Case discussed with: patient Disposition: Still a Patient Condition: Guarded Time of Disposition: 16:08
[2017-04-13 15:02] LABS: Albumin 3.2 G/DL (3.4-5.0); Bilirubin,Total 0.4 MG/DL (0.2-1.0); Calcium 9.3 MG/DL (8.5-10.1); Osmolality,Calculated 249.1 MOS/KG (273-304); Potassium 4.5 MMOL/L (3.5-5.1); Total Protein 7.2 G/DL (6.4-8.3)
[2017-04-13 15:02] LABS: INR 1.1; PT Patient Result 12.2 SECS; Partial Thromboplastin Time 28.2 SECS (0-40)
[2017-04-13 15:05] LABS: Apearance,Urine CLEAR (Clear); Bilirubin,Urine Negative (Negative); Blood, Urine Negative (Negative); Glucose,Urine (UA) Negative (Negative); Hyaline Casts,Urine 2 /LPF (0-3); Ketones,Urine Negative (Negative); Mucus,Urine Occasional /LPF (Occasional); Nitrite,Urine Negative (Negative); Protein,Urine 30 MG/DL; RBC,Urine <1 /HPF (0-4); Urine Color Yellow (Yellow); Urine Specific Gravity 1.005 (1.001-1.035); Urine Urobilinogen < 2.0 EU/DL (0.2-1.0)
[2017-04-13 15:44] LABS: ABG Base Excess 0.9 MMOL/L (-2.5-2.5); ABG HCO3 25.2 MMOL/L (20-26); ABG Oxygen Saturation 98.9 % (95-100); ABG PCO2 36.8 MM HG (35-48); ABG PH 7.437 (7.35-7.45); ABG TCO2 22.5 MMOL/L (23-27)
[2017-04-13] MEDS ORDERED: FUROSEMIDE 40 MG/4 ML VIAL IV STA (15:45)
[2017-04-13 15:50] LABS: Folate > 24.0 NG/ML (5.4-24.0); Vitamin B12 1153 PG/ML (211-911)
[2017-04-13] MEDS ORDERED: FUROSEMIDE 100 MG/10 ML VIAL ONE (16:00)
--- NOTE | 2017-04-13 17:16 | Hospitalist History & Physical ---
Assessment and Plan (1) Dyspnea Status: Acute Assessment and plan: Supplemental O2. Lasix given. Current Visit: Yes (2) Congestive heart failure Status: Acute Assessment and plan: BNP 2047. Pt. was given 1 dose of lasix IV in ED. Consult cardiology to evaluate. 1500 cc fluid restriction. Current Visit: Yes (3) Hyponatremia Status: Acute Assessment and plan: Pt.'s Na is 121. After dose of lasix in ED, hold lasix and hctz. NS @ 75ml. Recheck bmp in am. Monitor on telemetry. Current Visit: Yes (4) Hypertension Status: Chronic Current Visit: No (5) Insulin dependent diabetes mellitus Status: Chronic Assessment and plan: Accuchecks ACHS. SSI. Hgb A1c in am. Current Visit: No (6) S/P CABG x 2 Status: Chronic Assessment and plan: Pt. is s.p cabg X 2 on 03/22 Current Visit: No History of Present Illness Chief complaint: shortness of breath History of present illness: Ms. Shelley is a 61 year old black female with a history of GERD, hypertension, diabetes, dyslipidemia, thyroid disorder, and anemia who presented to the ED today with complaints of shortness of breath that started yesterday. Patient is status post coronary artery bypass surgery performed by Dr. Barrera on 03/22. Patient was discharged home on 03/29. Patient states that since the time of discharge she has not had any issues. She reports being compliant with medication and diet. Patient reported he she had a sudden onset of shortness of breath on yesterday at rest and with exertion. Patient denies any chest or abdominal pain but reports diaphoresis and swelling in lower extremities. Patient states she was given a prescription for Lasix [address] Luna on Sunday and that she was giving it "time to work" before coming in. Today she states the shortness of breath worsened and she presented for evaulation. Pt. was noted to have BNP of 8 and and a Na of 121. Pt's case has been discussed with Dr. Vazquez and the patient will be admitted to the hospitalist service for further evaluation of treatment. Home Medications Medication Instructions Recorded Confirmed Type Amitriptyline [Elavil] 25 mg PO BEDTIME 03/13/17 04/13/17 History Aspirin EC Tab 81 mg PO BEDTIME 03/13/17 04/13/17 History Atorvastatin Calcium 80 mg PO BEDTIME 03/13/17 04/13/17 History Baclofen Tab [Lioresal] 20 mg PO BID 03/13/17 04/13/17 History Docusate Sodium 100 mg PO BID 03/13/17 04/13/17 History Fosinopril Sodium 20 mg PO DAILY 03/13/17 04/13/17 History Loratadine Tab [Claritin Tab] 10 mg PO DAILY 03/13/17 04/13/17 History PARoxetine HCl [Paroxetine HCl] 30 mg PO DAILY 03/13/17 04/13/17 History Pantoprazole Tab [Protonix Tab] 40 mg PO BID 03/13/17 04/13/17 History Ranitidine Tab [Zantac Tab] 150 mg PO BID 03/13/17 04/13/17 History hydroCHLOROthiazide 25 mg PO DAILY 03/13/17 04/13/17 History [Hydrochlorothiazide] Capsaicin [Capsaicin 0.025% Cream] 1 applic TOP BID PRN 04/13/17 04/13/17 History Carvedilol [Coreg] 3.125 mg PO BID 04/13/17 04/13/17 History Cholecalciferol [Vitamin D3] 400 unit PO DAILY 04/13/17 04/13/17 History Ferrous Sulfate Tab [Feosol 325 mg PO DAILY 04/13/17 04/13/17 History Original Tab] Furosemide Tab [Lasix Tab] 20 mg PO DAILY 04/13/17 04/13/17 History Insulin NPH Human Isophane 30 unit SUBCUT BID 04/13/17 04/13/17 History [NovoLIN N] Lidocaine 5% Patch [Lidoderm 5% 1 patch TRANSDERM Q12H PRN 04/13/17 04/13/17 History Patch] Metformin HCl 2,000 mg PO BID 04/13/17 04/13/17 History Multivitamin [Multivitamins] 1 each PO TUSA 04/13/17 04/13/17 History [place]-3/Dha/Epa/Fish Oil [Fish Oil 1 each PO BID 04/13/17 04/13/17 History 1,000 mg Softgel] oxyCODONE/ACETAMINOPHEN 5-325 1 tablet PO Q4H PRN 04/13/17 04/13/17 History [Percocet 5-325] Allergies Allergy/AdvReac Type Severity Reaction Status Date / Time codeine Allergy Unknown/Unable Verified 03/13/17 12:55 to obtain Erythromycin Base Allergy Unknown/Unable Verified 03/13/17 12:55 to obtain mensen Allergy Unknown/Unable Uncoded 03/13/17 12:55 to obtain Medical,Surgical,& Family Hx - Medical History Cardio: History of: Hypertension Psychological: History of: Depression Neurology: No history of: Seizures HEENT: Comment Only: Eye Problem (tear in right eye) Endocrine: History of: Diabetes Mellitus (IDDM), Diabetes Mellitus (NIDDM), Dyslipidemia, Thyroid Disorder (nodules) Respiratory: History of: Bronchitis Gastrointestinal: History of: GERD Musculoskeletal: History of: Back/Neck Problems, Degenerative Disk Disease, Osteoporosis Hematology: History of: Anemia Reproductive: History of: Breast Cancer (left with benign mass) Other: History of: Cancer - Surgical History Cardiac Surgeries: Sugical HX of: Cardiac Surgery (bypass) Thoracic Surgeries: Patient denies;: Lobectomy HEENT Surgeries: Surgical HX of: Tonsilectomy & Adenoidectomy Abdominal Surgeries: Surgical HX of: Appendectomy Reproductive Surgeries: Surgical HX of;: Breast Surgery, Hysterectomy Patient denies;: Genitourinary Surgery Orthopedic Surgeries: Surgical HX of;: Orthopedic Surgery (left rotator cuff) - Family History Family History: Reports;: Family Cancer (mother, brother), Family Diabetes ( mother,brother,sister), Family Hypertension (mother, brother, father, sister) - Social History Smoking Status: Current every day smoker Frequency of Alcohol Use: None Type of Drug Use: None Marital Status: Lives With:: Spouse Functional capacity: independent ambulation - Constitutional Constitutional: Absent: chills, fever(s) - EENT Eyes: Present: requires corrective lense Ears: Absent: decreased hearing Nose, mouth and throat: Absent: headache(s) - Cardiovascular Cardiovascular: Present: diaphoresis, dyspnea, dyspnea on exertion, edema. Absent: chest pain at rest, lightheadedness - Respiratory Respiratory: Present: dyspnea on exertion. Absent: cough - Gastrointestinal Gastrointestinal: Absent: abdominal pain, nausea, vomiting - Genitourinary Genitourinary: Absent: difficulty urinating - Neurological Neurological: Absent: confusion, dizziness - Psychiatric Psychiatric: Present: depression Exam - Constitutional Vitals: Period Temp Pulse Resp BP Sys/Gaitan Pulse Ox Last 24 Hr 98.1 F-98.1 F 89-92 16-91 136-153/58-82 97-100 General appearance: normal weight, no acute distress - Head Head exam: Present: normal inspection, normocephalic - Eye Eye exam: Present: EOMI Pupils: Present: BRIANNA - Neck Neck exam: Present: normal inspection - Respiratory Respiratory exam: Present: clear to auscultation bilaterally. Absent: wheezes - Cardiovascular Cardiovascular exam: Present: regular rate and rhythm - GI/Abdominal GI/Abdominal exam: Present: normal bowel sounds, soft. Absent: tenderness - Extremities Exam Extremities exam: Present: full ROM. Absent: normal capillary refill - Neurological Exam Neurological exam: Present: alert, oriented X3 - Psychiatric Psychiatric exam: Present: normal affect, normal mood - Skin Skin exam: Present: normal color, warm, dry Results - Labs CBC & BMP: 04/13/17 14:10 04/13/17 14:10 Lab Results: I have reviewed the past 24 hour labs
[2017-04-13] MEDS: SODIUM CHLORIDE 0.9% 1,000 ML IV SCH (18:31)
[2017-04-13] MEDS: ENOXAPARIN 30 MG/0.3 ML SYRINGE SUBCUT SCH (18:31)
[2017-04-13] MEDS: AMITRIPTYLINE 25 MG TABLET PO SCH (20:39)
[2017-04-13] MEDS: ASPIRIN EC 81 MG TABLET PO SCH (20:39)
[2017-04-13] MEDS: ATORVASTATIN 80 MG TABLET PO SCH (20:39)
[2017-04-13] MEDS: CARVEDILOL 3.125 MG TABLET PO SCH (20:40)
[2017-04-13] MEDS: DOCUSATE SODIUM 100 MG CAPSULE PO SCH (20:40)
[2017-04-14 05:25] LABS: Basophils # 0.1 10*3/uL (0.0-0.2); Basophils % 0.9 % (0.0-0.8); Eosinophils # 0.1 10*3/uL (0.0-0.87); Eosinophils % 2.3 % (0.00-10.9); Hematocrit 28.1 VOL% (35.7-47.0); Hemoglobin 9.8 GM/DL (12.0-16.0); Immature Granulocytes % 0.4 %; Immature Granulocytes Absolute 0.02 #; Lymphocytes # 1.3 10*3/uL (1.4-4.0); Lymphocytes % 22.4 % (21.3-54.2); Mean Corpuscular HGB Conc 34.9 GM/DL (32-36); Mean Corpuscular Hemoglobin 31 PG (27-34); Mean Corpuscular Volume 87.8 FL (87-102); Mean Platelet Volume 8.2 FL (9.6-12.0); Monocytes # 0.7 10*3/uL (0.11-0.8); Monocytes % 12.6 % (1.7-12.7); Neutrophils # 3.5 10*3/uL (1.4-7.4); Neutrophils % 61.4 % (38.7-73.9); Platelet Count 387 T/CUMM (130-400); Red Cell Distribution Width 13.4 % (9.3-17.3); White Blood Count 5.6 T/CUMM (4-12)
[2017-04-14 05:58] LABS: Albumin 3.1 G/DL (3.4-5.0); Bilirubin,Direct 0.2 MG/DL (0.0-0.20); Bilirubin,Indirect 0.5 MG/DL (0.0-1.0); Bilirubin,Total 0.7 MG/DL (0.2-1.0); Free T4 (Free Thyroxine) 1.29 NG/DL (0.76-1.46); Total Protein 5.8 G/DL (6.4-8.3)
[2017-04-14 06:03] LABS: Calcium 8.4 MG/DL (8.5-10.1); Magnesium 1.9 MG/DL (1.8-2.4); Osmolality,Calculated 252.6 MOS/KG (273-304); Risk Ratio 2.39; Thyroid Stimulating Hormone 0.714 uIU/ml (0.358-3.74); VLDL CHOLESTEROL 14.8 MG/DL
[2017-04-14] MEDS: SODIUM CHLORIDE 0.9% 1,000 ML IV SCH (07:56)
[2017-04-14] MEDS: PANTOPRAZOLE 40 MG TABLET PO SCH (09:41)
[2017-04-14] MEDS: DOCUSATE SODIUM 100 MG CAPSULE PO SCH ×2 (09:41→20:14)
[2017-04-14] MEDS: FERROUS SULFATE 325 MG TABLET PO SCH (09:41)
[2017-04-14] MEDS: PARoxetine 10 MG TABLET PO SCH (09:41)
[2017-04-14] MEDS: MULTIVITAMIN (CENTRUM) TABLET PO SCH (09:41)
[2017-04-14] MEDS: LORATADINE 10 MG TABLET PO SCH (09:41)
[2017-04-14] MEDS: FOSINOPRIL 20 MG TABLET PO SCH (09:41)
[2017-04-14] MEDS: CARVEDILOL 3.125 MG TABLET PO SCH (09:41)
--- NOTE | 2017-04-14 09:45 | EKG Report ---
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
--- NOTE | 2017-04-14 11:56 | Hospitalist Progress Note ---
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 Going through rehab Current Visit: Yes (2) Congestive heart failure Status: Acute Assessment and plan: Patient presented with acute decompensation of such. Cardiology consult is on board Current Visit: No Qualifiers: Congestive heart failure type: combined Congestive heart failure chronicity : acute Qualified Code(s): I50.41 - Acute combined systolic (congestive) and diastolic (congestive) heart failure (3) Hyponatremia Status: Acute Assessment and plan: Continue to limit water/fluid intake 1500 mL per 24 hours. Observe sodium chloride. Repeat BMP magnesium and B type natruretic peptide tomorrow Current Visit: Yes (4) Transaminasemia Status: Acute Assessment and plan: I suspect this is secondary to low flow and congested liver. They are already improving at this time. Current Visit: Yes Hospitalist: Subjective Interval history: Ms. Shelley has been seen interviewed and examined and chart has been reviewed. Admitted yesterday to the hospital with decompensated systolic congestive heart failure. History of recent coronary artery bypass grafting done on 24 March went through cardiac rehab was doing better but 2 days prior to readmission she developed physical dwindles shortness of breath with very minimal exertion she had a an enlarged cardiac silhouette increased vascularization on the chest x-ray leg edema. Noted with this was profound hyponatremia. History coronary 2 days prior to coming in she had Lasix added to her diuresis because of leg edema beside; patient had already been on hydrochlorothiazide. Suspect this is positive for the hyponatremia and hypochloremia her bicarbonate level is normal however. We have water restricted to high. Hold off the diuresis besides what had been given in the emergency room the sodium is up to 124 today. Cardiology consult will see patient in due course today. Exam - Constitutional Vitals: Period Temp Pulse Resp BP Sys/Gaitan Pulse Ox Last 24 Hr 97.4 F-98.7 F 83-94 16-91 125-153/57-98 97-100 General appearance: normal weight, no acute distress, other (Looks fatigued) - Head Head exam: Present: normocephalic, atraumatic - Eye Eye exam: Present: EOMI Pupils: Present: BRIANNA - ENT ENT exam: Present: normal oropharynx - Neck Neck exam: Present: normal inspection - Respiratory Respiratory exam: Present: clear to auscultation bilaterally, other (Noted healing sternotomy wound. No associated cellulitis.) - Cardiovascular Cardiovascular exam: Present: regular rate and rhythm - GI/Abdominal GI/Abdominal exam: Present: normal bowel sounds, soft - Extremities Exam Extremities exam: Present: full ROM, other (Generalized weakness. Noted left- sided saphenous vein harvesting site that is clean and healing.) - Neurological Exam Neurological exam: Present: alert, oriented X3, CN II-XII intact - Psychiatric Psychiatric exam: Present: normal affect, normal mood - Skin Skin exam: Present: normal color, warm, dry Results - Labs CBC & BMP: 04/14/17 04:53 04/14/17 04:53 Lab Results: I have reviewed the past 24 hour labs (Noted creatinine 1.2 hopefully should improve over time as a intravascular volume improves sodium was come up to 124. Chloride is too low to at 86. I am deliberately holding off sodium supplementation with oral sodium tablets because of fear of worsening congestive heart failure.)
--- NOTE | 2017-04-14 15:25 | Cardiology Consult Note ---
Assessment and Plan (1) Congestive heart failure Status: Acute Current Visit: Yes Qualifiers: Congestive heart failure type: systolic (2) Hyponatremia Status: Acute Current Visit: Yes (3) Ischemic cardiomyopathy Status: Acute Current Visit: No (4) Status post coronary artery bypass grafting Status: Acute Current Visit: No (5) CAD (coronary artery disease) Status: Chronic Current Visit: No Qualifiers: Coronary Disease-Associated Artery/Lesion type: [place] artery [place] vs. transplanted heart: [place] heart Associated angina: without angina Qualified Code(s): I25.10 - Atherosclerotic heart disease of [place] coronary artery without angina pectoris (6) Cardiomyopathy Status: Chronic Current Visit: No Qualifiers: Cardiomyopathy type: ischemic Qualified Code(s): I25.5 - Ischemic cardiomyopathy (7) Hyperlipidemia Status: Chronic Current Visit: No (8) Hypertension Status: Chronic Current Visit: No (9) S/P CABG x 2 Status: Chronic Current Visit: No History of Present Illness - Data of Consult Patient: known to practice within the last 3 years Consult date: 04/14/17 Requesting Physician: Chris Vazquez - Consult Narrative Reason for consult: SOB 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 Echocardiogram March 14, 2017: EF 20%, grade 3 diastolic dysfunction, without significant valvular abnormality. March 22, 2017 underwent CABG X 2 (DE [place] SANTOS - LAD, SVG - OM). Past medical history, hypertension, diabetes, hyperlipidemia, chronic anemia, and breast cancer status post left mastectomy. She had done well postoperatively, although it is noted that she would not tolerate a beta-yadira during her hospital stay due to hypotension. She saw Dr. Luna in clinic on April 11, and was noted to have mild lower extremity edema. Coreg 3.125 mg p.o. twice daily was initiated, as well as Lasix 20 mg p.o. daily. The patient continued to have some lower extremity edema, but also had she came to the hospital for further evaluation. She is found to be hyponatremic with a low serum all some suggesting volume overload. Increasing shortness of breath. Her BNP is elevated. Curiously, her chest x-ray is not described as having any significant edema. She is not having any coughs, fevers chills. She is not having any other acute complaints today. Impression/plan: 1. Shortness of breath-we will treat this as congestive heart failure secondary to systolic dysfunction. We will diurese her and see if her sodium improves. We will also follow-up on her chest x-ray. 2. Coronary artery disease-clinically this appears to be stable. 3. Hyponatremia-this has improved mildly overnight, although she has been given half normal saline 75 cc an hour in addition to some Lasix. She is on fluid restriction, I am going to discontinue her IV fluids, and we will try to diurese her and see which way her sodium trends. 4. History of hypertension-I am going to change her Coreg to Bystolic and see if this improves her symptoms of shortness of breath. 5. Cardiomyopathy-presumably there is an ischemic component. If her blood pressure allows at some point we will need to introduce an FLY inhibitor. 6. Hyperlipidemia-chronic. 7. History of anemia-chronic and stable. CC: Chris Vazquez MD - Home Medications and Allergies Home Medications: Home Medications Medication Instructions Recorded Confirmed Type Amitriptyline [Elavil] 25 mg PO BEDTIME 03/13/17 04/13/17 History Aspirin EC Tab 81 mg PO BEDTIME 03/13/17 04/13/17 History Atorvastatin Calcium 80 mg PO BEDTIME 03/13/17 04/13/17 History Baclofen Tab [Lioresal] 20 mg PO BID 03/13/17 04/13/17 History Docusate Sodium 100 mg PO BID 03/13/17 04/13/17 History Fosinopril Sodium 20 mg PO DAILY 03/13/17 04/13/17 History Loratadine Tab [Claritin Tab] 10 mg PO DAILY 03/13/17 04/13/17 History PARoxetine HCl [Paroxetine HCl] 30 mg PO DAILY 03/13/17 04/13/17 History Pantoprazole Tab [Protonix Tab] 40 mg PO BID 03/13/17 04/13/17 History Ranitidine Tab [Zantac Tab] 150 mg PO BID 03/13/17 04/13/17 History hydroCHLOROthiazide 25 mg PO DAILY 03/13/17 04/13/17 History [Hydrochlorothiazide] Capsaicin [Capsaicin 0.025% Cream] 1 applic TOP BID PRN 04/13/17 04/13/17 History Carvedilol [Coreg] 3.125 mg PO BID 04/13/17 04/13/17 History Cholecalciferol [Vitamin D3] 400 unit PO DAILY 04/13/17 04/13/17 History Ferrous Sulfate Tab [Feosol 325 mg PO DAILY 04/13/17 04/13/17 History Original Tab] Furosemide Tab [Lasix Tab] 20 mg PO DAILY 04/13/17 04/13/17 History Insulin NPH Human Isophane 30 unit SUBCUT BID 04/13/17 04/13/17 History [NovoLIN N] Lidocaine 5% Patch [Lidoderm 5% 1 patch TRANSDERM Q12H PRN 04/13/17 04/13/17 History Patch] Metformin HCl 2,000 mg PO BID 04/13/17 04/13/17 History Multivitamin [Multivitamins] 1 each PO TUSA 04/13/17 04/13/17 History [place]-3/Dha/Epa/Fish Oil [Fish Oil 1 each PO BID 04/13/17 04/13/17 History 1,000 mg Softgel] oxyCODONE/ACETAMINOPHEN 5-325 1 tablet PO Q4H PRN 04/13/17 04/13/17 History [Percocet 5-325] Allergies/Adverse Reactions: Allergies Allergy/AdvReac Type Severity Reaction Status Date / Time codeine Allergy Unknown/Unable Verified 03/13/17 12:55 to obtain Erythromycin Base Allergy Unknown/Unable Verified 03/13/17 12:55 to obtain mensen Allergy Unknown/Unable Uncoded 03/13/17 12:55 to obtain 12 point system: reviewed and no additional remarkable complaints except as stated Medical,Surgical,& Family Hx - Medical History Cardio: History of: CHF, CAD (Left main stenosis per cardiac catheterization March 2017), Hypertension Psychological: History of: Depression Neurology: No history of: Seizures HEENT: Comment Only: Eye Problem (tear in right eye) Endocrine: History of: Diabetes Mellitus (NIDDM), Dyslipidemia, Thyroid Disorder (nodules) Respiratory: History of: Bronchitis Gastrointestinal: History of: GERD Musculoskeletal: History of: Back/Neck Problems, Degenerative Disk Disease, Osteoporosis Hematology: History of: Anemia Reproductive: History of: Breast Cancer (left with benign mass) Other: History of: Cancer - Surgical History Cardiac Surgeries: Sugical HX of: Cardiac Surgery (CABG 03/2017 Dr. Bruce DE [place] SANTOS-LAD , SVG-Cx) Thoracic Surgeries: Patient denies;: Lobectomy HEENT Surgeries: Surgical HX of: Tonsilectomy & Adenoidectomy Abdominal Surgeries: Surgical HX of: Appendectomy Reproductive Surgeries: Surgical HX of;: Breast Surgery, Hysterectomy Patient denies;: Genitourinary Surgery Orthopedic Surgeries: Surgical HX of;: Orthopedic Surgery (left rotator cuff) - Family History Family History: Reports;: Family Cancer (mother, brother), Family Diabetes ( mother,brother,sister), Family Hypertension (mother, brother, father, sister) - Social History Smoking Status: Current every day smoker Frequency of Alcohol Use: None Type of Drug Use: None Functional capacity: independent ambulation Physical Examination Vital Signs Temp Pulse Resp BP Pulse Ox 98.1 F 89 20 137/71 97 04/13/17 13:54 04/13/17 13:54 04/13/17 13:54 04/13/17 13:54 04/13/17 13:54 Exam: General appearance: normal weight, no acute distress - Head Head exam: Present: normal inspection, normocephalic, atraumatic. Absent: hematoma, laceration - Eye Eye exam: Present: EOMI. Absent: conjunctival injection, nystagmus, periorbital swelling, scleral icterus, laceration to eyelids Pupils: Present: PERRL. Absent: constricted, dilated, fixed, irregular, unequal - ENT ENT exam: Present: normal exam, normal external ear exam - Neck Neck exam: Present: normal inspection. Absent: lymphadenopathy, meningismus, tenderness, thyromegaly - Respiratory Respiratory exam: Present: clear to auscultation bilaterally. Absent: accessory muscle use, chest wall tenderness - Cardiovascular Cardiovascular exam: Present: regular rate and rhythm. Absent: carotid bruit, gallop, JVD, rubs - GI/Abdominal GI/Abdominal exam: Present: normal bowel sounds, soft. Absent: distended, firm , guarding, hernia, mass, tenderness, rebound. - Extremities Exam Extremities exam: Present: Trace bilateral lower extremity edema, normal inspection, normal capillary refill. Absent: calf tenderness - Back Exam Back exam: Present: normal inspection. Absent: muscle spasm, vertebral tenderness - Neurological Exam Neurological exam: Present: alert, oriented X3, grossly intact without resting or intention tremor - Psychiatric Psychiatric exam: Present: normal affect, normal mood - Skin Skin exam: Present: normal color, warm, dry, intact. Absent: cyanosis, diaphoretic, rash, urticaria Result/EKG - Labs CBC & BMP: 04/14/17 04:53 04/14/17 04:53 Lab Results: I have reviewed the past 24 hour labs Labs: Laboratory Results - last 24 hr 04/13/17 04/13/17 04/13/17 14:10 14:53 14:53 WBC RBC Hgb Hct MCV MCH MCHC RDW Plt Count MPV Neut % (Auto) Lymph % (Auto) [place] % (Auto) Eos % (Auto) Baso % (Auto) Neut # (Auto) Lymph # (Auto) [place] # (Auto) Eos # (Auto) Baso # (Auto) Immature Gran % Nucleated RBC % Immature Gran # Nucleated RBCs # Immature Plt Fraction ABG pH ABG pCO2 ABG pO2 ABG HCO3 ABG Total CO2 ABG O2 Saturation ABG Base Excess Sodium Potassium Chloride Carbon Dioxide Anion Gap BUN Creatinine GFR Calculation BUN/Creatinine Ratio Glucose POC Glucose Hemoglobin A1c Calculated Osmolality Calcium Magnesium Total Bilirubin Direct Bilirubin Indirect Bilirubin AST ALT Alkaline Phosphatase B-Natriuretic Peptide 2048 H Total Protein Albumin Triglycerides Cholesterol LDL Cholesterol VLDL Cholesterol HDL Cholesterol Heart Disease Risk Ratio Lipase Vitamin B12 Folate Free T4 TSH 3rd Generation Urine Osmolality Ur Random Sodium 47.0 Ur Random Potassium 54 Ur Random Chloride 89 Blood Type O POSITIVE Antibody Screen Negative 04/13/17 04/13/17 04/13/17 14:53 19:42 Unknown WBC RBC Hgb Hct MCV MCH MCHC RDW Plt Count MPV Neut % (Auto) Lymph % (Auto) [place] % (Auto) Eos % (Auto) Baso % (Auto) Neut # (Auto) Lymph # (Auto) [place] # (Auto) Eos # (Auto) Baso # (Auto) Immature Gran % Nucleated RBC % Immature Gran # Nucleated RBCs # Immature Plt Fraction ABG pH ABG pCO2 ABG pO2 ABG HCO3 ABG Total CO2 ABG O2 Saturation ABG Base Excess Sodium Potassium Chloride Carbon Dioxide Anion Gap BUN Creatinine GFR Calculation BUN/Creatinine Ratio Glucose POC Glucose 184 H Hemoglobin A1c Calculated Osmolality Calcium Magnesium Total Bilirubin Direct Bilirubin Indirect Bilirubin AST ALT Alkaline Phosphatase B-Natriuretic Peptide Total Protein Albumin Triglycerides Cholesterol LDL Cholesterol VLDL Cholesterol HDL Cholesterol Heart Disease Risk Ratio Lipase Vitamin B12 1153 H Folate > 24.0 H Free T4 TSH 3rd Generation Urine Osmolality 284 Ur Random Sodium Ur Random Potassium Ur Random Chloride Blood Type Antibody Screen 04/13/17 04/13/17 04/14/17 Unknown Unknown 04:53 WBC 5.6 RBC 3.20 L Hgb 9.8 L Hct 28.1 L MCV 87.8 MCH 31 MCHC 34.9 RDW 13.4 Plt Count 387 MPV 8.2 L Neut % (Auto) 61.4 Lymph % (Auto) 22.4 [place] % (Auto) 12.6 Eos % (Auto) 2.3 Baso % (Auto) 0.9 H Neut # (Auto) 3.5 Lymph # (Auto) 1.3 L [place] # (Auto) 0.7 Eos # (Auto) 0.1 Baso # (Auto) 0.1 Immature Gran % 0.4 Nucleated RBC % 0.0 Immature Gran # 0.02 Nucleated RBCs # 0.00 Immature Plt Fraction 0.0 ABG pH 7.437 ABG pCO2 36.8 ABG pO2 118.0 H ABG HCO3 25.2 ABG Total CO2 22.5 L ABG O2 Saturation 98.9 ABG Base Excess 0.9 Sodium Potassium Chloride Carbon Dioxide Anion Gap BUN Creatinine GFR Calculation BUN/Creatinine Ratio Glucose POC Glucose Hemoglobin A1c Calculated Osmolality Calcium Magnesium Total Bilirubin Direct Bilirubin Indirect Bilirubin AST ALT Alkaline Phosphatase B-Natriuretic Peptide Total Protein Albumin Triglycerides Cholesterol LDL Cholesterol VLDL Cholesterol HDL Cholesterol Heart Disease Risk Ratio Lipase 77.0 Vitamin B12 Folate Free T4 TSH 3rd Generation Urine Osmolality Ur Random Sodium Ur Random Potassium Ur Random Chloride Blood Type Antibody Screen 04/14/17 04/14/17 04/14/17 04:53 04:53 04:53 WBC RBC Hgb Hct MCV MCH MCHC RDW Plt Count MPV Neut % (Auto) Lymph % (Auto) [place] % (Auto) Eos % (Auto) Baso % (Auto) Neut # (Auto) Lymph # (Auto) [place] # (Auto) Eos # (Auto) Baso # (Auto) Immature Gran % Nucleated RBC % Immature Gran # Nucleated RBCs # Immature Plt Fraction ABG pH ABG pCO2 ABG pO2 ABG HCO3 ABG Total CO2 ABG O2 Saturation ABG Base Excess Sodium 124 L Potassium 4.0 Chloride 86 L Carbon Dioxide 31 Anion Gap 11.0 BUN 18 Creatinine 1.20 H GFR Calculation 58 BUN/Creatinine Ratio 15.00 Glucose 132 H POC Glucose Hemoglobin A1c 7.9 H Calculated Osmolality 252.6 L Calcium 8.4 L Magnesium 1.9 Total Bilirubin Direct Bilirubin Indirect Bilirubin AST ALT Alkaline Phosphatase B-Natriuretic Peptide 1988 H Total Protein Albumin Triglycerides 74 Cholesterol 98 LDL Cholesterol 46.0 VLDL Cholesterol 14.8 HDL Cholesterol 41 Heart Disease Risk Ratio 2.39 Lipase Vitamin B12 Folate Free T4 TSH 3rd Generation 0.714 Urine Osmolality Ur Random Sodium Ur Random Potassium Ur Random Chloride Blood Type Antibody Screen 04/14/17 04/14/17 04:55 07:36 WBC RBC Hgb Hct MCV MCH MCHC RDW Plt Count MPV Neut % (Auto) Lymph % (Auto) [place] % (Auto) Eos % (Auto) Baso % (Auto) Neut # (Auto) Lymph # (Auto) [place] # (Auto) Eos # (Auto) Baso # (Auto) Immature Gran % Nucleated RBC % Immature Gran # Nucleated RBCs # Immature Plt Fraction ABG pH ABG pCO2 ABG pO2 ABG HCO3 ABG Total CO2 ABG O2 Saturation ABG Base Excess Sodium Potassium Chloride Carbon Dioxide Anion Gap BUN Creatinine GFR Calculation BUN/Creatinine Ratio Glucose POC Glucose 118 H Hemoglobin A1c Calculated Osmolality Calcium Magnesium Total Bilirubin 0.70 Direct Bilirubin 0.20 Indirect Bilirubin 0.5 AST 101 H ALT 148 H Alkaline Phosphatase 137 H B-Natriuretic Peptide Total Protein 5.8 L Albumin 3.1 L Triglycerides Cholesterol LDL Cholesterol VLDL Cholesterol HDL Cholesterol Heart Disease Risk Ratio Lipase Vitamin B12 Folate Free T4 1.29 TSH 3rd Generation Urine Osmolality Ur Random Sodium Ur Random Potassium Ur Random Chloride Blood Type Antibody Screen - Diagnostic Findings Procedure: Chest x-ray: report reviewed by me - EKG EKG results: interpreted by me, sinus rhythm, no acute changes
[2017-04-14] MEDS: FUROSEMIDE 40 MG/4 ML VIAL IV SCH (16:00)
[2017-04-14] MEDS: ENOXAPARIN 30 MG/0.3 ML SYRINGE SUBCUT SCH (18:45)
[2017-04-14] MEDS: ATORVASTATIN 80 MG TABLET PO SCH (20:13)
[2017-04-14] MEDS: AMITRIPTYLINE 25 MG TABLET PO SCH (20:14)
[2017-04-14] MEDS: ASPIRIN EC 81 MG TABLET PO SCH (20:14)
[2017-04-15 05:17] LABS: Basophils % 0.7 % (0.0-0.8); Eosinophils # 0.1 10*3/uL (0.0-0.87); Eosinophils % 2.3 % (0.00-10.9); Hematocrit 27.2 VOL% (35.7-47.0); Hemoglobin 9.7 GM/DL (12.0-16.0); Immature Granulocytes % 0.2 %; Immature Granulocytes Absolute 0.01 #; Lymphocytes # 1.2 10*3/uL (1.4-4.0); Lymphocytes % 20.7 % (21.3-54.2); Mean Corpuscular HGB Conc 35.7 GM/DL (32-36); Mean Corpuscular Hemoglobin 31 PG (27-34); Mean Corpuscular Volume 86.9 FL (87-102); Mean Platelet Volume 8.2 FL (9.6-12.0); Monocytes # 0.7 10*3/uL (0.11-0.8); Monocytes % 11.5 % (1.7-12.7); Neutrophils # 3.7 10*3/uL (1.4-7.4); Neutrophils % 64.6 % (38.7-73.9); Platelet Count 337 T/CUMM (130-400); Red Blood Count 3.13 MC/CUMM (3.8-5.5); Red Cell Distribution Width 13.3 % (9.3-17.3); White Blood Count 5.7 T/CUMM (4-12)
[2017-04-15 05:45] LABS: Calcium 8.6 MG/DL (8.5-10.1); Calcium 8.7 MG/DL (8.5-10.1); Magnesium 1.9 MG/DL (1.8-2.4); Osmolality,Calculated 256.4 MOS/KG (273-304); Osmolality,Calculated 257.4 MOS/KG (273-304); Potassium 3.7 MMOL/L (3.5-5.1)
[2017-04-15] MEDS: FERROUS SULFATE 325 MG TABLET PO SCH (09:56)
[2017-04-15] MEDS: PANTOPRAZOLE 40 MG TABLET PO SCH (09:57)
[2017-04-15] MEDS: FOSINOPRIL 20 MG TABLET PO SCH (09:57)
[2017-04-15] MEDS: LORATADINE 10 MG TABLET PO SCH (09:57)
[2017-04-15] MEDS: PARoxetine 10 MG TABLET PO SCH (09:57)
[2017-04-15] MEDS: DOCUSATE SODIUM 100 MG CAPSULE PO SCH ×2 (09:57→20:37)
[2017-04-15] MEDS: FUROSEMIDE 40 MG/4 ML VIAL IV SCH ×3 (09:57→17:06)
--- NOTE | 2017-04-15 10:51 | Cardiology Progress Note ---
Assessment and Plan (1) Congestive heart failure Status: Acute Current Visit: Yes Qualifiers: Congestive heart failure type: systolic (2) Hyponatremia Status: Acute Current Visit: Yes (3) Ischemic cardiomyopathy Status: Acute Current Visit: No (4) Status post coronary artery bypass grafting Status: Acute Current Visit: No (5) CAD (coronary artery disease) Status: Chronic Current Visit: No Qualifiers: Coronary Disease-Associated Artery/Lesion type: [place] artery [place] vs. 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 Echocardiogram March 14, 2017: EF 20%, grade 3 diastolic dysfunction, without significant valvular abnormality. March 22, 2017 underwent CABG X 2 (DE [place] SANTOS - LAD, SVG - OM). Past medical history, hypertension, diabetes, hyperlipidemia, chronic anemia, and breast cancer status post left mastectomy. She is readmitted with heart failure, lower extremity edema and shortness of breath, hyponatremia. April 15, 2017: Clinically she seems to be doing about the same. She is not feeling short of breath but her lower extremity edema is unchanged. She has no new or acute complaints today. Sodium has improved from 121-126. Her ins and outs would not reflect a significant diuresis, weight is unchanged and she was more "in" than out. Impression/plan: 1. Shortness of breath-we will treat this as congestive heart failure secondary to systolic dysfunction. We will diurese her and see if her sodium improves. We will also follow-up on her chest x-ray. 2. Coronary artery disease-clinically this appears to be stable. She is status post CABG March 2017. 3. Hyponatremia-this has improved mildly overnight. She appears to be volume overloaded so we are going to try diuresis and monitor her sodium. 4. History of hypertension-I am going to change her Coreg to Bystolic and see if this improves her symptoms of shortness of breath. 5. Cardiomyopathy-presumably there is an ischemic component. If her blood pressure allows at some point we will need to introduce an FLY inhibitor. 6. Hyperlipidemia-chronic. 7. History of anemia-chronic and stable. Exam (Progress Note) - Constitutional Vitals: Period Temp Pulse Resp BP Sys/Gaitan Pulse Ox Last 24 Hr 97.2 F-97.7 F 86-90 16-18 128-148/61-72 96-100 Exam: General appearance: normal weight, no acute distress - Head Head exam: Present: normal inspection, normocephalic, atraumatic. Absent: hematoma, laceration - Eye Eye exam: Present: EOMI. Absent: conjunctival injection, nystagmus, periorbital swelling, scleral icterus, laceration to eyelids Pupils: Present: PERRL. Absent: constricted, dilated, fixed, irregular, unequal - ENT ENT exam: Present: normal exam, normal external ear exam - Neck Neck exam: Present: normal inspection. Absent: lymphadenopathy, meningismus, tenderness, thyromegaly - Respiratory Respiratory exam: Present: clear to auscultation bilaterally. Absent: accessory muscle use, chest wall tenderness - Cardiovascular Cardiovascular exam: Present: regular rate and rhythm. Absent: carotid bruit, gallop, JVD, rubs - GI/Abdominal GI/Abdominal exam: Present: normal bowel sounds, soft. Absent: distended, firm , guarding, hernia, mass, tenderness, rebound. - Extremities Exam Extremities exam: Present: 1-2+ bilateral lower extremity edema right greater than left, normal capillary refill. Absent: calf tenderness - Back Exam Back exam: Present: normal inspection. Absent: muscle spasm, vertebral tenderness - Neurological Exam Neurological exam: Present: alert, oriented X3, grossly intact without resting or intention tremor - Psychiatric Psychiatric exam: Present: normal affect, normal mood - Skin Skin exam: Present: Sternal wound bilateral lower extremity wounds appear to be healing well without signs of infection, normal color, warm, dry, intact. Absent: cyanosis, diaphoretic, rash, urticaria Result/EKG - Labs CBC & BMP: 04/15/17 04:59 04/15/17 04:59 Lab Results: I have reviewed the past 24 hour labs Labs: Laboratory Results - last 24 hr 04/14/17 04/14/17 04/15/17 15:31 20:23 04:59 WBC 5.7 RBC 3.13 L Hgb 9.7 L Hct 27.2 L MCV 86.9 L MCH 31 MCHC 35.7 RDW 13.3 Plt Count 337 MPV 8.2 L Neut % (Auto) 64.6 Lymph % (Auto) 20.7 L [place] % (Auto) 11.5 Eos % (Auto) 2.3 Baso % (Auto) 0.7 Neut # (Auto) 3.7 Lymph # (Auto) 1.2 L [place] # (Auto) 0.7 Eos # (Auto) 0.1 Baso # (Auto) 0.0 Immature Gran % 0.2 Nucleated RBC % 0.0 Immature Gran # 0.01 Nucleated RBCs # 0.00 Immature Plt Fraction 0.0 Sodium Potassium Chloride Carbon Dioxide Anion Gap BUN Creatinine GFR Calculation BUN/Creatinine Ratio Glucose POC Glucose 268 H 323 H Calculated Osmolality Calcium Magnesium B-Natriuretic Peptide 04/15/17 04/15/17 04/15/17 04:59 04:59 04:59 WBC RBC Hgb Hct MCV MCH MCHC RDW Plt Count MPV Neut % (Auto) Lymph % (Auto) [place] % (Auto) Eos % (Auto) Baso % (Auto) Neut # (Auto) Lymph # (Auto) [place] # (Auto) Eos # (Auto) Baso # (Auto) Immature Gran % Nucleated RBC % Immature Gran # Nucleated RBCs # Immature Plt Fraction Sodium 126 L 126 L Potassium 3.7 3.7 Chloride 88 L 88 L Carbon Dioxide 28 29 Anion Gap 13.7 12.7 BUN 15 15 Creatinine 0.90 1.00 GFR Calculation 82 72 BUN/Creatinine Ratio 16.00 15.00 Glucose 162 H 155 H POC Glucose Calculated Osmolality 257.4 L 256.4 L Calcium 8.7 8.6 Magnesium 1.9 B-Natriuretic Peptide 2628 H 04/15/17 08:05 WBC RBC Hgb Hct MCV MCH MCHC RDW Plt Count MPV Neut % (Auto) Lymph % (Auto) [place] % (Auto) Eos % (Auto) Baso % (Auto) Neut # (Auto) Lymph # (Auto) [place] # (Auto) Eos # (Auto) Baso # (Auto) Immature Gran % Nucleated RBC % Immature Gran # Nucleated RBCs # Immature Plt Fraction Sodium Potassium Chloride Carbon Dioxide Anion Gap BUN Creatinine GFR Calculation BUN/Creatinine Ratio Glucose POC Glucose 178 H Calculated Osmolality Calcium Magnesium B-Natriuretic Peptide
[2017-04-15] MEDS: NEBIVOLOL 5 MG TABLET PO SCH (11:39)
--- NOTE | 2017-04-15 12:04 | Hospitalist Progress Note ---
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 Going through rehab Current Visit: Yes (2) Congestive heart failure Status: Acute Assessment and plan: Patient presented with acute decompensation of such. Cardiology consult is on board Current Visit: No Qualifiers: Congestive heart failure type: combined Congestive heart failure chronicity : acute Qualified Code(s): I50.41 - Acute combined systolic (congestive) and diastolic (congestive) heart failure (3) Hyponatremia Status: Acute Assessment and plan: Continue to limit water/fluid intake 1500 mL per 24 hours. Observe sodium chloride. Repeat BMP magnesium and B type natruretic peptide tomorrow Current Visit: Yes (4) Transaminasemia Status: Acute Assessment and plan: I suspect this is secondary to low flow and congested liver. Should resolve in time Current Visit: Yes (5) Diabetes mellitus type 2 in nonobese Status: Acute Assessment and plan: Home medication I will resume. High dose of metformin at 2000 mg p.o. twice a days nonconventional back to her A1c is 7.9. Patient is also on NPH insulin twice a day. She was he had been high without the treatment Current Visit: Yes Hospitalist: Subjective Interval history: Patient has been seen interviewed and examined and chart has been reviewed. She states that her breathing is better. Her swelling is not completely resolved. Patient's sodium is also improving, is gone up to 1 26 mmol/L today. She is concerned that her diabetes medication have not been resumed in the will be resumed as ordered at home. Exam - Constitutional Vitals: Period Temp Pulse Resp BP Sys/Gaitan Pulse Ox Last 24 Hr 97.3 F-97.7 F 86-90 16-18 128-148/61-72 96-100 General appearance: normal weight - Head Head exam: Present: normocephalic, atraumatic - Eye Eye exam: Present: EOMI Pupils: Present: BRINANA - ENT ENT exam: Present: normal exam - Respiratory Respiratory exam: Present: clear to auscultation bilaterally - Cardiovascular Cardiovascular exam: Present: regular rate and rhythm - GI/Abdominal GI/Abdominal exam: Present: normal bowel sounds, soft - Extremities Exam Extremities exam: Present: full ROM, other (Slowing transplant. Mild/moderate leg edema) - Neurological Exam Neurological exam: Present: alert, oriented X3, CN II-XII intact - Psychiatric Psychiatric exam: Present: normal affect, normal mood - Skin Skin exam: Present: normal color, warm Results - Labs CBC & BMP: 04/15/17 04:59 04/15/17 04:59 Lab Results: I have reviewed the past 24 hour labs
--- NOTE | 2017-04-15 14:40 | XRay Report ---
History: Shortness of breath Date: 04/15/2017 Study: Chest x-ray PA and lateral Comparison exam: April 13, 2017 There is continued cardiomegaly. The midsternal contours are unchanged in this patient status post prior median sternotomy. The pulmonary vasculature is not engorged. There is no layering pleural effusion. The right lung remains clear. There is some platelike atelectatic change in the left lung base, primarily within the left lower lobe, the same or slightly improved. There is no interval worsening. Osseous structures are unchanged. Impression: Persistent left lower lobe atelectasis, the same or slightly improved. Cardiomegaly without overt CHF. No adverse interval changes PROCEDURE INTERPRETED AT [facility] DEPARTMENT OF RADIOLOGY Final Report Signed by: Dr. Quynh Bermudez
[2017-04-15] MEDS ORDERED: INSULIN NPH 100 UNIT/ML SUBCUT SCH (16:30)
[2017-04-15] MEDS: metFORMIN 500 MG TABLET PO SCH (17:06)
[2017-04-15] MEDS: ENOXAPARIN 30 MG/0.3 ML SYRINGE SUBCUT SCH (18:15)
[2017-04-15] MEDS: ASPIRIN EC 81 MG TABLET PO SCH (20:37)
[2017-04-15] MEDS: ATORVASTATIN 80 MG TABLET PO SCH (20:37)
[2017-04-15] MEDS: AMITRIPTYLINE 25 MG TABLET PO SCH (20:37)
[2017-04-16 06:19] LABS: Basophils % 0.6 % (0.0-0.8); Eosinophils # 0.1 10*3/uL (0.0-0.87); Eosinophils % 1.8 % (0.00-10.9); Hematocrit 28.7 VOL% (35.7-47.0); Hemoglobin 10.2 GM/DL (12.0-16.0); Immature Granulocytes % 0.5 %; Immature Granulocytes Absolute 0.03 #; Lymphocytes % 15.7 % (21.3-54.2); Mean Corpuscular HGB Conc 35.5 GM/DL (32-36); Mean Corpuscular Hemoglobin 31 PG (27-34); Mean Platelet Volume 8.4 FL (9.6-12.0); Monocytes # 0.7 10*3/uL (0.11-0.8); Monocytes % 11.1 % (1.7-12.7); Neutrophils # 4.6 10*3/uL (1.4-7.4); Neutrophils % 70.3 % (38.7-73.9); Platelet Count 358 T/CUMM (130-400); Red Cell Distribution Width 13.6 % (9.3-17.3); White Blood Count 6.5 T/CUMM (4-12)
[2017-04-16 06:51] LABS: Calcium 8.7 MG/DL (8.5-10.1); Magnesium 1.8 MG/DL (1.8-2.4); Osmolality,Calculated 260.8 MOS/KG (273-304); Potassium 3.6 MMOL/L (3.5-5.1)
[2017-04-16] MEDS ORDERED: INSULIN NPH 100 UNIT/ML SUBCUT SCH (07:30)
[2017-04-16] MEDS: metFORMIN 500 MG TABLET PO SCH ×2 (09:40→16:39)
[2017-04-16] MEDS: DOCUSATE SODIUM 100 MG CAPSULE PO SCH ×2 (09:41→20:51)
[2017-04-16] MEDS: LORATADINE 10 MG TABLET PO SCH (09:41)
[2017-04-16] MEDS: NEBIVOLOL 5 MG TABLET PO SCH (09:41)
[2017-04-16] MEDS: FUROSEMIDE 40 MG/4 ML VIAL IV SCH ×2 (09:41→16:38)
[2017-04-16] MEDS: PARoxetine 10 MG TABLET PO SCH (09:42)
[2017-04-16] MEDS: FERROUS SULFATE 325 MG TABLET PO SCH (09:42)
[2017-04-16] MEDS: FOSINOPRIL 20 MG TABLET PO SCH (09:42)
[2017-04-16] MEDS: PANTOPRAZOLE 40 MG TABLET PO SCH (09:52)
--- NOTE | 2017-04-16 10:27 | Hospitalist Progress Note ---
Assessment and Plan (1) Fatigue Status: Acute Assessment and plan: This may be secondary hyponatremia and also to poor ventricular function history of recent cardiac surgery with revascularization of the coronaries. Going through rehab; she is getting stronger as time goes by. This likely secondary to improving sodium. Current Visit: Yes (2) Congestive heart failure Status: Acute Assessment and plan: Patient presented with acute decompensation of such. Cardiology consult is on board. Repeat chest x-ray tomorrow. Current Visit: No Qualifiers: Congestive heart failure type: combined Congestive heart failure chronicity : acute Qualified Code(s): I50.41 - Acute combined systolic (congestive) and diastolic (congestive) heart failure (3) Hyponatremia Status: Acute Assessment and plan: Improving on current management. Repeat BMP and mag in the morning Current Visit: Yes (4) Transaminasemia Status: Acute Assessment and plan: I suspect this is secondary to low flow and congested liver. Should resolve in time Current Visit: Yes (5) Diabetes mellitus type 2 in nonobese Status: Acute Assessment and plan: [place] home medication yesterday noticed that there is a low blood sugar. Will need to reduce the NPH insulin to 25 units twice a day. Current Visit: Yes Hospitalist: Subjective Interval history: Patient has been seen interviewed and examined and chart has been reviewed. Patient seems to be coping well with sodium now up to 130. She was admitted to the hospital with profound hyponatremia most likely complicating diuretics. She has a history of coronary artery bypass surgery on 22 March this year. She had gone through rehab well and is doing well at home until 3 days prior to coming to the hospital patient is developed in physical dwindles and problems breathing. Him and chest x-ray which was suggestive of pulmonary edema and an enlarged cardiac silhouette however that is an AP view. I restricted fluids and stopped extra Lasix and sodium has been going up progressively since then. She says she feels stronger. Exam - Constitutional Vitals: Period Temp Pulse Resp BP Sys/Gaitan Pulse Ox Last 24 Hr 97.5 F-98.5 F 84-88 18-18 121-131/58-73 92-98 General appearance: normal weight, no acute distress - Head Head exam: Present: normocephalic - Eye Eye exam: Present: EOMI Pupils: Present: BRIANNA - ENT ENT exam: Present: normal exam - Neck Neck exam: Present: normal inspection - Respiratory Respiratory exam: Present: clear to auscultation bilaterally - Cardiovascular Cardiovascular exam: Present: regular rate and rhythm - GI/Abdominal GI/Abdominal exam: Present: normal bowel sounds, soft - Extremities Exam Extremities exam: Present: full ROM, other (Much less leg edema) - Neurological Exam Neurological exam: Present: alert, oriented X3, CN II-XII intact - Psychiatric Psychiatric exam: Present: normal affect, normal mood - Skin Skin exam: Present: normal color, warm, dry Results - Labs CBC & BMP: 04/16/17 05:23 04/16/17 05:23 Lab Results: I have reviewed the past 24 hour labs (Noted mild hypoglycemia today encourage oral intake)
--- NOTE | 2017-04-16 14:15 | Cardiology Progress Note ---
Assessment and Plan - Time spent with patient Time spent with patient: Less than 30 minutes (1) Congestive heart failure Status: Acute Assessment and plan: See plan of care listed below. Current Visit: No Qualifiers: Congestive heart failure type: combined Congestive heart failure chronicity : acute Qualified Code(s): I50.41 - Acute combined systolic (congestive) and diastolic (congestive) heart failure (2) CAD (coronary artery disease) Status: Chronic Assessment and plan: See plan of care listed below. Current Visit: No Qualifiers: Coronary Disease-Associated Artery/Lesion type: [place] artery [place] vs. transplanted heart: [place] heart Associated angina: without angina Qualified Code(s): I25.10 - Atherosclerotic heart disease of [place] coronary artery without angina pectoris (3) Hyponatremia Status: Acute Assessment and plan: See plan of care listed below. Current Visit: Yes (4) Hypertension Status: Chronic Assessment and plan: See plan of care listed below. Current Visit: No (5) Cardiomyopathy Status: Chronic Assessment and plan: See plan of care listed below. Current Visit: No Qualifiers: Cardiomyopathy type: ischemic Qualified Code(s): I25.5 - Ischemic cardiomyopathy (6) Hyperlipidemia Status: Chronic Assessment and plan: See plan of care listed below. Current Visit: No (7) Anemia Status: Chronic Assessment and plan: See plan of care listed below. 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 Echocardiogram March 14, 2017: EF 20%, grade 3 diastolic dysfunction, without significant valvular abnormality. March 22, 2017 underwent CABG X 2 (DE [place] - LAD, SVG - OM). Past medical history, hypertension, diabetes, hyperlipidemia, chronic anemia, and breast cancer status post left mastectomy. She is readmitted with heart failure, lower extremity edema and shortness of breath, hyponatremia. April 16, 2017 UPDATE: She has diuresed well, although she remains positive in her I&Os. Continue Lasix 80mg IV BID, anticipate transitioning to PO tomorrow. Her lungs sound good today and she only has mild peripheral edema. Sodium is improving, up to 130 today. Creatinine 1.0, potassium 3.6. Vital signs are stable. She is maintaining a normal sinus rhythm. She is ambulatory around her room and to the restroom without difficulty. She continues to have some orthopnea and reports she is unable to lie flat to sleep. Impression/plan: 1. Shortness of breath-we will treat this as congestive heart failure secondary to systolic dysfunction. Continue diuresis. BNP remains elevated > 2000. 2. Coronary artery disease-clinically this appears to be stable. She is status post CABG March 2017. 3. Hyponatremia-this has improved mildly overnight. She appears to be volume overloaded so we are going to try diuresis and monitor her sodium. 4. History of hypertension- Coreg was changed to Bystolic and see if this improves her symptoms of shortness of breath. 5. Cardiomyopathy-presumably there is an ischemic component. She has been started on FLY inhibitor. 6. Hyperlipidemia-chronic. 7. History of anemia-chronic and stable. Exam (Progress Note) - Constitutional Vitals: Period Temp Pulse Resp BP Sys/Gaitan Pulse Ox Last 24 Hr 97.5 F-98.5 F 84-88 18-18 120-131/54-73 92-98 Exam: General: Present: Appears Well, No Apparent Distress. Pleasant and cooperative. HEENT: Present: PERRL, Normocephaly, atraumatic. Mucus Membranes Moist. No jaundice noted. Conjunctiva moist and clear. Neck: Present: Supple Neck, Midline Trachea, No Masses, No Bruit, No tenderness Cardiac: Present: Regular Rate and Rhythm, No Murmur Lungs: Present: clear to auscultation bilaterally, no wheezes, rhonchi, rales. Neuro: Present: Awake, alert, and oriented x3. Moves all extremities well without hemiparesis or paralysis. Grossly Intact. Absent: Resting Tremor, Essential Tremor Abdomen: Present: Soft, Active Bowel Sounds, No Masses, Non-Tender, nondistended. No abdominal bruit or thrill noted. Skin: Present: Clear. Midsternal surgical incision and BLE medial surgical incisions healing well, no erythema, edema, or drainage. Absent: Rash, No skin breakdown. Back: Normal inspection, no vertebral tenderness. Musculoskeletal: Present: No Fluid Collection, No Pain, Normal Range of Motion Extremities: Present: Normal Gait, No Clubbing, No Cyanosis, Upper Extr. Pulses 2+, Lower Extr. Pulses 2+, 1+ BLE edema. Capillary refill less than 3 seconds. Result/EKG - Labs CBC & BMP: 04/16/17 05:23 04/16/17 05:23 Lab Results: I have reviewed the past 24 hour labs Labs: Laboratory Results - last 24 hr 04/15/17 04/15/17 04/16/17 16:13 19:33 05:23 WBC 6.5 RBC 3.30 L Hgb 10.2 L Hct 28.7 L MCV 87.0 MCH 31 MCHC 35.5 RDW 13.6 Plt Count 358 MPV 8.4 L Neut % (Auto) 70.3 Lymph % (Auto) 15.7 L [place] % (Auto) 11.1 Eos % (Auto) 1.8 Baso % (Auto) 0.6 Neut # (Auto) 4.6 Lymph # (Auto) 1.0 L [place] # (Auto) 0.7 Eos # (Auto) 0.1 Baso # (Auto) 0.0 Immature Gran % 0.5 Nucleated RBC % 0.0 Immature Gran # 0.03 Nucleated RBCs # 0.00 Immature Plt Fraction 0.0 Sodium Potassium Chloride Carbon Dioxide Anion Gap BUN Creatinine GFR Calculation BUN/Creatinine Ratio Glucose POC Glucose 252 H 237 H Calculated Osmolality Calcium Magnesium B-Natriuretic Peptide 04/16/17 04/16/17 04/16/17 05:23 05:23 07:23 WBC RBC Hgb Hct MCV MCH MCHC RDW Plt Count MPV Neut % (Auto) Lymph % (Auto) [place] % (Auto) Eos % (Auto) Baso % (Auto) Neut # (Auto) Lymph # (Auto) [place] # (Auto) Eos # (Auto) Baso # (Auto) Immature Gran % Nucleated RBC % Immature Gran # Nucleated RBCs # Immature Plt Fraction Sodium 130 L Potassium 3.6 Chloride 89 L Carbon Dioxide 30 Anion Gap 14.6 BUN 17 Creatinine 1.00 GFR Calculation 71 BUN/Creatinine Ratio 17.00 Glucose 73 L POC Glucose 107 H Calculated Osmolality 260.8 L Calcium 8.7 Magnesium 1.8 B-Natriuretic Peptide 2439 H 04/16/17 12:28 WBC RBC Hgb Hct MCV MCH MCHC RDW Plt Count MPV Neut % (Auto) Lymph % (Auto) [place] % (Auto) Eos % (Auto) Baso % (Auto) Neut # (Auto) Lymph # (Auto) [place] # (Auto) Eos # (Auto) Baso # (Auto) Immature Gran % Nucleated RBC % Immature Gran # Nucleated RBCs # Immature Plt Fraction Sodium Potassium Chloride Carbon Dioxide Anion Gap BUN Creatinine GFR Calculation BUN/Creatinine Ratio Glucose POC Glucose 198 H Calculated Osmolality Calcium Magnesium B-Natriuretic Peptide - EKG EKG results: interpreted by me, sinus rhythm
[2017-04-16] MEDS: INSULIN NPH 100 UNIT/ML SUBCUT SCH (16:39)
[2017-04-16] MEDS: ENOXAPARIN 30 MG/0.3 ML SYRINGE SUBCUT SCH (16:39)
[2017-04-16] MEDS: ATORVASTATIN 80 MG TABLET PO SCH (20:51)
[2017-04-16] MEDS: AMITRIPTYLINE 25 MG TABLET PO SCH (20:51)
[2017-04-16] MEDS: ASPIRIN EC 81 MG TABLET PO SCH (20:51)
[2017-04-17 04:57] LABS: Basophils # 0.1 10*3/uL (0.0-0.2); Basophils % 0.9 % (0.0-0.8); Eosinophils # 0.2 10*3/uL (0.0-0.87); Hemoglobin 10.6 GM/DL (12.0-16.0); Immature Granulocytes % 0.3 %; Immature Granulocytes Absolute 0.02 #; Lymphocytes # 1.2 10*3/uL (1.4-4.0); Lymphocytes % 21.2 % (21.3-54.2); Mean Corpuscular HGB Conc 34.2 GM/DL (32-36); Mean Corpuscular Hemoglobin 31 PG (27-34); Mean Corpuscular Volume 89.1 FL (87-102); Mean Platelet Volume 8.6 FL (9.6-12.0); Monocytes # 0.7 10*3/uL (0.11-0.8); Monocytes % 12.8 % (1.7-12.7); Neutrophils # 3.5 10*3/uL (1.4-7.4); Neutrophils % 60.8 % (38.7-73.9); Platelet Count 402 T/CUMM (130-400); Red Blood Count 3.48 MC/CUMM (3.8-5.5); Red Cell Distribution Width 14.1 % (9.3-17.3); White Blood Count 5.7 T/CUMM (4-12)
[2017-04-17 05:15] LABS: Magnesium 1.8 MG/DL (1.8-2.4); Osmolality,Calculated 263.7 MOS/KG (273-304); Potassium 3.7 MMOL/L (3.5-5.1)
[2017-04-17 05:19] LABS: Bilirubin,Direct 0.1 MG/DL (0.0-0.20); Bilirubin,Indirect 0.3 MG/DL (0.0-1.0); Bilirubin,Total 0.4 MG/DL (0.2-1.0); Total Protein 6.1 G/DL (6.4-8.3)
--- NOTE | 2017-04-17 08:22 | XRay Report ---
XR chest 1V portable Indication: Congestive heart failure, pulmonary edema Comparison: 15 April 2017 Findings: The heart and mediastinum are stable in size and configuration with cardiac surgery changes. The pulmonary vascularity is normal in caliber. Linear left lung density is similar to previous. No other lung infiltrates, effusions, pneumothorax or other abnormality is demonstrated. Impression: No significant change. PROCEDURE INTERPRETED AT [facility] DEPARTMENT OF RADIOLOGY Final Report Signed by: Dr. Saeid Soler
[2017-04-17] MEDS: FOSINOPRIL 20 MG TABLET PO SCH (09:27)
[2017-04-17] MEDS: MULTIVITAMIN (CENTRUM) TABLET PO SCH (09:27)
[2017-04-17] MEDS: metFORMIN 500 MG TABLET PO SCH ×2 (09:27→16:31)
[2017-04-17] MEDS: FERROUS SULFATE 325 MG TABLET PO SCH (09:27)
[2017-04-17] MEDS: LORATADINE 10 MG TABLET PO SCH (09:27)
[2017-04-17] MEDS: NEBIVOLOL 5 MG TABLET PO SCH (09:28)
[2017-04-17] MEDS: PANTOPRAZOLE 40 MG TABLET PO SCH (09:28)
[2017-04-17] MEDS: MAGNESIUM HYDROXIDE SUSP 30 ML UDCUP PO PRN (09:28)
[2017-04-17] MEDS: PARoxetine 10 MG TABLET PO SCH (09:28)
[2017-04-17] MEDS: DOCUSATE SODIUM 100 MG CAPSULE PO SCH ×2 (09:28→21:25)
[2017-04-17] MEDS: INSULIN NPH 100 UNIT/ML SUBCUT SCH ×2 (09:30→16:31)
[2017-04-17] MEDS: FUROSEMIDE 40 MG/4 ML VIAL IV SCH (09:32)
--- NOTE | 2017-04-17 11:24 | Cardiology Progress Note ---
Assessment and Plan - Time spent with patient Time spent with patient: Less than 30 minutes (1) Congestive heart failure Status: Acute Assessment and plan: See plan of care listed below. Current Visit: No Qualifiers: Congestive heart failure type: combined Congestive heart failure chronicity : acute Qualified Code(s): I50.41 - Acute combined systolic (congestive) and diastolic (congestive) heart failure (2) CAD (coronary artery disease) Status: Chronic Assessment and plan: See plan of care listed below. Current Visit: No Qualifiers: Coronary Disease-Associated Artery/Lesion type: [place] artery [place] vs. transplanted heart: [place] heart Associated angina: without angina Qualified Code(s): I25.10 - Atherosclerotic heart disease of [place] coronary artery without angina pectoris (3) Hyponatremia Status: Acute Assessment and plan: See plan of care listed below. Current Visit: Yes (4) Hypertension Status: Chronic Assessment and plan: See plan of care listed below. Current Visit: No (5) Cardiomyopathy Status: Chronic Assessment and plan: See plan of care listed below. Current Visit: No Qualifiers: Cardiomyopathy type: ischemic Qualified Code(s): I25.5 - Ischemic cardiomyopathy (6) Hyperlipidemia Status: Chronic Assessment and plan: See plan of care listed below. Current Visit: No (7) Anemia Status: Chronic Assessment and plan: See plan of care listed below. 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 Echocardiogram March 14, 2017: EF 20%, grade 3 diastolic dysfunction, without significant valvular abnormality. March 22, 2017 underwent CABG X 2 (DE [place] - LAD, SVG - OM). Past medical history, hypertension, diabetes, hyperlipidemia, chronic anemia, and breast cancer status post left mastectomy. She is readmitted with heart failure, lower extremity edema and shortness of breath, hyponatremia. April 17, 2017 UPDATE: Ms. Shelley is resting today upon exam. She has diuresed well and has lost 8 pounds since admission. Continue Lasix 80mg BID, transition to PO. Her lungs sound good today and she only has mild peripheral edema which is gradually improving. Sodium is improving, up to 131 today. Creatinine 1.2, potassium 3.7. Vital signs are stable. She is maintaining a normal sinus rhythm. She is ambulatory around her room and to the restroom without difficulty. She continues to have some orthopnea and reports she is unable to lie completely flat to sleep. Impression/plan: 1. Shortness of breath-we will treat this as congestive heart failure secondary to systolic dysfunction. Continue diuresis. BNP down to 1364. 2. Coronary artery disease-clinically this appears to be stable. She is status post CABG March 2017. 3. Hyponatremia-this has improved mildly overnight. She appears to be volume overloaded so we are going to try diuresis and monitor her sodium. 4. History of hypertension- Coreg was changed to Bystolic and see if this improves her symptoms of shortness of breath. 5. Cardiomyopathy-presumably there is an ischemic component. Continue ASA, beta yadira, FLY, statin. 6. Hyperlipidemia-chronic. 7. History of anemia-chronic and stable. Exam (Progress Note) - Constitutional Vitals: Period Temp Pulse Resp BP Sys/Gaitan Pulse Ox Last 24 Hr 96.6 F-98.4 F 80-88 16-20 101-123/41-70 93-100 Exam: General: Present: Appears Well, No Apparent Distress. Pleasant and cooperative. HEENT: Present: PERRL, Normocephaly, atraumatic. Mucus Membranes Moist. No jaundice noted. Conjunctiva moist and clear. Neck: Present: Supple Neck, Midline Trachea, No Masses, No Bruit, No tenderness Cardiac: Present: Regular Rate and Rhythm, No Murmur Lungs: Present: clear to auscultation bilaterally, no wheezes, rhonchi, rales. Neuro: Present: Awake, alert, and oriented x3. Moves all extremities well without hemiparesis or paralysis. Grossly Intact. Absent: Resting Tremor, Essential Tremor Abdomen: Present: Soft, Active Bowel Sounds, No Masses, Non-Tender, nondistended. No abdominal bruit or thrill noted. Skin: Present: Clear. Midsternal surgical incision and BLE medial surgical incisions healing well, no erythema, edema, or drainage. Absent: Rash, No skin breakdown. Back: Normal inspection, no vertebral tenderness. Musculoskeletal: Present: No Fluid Collection, No Pain, Normal Range of Motion Extremities: Present: Normal Gait, No Clubbing, No Cyanosis, Upper Extr. Pulses 2+, Lower Extr. Pulses 2+, Trace BLE edema. Capillary refill less than 3 seconds. Result/EKG - Labs CBC & BMP: 04/17/17 03:30 04/17/17 03:30 Lab Results: I have reviewed the past 24 hour labs Labs: Laboratory Results - last 24 hr 04/16/17 04/16/17 04/17/17 12:28 16:02 03:30 WBC RBC Hgb Hct MCV MCH MCHC RDW Plt Count MPV Neut % (Auto) Lymph % (Auto) [place] % (Auto) Eos % (Auto) Baso % (Auto) Neut # (Auto) Lymph # (Auto) [place] # (Auto) Eos # (Auto) Baso # (Auto) Immature Gran % Nucleated RBC % Immature Gran # Nucleated RBCs # Immature Plt Fraction Sodium 131 L Potassium 3.7 Chloride 90 L Carbon Dioxide 33 H Anion Gap 11.7 BUN 17 Creatinine 1.20 H GFR Calculation 57 BUN/Creatinine Ratio 14.00 Glucose 97 POC Glucose 198 H 158 H Calculated Osmolality 263.7 L Calcium 9.0 Magnesium 1.8 Total Bilirubin Direct Bilirubin Indirect Bilirubin AST ALT Alkaline Phosphatase B-Natriuretic Peptide Total Protein Albumin 04/17/17 04/17/17 04/17/17 03:30 03:30 03:30 WBC 5.7 RBC 3.48 L Hgb 10.6 L Hct 31.0 L MCV 89.1 MCH 31 MCHC 34.2 RDW 14.1 Plt Count 402 H MPV 8.6 L Neut % (Auto) 60.8 Lymph % (Auto) 21.2 L [place] % (Auto) 12.8 H Eos % (Auto) 4.0 Baso % (Auto) 0.9 H Neut # (Auto) 3.5 Lymph # (Auto) 1.2 L [place] # (Auto) 0.7 Eos # (Auto) 0.2 Baso # (Auto) 0.1 Immature Gran % 0.3 Nucleated RBC % 0.0 Immature Gran # 0.02 Nucleated RBCs # 0.00 Immature Plt Fraction 0.0 Sodium Potassium Chloride Carbon Dioxide Anion Gap BUN Creatinine GFR Calculation BUN/Creatinine Ratio Glucose POC Glucose Calculated Osmolality Calcium Magnesium Total Bilirubin 0.40 Direct Bilirubin 0.10 Indirect Bilirubin 0.3 AST 48 H ALT 168 H Alkaline Phosphatase 150 H B-Natriuretic Peptide 1364 H Total Protein 6.1 L Albumin 3.0 L 04/17/17 07:52 WBC RBC Hgb Hct MCV MCH MCHC RDW Plt Count MPV Neut % (Auto) Lymph % (Auto) [place] % (Auto) Eos % (Auto) Baso % (Auto) Neut # (Auto) Lymph # (Auto) [place] # (Auto) Eos # (Auto) Baso # (Auto) Immature Gran % Nucleated RBC % Immature Gran # Nucleated RBCs # Immature Plt Fraction Sodium Potassium Chloride Carbon Dioxide Anion Gap BUN Creatinine GFR Calculation BUN/Creatinine Ratio Glucose POC Glucose 135 H Calculated Osmolality Calcium Magnesium Total Bilirubin Direct Bilirubin Indirect Bilirubin AST ALT Alkaline Phosphatase B-Natriuretic Peptide Total Protein Albumin - EKG EKG results: interpreted by me, sinus rhythm
--- NOTE | 2017-04-17 11:43 | Hospitalist Progress Note ---
Hospitalist: Subjective Interval history: Ms. Shelley has acute on chronic combined systolic and diastolic congestive heart failure. She has coronary artery disease status post coronary artery bypass graft surgery. She has been treated with intravenous furosemide for her acute on chronic congestive heart failure. She has undergone significant diuresis and feels significantly improved. She is presently being followed by cardiology. Exam - Constitutional Vitals: Period Temp Pulse Resp BP Sys/Gaitan Pulse Ox Last 24 Hr 96.6 F-98.4 F 80-99 16-20 101-129/41-70 93-100 General appearance: normal weight, no acute distress - Head Head exam: Present: normal inspection - Neck Neck exam: Present: normal inspection - Respiratory Respiratory exam: Present: clear to auscultation bilaterally - Cardiovascular Cardiovascular exam: Present: regular rate and rhythm - GI/Abdominal GI/Abdominal exam: Present: normal bowel sounds, soft, other (Nontender with no palpable masses or hepatosplenomegaly.) - Extremities Exam Extremities exam: Present: normal inspection, other (No edema.) - Neurological Exam Neurological exam: Present: alert, oriented X3 - Skin Skin exam: Present: normal color, warm Results - Labs CBC & BMP: 04/17/17 03:30 04/17/17 03:30
[2017-04-17] MEDS: FUROSEMIDE 80 MG TABLET PO SCH (16:30)
[2017-04-17] MEDS: ENOXAPARIN 30 MG/0.3 ML SYRINGE SUBCUT SCH (16:31)
[2017-04-17] MEDS: ATORVASTATIN 80 MG TABLET PO SCH (21:25)
[2017-04-17] MEDS: ASPIRIN EC 81 MG TABLET PO SCH (21:25)
[2017-04-17] MEDS: AMITRIPTYLINE 25 MG TABLET PO SCH (21:25)
[2017-04-17] MEDS: ONDANSETRON 4 MG/2 ML VIAL IV PRN (21:33)
[2017-04-18 05:16] LABS: Basophils % 0.3 % (0.0-0.8); Eosinophils % 0.1 % (0.00-10.9); Hemoglobin 9.7 GM/DL (12.0-16.0); Immature Granulocytes % 0.5 %; Immature Granulocytes Absolute 0.05 #; Lymphocytes # 0.3 10*3/uL (1.4-4.0); Lymphocytes % 3.1 % (21.3-54.2); Mean Corpuscular HGB Conc 34.6 GM/DL (32-36); Mean Corpuscular Hemoglobin 31 PG (27-34); Mean Corpuscular Volume 89.2 FL (87-102); Mean Platelet Volume 8.6 FL (9.6-12.0); Monocytes # 0.5 10*3/uL (0.11-0.8); Monocytes % 4.9 % (1.7-12.7); Neutrophils # 10.1 10*3/uL (1.4-7.4); Neutrophils % 91.1 % (38.7-73.9); Platelet Count 284 T/CUMM (130-400); Red Blood Count 3.14 MC/CUMM (3.8-5.5); Red Cell Distribution Width 14.2 % (9.3-17.3); White Blood Count 11.1 T/CUMM (4-12)
[2017-04-18 05:40] LABS: Acanthocytes Few; Band Neutrophils 7 % (0-10); Hypochromasia 1+; Lymphocytes 1 % (20-55); Platelet Estimate Normal; Segmented Neutrophils 87 % (50-85); Total Cells Counted 100
[2017-04-18 05:41] LABS: Burr Cells Slight; Microcytosis Slight
[2017-04-18 05:44] LABS: Calcium 8.4 MG/DL (8.5-10.1); Magnesium 1.5 MG/DL (1.8-2.4); Osmolality,Calculated 258.2 MOS/KG (273-304); Potassium 3.7 MMOL/L (3.5-5.1)
[2017-04-18 07:13] LABS: Calcium 8.7 MG/DL (8.5-10.1); Osmolality,Calculated 254.5 MOS/KG (273-304); Potassium 3.6 MMOL/L (3.5-5.1)
[2017-04-18] MEDS: metFORMIN 500 MG TABLET PO SCH ×2 (08:39→16:09)
[2017-04-18] MEDS: FUROSEMIDE 80 MG TABLET PO SCH (08:40)
[2017-04-18] MEDS: NEBIVOLOL 5 MG TABLET PO SCH (08:40)
[2017-04-18] MEDS: LORATADINE 10 MG TABLET PO SCH (08:41)
[2017-04-18] MEDS: FERROUS SULFATE 325 MG TABLET PO SCH (08:41)
[2017-04-18] MEDS: DOCUSATE SODIUM 100 MG CAPSULE PO SCH ×2 (08:41→21:00)
[2017-04-18] MEDS: PARoxetine 10 MG TABLET PO SCH (08:41)
[2017-04-18] MEDS: INSULIN NPH 100 UNIT/ML SUBCUT SCH ×2 (08:41→17:20)
[2017-04-18] MEDS: PANTOPRAZOLE 40 MG TABLET PO SCH (08:41)
[2017-04-18] MEDS: FOSINOPRIL 20 MG TABLET PO SCH (08:45)
--- NOTE | 2017-04-18 10:41 | Hospitalist Progress Note ---
Assessment and Plan (1) Congestive heart failure Status: Acute Assessment and plan: She has acute on chronic systolic congestive heart failure, that is significantly improved since her hospitalization. Current Visit: No Qualifiers: Congestive heart failure type: combined Congestive heart failure chronicity : acute Qualified Code(s): I50.41 - Acute combined systolic (congestive) and diastolic (congestive) heart failure (2) Insulin dependent diabetes mellitus Status: Chronic Assessment and plan: Most recent blood glucose is 136. She will continue on her present diabetic regimen. Current Visit: No (3) Hypertension Status: Chronic Assessment and plan: Her blood pressure today is 106/71. Current Visit: No (4) CAD (coronary artery disease) Status: Chronic Assessment and plan: She is stable status post coronary artery bypass graft surgery. She is not presently experiencing chest pain. Current Visit: No Qualifiers: Coronary Disease-Associated Artery/Lesion type: [place] artery [place] vs. transplanted heart: [place] heart Associated angina: without angina Qualified Code(s): I25.10 - Atherosclerotic heart disease of [place] coronary artery without angina pectoris (5) Ischemic cardiomyopathy Status: Acute Current Visit: No Hospitalist: Subjective Interval history: She is doing very well. She is not experiencing any shortness of breath, swelling of her feet, or chest pain. She continues undergoing diuresis as per cardiology. Exam - Constitutional Vitals: Period Temp Pulse Resp BP Sys/Gaitan Pulse Ox Last 24 Hr 96.7 F-99.0 F 89-120 16-20 106-136/48-71 90-100 General appearance: normal weight, no acute distress - Head Head exam: Present: normal inspection - Neck Neck exam: Present: normal inspection - Respiratory Respiratory exam: Present: clear to auscultation bilaterally - Cardiovascular Cardiovascular exam: Present: regular rate and rhythm - GI/Abdominal GI/Abdominal exam: Present: normal bowel sounds, soft, other (Nontender with no palpable masses or hepatosplenomegaly.) - Extremities Exam Extremities exam: Present: normal inspection, other (No edema.) - Neurological Exam Neurological exam: Present: alert, oriented X3 - Psychiatric Psychiatric exam: Present: normal affect - Skin Skin exam: Present: normal color, warm, intact Results - Labs CBC & BMP: 04/18/17 04:15 04/18/17 04:15
--- NOTE | 2017-04-18 11:59 | Cardiology Progress Note ---
Assessment and Plan - Time spent with patient Time spent with patient: Less than 30 minutes (1) Congestive heart failure Status: Acute Assessment and plan: See plan of care listed below. Current Visit: No Qualifiers: Congestive heart failure type: combined Congestive heart failure chronicity : acute Qualified Code(s): I50.41 - Acute combined systolic (congestive) and diastolic (congestive) heart failure (2) CAD (coronary artery disease) Status: Chronic Assessment and plan: See plan of care listed below. Current Visit: No Qualifiers: Coronary Disease-Associated Artery/Lesion type: [place] artery [place] vs. transplanted heart: [place] heart Associated angina: without angina Qualified Code(s): I25.10 - Atherosclerotic heart disease of [place] coronary artery without angina pectoris (3) Hyponatremia Status: Acute Assessment and plan: See plan of care listed below. Current Visit: Yes (4) Hypertension Status: Chronic Assessment and plan: See plan of care listed below. Current Visit: No (5) Cardiomyopathy Status: Chronic Assessment and plan: See plan of care listed below. Current Visit: No Qualifiers: Cardiomyopathy type: ischemic Qualified Code(s): I25.5 - Ischemic cardiomyopathy (6) Hyperlipidemia Status: Chronic Assessment and plan: See plan of care listed below. Current Visit: No (7) Anemia Status: Chronic Assessment and plan: See plan of care listed below. 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 Echocardiogram March 14, 2017: EF 20%, grade 3 diastolic dysfunction, without significant valvular abnormality. March 22, 2017 underwent CABG X 2 (DE [place] - LAD, SVG - OM). Past medical history, hypertension, diabetes, hyperlipidemia, chronic anemia, and breast cancer status post left mastectomy. She is readmitted with heart failure, lower extremity edema and shortness of breath, hyponatremia. April 18, 2017 UPDATE: Ms. Shelley looks well today. She has diuresed well and has lost 8 pounds since admission. We have transitioned her to PO lasix. Labs look little worse today. Her sodium dropped to 127. Creatinine increased to 1.3. BNP is up to 2580 today. She still looks good today and is feeling about the same. Vital signs are stable. She is maintaining a normal sinus rhythm. She is ambulatory around her room and to the restroom without difficulty. She continues to have some orthopnea and reports she is unable to lie completely flat to sleep. We will continue to monitor her progress. Impression/plan: 1. Shortness of breath-we will treat this as congestive heart failure secondary to systolic dysfunction. Continue diuresis. 2. Coronary artery disease-clinically this appears to be stable. She is status post CABG March 2017. 3. Hyponatremia-this has improved mildly overnight. She appears to be volume overloaded so we are going to try diuresis and monitor her sodium. 4. History of hypertension- Coreg was changed to Bystolic and see if this improves her symptoms of shortness of breath. 5. Cardiomyopathy-presumably there is an ischemic component. Continue ASA, beta yadira, FLY, statin. 6. Hyperlipidemia-chronic. 7. History of anemia-chronic and stable. Exam (Progress Note) - Constitutional Vitals: Period Temp Pulse Resp BP Sys/Gaitan Pulse Ox Last 24 Hr 96.9 F-99.0 F 87-120 16-20 101-136/48-71 0-100 Exam: General: Present: Appears Well, No Apparent Distress. Pleasant and cooperative. HEENT: Present: PERRL, Normocephaly, atraumatic. Mucus Membranes Moist. No jaundice noted. Conjunctiva moist and clear. Neck: Present: Supple Neck, Midline Trachea, No Masses, No Bruit, No tenderness Cardiac: Present: Regular Rate and Rhythm, No Murmur Lungs: Present: clear to auscultation bilaterally, no wheezes, rhonchi, rales. Neuro: Present: Awake, alert, and oriented x3. Moves all extremities well without hemiparesis or paralysis. Grossly Intact. Absent: Resting Tremor, Essential Tremor Abdomen: Present: Soft, Active Bowel Sounds, No Masses, Non-Tender, nondistended. No abdominal bruit or thrill noted. Skin: Present: Clear. Midsternal surgical incision and BLE medial surgical incisions healing well, no erythema, edema, or drainage. Absent: Rash, No skin breakdown. Back: Normal inspection, no vertebral tenderness. Musculoskeletal: Present: No Fluid Collection, No Pain, Normal Range of Motion Extremities: Present: Normal Gait, No Clubbing, No Cyanosis, Upper Extr. Pulses 2+, Lower Extr. Pulses 2+, 1+ BLE edema. Capillary refill less than 3 seconds. Result/EKG - Labs CBC & BMP: 04/18/17 04:15 04/18/17 04:15 Lab Results: I have reviewed the past 24 hour labs Labs: Laboratory Results - last 24 hr 04/17/17 04/17/17 04/17/17 11:22 15:55 20:08 WBC RBC Hgb Hct MCV MCH MCHC RDW Plt Count MPV Neut % (Auto) Lymph % (Auto) [place] % (Auto) Eos % (Auto) Baso % (Auto) Neut # (Auto) Lymph # (Auto) [place] # (Auto) Eos # (Auto) Baso # (Auto) Total Counted Immature Gran % Nucleated RBC % Immature Gran # Segmented Neutrophils Band Neutrophils Lymphocytes Monocytes Nucleated RBCs # Platelet Estimate Immature Plt Fraction Hypochromasia Microcytosis Jesse Cells Acanthocytes (Spur) Morphology Comment Sodium Potassium Chloride Carbon Dioxide Anion Gap BUN Creatinine GFR Calculation BUN/Creatinine Ratio Glucose POC Glucose 261 H 215 H 165 H Calculated Osmolality Calcium Magnesium B-Natriuretic Peptide 04/18/17 04/18/17 04/18/17 04:15 04:15 04:15 WBC 11.1 D RBC 3.14 L Hgb 9.7 L Hct 28.0 L MCV 89.2 MCH 31 MCHC 34.6 RDW 14.2 Plt Count 284 D MPV 8.6 L Neut % (Auto) 91.1 H Lymph % (Auto) 3.1 L [place] % (Auto) 4.9 Eos % (Auto) 0.1 Baso % (Auto) 0.3 Neut # (Auto) 10.1 H Lymph # (Auto) 0.3 L [place] # (Auto) 0.5 Eos # (Auto) 0.0 Baso # (Auto) 0.0 Total Counted 100 Immature Gran % 0.5 Nucleated RBC % 0.0 Immature Gran # 0.05 Segmented Neutrophils 87 H Band Neutrophils 7 Lymphocytes 1 L Monocytes 5 Nucleated RBCs # 0.00 Platelet Estimate Normal Immature Plt Fraction 0.0 Hypochromasia 1+ Microcytosis Slight [place] Cells Slight Acanthocytes ([place]ur) Few Morphology Comment Sodium 125 L 127 L Potassium 3.6 3.7 Chloride 87 L 87 L Carbon Dioxide 32 32 Anion Gap 9.6 11.7 BUN 17 18 Creatinine 1.20 H 1.30 H GFR Calculation 56 51 BUN/Creatinine Ratio 14.00 13.00 Glucose 139 H 136 H POC Glucose Calculated Osmolality 254.5 L 258.2 L Calcium 8.7 8.4 L Magnesium 1.5 L B-Natriuretic Peptide 04/18/17 04/18/17 04:15 07:33 WBC RBC Hgb Hct MCV MCH MCHC RDW Plt Count MPV Neut % (Auto) Lymph % (Auto) [place] % (Auto) Eos % (Auto) Baso % (Auto) Neut # (Auto) Lymph # (Auto) [place] # (Auto) Eos # (Auto) Baso # (Auto) Total Counted Immature Gran % Nucleated RBC % Immature Gran # Segmented Neutrophils Band Neutrophils Lymphocytes Monocytes Nucleated RBCs # Platelet Estimate Immature Plt Fraction Hypochromasia Microcytosis Jesse Cells Acanthocytes ([place]ur) Morphology Comment Sodium Potassium Chloride Carbon Dioxide Anion Gap BUN Creatinine GFR Calculation BUN/Creatinine Ratio Glucose POC Glucose 166 H Calculated Osmolality Calcium Magnesium B-Natriuretic Peptide 2580 H - EKG EKG results: interpreted by me, sinus rhythm
[2017-04-18] MEDS: ACETAMINOPHEN 325 MG TABLET PO PRN (12:23)
[2017-04-18] MEDS: metOLazone 5 MG TABLET PO SCH (16:09)
[2017-04-18] MEDS: FUROSEMIDE 40 MG/4 ML VIAL IV SCH (16:11)
[2017-04-18] MEDS: ENOXAPARIN 30 MG/0.3 ML SYRINGE SUBCUT SCH (16:11)
[2017-04-18] MEDS: MAGNESIUM HYDROXIDE SUSP 30 ML UDCUP PO PRN (18:25)
[2017-04-18] MEDS: ATORVASTATIN 80 MG TABLET PO SCH (21:00)
[2017-04-18] MEDS: AMITRIPTYLINE 25 MG TABLET PO SCH (21:00)
[2017-04-18] MEDS: ASPIRIN EC 81 MG TABLET PO SCH (21:00)
[2017-04-19 05:33] LABS: Basophils % 0.5 % (0.0-0.8); Eosinophils # 0.1 10*3/uL (0.0-0.87); Eosinophils % 1.6 % (0.00-10.9); Hemoglobin 9.8 GM/DL (12.0-16.0); Immature Granulocytes % 0.5 %; Immature Granulocytes Absolute 0.04 #; Lymphocytes # 0.9 10*3/uL (1.4-4.0); Lymphocytes % 10.4 % (21.3-54.2); Mean Corpuscular Hemoglobin 31 PG (27-34); Mean Corpuscular Volume 88.9 FL (87-102); Mean Platelet Volume 8.6 FL (9.6-12.0); Monocytes % 11.5 % (1.7-12.7); Neutrophils # 6.2 10*3/uL (1.4-7.4); Neutrophils % 75.5 % (38.7-73.9); Platelet Count 260 T/CUMM (130-400); Red Blood Count 3.15 MC/CUMM (3.8-5.5); Red Cell Distribution Width 14.2 % (9.3-17.3); White Blood Count 8.3 T/CUMM (4-12)
[2017-04-19 05:53] LABS: Calcium 8.6 MG/DL (8.5-10.1); Magnesium 1.9 MG/DL (1.8-2.4); Osmolality,Calculated 255.6 MOS/KG (273-304)
[2017-04-19 06:28] LABS: Band Neutrophils 8 % (0-10); Burr Cells 2+; Hypochromasia 2+; Lymphocytes 16 % (20-55); Microcytosis 2+; Platelet Estimate Adequate; Segmented Neutrophils 68 % (50-85); Target Cells Slight; Total Cells Counted 100
[2017-04-19] MEDS: FOSINOPRIL 20 MG TABLET PO SCH (09:43)
[2017-04-19] MEDS: PARoxetine 10 MG TABLET PO SCH (09:43)
[2017-04-19] MEDS: NEBIVOLOL 5 MG TABLET PO SCH (09:44)
[2017-04-19] MEDS: PANTOPRAZOLE 40 MG TABLET PO SCH (09:44)
[2017-04-19] MEDS: metFORMIN 500 MG TABLET PO SCH ×2 (09:44→16:32)
[2017-04-19] MEDS: LORATADINE 10 MG TABLET PO SCH (09:45)
[2017-04-19] MEDS: FUROSEMIDE 40 MG/4 ML VIAL IV SCH ×2 (09:45→16:33)
[2017-04-19] MEDS: INSULIN NPH 100 UNIT/ML SUBCUT SCH ×2 (09:45→16:33)
[2017-04-19] MEDS: FERROUS SULFATE 325 MG TABLET PO SCH (09:45)
[2017-04-19] MEDS: metOLazone 5 MG TABLET PO SCH (09:45)
[2017-04-19] MEDS: DOCUSATE SODIUM 100 MG CAPSULE PO SCH ×2 (09:45→20:20)
--- NOTE | 2017-04-19 10:15 | Hospitalist Progress Note ---
Assessment and Plan (1) Congestive heart failure Status: Acute Assessment and plan: She has acute on chronic systolic congestive heart failure, that is significantly improved since her hospitalization. I will continue to follow recommendations as per cardiology. Current Visit: No Qualifiers: Congestive heart failure type: combined Congestive heart failure chronicity : acute Qualified Code(s): I50.41 - Acute combined systolic (congestive) and diastolic (congestive) heart failure (2) Insulin dependent diabetes mellitus Status: Chronic Assessment and plan: Most recent blood glucose is 129. She will continue on her present diabetic regimen. Current Visit: No (3) Hypertension Status: Chronic Assessment and plan: Her blood pressure today is 111/55. Current Visit: No Qualifiers: Hypertension type: essential hypertension Qualified Code(s): I10 - Essential (primary) hypertension (4) CAD (coronary artery disease) Status: Chronic Assessment and plan: She is stable status post coronary artery bypass graft surgery. She is not presently experiencing chest pain. Current Visit: No Qualifiers: Coronary Disease-Associated Artery/Lesion type: [place] artery [place] vs. transplanted heart: [place] heart Associated angina: without angina Qualified Code(s): I25.10 - Atherosclerotic heart disease of [place] coronary artery without angina pectoris (5) Ischemic cardiomyopathy Status: Acute Current Visit: No Hospitalist: Subjective Interval history: Patient has acute on chronic systolic congestive heart failure and coronary artery disease status post coronary artery bypass graft surgery. She is undergoing intravenous furosemide diuresis. She is significantly improved since her hospitalization. She is being followed by cardiology. Exam - Constitutional Vitals: Period Temp Pulse Resp BP Sys/Gaitan Pulse Ox Last 24 Hr 97.2 F-98.1 F 73-92 18-18 101-112/50-68 0-99 General appearance: no acute distress - Head Head exam: Present: normal inspection - Neck Neck exam: Present: normal inspection - Respiratory Respiratory exam: Present: clear to auscultation bilaterally - Cardiovascular Cardiovascular exam: Present: regular rate and rhythm - GI/Abdominal GI/Abdominal exam: Present: normal bowel sounds, soft, other (Nontender with no palpable masses or hepatosplenomegaly.) - Extremities Exam Extremities exam: Present: normal inspection, other (No edema.) - Neurological Exam Neurological exam: Present: alert, oriented X3 - Psychiatric Psychiatric exam: Present: normal affect - Skin Skin exam: Present: normal color, warm, intact Results - Labs CBC & BMP: 04/19/17 04:52 04/19/17 04:52
--- NOTE | 2017-04-19 11:52 | Cardiology Progress Note ---
Assessment and Plan - Time spent with patient Time spent with patient: Less than 30 minutes (1) Congestive heart failure Status: Acute Assessment and plan: See plan of care listed below. Current Visit: No Qualifiers: Congestive heart failure type: combined Congestive heart failure chronicity : acute Qualified Code(s): I50.41 - Acute combined systolic (congestive) and diastolic (congestive) heart failure (2) CAD (coronary artery disease) Status: Chronic Assessment and plan: See plan of care listed below. Current Visit: No Qualifiers: Coronary Disease-Associated Artery/Lesion type: [place] artery [place] vs. transplanted heart: [place] heart Associated angina: without angina Qualified Code(s): I25.10 - Atherosclerotic heart disease of [place] coronary artery without angina pectoris (3) Hyponatremia Status: Acute Assessment and plan: See plan of care listed below. Current Visit: Yes (4) Hypertension Status: Chronic Assessment and plan: See plan of care listed below. Current Visit: No Qualifiers: Hypertension type: essential hypertension Qualified Code(s): I10 - Essential (primary) hypertension (5) Cardiomyopathy Status: Chronic Assessment and plan: See plan of care listed below. Current Visit: No Qualifiers: Cardiomyopathy type: ischemic Qualified Code(s): I25.5 - Ischemic cardiomyopathy (6) Hyperlipidemia Status: Chronic Assessment and plan: See plan of care listed below. Current Visit: No (7) Anemia Status: Chronic Assessment and plan: See plan of care listed below. 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 Echocardiogram March 14, 2017: EF 20%, grade 3 diastolic dysfunction, without significant valvular abnormality. March 22, 2017 underwent CABG X 2 ([place] - LAD, SVG - OM). Past medical history, hypertension, diabetes, hyperlipidemia, chronic anemia, and breast cancer status post left mastectomy. She is readmitted with heart failure, lower extremity edema and shortness of breath, hyponatremia. April 19, 2017 UPDATE: Ms. Shelley reports she is not feeling well today. She has had a few chills today but has been afebrile and WBC remains normal. She has a bit more edema today than yesterday. Creatinine and Na worse today. BNP has improved. Anticipate consulting nephrology for their input. Vital signs are stable. She is maintaining a normal sinus rhythm. She is ambulatory around her room and to the restroom without difficulty. She continues to have some orthopnea and reports she is unable to lie completely flat to sleep. We will continue to monitor her progress. Will further discuss with Dr. Luna and await additional recommendations. Impression/plan: 1. Shortness of breath - We are treating this as congestive heart failure secondary to systolic dysfunction. Continue diuresis. 2. Coronary artery disease - Clinically this appears to be stable. She is status post CABG March 2017. 3. Hyponatremia - She presented in volume overloaded so we are trying to diuresis and monitor her sodium. 4. History of hypertension - Coreg was changed to Bystolic to see if this improves her symptoms of shortness of breath. 5. Cardiomyopathy - presumably there is an ischemic component. Continue ASA, beta yadira, FLY, statin. 6. Hyperlipidemia - chronic. 7. History of anemia - chronic and stable. Exam (Progress Note) - Constitutional Vitals: Period Temp Pulse Resp BP Sys/Gaitan Pulse Ox Last 24 Hr 97.4 F-98.3 F 73-100 18-18 101-139/50-68 0-99 Exam: General: Present: Appears Well, No Apparent Distress. Pleasant and cooperative. HEENT: Present: PERRL, Normocephaly, atraumatic. Mucus Membranes Moist. No jaundice noted. Conjunctiva moist and clear. Neck: Present: Supple Neck, Midline Trachea, No Masses, No Bruit, No tenderness Cardiac: Present: Regular Rate and Rhythm, No Murmur Lungs: Present: clear to auscultation bilaterally, no wheezes, rhonchi, rales. Neuro: Present: Awake, alert, and oriented x3. Moves all extremities well without hemiparesis or paralysis. Grossly Intact. Absent: Resting Tremor, Essential Tremor Abdomen: Present: Soft, Active Bowel Sounds, No Masses, Non-Tender, nondistended. No abdominal bruit or thrill noted. Skin: Present: Clear. Midsternal surgical incision and BLE medial surgical incisions healing well, no erythema, edema, or drainage. Absent: Rash, No skin breakdown. Back: Normal inspection, no vertebral tenderness. Musculoskeletal: Present: No Fluid Collection, No Pain, Normal Range of Motion Extremities: Present: Normal Gait, No Clubbing, No Cyanosis, Upper Extr. Pulses 2+, Lower Extr. Pulses 2+, 1+ BLE edema. Capillary refill less than 3 seconds. Result/EKG - Labs CBC & BMP: 04/19/17 04:52 04/19/17 04:52 Lab Results: I have reviewed the past 24 hour labs Labs: Laboratory Results - last 24 hr 04/18/17 04/18/17 04/18/17 11:36 16:54 20:01 WBC RBC Hgb Hct MCV MCH MCHC RDW Plt Count MPV Neut % (Auto) Lymph % (Auto) [place] % (Auto) Eos % (Auto) Baso % (Auto) Neut # (Auto) Lymph # (Auto) [place] # (Auto) Eos # (Auto) Baso # (Auto) Total Counted Immature Gran % Nucleated RBC % Immature Gran # Segmented Neutrophils Band Neutrophils Lymphocytes Monocytes Nucleated RBCs # Platelet Estimate Immature Plt Fraction Hypochromasia Microcytosis Target Cells [place] Cells Sodium Potassium Chloride Carbon Dioxide Anion Gap BUN Creatinine GFR Calculation BUN/Creatinine Ratio Glucose POC Glucose 219 H 202 H 143 H Calculated Osmolality Calcium Magnesium B-Natriuretic Peptide 04/19/17 04/19/17 04/19/17 04:52 04:52 04:52 WBC 8.3 RBC 3.15 L Hgb 9.8 L Hct 28.0 L MCV 88.9 MCH 31 MCHC 35.0 RDW 14.2 Plt Count 260 MPV 8.6 L Neut % (Auto) 75.5 H Lymph % (Auto) 10.4 L [place] % (Auto) 11.5 Eos % (Auto) 1.6 Baso % (Auto) 0.5 Neut # (Auto) 6.2 Lymph # (Auto) 0.9 L [place] # (Auto) 1.0 H Eos # (Auto) 0.1 Baso # (Auto) 0.0 Total Counted 100 Immature Gran % 0.5 Nucleated RBC % 0.0 Immature Gran # 0.04 Segmented Neutrophils 68 Band Neutrophils 8 Lymphocytes 16 L Monocytes 8 Nucleated RBCs # 0.00 Platelet Estimate Adequate Immature Plt Fraction 0.0 Hypochromasia 2+ Microcytosis 2+ Target Cells Slight [place] Cells 2+ Sodium 124 L Potassium 4.0 Chloride 86 L Carbon Dioxide 32 Anion Gap 10.0 BUN 26 H Creatinine 1.40 H GFR Calculation 47 BUN/Creatinine Ratio 18.00 Glucose 129 H POC Glucose Calculated Osmolality 255.6 L Calcium 8.6 Magnesium 1.9 B-Natriuretic Peptide 1590 H 04/19/17 04/19/17 07:19 11:20 WBC RBC Hgb Hct MCV MCH MCHC RDW Plt Count MPV Neut % (Auto) Lymph % (Auto) [place] % (Auto) Eos % (Auto) Baso % (Auto) Neut # (Auto) Lymph # (Auto) [place] # (Auto) Eos # (Auto) Baso # (Auto) Total Counted Immature Gran % Nucleated RBC % Immature Gran # Segmented Neutrophils Band Neutrophils Lymphocytes Monocytes Nucleated RBCs # Platelet Estimate Immature Plt Fraction Hypochromasia Microcytosis Target Cells [place] Cells Sodium Potassium Chloride Carbon Dioxide Anion Gap BUN Creatinine GFR Calculation BUN/Creatinine Ratio Glucose POC Glucose 136 H 239 H Calculated Osmolality Calcium Magnesium B-Natriuretic Peptide - EKG EKG results: interpreted by me, sinus rhythm
[2017-04-19] MEDS: ONDANSETRON 4 MG/2 ML VIAL IV PRN (13:50)
[2017-04-19] MEDS: MAGNESIUM HYDROXIDE SUSP 30 ML UDCUP PO PRN (13:56)
[2017-04-19] MEDS: ENOXAPARIN 30 MG/0.3 ML SYRINGE SUBCUT SCH (16:33)
[2017-04-19] MEDS: ATORVASTATIN 80 MG TABLET PO SCH (20:20)
[2017-04-19] MEDS: ASPIRIN EC 81 MG TABLET PO SCH (20:21)
[2017-04-19] MEDS: AMITRIPTYLINE 25 MG TABLET PO SCH (20:21)
[2017-04-19] MEDS: ACETAMINOPHEN 325 MG TABLET PO PRN (20:24)
[2017-04-20 04:46] LABS: Basophils % 0.4 % (0.0-0.8); Eosinophils # 0.1 10*3/uL (0.0-0.87); Eosinophils % 1.7 % (0.00-10.9); Hematocrit 26.1 VOL% (35.7-47.0); Hemoglobin 9.1 GM/DL (12.0-16.0); Immature Granulocytes % 0.6 %; Immature Granulocytes Absolute 0.04 #; Lymphocytes # 1.1 10*3/uL (1.4-4.0); Lymphocytes % 14.7 % (21.3-54.2); Mean Corpuscular HGB Conc 34.9 GM/DL (32-36); Mean Corpuscular Hemoglobin 31 PG (27-34); Mean Corpuscular Volume 89.1 FL (87-102); Mean Platelet Volume 8.8 FL (9.6-12.0); Monocytes # 1.1 10*3/uL (0.11-0.8); Monocytes % 15.6 % (1.7-12.7); Neutrophils # 4.8 10*3/uL (1.4-7.4); Platelet Count 245 T/CUMM (130-400); Red Blood Count 2.93 MC/CUMM (3.8-5.5); Red Cell Distribution Width 14.3 % (9.3-17.3); White Blood Count 7.1 T/CUMM (4-12)
[2017-04-20 05:27] LABS: Magnesium 2.1 MG/DL (1.8-2.4); Osmolality,Calculated 257.6 MOS/KG (273-304); Potassium 3.8 MMOL/L (3.5-5.1)
[2017-04-20 05:56] LABS: Acanthocytes Few; Band Neutrophils 3 % (0-10); Eosinophils 3 % (0-10); Hypochromasia 1+; Lymphocytes 14 % (20-55); Microcytosis 1+; Segmented Neutrophils 70 % (50-85); Total Cells Counted 100
[2017-04-20 05:57] LABS: Platelet Estimate Normal
--- NOTE | 2017-04-20 08:59 | Hospitalist Progress Note ---
<Hesham Millard - Last Filed: 04/20/17 08:57> Assessment and Plan (1) Acute kidney injury Status: Acute Assessment and plan: BUN and creatinine noted at 34 and 1.80. In addition, the patient's sodium is noted at 124. This may be largely attributed to over diuresis. A nephrology consultation has been requested. We will await further recommendations Current Visit: Yes (2) Congestive heart failure Status: Acute Assessment and plan: Patient remains hyponatremic with sodium noted at 124 and nephrology consultation has been requested. We will continue aspirin, beta-yadira, FLY inhibitor, and statins as previously ordered. Current Visit: Yes Qualifiers: Congestive heart failure type: systolic (3) Diabetes mellitus type 2 in nonobese Status: Acute Current Visit: Yes (4) Dyspnea Status: Acute Assessment and plan: The patient reports no further episodes of shortness of breath. Current Visit: Yes Hospitalist: Subjective Interval history: Patient seen and examined. Chart reviewed. No significant overnight events reported per staff or patient. Renal function remained mildly impaired with BUN at 34 creatinine 1.80. We will await nephrology consultation. Exam - Constitutional Vitals: Period Temp Pulse Resp BP Sys/Gaitan Pulse Ox Last 24 Hr 97.0 F-98.7 F 74-100 14-18 100-139/53-62 91-99 General appearance: normal weight, no acute distress - Head Head exam: Present: normal inspection, normocephalic - Eye Eye exam: Present: EOMI, conjunctival injection Pupils: Present: BRIANNA, normal accommodation - ENT ENT exam: Present: normal exam, normal external ear exam, normal oropharynx - Neck Neck exam: Present: normal inspection. Absent: lymphadenopathy, meningismus, tenderness, thyromegaly - Respiratory Respiratory exam: Present: clear to auscultation bilaterally. Absent: rales, rhonchi, stridor, wheezes - Cardiovascular Cardiovascular exam: Present: regular rate and rhythm. Absent: carotid bruit, diastolic murmur, gallop, JVD, systolic murmur - GI/Abdominal GI/Abdominal exam: Present: normal bowel sounds, soft - Extremities Exam Extremities exam: Present: normal inspection, normal capillary refill, full ROM. Absent: edema - Back Exam Back exam: Present: normal inspection - Neurological Exam Neurological exam: Present: alert, oriented X3, CN II-XII intact - Psychiatric Psychiatric exam: Present: normal affect, normal mood - Skin Skin exam: Present: normal color, warm, dry Results - Labs CBC & BMP: 04/20/17 04:01 04/20/17 04:01 Lab Results: I have reviewed the past 24 hour labs <Keenan Vázquez - Last Filed: 04/20/17 10:18> Assessment and Plan (1) Congestive heart failure Status: Acute Current Visit: No Qualifiers: Congestive heart failure type: combined Congestive heart failure chronicity : acute Qualified Code(s): I50.41 - Acute combined systolic (congestive) and diastolic (congestive) heart failure (2) Insulin dependent diabetes mellitus Status: Chronic Current Visit: No (3) Hypertension Status: Chronic Current Visit: No Qualifiers: Hypertension type: essential hypertension Qualified Code(s): I10 - Essential (primary) hypertension (4) CAD (coronary artery disease) Status: Chronic Current Visit: No Qualifiers: Coronary Disease-Associated Artery/Lesion type: [place] artery [place] vs. transplanted heart: [place] heart Associated angina: without angina Qualified Code(s): I25.10 - Atherosclerotic heart disease of [place] coronary artery without angina pectoris (5) Ischemic cardiomyopathy Status: Acute Current Visit: No Hospitalist: Subjective Interval history: Events as described above. Patient is stable at the present time. She continues to have severe hyponatremia. Nephrology has been consulted. Exam - Constitutional Vitals: Period Temp Pulse Resp BP Sys/Gaitan Pulse Ox Last 24 Hr 97.0 F-98.7 F 74-100 14-18 100-139/53-62 91-99 Results - Labs CBC & BMP: 04/20/17 04:01 04/20/17 04:01
[2017-04-20] MEDS ORDERED: FUROSEMIDE 40 MG TABLET PO SCH (09:00)
[2017-04-20] MEDS: metFORMIN 500 MG TABLET PO SCH ×2 (10:30→18:00)
[2017-04-20] MEDS: PARoxetine 10 MG TABLET PO SCH (10:30)
[2017-04-20] MEDS: FERROUS SULFATE 325 MG TABLET PO SCH (10:31)
[2017-04-20] MEDS: PANTOPRAZOLE 40 MG TABLET PO SCH (10:31)
[2017-04-20] MEDS: DOCUSATE SODIUM 100 MG CAPSULE PO SCH ×2 (10:32→21:13)
[2017-04-20] MEDS: FOSINOPRIL 20 MG TABLET PO SCH (10:32)
[2017-04-20] MEDS: LORATADINE 10 MG TABLET PO SCH (10:33)
[2017-04-20] MEDS: NEBIVOLOL 5 MG TABLET PO SCH (10:33)
[2017-04-20] MEDS: INSULIN NPH 100 UNIT/ML SUBCUT SCH ×2 (10:53→18:00)
--- NOTE | 2017-04-20 10:57 | Nephrology Consult Note ---
History of Present Illness Chief complaint: hyponatremia and acute renal failure History of present illness: Ms. Shelley is a 61 year old female admitted a few days ago for sob and leg swelling. The pt. had a cabg about 3 to 4 weeks ago and since being d/tamia she has been having problems with worsening sob. Since admission the patient has been started on lasix and with this she states her swelling has decreased and her sob symptoms have improved. However over the past few days the patients creatinine has been increasing and is now at 1.8 mg/dl whereas it was 1.0 on admission. She denies previous problems with her kidneys. The pt has also developed refractory hyponatremia. On admission her sodium was about 128 and brifely improved to 131 but has since drifted back down and has been 124 the past couple days. She denies thirst, she denies overindulging wiht fluid. She does have a hx of breast cancer. She has also been having chronic nausea and suffers from intermittant pain related to arthritis. The pt has been on 1500 cc fluid restriction the past few days. The pt has a hx of heart failure and a h/o dm and htn. Home Medications Medication Instructions Recorded Confirmed Type Amitriptyline [Elavil] 25 mg PO BEDTIME 03/13/17 04/13/17 History Aspirin EC Tab 81 mg PO BEDTIME 03/13/17 04/13/17 History Atorvastatin Calcium 80 mg PO BEDTIME 03/13/17 04/13/17 History Baclofen Tab [Lioresal] 20 mg PO BID 03/13/17 04/13/17 History Docusate Sodium 100 mg PO BID 03/13/17 04/13/17 History Fosinopril Sodium 20 mg PO DAILY 03/13/17 04/13/17 History Loratadine Tab [Claritin Tab] 10 mg PO DAILY 03/13/17 04/13/17 History PARoxetine HCl [Paroxetine HCl] 30 mg PO DAILY 03/13/17 04/13/17 History Pantoprazole Tab [Protonix Tab] 40 mg PO BID 03/13/17 04/13/17 History Ranitidine Tab [Zantac Tab] 150 mg PO BID 03/13/17 04/13/17 History hydroCHLOROthiazide 25 mg PO DAILY 03/13/17 04/13/17 History [Hydrochlorothiazide] Capsaicin [Capsaicin 0.025% Cream] 1 applic TOP BID PRN 04/13/17 04/13/17 History Carvedilol [Coreg] 3.125 mg PO BID 04/13/17 04/13/17 History Cholecalciferol [Vitamin D3] 400 unit PO DAILY 04/13/17 04/13/17 History Ferrous Sulfate Tab [Feosol 325 mg PO DAILY 04/13/17 04/13/17 History Original Tab] Furosemide Tab [Lasix Tab] 20 mg PO DAILY 04/13/17 04/13/17 History Insulin NPH Human Isophane 30 unit SUBCUT BID 04/13/17 04/13/17 History [NovoLIN N] Lidocaine 5% Patch [Lidoderm 5% 1 patch TRANSDERM Q12H PRN 04/13/17 04/13/17 History Patch] Metformin HCl 1,000 mg PO BID 04/13/17 04/16/17 History Multivitamin [Multivitamins] 1 each PO TUSA 04/13/17 04/13/17 History [place]-3/Dha/Epa/Fish Oil [Fish Oil 1 each PO BID 04/13/17 04/13/17 History 1,000 mg Softgel] oxyCODONE/ACETAMINOPHEN 5-325 1 tablet PO Q4H PRN 04/13/17 04/13/17 History [Percocet 5-325] Allergies Allergy/AdvReac Type Severity Reaction Status Date / Time codeine Allergy Unknown/Unable Verified 03/13/17 12:55 to obtain Erythromycin Base Allergy Unknown/Unable Verified 03/13/17 12:55 to obtain mensen Allergy Unknown/Unable Uncoded 03/13/17 12:55 to obtain Medical,Surgical,& Family Hx - Medical History Cardio: History of: CHF, CAD (Left main stenosis per cardiac catheterization March 2017), Hypertension Psychological: History of: Depression Neurology: No history of: Seizures HEENT: Comment Only: Eye Problem (tear in right eye) Endocrine: History of: Diabetes Mellitus (IDDM), Diabetes Mellitus (NIDDM), Dyslipidemia, Thyroid Disorder (nodules) Respiratory: History of: Bronchitis Gastrointestinal: History of: GERD Musculoskeletal: History of: Back/Neck Problems, Degenerative Disk Disease, Osteoporosis Hematology: History of: Anemia Reproductive: History of: Breast Cancer (left with benign mass) Other: History of: Cancer - Surgical History Cardiac Surgeries: Sugical HX of: Cardiac Surgery (CABG 03/2017 Dr. Bruce DE [place] SANTOS-LAD , SVG-Cx) Thoracic Surgeries: Patient denies;: Lobectomy HEENT Surgeries: Surgical HX of: Tonsilectomy & Adenoidectomy Abdominal Surgeries: Surgical HX of: Appendectomy Reproductive Surgeries: Surgical HX of;: Breast Surgery, Hysterectomy Patient denies;: Genitourinary Surgery Orthopedic Surgeries: Surgical HX of;: Orthopedic Surgery (left rotator cuff) - Family History Family History: Reports;: Family Cancer (mother, brother), Family Diabetes ( mother,brother,sister), Family Hypertension (mother, brother, father, sister) - Social History Smoking Status: Former smoker Frequency of Alcohol Use: None Type of Drug Use: None Review of Systems 12 point system: reviewed and no additional remarkable complaints except as stated Constitutional: chills Respiratory: dyspnea Gastrointestinal: nausea Musculoskeletal: arthralgias, back pain Exam - Vital Signs Vital signs: Period Temp Pulse Resp BP Sys/Gaitan Pulse Ox Last 24 Hr 97.0 F-98.7 F 74-100 14-18 100-139/53-62 91-99 - General Appearance General appearance: well-developed, well-nourished, appears started age EENT: PERRL, mucous membranes moist Neck: no JVD, no thyromegaly, supple Respiratory: no kyphosis, no scoliosis, clear Cardiology: edema, regular rate, regular rhythm Gastrointestinal: normoactive bowel sounds, no tenderness, no guarding, no organomegaly Integumentary: no rash, warm and dry Neurologic: no focal deficit, alert and oriented x3 Musculoskeletal: no deformities, no erythema, no cyanosis, no clubbing Psychiatric: mood/affect appropriate, cooperative Results - Labs CBC & BMP: 04/20/17 04:01 04/20/17 04:01 Assessment and Plan (1) Hyponatremia Status: Acute Assessment and plan: I am going to start her on 3% saline solution will check sodiums every 6 hours and adjust her infusion rate accordingly we will continue her Lasix to try and maintain a isovolemic status Current Visit: Yes (2) Nausea Status: Acute Current Visit: Yes (3) Arthritis Status: Acute Current Visit: Yes (4) Acute kidney injury Status: Acute Assessment and plan: I am going to stop her FLY inhibitor and will also hold her beta-yadira in an effort to try and increase the perfusion pressure to her kidneys. Current Visit: Yes (5) Congestive heart failure Status: Acute Assessment and plan: Patient seems to be fairly compensated at this time Current Visit: Yes Qualifiers: Congestive heart failure type: systolic (6) Diabetes mellitus type 2 in nonobese Status: Acute Current Visit: Yes (7) Anemia Status: Chronic Current Visit: No (8) CAD (coronary artery disease) Status: Chronic Current Visit: No Qualifiers: Coronary Disease-Associated Artery/Lesion type: three affiliated artery [place] vs. transplanted heart: three affiliated heart Associated angina: without angina Qualified Code(s): I25.10 - Atherosclerotic heart disease of three affiliated coronary artery without angina pectoris (9) Hypertension Status: Chronic Current Visit: No Qualifiers: Hypertension type: essential hypertension Qualified Code(s): I10 - Essential (primary) hypertension
--- NOTE | 2017-04-20 11:09 | Cardiology Progress Note ---
Assessment and Plan - Time spent with patient Time spent with patient: Less than 30 minutes (1) Congestive heart failure Status: Acute Assessment and plan: See plan of care listed below. Current Visit: No Qualifiers: Congestive heart failure type: combined Congestive heart failure chronicity : acute Qualified Code(s): I50.41 - Acute combined systolic (congestive) and diastolic (congestive) heart failure (2) CAD (coronary artery disease) Status: Chronic Assessment and plan: See plan of care listed below. Current Visit: No Qualifiers: Coronary Disease-Associated Artery/Lesion type: [place] artery [place] vs. transplanted heart: [place] heart Associated angina: without angina Qualified Code(s): I25.10 - Atherosclerotic heart disease of [place] coronary artery without angina pectoris (3) Hyponatremia Status: Acute Assessment and plan: See plan of care listed below. Current Visit: Yes (4) Hypertension Status: Chronic Assessment and plan: See plan of care listed below. Current Visit: No Qualifiers: Hypertension type: essential hypertension Qualified Code(s): I10 - Essential (primary) hypertension (5) Cardiomyopathy Status: Chronic Assessment and plan: See plan of care listed below. Current Visit: No Qualifiers: Cardiomyopathy type: ischemic Qualified Code(s): I25.5 - Ischemic cardiomyopathy (6) Hyperlipidemia Status: Chronic Assessment and plan: See plan of care listed below. Current Visit: No (7) Anemia Status: Chronic Assessment and plan: See plan of care listed below. Current Visit: No Cardiology - PN: Subj Interval history: Medical Librarian: Dr. Luna Summary: 61BF recently admitted March 13, 2017- March 29 with newly dx CHF, R/LHC March 16, 2017 revealed severe CM (EF 15%), severe CAD. Echocardiogram March 14, 2017: EF 20%, grade 3 diastolic dysfunction, without significant valvular abnormality. March 22, 2017 underwent CABG X 2 (DE LOS SANTOS - LAD, SVG - OM). Past medical history, hypertension, diabetes, hyperlipidemia, chronic anemia, and breast cancer status post left mastectomy. She is readmitted with heart failure, lower extremity edema and shortness of breath, hyponatremia. April 20, 2017 UPDATE: Ms. Shelley is doing well today. Creatinine and Na worse today. Clinically, she looks and feels better. Vital signs are stable. She is maintaining a normal sinus rhythm. She is ambulatory around her room and to the restroom without difficulty. We will continue to monitor her progress. Will further discuss with Dr. Luna and await additional recommendations. From a cardiac perspective, she is better compensated and will be able to go home once her electrolyte issues improve. Impression/plan: 1. Shortness of breath - We are treating this as congestive heart failure secondary to systolic dysfunction. Continue diuresis. We have changed her Lasix to 40mg PO Daily. She is on a 1500ml fluid restriction. 2. Coronary artery disease - Clinically this appears to be stable. She is status post CABG March 2017. 3. Hyponatremia - She presented in volume overloaded so we have been trying to diuresis and monitor her sodium. Nephrology was consulted and will start her on a 3% saline solution, checking sodium levels every 6 hours to adjust infusion rates accordingly. She will be continued on Lasix for diuresis to maintain isovolemic status. 4. History of hypertension - Coreg was changed to Bystolic to see if this improves her symptoms of shortness of breath. 5. Cardiomyopathy - presumably there is an ischemic component. In an effort to improve her acute kidney injury, her FLY and beta yadira are being held to try and increase perfusion to her kidneys. 6. Hyperlipidemia - chronic. 7. History of anemia - chronic and stable. Exam (Progress Note) - Constitutional Vitals: Period Temp Pulse Resp BP Sys/Gaitan Pulse Ox Last 24 Hr 97.0 F-98.7 F 74-100 14-18 100-139/53-62 91-99 Exam: General: Present: Appears Well, No Apparent Distress. Pleasant and cooperative. HEENT: Present: PERRL, Normocephaly, atraumatic. Mucus Membranes Moist. No jaundice noted. Conjunctiva moist and clear. Neck: Present: Supple Neck, Midline Trachea, No Masses, No Bruit, No tenderness Cardiac: Present: Regular Rate and Rhythm, No Murmur Lungs: Present: clear to auscultation bilaterally, no wheezes, rhonchi, rales. Neuro: Present: Awake, alert, and oriented x3. Moves all extremities well without hemiparesis or paralysis. Grossly Intact. Absent: Resting Tremor, Essential Tremor Abdomen: Present: Soft, Active Bowel Sounds, No Masses, Non-Tender, nondistended. No abdominal bruit or thrill noted. Skin: Present: Clear. Midsternal surgical incision and BLE medial surgical incisions healing well, no erythema, edema, or drainage. Absent: Rash, No skin breakdown. Back: Normal inspection, no vertebral tenderness. Musculoskeletal: Present: No Fluid Collection, No Pain, Normal Range of Motion Extremities: Present: Normal Gait, No Clubbing, No Cyanosis, Upper Extr. Pulses 2+, Lower Extr. Pulses 2+, Trace-1+ BLE edema. Capillary refill less than 3 seconds. Result/EKG - Labs CBC & BMP: 04/20/17 04:01 04/20/17 04:01 Lab Results: I have reviewed the past 24 hour labs Labs: Laboratory Results - last 24 hr 04/19/17 04/19/17 04/19/17 11:20 15:24 20:20 WBC RBC Hgb Hct MCV MCH MCHC RDW Plt Count MPV Neut % (Auto) Lymph % (Auto) [place] % (Auto) Eos % (Auto) Baso % (Auto) Neut # (Auto) Lymph # (Auto) [place] # (Auto) Eos # (Auto) Baso # (Auto) Total Counted Immature Gran % Nucleated RBC % Immature Gran # Segmented Neutrophils Band Neutrophils Lymphocytes Monocytes Eosinophils Nucleated RBCs # Platelet Estimate Immature Plt Fraction Hypochromasia Microcytosis Acanthocytes (Spur) Sodium Potassium Chloride Carbon Dioxide Anion Gap BUN Creatinine GFR Calculation BUN/Creatinine Ratio Glucose POC Glucose 239 H 99 123 H Calculated Osmolality Calcium Magnesium B-Natriuretic Peptide 04/20/17 04/20/17 04/20/17 04:01 04:01 04:01 WBC 7.1 RBC 2.93 L Hgb 9.1 L Hct 26.1 L MCV 89.1 MCH 31 MCHC 34.9 RDW 14.3 Plt Count 245 MPV 8.8 L Neut % (Auto) 67.0 Lymph % (Auto) 14.7 L [place]anco % (Auto) 15.6 H Eos % (Auto) 1.7 Baso % (Auto) 0.4 Neut # (Auto) 4.8 Lymph # (Auto) 1.1 L [place] # (Auto) 1.1 H Eos # (Auto) 0.1 Baso # (Auto) 0.0 Total Counted 100 Immature Gran % 0.6 Nucleated RBC % 0.0 Immature Gran # 0.04 Segmented Neutrophils 70 Band Neutrophils 3 Lymphocytes 14 L Monocytes 10 Eosinophils 3 Nucleated RBCs # 0.00 Platelet Estimate Normal Immature Plt Fraction 0.0 Hypochromasia 1+ Microcytosis 1+ Acanthocytes (Spur) Few Sodium 124 L Potassium 3.8 Chloride 82 L Carbon Dioxide 33 H Anion Gap 12.8 BUN 34 H Creatinine 1.80 H GFR Calculation 35 BUN/Creatinine Ratio 18.00 Glucose 119 H POC Glucose Calculated Osmolality 257.6 L Calcium 9.0 Magnesium 2.1 B-Natriuretic Peptide 2223 H 04/20/17 08:07 WBC RBC Hgb Hct MCV MCH MCHC RDW Plt Count MPV Neut % (Auto) Lymph % (Auto) [place] % (Auto) Eos % (Auto) Baso % (Auto) Neut # (Auto) Lymph # (Auto) [place] # (Auto) Eos # (Auto) Baso # (Auto) Total Counted Immature Gran % Nucleated RBC % Immature Gran # Segmented Neutrophils Band Neutrophils Lymphocytes Monocytes Eosinophils Nucleated RBCs # Platelet Estimate Immature Plt Fraction Hypochromasia Microcytosis Acanthocytes (Spur) Sodium Potassium Chloride Carbon Dioxide Anion Gap BUN Creatinine GFR Calculation BUN/Creatinine Ratio Glucose POC Glucose 110 H Calculated Osmolality Calcium Magnesium B-Natriuretic Peptide - EKG EKG results: interpreted by me, sinus rhythm
[2017-04-20] MEDS: MAGNESIUM HYDROXIDE SUSP 30 ML UDCUP PO PRN (14:04)
[2017-04-20] MEDS: SODIUM CHLORIDE 3% INJ 500 ML IV SCH (14:11)
[2017-04-20] MEDS: FUROSEMIDE 40 MG TABLET PO SCH (17:31)
[2017-04-20] MEDS: ENOXAPARIN 30 MG/0.3 ML SYRINGE SUBCUT SCH (18:03)
[2017-04-20] MEDS: ASPIRIN EC 81 MG TABLET PO SCH (21:13)
[2017-04-20] MEDS: AMITRIPTYLINE 25 MG TABLET PO SCH (21:13)
[2017-04-20] MEDS: ATORVASTATIN 80 MG TABLET PO SCH (21:13)
[2017-04-21 01:12] LABS: Calcium 8.7 MG/DL (8.5-10.1); Magnesium 2.5 MG/DL (1.8-2.4); Osmolality,Calculated 263.9 MOS/KG (273-304); Potassium 3.6 MMOL/L (3.5-5.1)
[2017-04-21] MEDS ORDERED: SODIUM CHLORIDE 3% INJ 500 ML IV SCH (07:00)
[2017-04-21] MEDS: SODIUM CHLORIDE 3% INJ 500 ML IV SCH (08:59)
[2017-04-21] MEDS: FERROUS SULFATE 325 MG TABLET PO SCH (09:00)
[2017-04-21] MEDS: PARoxetine 10 MG TABLET PO SCH (09:00)
[2017-04-21] MEDS: metFORMIN 500 MG TABLET PO SCH ×2 (09:00→17:10)
[2017-04-21] MEDS: PANTOPRAZOLE 40 MG TABLET PO SCH (09:01)
[2017-04-21] MEDS: INSULIN NPH 100 UNIT/ML SUBCUT SCH ×2 (09:01→17:09)
[2017-04-21] MEDS: DOCUSATE SODIUM 100 MG CAPSULE PO SCH ×2 (09:01→21:18)
[2017-04-21] MEDS: FUROSEMIDE 40 MG TABLET PO SCH ×2 (09:01→17:08)
[2017-04-21] MEDS: LORATADINE 10 MG TABLET PO SCH (09:01)
[2017-04-21] MEDS: MULTIVITAMIN (CENTRUM) TABLET PO SCH (09:01)
--- NOTE | 2017-04-21 09:06 | XRay Report ---
Portable chest Date: 04/21/2017 Clinical history: COPD Comparison: 04/17/2012 Technique: Portable AP sitting chest Findings: Stable cardiomegaly with prior median sternotomy. Progressive atelectasis in the left lower lung zone. Chronic scarring with stable mediastinum and osseous structures. Chronic volume loss in the distal left clavicle. Impression: Progressive atelectasis in the left lower lung zone with chronic scarring in patient with prior median sternotomy. Stable cardiomegaly. PROCEDURE INTERPRETED AT [facility] DEPARTMENT OF RADIOLOGY Final Report Signed by: Dr. Enedina Cruz
--- NOTE | 2017-04-21 10:03 | Hospitalist Progress Note ---
<Hesham Millard - Last Filed: 04/21/17 09:58> Assessment and Plan (1) Acute kidney injury Status: Acute Assessment and plan: BUN and creatinine noted at 34 and 1.80. In addition, the patient's sodium is noted at 124. This may be largely attributed to over diuresis. A nephrology consultation has been requested. We will await further recommendations. 04/21-patient seen and evaluated by nephrology on yesterday. 3% sodium infusion started for persistent hyponatremia; with moderate improvement. Sodium noted at 129 today. We will continue 3% sodium infusion per nephrology recommendations. BUN and creatinine noted at 38 and 1.6 which suggest chronic kidney disease stage III. The patient will definitely need to be followed by nephrology in the outpatient setting. We will await further recommendations. Current Visit: Yes (2) Congestive heart failure Status: Acute Assessment and plan: Patient remains hyponatremic with sodium noted at 124 and nephrology consultation has been requested. We will continue aspirin, beta-yadira, FLY inhibitor, and statins as previously ordered. Current Visit: Yes Qualifiers: Congestive heart failure type: systolic (3) Diabetes mellitus type 2 in nonobese Status: Acute Current Visit: Yes (4) Dyspnea Status: Acute Assessment and plan: The patient reports no further episodes of shortness of breath. Current Visit: Yes Hospitalist: Subjective Interval history: Patient seen and examined, chart reviewed. No significant overnight events reported. Patient was seen by nephrology on yesterday for persistent hyponatremia. The patient was started on a 3% sodium infusion; sodium is noted at 129. Exam - Constitutional Vitals: Period Temp Pulse Resp BP Sys/Gaitan Pulse Ox Last 24 Hr 96.9 F-98.0 F 77-90 12-20 94-125/51-88 95-99 General appearance: normal weight, no acute distress - Head Head exam: Present: normal inspection, normocephalic, atraumatic - Eye Eye exam: Present: EOMI. Absent: conjunctival injection Pupils: Present: BRIANNA, normal accommodation - ENT ENT exam: Present: normal exam, normal external ear exam, normal oropharynx - Neck Neck exam: Present: normal inspection. Absent: lymphadenopathy, meningismus, thyromegaly - Respiratory Respiratory exam: Present: clear to auscultation bilaterally. Absent: rales, rhonchi, stridor, wheezes - Cardiovascular Cardiovascular exam: Present: regular rate and rhythm. Absent: carotid bruit, diastolic murmur, gallop, JVD, rubs, systolic murmur - GI/Abdominal GI/Abdominal exam: Present: normal bowel sounds, soft - Extremities Exam Extremities exam: Present: normal inspection, normal capillary refill, full ROM. Absent: edema - Back Exam Back exam: Present: normal inspection - Neurological Exam Neurological exam: Present: alert, oriented X3, CN II-XII intact - Psychiatric Psychiatric exam: Present: normal affect, normal mood - Skin Skin exam: Present: normal color, warm, dry Results - Labs CBC & BMP: 04/20/17 04:01 04/21/17 04:01 Lab Results: I have reviewed the past 24 hour labs <Keenan Vázquez - Last Filed: 04/21/17 10:19> Assessment and Plan (1) Congestive heart failure Status: Acute Current Visit: No Qualifiers: Congestive heart failure type: combined Congestive heart failure chronicity : acute Qualified Code(s): I50.41 - Acute combined systolic (congestive) and diastolic (congestive) heart failure (2) Insulin dependent diabetes mellitus Status: Chronic Current Visit: No (3) Hypertension Status: Chronic Current Visit: No Qualifiers: Hypertension type: essential hypertension Qualified Code(s): I10 - Essential (primary) hypertension (4) CAD (coronary artery disease) Status: Chronic Current Visit: No Qualifiers: Coronary Disease-Associated Artery/Lesion type: [place] artery [place] vs. transplanted heart: [place] heart Associated angina: without angina Qualified Code(s): I25.10 - Atherosclerotic heart disease of [place] coronary artery without angina pectoris (5) Ischemic cardiomyopathy Status: Acute Current Visit: No Hospitalist: Subjective Interval history: Patient appears much improved. Her congestive heart failure has responded well to intravenous furosemide diuresis. She has been seen in consultation by nephrology for hyponatremia which they are presently treating with 3% sodium chloride infusion. When her serum sodium has been corrected, I will discharge her. Exam - Constitutional Vitals: Period Temp Pulse Resp BP Sys/Gaitan Pulse Ox Last 24 Hr 96.9 F-98.0 F 77-90 12-20 94-125/51-88 95-99 Results - Labs CBC & BMP: 04/20/17 04:01 04/21/17 04:01
--- NOTE | 2017-04-21 14:00 | Cardiology Progress Note ---
Assessment and Plan (1) Congestive heart failure Status: Acute Assessment and plan: 61-year-old black female, ischemic cardiomyopathy, status post recent CABG. Admitted with volume overload, hyponatremia, CHF exacerbation. Improving with IV diuretics, although hyponatremia worsened again The volume overloadresolved, clinically she is better. Adequately perfused on exam. Hyponatremia improving with hypertonic saline. -Continue aspirin -Beta-yadira, FLY was held based on renal recommendations -Now on p.o. Lasix -From a cardiac perspective, she is better compensated and will be able to go home, once her electrolyte issues improve. -Once renal issues stable, will need to resume beta-yadira and FLY inhibitor, for severe ischemic cardiomyopathy. She will also likely need to stay on some diuretics, had profound CHF, severe systolic dysfunction prior to CABG Current Visit: Yes Qualifiers: Congestive heart failure type: combined Congestive heart failure chronicity : acute Qualified Code(s): I50.41 - Acute combined systolic (congestive) and diastolic (congestive) heart failure (2) Insulin dependent diabetes mellitus Status: Chronic Current Visit: No (3) History of breast cancer Status: Chronic Current Visit: No (4) Hypertension Status: Chronic Current Visit: No Qualifiers: Hypertension type: essential hypertension Qualified Code(s): I10 - Essential (primary) hypertension (5) Cardiomyopathy Status: Chronic Current Visit: No Qualifiers: Cardiomyopathy type: ischemic Qualified Code(s): I25.5 - Ischemic cardiomyopathy (6) Hyperlipidemia Status: Chronic Current Visit: No (7) Ischemic cardiomyopathy Status: Acute Current Visit: No (8) S/P CABG x 2 Status: Chronic Current Visit: No Cardiology - PN: Subj Interval history: She is feeling fine with light activity. Sodium improved to 129. Exam (Progress Note) - Constitutional Vitals: Period Temp Pulse Resp BP Sys/Gaitan Pulse Ox Last 24 Hr 96.9 F-98.0 F 77-90 12-20 103-125/51-88 95-99 General appearance: normal weight, no acute distress - Head Head exam: Present: normal inspection, normocephalic - Eye Eye exam: Absent: conjunctival injection, scleral icterus Pupils: Absent: dilated - ENT ENT exam: Present: normal external ear exam - Neck Neck exam: Present: normal inspection - Respiratory Respiratory exam: Present: clear to auscultation bilaterally. Absent: rhonchi, wheezes - Cardiovascular Cardiovascular exam: Present: regular rate and rhythm, systolic murmur - GI/Abdominal GI/Abdominal exam: Present: normal bowel sounds. Absent: distended - Extremities Exam Extremities exam: Present: normal inspection, normal capillary refill. Absent: edema - Back Exam Back exam: Present: normal inspection - Neurological Exam Neurological exam: Present: alert, oriented X3 - Psychiatric Psychiatric exam: Present: normal affect, normal mood - Skin Skin exam: Present: normal color, warm. Absent: cyanosis Result/EKG - Labs CBC & BMP: 04/20/17 04:01 04/21/17 10:55 Lab Results: I have reviewed the past 24 hour labs Labs: Laboratory Results - last 24 hr 04/20/17 04/20/17 04/20/17 16:25 17:29 20:35 Sodium 125 L Potassium Chloride Carbon Dioxide Anion Gap BUN Creatinine GFR Calculation BUN/Creatinine Ratio Glucose POC Glucose 196 H 170 H Calculated Osmolality Calcium Magnesium 04/21/17 04/21/17 04/21/17 00:20 00:20 04:01 Sodium 128 L 129 L 129 L Potassium 3.6 Chloride 86 L Carbon Dioxide 33 H Anion Gap 13.6 BUN 38 H Creatinine 1.60 H GFR Calculation 40 BUN/Creatinine Ratio 23.00 H Glucose 47 L POC Glucose Calculated Osmolality 263.9 L Calcium 8.7 Magnesium 2.5 H 04/21/17 04/21/17 07:35 10:55 Sodium 129 L Potassium Chloride Carbon Dioxide Anion Gap BUN Creatinine GFR Calculation BUN/Creatinine Ratio Glucose POC Glucose 111 H Calculated Osmolality Calcium Magnesium - EKG EKG results: interpreted by me
--- NOTE | 2017-04-21 15:11 | Nephrology Progress Note ---
Nephrology - PN: Subj Interval history: Patient is sitting up resting comfortably no acute changes. Serum sodium noted be 129. No shortness of breath or chest pain. Exam (PN)-Nephrology - Vital Signs Vital signs: Period Temp Pulse Resp BP Sys/Gaitan Pulse Ox Last 24 Hr 96.9 F-98.0 F 77-90 12-20 103-125/51-88 95-99 - General Appearance General appearance: well-developed, well-nourished EENT: ATNC Neck: supple Respiratory: clear Cardiology: no edema, regular rate, regular rhythm Gastrointestinal: normoactive bowel sounds, no tenderness Neurologic: alert and oriented x3 Musculoskeletal: no clubbing Psychiatric: mood/affect appropriate - Lab 04/20/17 04:01 04/21/17 10:55 Most recent lab results ABG pH 7.437 (7.35-7.45) 04/13/17 Unknown ABG pCO2 36.8 MM HG (35-48) 04/13/17 Unknown ABG pO2 118.0 MM HG (80-95) H 04/13/17 Unknown ABG HCO3 25.2 MMOL/L (20-26) 04/13/17 Unknown ABG O2 Saturation 98.9 % (95-100) 04/13/17 Unknown Calcium 8.7 MG/DL (8.5-10.1) 04/21/17 00:20 Magnesium 2.5 MG/DL (1.8-2.4) H 04/21/17 00:20 Assessment and Plan (1) Insulin dependent diabetes mellitus Status: Chronic Current Visit: No (2) Hypertension Status: Chronic Current Visit: No Qualifiers: Hypertension type: essential hypertension Qualified Code(s): I10 - Essential (primary) hypertension (3) Cardiomyopathy Status: Chronic Current Visit: No Qualifiers: Cardiomyopathy type: ischemic Qualified Code(s): I25.5 - Ischemic cardiomyopathy (4) Hyperlipidemia Status: Chronic Current Visit: No (5) Hyponatremia Status: Acute Assessment and plan: Patient is improvement with serum. Continue with fluid restriction. Current Visit: Yes
[2017-04-21] MEDS: ENOXAPARIN 30 MG/0.3 ML SYRINGE SUBCUT SCH (17:11)
[2017-04-21] MEDS: ASPIRIN EC 81 MG TABLET PO SCH (21:17)
[2017-04-21] MEDS: ATORVASTATIN 80 MG TABLET PO SCH (21:17)
[2017-04-21] MEDS: AMITRIPTYLINE 25 MG TABLET PO SCH (21:17)
[2017-04-22] MEDS ORDERED: SODIUM CHLORIDE 3% INJ 500 ML IV SCH ×2 (03:00→23:00)
[2017-04-22] MEDS: SODIUM CHLORIDE 3% INJ 500 ML IV SCH (05:31)
[2017-04-22 05:50] LABS: Calcium 8.9 MG/DL (8.5-10.1); Magnesium 2.5 MG/DL (1.8-2.4); Osmolality,Calculated 265.7 MOS/KG (273-304)
[2017-04-22 08:01] VITALS: BP 116/56
[2017-04-22] MEDS: DOCUSATE SODIUM 100 MG CAPSULE PO SCH (08:40)
[2017-04-22] MEDS: metFORMIN 500 MG TABLET PO SCH (08:40)
[2017-04-22] MEDS: PANTOPRAZOLE 40 MG TABLET PO SCH (08:41)
[2017-04-22] MEDS: PARoxetine 10 MG TABLET PO SCH (08:41)
[2017-04-22] MEDS: LORATADINE 10 MG TABLET PO SCH (08:42)
[2017-04-22] MEDS: INSULIN NPH 100 UNIT/ML SUBCUT SCH (08:42)
[2017-04-22] MEDS: FUROSEMIDE 40 MG TABLET PO SCH (08:42)
[2017-04-22] MEDS: FERROUS SULFATE 325 MG TABLET PO SCH (08:42)
[2017-04-22] MEDS ORDERED: SODIUM CHLORIDE 1 GM TABLET PO SCH (09:00)
--- NOTE | 2017-04-22 10:12 | Discharge Summary ---
Hospital Course - Hospital Course Hospital Course: Ms. Shelley is a 61 year old black female with a history of GERD, hypertension, diabetes, dyslipidemia, thyroid disorder, and anemia who presented to the ED today with complaints of shortness of breath that started yesterday. Patient is status post coronary artery bypass surgery performed by Dr. Barrera on 03/22. Patient was discharged home on 03/29. Patient states that since the time of discharge she has not had any issues. She reports being compliant with medication and diet. Patient reported he she had a sudden onset of shortness of breath on yesterday at rest and with exertion. Patient denies any chest or abdominal pain but reports diaphoresis and swelling in lower extremities. Patient states she was given a prescription for Lasix [address] Luna on Sunday and that she was giving it "time to work" before coming in. Today she states the shortness of breath worsened and she presented for evaulation. Pt. was noted to have BNP of 2048 and and a Na of 121. Pt's case has been discussed with Dr. Vazquez and the patient will be admitted to the hospitalist service for further evaluation of treatment. Patient was admitted to the hospital with acute on chronic systolic congestive heart failure and coronary artery disease status post coronary artery bypass graft surgery. There is no evidence of myocardial infarction. She was seen in consultation by cardiology. She was treated with intravenous furosemide undergoing significant diuresis. Her hospital course was complicated by hyponatremia for which she was seen in consultation by nephrology. She was treated with 3% sodium chloride infusion. At the time of her discharge her serum sodium had increased to 131. Of the time of her discharge, she wished to go home. She was stable with no complaints. Diagnosis - Discharge Diagnosis (1) Congestive heart failure Status: Acute (2) Insulin dependent diabetes mellitus Status: Chronic (3) Hypertension Status: Chronic (4) CAD (coronary artery disease) Status: Chronic (5) Ischemic cardiomyopathy Status: Chronic (6) Hyponatremia Status: Acute Discharge Plan - Discharge Data Condition at Discharge: Stable Discharge Diet: advance to your usual diet Activity: resume usual activities as tolerated Driving: no restrictions - Discharge Medications New metFORMIN [Glucophage] 2,000 mg PO BID W/MEALS tablet Insulin NPH [HumuLIN N] 25 unit SUBCUT BID W/MEALS #1 unit Continue Atorvastatin Calcium 80 mg PO BEDTIME Amitriptyline [Elavil] 25 mg PO BEDTIME Ranitidine Tab [Zantac Tab] 150 mg PO BID Loratadine Tab [Claritin Tab] 10 mg PO DAILY Docusate Sodium 100 mg PO BID Pantoprazole Tab [Protonix Tab] 40 mg PO BID Baclofen Tab [Lioresal] 20 mg PO BID Multivitamin [Multivitamins] 1 each PO TUSA Metformin HCl 1,000 mg PO BID oxyCODONE/ACETAMINOPHEN 5-325 [Percocet 5-325] 1 tablet PO Q4H PRN PRN Reason: Pain Insulin NPH Human Isophane [NovoLIN N] 30 unit SUBCUT BID Cholecalciferol [Vitamin D3] 400 unit PO DAILY Furosemide Tab [Lasix Tab] 20 mg PO DAILY Carvedilol [Coreg] 3.125 mg PO BID Fosinopril Sodium 20 mg PO DAILY #30 Aspirin EC Tab 81 mg PO BEDTIME hydroCHLOROthiazide [Hydrochlorothiazide] 25 mg PO DAILY Ferrous Sulfate Tab [Feosol Original Tab] 325 mg PO DAILY Jewett-3/Dha/Epa/Fish Oil [Fish Oil 1,000 mg Softgel] 1 each PO BID Lidocaine 5% Patch [Lidoderm 5% Patch] 1 patch TRANSDERM Q12H PRN PRN Reason: Pain Capsaicin [Capsaicin 0.025% Cream] 1 applic TOP BID PRN PRN Reason: Pain No Action PARoxetine HCl [Paroxetine HCl] 30 mg PO DAILY - Follow Up or Referral - Forms/Instructions Exam - Constitutional Vitals: Period Temp Pulse Resp BP Sys/Gaitan Pulse Ox Last 24 Hr 96.9 F-99.5 F 83-106 12-20 116-137/56-62 93-100 General appearance: no acute distress - Head Head exam: Present: normal inspection - Neck Neck exam: Present: normal inspection - GI/Abdominal GI/Abdominal exam: Present: normal bowel sounds, soft - Extremities Exam Extremities exam: Present: normal inspection - Neurological Exam Neurological exam: Present: alert, oriented X3 - Psychiatric Psychiatric exam: Present: normal affect - Skin Skin exam: Present: normal color, warm, intact Discharge Results Procedures and tests throughout hospitalization: Pending Orders 04/22/17 11:15 Sodium Q6H 04/22/17 11:17 Sodium Q6H 04/22/17 17:15 Sodium Q6H 04/22/17 17:17 Sodium Q6H 04/22/17 23:17 Sodium Q6H 04/23/17 05:17 Sodium Q6H 04/23/17 11:17 Sodium Q6H Labs on day of discharge: Labs from last 24 hours 04/22/17 04/22/17 04/21/17 07:30 04:58 23:36 Sodium 131 L 129 L Potassium 4.0 Chloride 92 L Carbon Dioxide 31 Anion Gap 12.0 BUN 26 H Creatinine 1.20 H GFR Calculation 57 BUN/Creatinine Ratio 21.00 H Glucose 79 POC Glucose 90 Calculated Osmolality 265.7 L Calcium 8.9 Magnesium 2.5 H 04/21/17 04/21/17 04/21/17 16:50 16:08 11:30 Sodium 130 L Potassium Chloride Carbon Dioxide Anion Gap BUN Creatinine GFR Calculation BUN/Creatinine Ratio Glucose POC Glucose 193 H 224 H Calculated Osmolality Calcium Magnesium 04/21/17 10:55 Sodium 129 L Potassium Chloride Carbon Dioxide Anion Gap BUN Creatinine GFR Calculation BUN/Creatinine Ratio Glucose POC Glucose Calculated Osmolality Calcium Magnesium DS: Provider Date of admission: 04/13/17 16:13 Primary care physician: Freda Whitfield Attending physician on admission: Darlyn Russo NP Consults: 04/13/17 17:40 Consult to Physician [CONS] Routine Comment: Consulting Provider: Cardiology - [facility] Person Notified: Dr. Bustillo Date Notified: 04/13/17 Time Notified: 17:50 04/19/17 15:10 Consult to Physician [CONS] Routine Comment: hyponatremia, el. creatinine, CHF Consulting Provider: Consult to Specialist Group: Nephrology When should Consulting Provider be notified: Now Person Notified: joel Date Notified: 04/19/17 Time Notified: 16:14 Discharging clinician: Keenan Vázquez
--- NOTE | 2017-04-22 11:01 | Cardiology Progress Note ---
Assessment and Plan (1) Congestive heart failure Status: Acute Assessment and plan: 61-year-old black female, ischemic cardiomyopathy, status post recent CABG. Admitted with volume overload, hyponatremia, CHF exacerbation. Improving with IV diuretics, although hyponatremia worsened again The volume overload resolved, clinically she is better. Adequately perfused on exam. Hyponatremia improved with hypertonic saline. -She is stable from cardiac perspective. Continue aspirin, beta-yadira, FLY inhibitor, p.o. Lasix. -Follow-up with Dr. Luna in 2 weeks Current Visit: Yes Qualifiers: Congestive heart failure type: combined Congestive heart failure chronicity : acute Qualified Code(s): I50.41 - Acute combined systolic (congestive) and diastolic (congestive) heart failure (2) Insulin dependent diabetes mellitus Status: Chronic Current Visit: No (3) History of breast cancer Status: Chronic Current Visit: No (4) Hypertension Status: Chronic Current Visit: No Qualifiers: Hypertension type: essential hypertension Qualified Code(s): I10 - Essential (primary) hypertension (5) Cardiomyopathy Status: Chronic Current Visit: No Qualifiers: Cardiomyopathy type: ischemic Qualified Code(s): I25.5 - Ischemic cardiomyopathy (6) Hyperlipidemia Status: Chronic Current Visit: No (7) Ischemic cardiomyopathy Status: Chronic Current Visit: No (8) S/P CABG x 2 Status: Chronic Current Visit: No Cardiology - PN: Subj Interval history: She is feeling fine. Sodium improved 131. No more shortness of breath with light activity Exam (Progress Note) - Constitutional Vitals: Period Temp Pulse Resp BP Sys/Gaitan Pulse Ox Last 24 Hr 96.9 F-99.5 F 83-106 12-20 116-137/56-62 93-100 General appearance: normal weight, no acute distress - Head Head exam: Present: normal inspection. Absent: normocephalic - Eye Eye exam: Absent: conjunctival injection, scleral icterus Pupils: Absent: dilated - ENT ENT exam: Present: normal external ear exam - Neck Neck exam: Present: normal inspection - Respiratory Respiratory exam: Present: clear to auscultation bilaterally. Absent: chest wall tenderness, wheezes - Cardiovascular Cardiovascular exam: Present: regular rate and rhythm. Absent: systolic murmur - GI/Abdominal GI/Abdominal exam: Present: normal bowel sounds. Absent: distended - Extremities Exam Extremities exam: Present: normal inspection, normal capillary refill. Absent: edema - Back Exam Back exam: Present: normal inspection - Neurological Exam Neurological exam: Present: alert, oriented X3 - Psychiatric Psychiatric exam: Present: normal affect, normal mood - Skin Skin exam: Present: normal color, warm. Absent: cyanosis Result/EKG - Labs CBC & BMP: 04/20/17 04:01 04/22/17 04:58 Lab Results: I have reviewed the past 24 hour labs Labs: Laboratory Results - last 24 hr 04/21/17 04/21/17 04/21/17 10:55 11:30 16:08 Sodium 129 L Potassium Chloride Carbon Dioxide Anion Gap BUN Creatinine GFR Calculation BUN/Creatinine Ratio Glucose POC Glucose 224 H 193 H Calculated Osmolality Calcium Magnesium 04/21/17 04/21/17 04/22/17 16:50 23:36 04:58 Sodium 130 L 129 L 131 L Potassium 4.0 Chloride 92 L Carbon Dioxide 31 Anion Gap 12.0 BUN 26 H Creatinine 1.20 H GFR Calculation 57 BUN/Creatinine Ratio 21.00 H Glucose 79 POC Glucose Calculated Osmolality 265.7 L Calcium 8.9 Magnesium 2.5 H 04/22/17 07:30 Sodium Potassium Chloride Carbon Dioxide Anion Gap BUN Creatinine GFR Calculation BUN/Creatinine Ratio Glucose POC Glucose 90 Calculated Osmolality Calcium Magnesium - EKG EKG results: interpreted by me Specialty Discharge - Follow Up or Referrals
[2017-04-22] MEDS ORDERED: ENOXAPARIN 40 MG/0.4 ML SYRINGE SUBCUT SCH (18:00)
== END 2017-04-22 12:20 | disposition home or self-care (01) | DRG 292 ==
LOC: N.ED 13:39 → SUATTDRO 16:13 → N.EDINP 16:49 → N.TELES 17:47
PROVIDERS: ADMIT Nurse Practitioner